=== PATIENT | female | born 1965 | race Caucasian/White ===

== ENCOUNTER → 2018-01-08 09:24 | Outpatient (CLI) | payer BC, SELFPAY ==
--- NOTE | 2018-01-08 | XR_ITS ---
XR hip LT 2-3V w/pelvis HISTORY: Left hip pain ORDERING PHYSICIAN: Lizzie Mo PATIENT AGE: 52 years COMPARISON: None FINDINGS: No fracture or dislocation is evident. No significant degenerative change. No lytic or blastic change. Unremarkable soft tissues IMPRESSION: Negative left hip
--- NOTE | 2018-01-08 | XR_ITS ---
XR hip RT 2-3V w/pelvis HISTORY: Right ITS.REASON: BILATERAL HIP PAIN ORDERING PHYSICIAN: Lizzie Mo PATIENT AGE: 52 years COMPARISON: None FINDINGS: No fracture or dislocation is evident. No significant degenerative change. No lytic or blastic change. Unremarkable soft tissues IMPRESSION: Negative right hip
== END ==
PROVIDERS: PCP Physician Assistant; Visit Provider Physician Assistant
DX: M25.552 Pain in left hip (principal)
CPT/HCPCS: 73502

== ENCOUNTER 2018-01-08 16:50 | Observation (INO) | payer BC, SELFPAY ==
[2018-01-08 16:52] VITALS: BP 131/88; PULSE 63; RESP 17; TEMP 36.7; O2SAT 97; BMI 44.2
[2018-01-08 17:17] LABS: Basophils # 0.1 K/mm3 (0-0.2); Basophils % 0.7 % (0.1-2.0); Eosinophils # 0.2 K/mm3 (0.0-0.4); Hematocrit 46.3 % (37.0-47.0); Hemoglobin 14.8 g/dL (12.2-16.2); Lymphocytes # 2.6 K/mm3 (0.7-4.5); Lymphocytes % 26.7 K/mm3 (10-50); Mean Corpuscular HGB Conc 31.9 g/dL (31.8-35.4); Mean Corpuscular Hemoglobin 28.1 pg (27.0-31.2); Mean Corpuscular Volume 88.1 fl (81-99); Mean Platelet Volume 9.3 fl (7.4-10.4); Monocytes # 0.6 K/mm3 (0.1-1.0); Monocytes % 6.5 % (1.7-9.3); Neutrophils # 6.2 K/mm3 (1.8-7.8); Neutrophils % 64.2 % (37.0-80.0); Platelet Count 182 K/mm3 (142-424); Red Blood Count 5.25 M/mm3 (4.20-5.40); Red Cell Distribution Width 12.5 % (11.5-17.5); White Blood Count 9.6 K/mm3 (4.8-10.8)
[2018-01-08 17:26] LABS: Alanine Aminotransferase 21 U/L (12-78); Albumin Level 3.6 gm/dL (3.4-5.0); Albumin/Globulin Ratio 0.9 (1.1-1.8); Alkaline Phosphatase 152 U/L (46-116); Anion Gap 12.6 mEq/L (5-15); Aspartate Amino Transferase 12 U/L (15-37); Bilirubin,Total 0.4 mg/dL (0.2-1.0); Blood Urea Nitrogen 10 mg/dL (7-18); Calcium 8.9 mg/dL (8.5-10.1); Carbon Dioxide 29 mmol/L (21.0-32.0); Chloride 106 mmol/L (98-107); Creatinine Clearance Estimated 68 mL/min (0-300); Creatinine,Serum 0.84 mg/dL (0.55-1.02); Estimated Glomerular Filt Rate 71 ml/min (>60); GFR (African American) 86 ML/MIN (>60); Glucose 132 mg/dL (74-106); Potassium 3.6 mmoL/L (3.5-5.1); Sodium 144 mmol/L (136-145); Total Protein,Serum 7.6 gm/dL (6.4-8.2)
[2018-01-08 17:31] LABS: Appearance,Urine CLEAR (Clear); Bilirubin,Urine Negative (Negative); Blood, Urine Negative (Negative); Color,Urine YELLOW (Yellow); Glucose,Urine (UA) Negative (Negative); Ketones,Urine Negative (Negative); Leukocyte Esterase,Urine Negative (Negative); Microscopic, Urine URINE MICROSCOPIC (MICROSCOPIC); Nitrate,Urine Negative (Negative); PH,Urine 6.5 (5.0-8.5); Protein,Urine Negative (Negative); Urobilinogen,Urine 0.2 EU/dl (0.2)
[2018-01-08 17:37] LABS: D-Dimer 593 (0-400)
[2018-01-08 18:03] LABS: Bacteria,Urine 1+ /lpf
[2018-01-08 18:29] VITALS: BP 168/78; PULSE 74; RESP 16; O2SAT 96
--- NOTE | 2018-01-08 20:43 | HMH.EDEXTP ---
ED Disposition Clinical Impression: Thromboembolism Superficial thrombophlebitis Qualifiers: Superficial thrombophlebitis-Involved body area: lower extremity Laterality: right Qualified Code(s): I80.01 - Phlebitis and thrombophlebitis of superficial vessels of right lower extremity Disposition: Admitted As Inpatient Condition on Discharge: Good Time of Disposition: 20:44 - Critical Care Critical Care Time: No Attestation: On 01/08/18, the high probability of a clinically significant, sudden or life threatening deterioration of the following system(s) required my full and direct attention, intervention and personal management. The time I documented below is in addition to time spent performing reported procedures but includes the following listed in this critical care notation. Medical Decision Making - Medical Records Medical records reviewed: Yes: I reviewed the patient's medical records. Vital Signs: 01/08/18 16:52 01/08/18 18:29 01/08/18 21:19 Temperature 98.0 F 98.0 F Temperature Source Oral Oral Pulse Rate 71 Pulse Rate [Right Radial] 63 74 Respiratory Rate 17 16 19 Blood Pressure 142/71 Blood Pressure [Right Arm] 131/88 168/78 Blood Pressure Mean [Right Arm] 102 108 Blood Pressure Source Automatic Cuff Blood Pressure Source [Right Arm] Automatic Cuff Blood Pressure Position Sitting Blood Pressure Position [Right Arm] Supine 02 Sat by Pulse Oximetry 97 96 Oxygen Delivery Method Room Air Room Air Room Air - Lab Data Lab results reviewed: Yes: I reviewed the patient's lab results. Lab Results 01/08/18 17:05: WBC 9.6, RBC 5.25, Hgb 14.8, Hct 46.3, MCV 88.1, MCH 28.1, MCHC 31.9, RDW 12.5, Plt Count 182, MPV 9.3, Neut % (Auto) 64.2, Lymph % (Auto) 26.7, Elk % (Auto) 6.5, Eos % (Auto) 2.0, Baso % (Auto) 0.7, Neut # (Auto) 6.2, Lymph # (Auto) 2.6, Elk # (Auto) 0.6, Eos # (Auto) 0.2, Baso # (Auto) 0.1 01/08/18 17:05: D-Dimer 593 H* 01/08/18 17:05: Sodium 144, Potassium 3.6, Chloride 106, Carbon Dioxide 29, Anion Gap 12.6, BUN 10, Creatinine 0.84, Estimated Creat Clear 68, Estimated GFR 71, Est GFR ( Amer) 86, Glucose 132 H, Calcium 8.9, Total Bilirubin 0.4, AST 12 L, ALT 21, Alkaline Phosphatase 152 H, Total Protein 7.6, Albumin 3.6, Globulin 4.0 H, Albumin/Globulin Ratio 0.9 L 01/08/18 17:20: Urine Color Yellow, Urine Appearance Clear, Urine pH 6.5, Ur Specific [place] 1.020, Urine Protein Negative, Urine Glucose (UA) Negative, Urine Ketones Negative, Urine Blood Negative, Urine Nitrate Negative, Urine Bilirubin Negative, Urine Urobilinogen 0.2, Ur Leukocyte Esterase Negative, Urine RBC None, Urine WBC 3-5, Ur Squamous Epith Cells 5-10, Urine Bacteria 1+ Result diagrams: 01/08/18 17:05 01/08/18 17:05 Orders (Tests/Meds): ED MEDICATIONS Discontinued Medications Generic Name Dose Route Start Last Admin Trade Name Freq PRN Reason Stop Dose Admin Hydrocodone Bitart/Acetaminophen 1 tab 01/09/18 03:02 01/09/18 17:34 [place] 5/325mg Tablet PO 02/08/18 03:01 1 tab Q6HP PRN Administration MODERATE PAIN Enoxaparin Sodium 120 mg 01/08/18 20:50 01/08/18 21:01 Lovenox 120mg/0.8ml Syringe SQ 01/08/18 20:51 120 mg ONCE ONE Administration Enoxaparin Sodium 120 mg 01/09/18 07:15 01/09/18 10:57 Lovenox 120mg/0.8ml Syringe SQ 02/08/18 07:14 Not Given Q12 ALICE Ceftriaxone Sodium 1 gm/ 50 mls @ 100 mls/hr 01/08/18 18:39 01/08/18 21:01 Sodium Chloride IV 01/08/18 19:08 100 mls/hr ONCE ONE Administration Sodium Chloride 1,000 mls @ 75 mls/hr 01/08/18 21:21 01/09/18 13:04 Sod Chlor 0.9% 1000ml Bag IV 02/07/18 21:20 75 mls/hr .[id number] ALICE Administration Ceftriaxone Sodium 1 gm/ 50 mls @ 100 mls/hr 01/08/18 21:21 01/08/18 23:37 Sodium Chloride IV 01/22/18 21:20 Not Given Q24H ALICE Ceftriaxone Sodium 1 gm/ 50 mls @ 100 mls/hr 01/09/18 13:00 01/09/18 13:04 Sodium Chloride IV 01/23/18 12:59 100 mls/hr Q24H ALICE
--- NOTE | 2018-01-08 20:50 | ED_ITS ---
ED Disposition Clinical Impression: Thromboembolism Superficial thrombophlebitis Qualifiers: Superficial thrombophlebitis-Involved body area: lower extremity Laterality: right Qualified Code(s): I80.01 - Phlebitis and thrombophlebitis of superficial vessels of right lower extremity Disposition: Admitted As Inpatient Condition on Discharge: Good Time of Disposition: 20:44 - Critical Care Critical Care Time: No Attestation: On 01/08/18, the high probability of a clinically significant, sudden or life threatening deterioration of the following system(s) required my full and direct attention, intervention and personal management. The time I documented below is in addition to time spent performing reported procedures but includes the following listed in this critical care notation. Medical Decision Making - Medical Records Medical records reviewed: Yes: I reviewed the patient's medical records. Vital Signs: 01/08/18 16:52 01/08/18 18:29 01/08/18 21:19 Temperature 98.0 F 98.0 F Temperature Source Oral Oral Pulse Rate 71 Pulse Rate [Right Radial] 63 74 Respiratory Rate 17 16 19 Blood Pressure 142/71 Blood Pressure [Right Arm] 131/88 168/78 Blood Pressure Mean [Right Arm] 102 108 Blood Pressure Source Automatic Cuff Blood Pressure Source [Right Arm] Automatic Cuff Blood Pressure Position Sitting Blood Pressure Position [Right Arm] Supine 02 Sat by Pulse Oximetry 97 96 Oxygen Delivery Method Room Air Room Air Room Air - Lab Data Lab results reviewed: Yes: I reviewed the patient's lab results. Lab Results 01/08/18 17:05: WBC 9.6, RBC 5.25, Hgb 14.8, Hct 46.3, MCV 88.1, MCH 28.1, MCHC 31.9, RDW 12.5, Plt Count 182, MPV 9.3, Neut % (Auto) 64.2, Lymph % (Auto) 26.7 , [place] % (Auto) 6.5, Eos % (Auto) 2.0, Baso % (Auto) 0.7, Neut # (Auto) 6.2, Lymph # (Auto) 2.6, [place] # (Auto) 0.6, Eos # (Auto) 0.2, Baso # (Auto) 0.1 01/08/18 17:05: D-Dimer 593 H* 01/08/18 17:05: Sodium 144, Potassium 3.6, Chloride 106, Carbon Dioxide 29, Anion Gap 12.6, BUN 10, Creatinine 0.84, Estimated Creat Clear 68, Estimated GFR 71, Est GFR ( Amer) 86, Glucose 132 H, Calcium 8.9, Total Bilirubin 0.4, AST 12 L, ALT 21, Alkaline Phosphatase 152 H, Total Protein 7.6, Albumin 3.6, Globulin 4.0 H, Albumin/Globulin Ratio 0.9 L 01/08/18 17:20: Urine Color Yellow, Urine Appearance Clear, Urine pH 6.5, Ur Specific [place] 1.020, Urine Protein Negative, Urine Glucose (UA) Negative, Urine Ketones Negative, Urine Blood Negative, Urine Nitrate Negative, Urine Bilirubin Negative, Urine Urobilinogen 0.2, Ur Leukocyte Esterase Negative, Urine RBC None, Urine WBC 3-5, Ur Squamous Epith Cells 5-10, Urine Bacteria 1+ Result diagrams: 01/08/18 17:05 01/08/18 17:05 Orders (Tests/Meds): ED MEDICATIONS Discontinued Medications Generic Name Dose Route Start Last Admin Trade Name Stevenq PRN Reason Stop Dose Admin Hydrocodone Bitart/Acetaminophen 1 tab 01/09/18 03:02 01/09/18 17:34 [place] 5/325mg Tablet PO 02/08/18 03:01 1 tab Q6HP PRN Administration MODERATE PAIN Enoxaparin Sodium 120 mg 01/08/18 20:50 01/08/18 21:01 Lovenox 120mg/0.8ml Syringe SQ 01/08/18 20:51 120 mg ONCE ONE Administration Enoxaparin Sodium 120 mg 01/09/18 07:15 01/09/18 10:57 Lovenox 120mg/0.8ml Syringe SQ 02/08/18 07:14 Not Given Q12 ALICE
--- NOTE | 2018-01-08 21:18 | PC.NURSE ---
report called to swathi barksdale rn
[2018-01-08 21:19] VITALS: BP 142/71; PULSE 71; RESP 19; TEMP 36.7; O2SAT 94
--- NOTE | 2018-01-08 21:28 | PC.NURSE ---
PT FULL CODE, REPORT FROM MARIE.MAURICIO
[2018-01-08 21:45] VITALS: BP 132/66; PULSE 58; RESP 20; TEMP 36.3; O2SAT 97
[2018-01-08 23:08] VITALS: O2SAT 97
[2018-01-09 00:19] VITALS: BMI 41.8
[2018-01-09 04:40] VITALS: BP 125/52; PULSE 61; RESP 18; TEMP 36.2; O2SAT 90
--- NOTE | 2018-01-09 07:01 | NVE_ITS ---
Venous Exam Indications: 729.5 Pain in limb. IMPRESSIONS 1. There is no evidence of significant Reflux. 2. No evidence of deep or superficial vein thrombosis involving the right lower extremity Incidental findings of several enlarged lymph nodes vspossible superficaial venous thrombosisin and around groin mid front of upper thigh which were tender and painful to patient as exam was performed.These findings did not involve GSV,SFV or CFV. Right lower extremity venous duplex evaluation. Doppler flow study including spectral analysis, color and longoria scale imaging. Location: Bedside. Patient status: Inpatient. CRITICAL FINDINGS - Reported to: Fransico FUENTES also discussed with Dr. Slaughter - Read back and verified. - 01/09/18 - 970 Tables: Venous flow and imaging: + +-------+ + Location Overall Flow properties + +-------+ + Right common femoral Patent Normal phasicity; spontaneous; normal augmentation; compressible + +-------+ + Right saphenofemoral junction Patent Compressible + +-------+ + Right profunda femoral Patent Compressible + +-------+ + Right femoral Patent Normal phasicity; spontaneous; normal augmentation; compressible + +-------+ + Right greater saphenous Patent Normal phasicity; spontaneous; normal augmentation; compressible + +-------+ + Right popliteal Patent Normal phasicity; spontaneous; normal augmentation; compressible + +-------+ + Right posterior tibial Patent Compressible + +-------+ + Right peroneal Patent Compressible + +-------+ + Right gastrocnemius Patent Compressible + +-------+ + Right soleal Patent Compressible + +-------+ + (Report amended ) Electronically signed by: [place] [id number]
--- NOTE | 2018-01-09 07:16 | HMH.HP ---
*Admission Date: 01/08/18 *Chief complaint: Right thigh pain *History of present illness: A 2-year-old female presented to the emergency department yesterday evening after a 24 hour history of proximal right thigh pain that was worsening in intensity and had developed an area of redness. In the emergency department patient was felt to have a definite superficial thrombophlebitis with concern over a deeper vein thrombosis. Decision was made to admit her for Lovenox, Doppler and decision-making. Patient is a half pack per day smoker for 35 years. There is no family history of blood clots. She denies any recent travel. She does not take any medications that are prescribed. [facility] History I have reviewed the patient's past medical history: Yes Medical History: Denies:: Cancer, Diabetes Mellitus Type 1, Diabetes Mellitus Type 2, MRSA Other Medical History: Reports: Arthritis, Liver Disease Other Surgeries: Yes: Hysterectomy-Total Amputation: No Fractures: Yes (hand) - *Social History Educational Level: Completed Grade School Smoking Status: Current every day smoker Tobacco Type: cigarettes # Packs/Day (cigarettes): 1 Alcohol Intake: never Occupational Status: unemployed Housing: house Household Members: spouse, children - Psychiatric History Expresses thoughts of harming self/others: None Suicide Plan Description: No Plan *Family Hx:: Diabetes, Heart Attack, Hyperlipidemia, Hypertension, Kidney Disease, Stroke, Thyroid Disorder Review of Systems - Review of Systems Review of systems:: unable to obtain - *Cardiovascular Denies chest pain - *Respiratory Denies shortness of breath Meds Allergies Allergy/AdvReac Type Severity Reaction Status Date / Time DAIRY PRODUCTS AdvReac Intermediate Gastrointestinal Uncoded 01/09/18 00:24 Upset Exam Vital signs and Labs for Last 24 Hours: Temp Pulse Resp BP Pulse Ox 97.2 F L 61 18 125/52 90 L 01/09/18 04:40 01/09/18 04:40 01/09/18 04:40 01/09/18 04:40 01/09/18 04:40 I & O for Last 24 hours: Intake & Output 01/06/18 01/07/18 01/08/18 01/09/18 11:59 11:59 11:59 11:59 Intake Total 462 / 462 Balance 462 / 462 Weight 251 lb 5 oz Narrative: Patient is in no distress. Lungs are clear to auscultation. Heart has a regular rate and rhythm. Abdomen is obese soft, nontender. Right anterior thigh has an L-shaped area of redness surrounding a superficial varicose vein that is tender to touch and consistent with a cord. There is minimal swelling. Assessment and Plan (1) Superficial thrombophlebitis Current visit: Yes Status: Acute Qualifiers: Superficial thrombophlebitis-Involved body area: lower extremity Laterality: right Qualified Code(s): I80.01 - Phlebitis and thrombophlebitis of superficial vessels of right lower extremity Category: Medical Code(s): I80.9 - Phlebitis and thrombophlebitis of unspecified site (2) Thromboembolism Current visit: Yes Status: Acute Category: Medical Code(s): I74.9 - Embolism and thrombosis of unspecified artery - Assessment and plan all Dx Assessment and Plan for all problems:: Lovenox dosing at 1 mg/kg subcu every 12. Venous Doppler of right lower extremity today. Start naproxen 500 mg twice daily. Use warm compresses to the thigh. Further decision making once venous Dopplers performed
--- NOTE | 2018-01-09 07:34 | P.CONPHA_ITS ---
[facility] Pharmacy VTE Monitoring - Patient Demographics Admission date: 01/08/18 Report Date: 01/09/18 Time: 07:33 Allergies/Adverse Reactions: Patient Allergies DAIRY PRODUCTS Adverse Reaction (Intermediate, Uncoded 01/09/18 00:24) Gastrointestinal Upset Height: 1.65 m Weight: 113.993 kg Patient Problems: Current Active Problems Superficial thrombophlebitis (Acute) Thromboembolism (Acute) - VTE Risk Labs: VTE Related Lab Results Hgb 14.8 g/dL (12.2-16.2) 01/08/18 17:05 Hct 46.3 % (37.0-47.0) 01/08/18 17:05 Plt Count 182 K/mm3 (142-424) 01/08/18 17:05 BUN 10 mg/dL (7-18) 01/08/18 17:05 Creatinine 0.84 mg/dL (0.55-1.02) 01/08/18 17:05 Estimated Creat Clear 68 mL/min (0-300) 01/08/18 17:05 Was VTE Risk Assessment Performed: Yes VTE Score: 5 VTE Risk Level: Moderate Risk - Prophylaxis VTE Prophylaxis Ordered?: Yes Types of VTE Prophylaxis: Pharmacological Pharmacologic Type: Enoxaparin - VTE Diagnosis Confirmed Treatment or plan recommended: Continue Current Treatment
[2018-01-09 08:00] VITALS: BP 133/73; PULSE 63; RESP 16; TEMP 36.8; O2SAT 93; O2SAT 98
--- NOTE | 2018-01-09 16:31 | P.DS_ITS ---
General - General Admission date: 01/08/18 Discharge date: 01/09/18 HPI HPI: A 2-year-old female presented to the emergency department yesterday evening after a 24 hour history of proximal right thigh pain that was worsening in intensity and had developed an area of redness. In the emergency department patient was felt to have a definite superficial thrombophlebitis with concern over a deeper vein thrombosis. Decision was made to admit her for Lovenox, Doppler and decision-making. Patient is a half pack per day smoker for 35 years. There is no family history of blood clots. She denies any recent travel. She does not take any medications that are prescribed. Objective Vital signs: Temp Pulse Resp BP Pulse Ox 98.3 F 63 16 133/73 98 01/09/18 08:00 01/09/18 08:00 01/09/18 08:00 01/09/18 08:00 01/09/18 08:00 Narrative: His physical exam was significant for an L shaped area of erythema with central induration consistent with a palpable cord that measured 15 cm in length. Hospital Course Hospital Course: Patient was admitted for venous Doppler to rule out DVT in addition to what was thought to be in SVT. Venous Doppler rule out DVT but the area of L-shaped erythema on the anterior thigh was felt to be consistent with inflamed lymph nodes as opposed to a superficial vein thrombosis. Patient was admitted and treated with Toradol and once the area of erythema and induration was identified as lymphadenopathy she was given a single dose of Rocephin. In less than 24 hours the patient's erythema improved, although it was still present at discharge. Tender lymphadenopathy was present. On exam patient did not have any tender inguinal lymphadenopathy on the right. Patient will be discharged home with narcotics for pain control, antibiotics, omeprazole due to a history of significant GI symptoms. DS: Diagnosis - Discharge Diagnosis (1) Lymphadenitis Status: Acute (2) Superficial thrombophlebitis Status: Suspected (3) Thromboembolism Status: Ruled-out Meds Allergies Allergy/AdvReac Type Severity Reaction Status Date / Time DAIRY PRODUCTS AdvReac Intermediate Gastrointestinal Uncoded 01/09/18 00:24 Upset Discharge Plan - Patient Discharge Instructions ACTIVITY: Continue current activity DIET: continue same diet Patient Instructions: DI for Superficial Thrombophlebitis - Follow up Plan Follow up with: Lizzie Mo [Primary Care Provider] - Disposition: Home, Self-Care Prescriptions/Medication Reconciliation: New cephALEXin [Cephalexin 500mg Tab] 500 mg PO QID #28 tab Omeprazole [Omeprazole 20mg Capsule] 20 mg PO DAILY #30 cap Hydrocod/Acet 5/325 mg [[place] 5/325mg tablet] 1 tab PO Q4HP PRN #30 tab PRN Reason: Moderate To Severe Pain
== END 2018-01-09 18:55 | disposition home or self-care (01) ==
LOC: ER 20:50 → 2ND 22:25
PROVIDERS: Admitting Provider Family Medicine; Emergency Provider Emergency Medicine; PCP Physician Assistant; Visit Provider Family Medicine
DX: L04.3 Acute lymphadenitis of lower limb (principal); I80.01 Phlebitis and thrombophlebitis of superficial vessels of right lower extremity; F17.210 Nicotine dependence, cigarettes, uncomplicated; Z91.011 Allergy to milk products
CPT/HCPCS: 80053; 81001; 85025; 85378; 93971; 96365; 96375; 99282; G0378; J2405

== ENCOUNTER → 2018-01-17 13:16 | Outpatient (CLI) | payer BC, SELFPAY ==
--- NOTE | 2018-01-17 13:26 | XR_ITS ---
XR lumbar spine min 4V Ordering Physician: Lizzie Mo Patient Age: 52 years: Female HISTORY: ITS.REASON: LOWER BACK PAIN AND LEFT HIP PAIN TECHNIQUE: Five-view lumbar spine series COMPARISON : FINDINGS The lumbar vertebral bodies are intact. Degenerative disc changes and spondylosis at multiple levels. L5/S1 mild disc space narrowing posteriorly. Perhaps minor partial sacralization of L5 to left as it transverse process is noted to articulate with the superior margin left sacrum. Bilateral Facet arthropathy L4/5: most notable disc space narrowing posteriorly into the left at L4/5 disc level. Note posterior ridging & spondylosis at this level most evident the left. Just over 1 mm retrolisthesis possibly present as well. These features along with moderate facet hypertrophy on likely due to yield some narrowing the spinal canal and suspect there may be some mild encroachment upon foramen. L3/4. With borderline disc space narrowing posteriorly at L3/4 with mild posterior hypertrophic ridging. L2/3 disc intact with only borderline narrowing posteriorly L1/2 borderline/scant disc space narrowing posteriorly with mild reactive sclerotic endplate changes Mild Anterior marginal osteophytes throughout the L-spine Mild diffuse demineralization. No compression fractures. Pedicles transverse processes SI joints unremarkable. Partially imaged Limited view of hip unremarkable bilateral IMPRESSION....... 1. No compression fracture or acute findings. 2. Spondylosis and Degenerative changes lumbar spine as described above. Multilevel degenerative discs : .L4/5. Disc space narrowing most pronounced at this level to the left, suggestion mild posterior hypertrophic ridging and spondylosis suggested along with facet arthropathy . L5/S1 with bilateral facet arthropathy and mild/moderate disc space narrowing. .L3/4 mild disc space narrowing posterior L5/S1
== END ==
PROVIDERS: PCP Physician Assistant; Visit Provider Physician Assistant
DX: M54.5 Low back pain (principal); M25.552 Pain in left hip
CPT/HCPCS: 72110

== ENCOUNTER → 2018-01-21 12:04 | Outpatient (CLI) | payer BC, SELFPAY ==
--- NOTE | 2018-01-21 12:20 | CT_ITS ---
CT head/brain wo con HISTORY: ITS.REASON: HEADACHES BILATERALLY, DIZZINESS ORDERING PHYSICIAN: Lizzie Mo PATIENT AGE: 52 years COMPARISON: None TECHNIQUE: Axial images obtained without contrast. Brain and bone windows reviewed. FINDINGS: No midline shift, mass effect, intracranial hemorrhage, hydrocephalus, or extra-axial fluid collection is evident. The calvarium has an unremarkable appearance. No mastoid effusion. No sinus air-fluid levels.. Minor mucosal thickening noted in the ethmoid and maxillary sinuses. IMPRESSION: No acute intracranial findings.
== END ==
PROVIDERS: PCP Physician Assistant; Visit Provider Physician Assistant
DX: R51 Headache (principal); R42 Dizziness and giddiness
CPT/HCPCS: 70450

== ENCOUNTER → 2018-01-27 08:04 | Outpatient (CLI) | payer BC, SELFPAY ==
[2018-01-27 14:21] LABS: Alanine Aminotransferase 20 U/L (12-78); Albumin Level 3.6 gm/dL (3.4-5.0); Alkaline Phosphatase 147 U/L (46-116); Anion Gap 9.9 mEq/L (5-15); Aspartate Amino Transferase 8 U/L (15-37); Bilirubin,Direct 0.1 mg/dL (0.0-0.2); Bilirubin,Total 0.3 mg/dL (0.2-1.0); Blood Urea Nitrogen 23 mg/dL (7-18); Carbon Dioxide 32 mmol/L (21.0-32.0); Chloride 104 mmol/L (98-107); Chol/HDL Ratio 4.7 (1-3.5); Cholesterol 206 mg/dL (140-200); Creatinine,Serum 0.92 mg/dL (0.55-1.02); Estimated Glomerular Filt Rate 64 ml/min (>60); GFR (African American) 78 ML/MIN (>60); Glucose 89 mg/dL (74-106); HDL Cholesterol 44 mg/dL (29-89); LDL Cholesterol 120 mg/dL (0-130); Magnesium 1.7 mg/dL (1.4-2.2); Potassium 3.9 mmoL/L (3.5-5.1); Sodium 142 mmol/L (136-145); Total Protein,Serum 6.9 gm/dL (6.4-8.2); Triglycerides 211 mg/dL (30-200); VLDL Cholesterol 42 mg/dL (0-40)
== END ==
PROVIDERS: PCP Physician Assistant; Visit Provider Internal Medicine
DX: R07.9 Chest pain, unspecified (principal); I10 Essential (primary) hypertension; Z72.0 Tobacco use; R01.1 Cardiac murmur, unspecified; I80.9 Phlebitis and thrombophlebitis of unspecified site
CPT/HCPCS: 36415; 80048; 80061; 80076; 83735

== ENCOUNTER → 2018-01-30 10:51 | Outpatient (CLI) | payer BC, SELFPAY ==
--- NOTE | 2018-01-30 11:12 | MM_ITS ---
MM Dig screening mamm BI w/CAD CAD Screening ORDERING PHYSICIAN : Lizzie Mo PATIENT AGE: 52 years GENDER: Female COMPARISON: Previous mammograms March:These are Outside studies now available from [facility] . INDICATION: Routine screening mammogram 52-year-old. No hormones no new complaints. Previous biopsy left breast in the past Noncontributory family history TECHNIQUE: Standard CC and MLO images were obtained. R2 CAD reviewed. 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 20 mm X 18 mm, with with the large dense coarse calcifications compatible with the abdomen has. The nodule has not enlarged since 2013. Stability reassuring. Annual follow-up adequate for this most likely benign feature. LEFT BREAST::. Unremarkable. No new findings. Follow-up in one year bilateral IMPRESSION: 1. No s ignificant interval change a since outside studies... No new areas of concern Follow-up in one year recommended 2. Right breast:. 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 Size unchanged. Slight progression of the dense benign calcifications here. 3. Left breast. Unremarkable stable BI-RADS Category: 2 Benign Finding(s) RECOMMENDED FOLLOW-UP: 1YR - 1 YEAR FOLLOW-UP (A letter has been sent to the patient regarding results of the study.)
== END ==
PROVIDERS: PCP Physician Assistant; Visit Provider Physician Assistant
DX: Z12.31 Encounter for screening mammogram for malignant neoplasm of breast (principal)
CPT/HCPCS: 77067

== ENCOUNTER → 2018-02-03 07:53 | Outpatient (CLI) | payer BC, SELFPAY ==
--- NOTE | 2018-02-03 08:30 | US_ITS ---
US abdomen limited: HISTORY: Left upper quadrant pain ITS.REASON: CP, HTN,TOB USE,THROMBOPHLIBITIS ORDERING PHYSICIAN: Eddie Tyler MD PATIENT AGE: 52 years COMPARISON: None FINDINGS: PANCREAS: Unremarkable. No obvious mass or abnormal fluid collection. No ductal dilatation LIVER: No focal liver lesions demonstrated. Homogeneous echogenicity. No intrahepatic biliary ductal dilatation evident RIGHT KIDNEY: Unremarkable. Normal size and echogenicity. No hydronephrosis GALLBLADDER: There are numerous gallstones. No gallbladder wall thickening or pericholecystic fluid or biliary dilatation is evident. IMPRESSION: Cholelithiasis
== END ==
PROVIDERS: PCP Physician Assistant; Visit Provider Internal Medicine
DX: R07.9 Chest pain, unspecified (principal); I10 Essential (primary) hypertension; R01.1 Cardiac murmur, unspecified; I80.9 Phlebitis and thrombophlebitis of unspecified site
CPT/HCPCS: 76705

== ENCOUNTER → 2018-02-04 05:58 | Outpatient (CLI) | payer BC, SELFPAY ==
--- NOTE | 2018-02-04 | CA_ITS ---
PROCEDURE: 2-D M-mode and color Doppler study INDICATIONS FOR THE TEST: Chest pain + COPD+ Heart Murmur Tobacco Smoking+ Palpitations Fatigue Syncope Edema+ Hypertension+Diabetes Mellitus Rheumatic Fever SOB VITAL Obesity Hyperlipidemia Family History HD Additional History ABN EKG PATIENT INFORMATION HEIGHT: 64 WEIGHT:258 GENDER: Female B/P:152/86 2-D/M-MODE INTERPRETATION: 2-D MEASUREMENTS OBSERVED VALUES IN CMS Right Ventricular Dimension (RVDd) 2.6 Interventricular Septum (Thickness)(IVsd) 1.4 Left Ventricular Internal Dimensions(LVIDd) 5.7 Left Ventricular Posterior Wall (Thickness)(LVPWd) 0.4 Aortic Root 3.5 Aortic Cusp Separation 2.3 Left Atrial Dimensions (LAD) 4.5 2D 1. Left atrium is mildly enlarged, left ventricle is normal size, there is mild concentric left ventricular hypertrophy seen, visually estimated ejection fraction of 55% with no obvious regional wall motion abnormality. 2. The right atrium and right ventricle are normal size and contractility. 3. The aortic valve is minimally thickened and fibrosed. 4. The mitral and tricuspid valve are structurally normal. 5. The pulmonic valve is poorly visualized. 6. No significant pericardial effusion noted. DOPPLER INTERROGATION: Doppler interrogation of the aortic, mitral and tricuspid valvular presence of mild mitral and tricuspid regurgitation, tricuspid and jet velocity is insufficient for calculation of the right ventricular systolic pressure, Doppler evidence of impaired LV relaxation seen. CONCLUSION: 1. Mildly enlarged left atrium, normal left ventricular size, mild concentric left ventricular hypertrophy, visually estimated ejection fraction 55% with no obvious regional wall motion abnormality. Doppler evidence of impaired LV relaxation seen. 2. Mild mitral and tricuspid regurgitation 3. No significant pericardial effusion noted.
--- NOTE | 2018-02-04 06:03 | NM_ITS ---
CARDIOLITE SPECT MYOCARDIAL PERFUSION SCAN, REST AND STRESS: EXERCISE STRESS [facility] REVIEW QGS EF AND WALL MOTION EVALUATION: QPS - PERFUSION EVALUATION HISTORY: C.P., HTN, TOB USE, CARDIAC M DOSE: 10.84 mCi technetium 99m mibi intravenously at rest followed by 32.3 mCi technetium 99m mibi following the intravenous ministration of 0.4 mg of Lexiscan. Resting blood pressure is 116/56. Stress blood pressure 119/46. FINDINGS: Ejection fraction is calculated to be 56. Stress images reveal severe left ventricular dilatation with reduced uptake in the anterior wall and lateral wall. Rest images reveal left ventricular dilatation which has improved with uniform myocardial activity. Gated images calculated ejection fraction of 56% with normal wall motion IMPRESSION: High risk abnormal stress test with severe left ventricular dilatation and anterior and lateral ischemia. Normal ejection fraction
--- NOTE | 2018-02-04 07:50 | HMH.ITSHM ---
AMLODIPINE HYDROCHLOROTHIAZIDE LISINOPRIL CALCIUM B12
== END ==
PROVIDERS: PCP Physician Assistant; Visit Provider Internal Medicine
DX: R07.9 Chest pain, unspecified (principal); I10 Essential (primary) hypertension; Z72.0 Tobacco use; R01.1 Cardiac murmur, unspecified; I80.9 Phlebitis and thrombophlebitis of unspecified site
CPT/HCPCS: 78452; 93017; 93306; A9502; J2785

== ENCOUNTER 2018-02-16 07:30 | Day surgery (SDC) | payer BC, SELFPAY ==
[2018-02-16] VITALS (14 sets, daily range): BP systolic 109–156; BP diastolic 46–72; PULSE 58–86; RESP 16–18; TEMP 36.6; O2SAT 95–97; BMI 43.7
--- NOTE | 2018-02-16 | IR_ITS ---
CARDIAC CATHETERIZATION DATE OF CATHETERIZATION:02/16/2018 9:06 AM PROCEDURES: 1. Left heart catheterization 2. Left ventriculogram 3. Selective coronary angiogram INDICATION FOR TEST: 1. High risk abnormal Myoview 2. Class IV congestive heart failure/angina pectoris Informed consent was obtained prior to the procedure. COMPLICATIONS: None ESTIMATED BLOOD LOSS: Less than 10 ml. TECHNIQUE: One percent lidocaine used to anesthetize the right anterior aspect of the wrist. The right radial artery was accessed via the Seldinger technique. A 6 [place] Islander sheath was placed in the right radial artery. 2.5 mg of verapamil, 800 mcg of nitroglycerin and 5000 U Heparin were given through the arterial sheath. The trap catheter was also used to perform left heart catheterization and left ventriculography. At the end of the procedure the patient was transferred to the post-op holding area in stable condition for arterial sheath removal. ANGIOGRAPHIC RESULTS: 1. The left main artery normal 2. The left anterior descending artery normal 3. The circumflex artery nondominant large and normal 4. The right coronary artery dominant normal 5. The SUNSHINE ventriculogram reveals normal 65% 6. The left ventricular end-diastolic pressure elevated at 25 mmHg IMPRESSION: 1. Normal coronary arteries 2. Normal ejection fraction 3. Moderately elevated LVEDP consistent with diastolic dysfunction PLAN: 1. Medical management 2. Patient's symptoms are stemming from her diastolic congestive heart failure. We will switch her hydrochlorothiazide to furosemide and spironolactone in efforts to decrease diastolic heart failure elevated LVEDP
[2018-02-16 08:00] LABS: Basophils # 0.1 K/mm3 (0-0.2); Basophils % 0.5 % (0.1-2.0); Eosinophils # 0.2 K/mm3 (0.0-0.4); Eosinophils % 2.3 % (0.1-12.0); Hematocrit 44.9 % (37.0-47.0); Hemoglobin 14.2 g/dL (12.2-16.2); Lymphocytes # 2.8 K/mm3 (0.7-4.5); Lymphocytes % 27.1 K/mm3 (10-50); Mean Corpuscular HGB Conc 31.7 g/dL (31.8-35.4); Mean Corpuscular Hemoglobin 28.2 pg (27.0-31.2); Mean Platelet Volume 9.2 fl (7.4-10.4); Monocytes # 0.6 K/mm3 (0.1-1.0); Neutrophils # 6.6 K/mm3 (1.8-7.8); Neutrophils % 64.2 % (37.0-80.0); Platelet Count 206 K/mm3 (142-424); Red Blood Count 5.04 M/mm3 (4.20-5.40); Red Cell Distribution Width 12.1 % (11.5-17.5); White Blood Count 10.3 K/mm3 (4.8-10.8)
[2018-02-16 08:04] LABS: Blood Urea Nitrogen 22 mg/dL (7-18); Carbon Dioxide 31 mmol/L (21.0-32.0); Chloride 107 mmol/L (98-107); Creatinine Clearance Estimated 59 mL/min (0-300); Creatinine,Serum 0.96 mg/dL (0.55-1.02); Estimated Glomerular Filt Rate 61 ml/min (>60); GFR (African American) 74 ML/MIN (>60); Glucose 89 mg/dL (74-106); Sodium 143 mmol/L (136-145)
== END 2018-02-16 12:53 | disposition home or self-care (01) ==
LOC: CATHLAB 07:31
PROVIDERS: PCP Physician Assistant; Visit Provider Internal Medicine
DX: R93.1 Abnormal findings on diagnostic imaging of heart and coronary circulation (principal); I50.32 Chronic diastolic (congestive) heart failure; I11.0 Hypertensive heart disease with heart failure; Z72.0 Tobacco use; G89.29 Other chronic pain; Z82.49 Family history of ischemic heart disease and other diseases of the circulatory system; I80.01 Phlebitis and thrombophlebitis of superficial vessels of right lower extremity; Z79.899 Other long term (current) drug therapy; I25.119 Atherosclerotic heart disease of native coronary artery with unspecified angina pectoris
CPT/HCPCS: 80048; 85025; 93458; 99152; C1725; C1769; J1644; Q9967

== ENCOUNTER → 2018-03-13 08:56 | Outpatient (CLI) | payer BC, SELFPAY ==
--- NOTE | 2018-03-13 08:58 | CT_ITS ---
CT abdomen pelvis w con COMPARISON: Ultrasound abdomen limited 02/03/2018 HISTORY: Nausea and vomiting, right upper quadrant pain TECHNIQUE: Multiaxial scans obtained from the hemidiaphragms to the pelvic floor and were performed with IV and oral contrast. Sagittal and coronal reformats were evaluated as well. FINDINGS: The lower lung troncoso are clear of active infiltrate, there is minimal post inflammatory scarring in the right lower lobe lateral basilar segment. There is a moderate-sized hiatal hernia. The liver spleen and stomach appear grossly normal. The pancreas is normal. There are multiple calcified gallstones within the gallbladder. There is no biliary ductal dilatation. The kidneys are normal size and show symmetrical function both appearing normal. The small bowel appears normal. I do not definitely identify the appendix but there are no pericecal inflammatory changes. The cecum is positioned low in the right side the pelvis a normal variation. There is moderate stool mixed with contrast in the cecum and ascending colon. There is mild diffuse diverticulosis of the lower descending and sigmoid colon with is no evidence of diverticulitis. There has been a previous hysterectomy. Urinary bladder is partially decompressed, there is no free fluid in the pelvis. IMPRESSION: 1. Obvious cholelithiasis 2. Mild diverticulosis lower descending and sigmoid colon without diverticulitis
== END ==
PROVIDERS: PCP Physician Assistant; Visit Provider Surgery
DX: K82.9 Disease of gallbladder, unspecified (principal)
CPT/HCPCS: 74177; Q9967

== ENCOUNTER → 2018-03-26 11:14 | Outpatient (CLI) | payer BC, SELFPAY ==
[2018-03-26 11:20] LABS: Adenovirus F 40/41, stool Not Detected (NotDetected); Astrovirus Not Detected (NotDetected); Campylobacter Not Detected (NotDetected); Clostridium Difficile A/B, PCR Not Detected (NotDetected); Cryptosporidium Not Detected (NotDetected); Cyclospora Cayetanesis Not Detected (NotDetected); Entamoeba histolytica Not Detected (NotDetected); Enteroaggregative E coli Not Detected (NotDetected); Enteropathogenic E coli Not Detected (NotDetected); Enterotoxigenic E coli Not Detected (NotDetected); Giardia lamblia Not Detected (NotDetected); Norovirus Not Detected (NotDetected); Plesimonas Shigalloides, PCR Not Detected (NotDetected); Rotavirus A Not Detected (NotDetected); Salmonella, PCR Not Detected (NotDetected); Sapovirus Not Detected (NotDetected); Shiga-like toxin E coli Not Detected (NotDetected); Shigella Enterovasive E coli Not Detected (NotDetected); Vibrio Cholerae Not Detected (NotDetected); Vibrio, PCR Not Detected (NotDetected); Yersinia Entercolitica, PCR Not Detected (NotDetected)
[2018-03-26 13:33] LABS: Alanine Aminotransferase 12 U/L (12-78); Albumin Level 3.5 gm/dL (3.4-5.0); Albumin/Globulin Ratio 1.1 (1.1-1.8); Alkaline Phosphatase 127 U/L (46-116); Anion Gap 14.4 mEq/L (5-15); Aspartate Amino Transferase 8 U/L (15-37); Bilirubin,Total 0.2 mg/dL (0.2-1.0); Blood Urea Nitrogen 37 mg/dL (7-18); Calcium 9.3 mg/dL (8.5-10.1); Carbon Dioxide 27 mmol/L (21.0-32.0); Chloride 107 mmol/L (98-107); Creatinine,Serum 2.01 mg/dL (0.55-1.02); Estimated Glomerular Filt Rate 26 ml/min (>60); GFR (African American) 31 ML/MIN (>60); Globulin 3.2 gm/dl (1.3-3.2); Glucose 116 mg/dL (74-106); Potassium 4.4 mmoL/L (3.5-5.1); Sodium 144 mmol/L (136-145); Total Protein,Serum 6.7 gm/dL (6.4-8.2)
[2018-03-26 13:41] LABS: Basophils # 0.1 K/mm3 (0-0.2); Basophils % 0.8 % (0.1-2.0); Eosinophils # 0.1 K/mm3 (0.0-0.4); Eosinophils % 1.2 % (0.1-12.0); Hematocrit 39.5 % (37.0-47.0); Hemoglobin 12.5 g/dL (12.2-16.2); Lymphocytes # 2.2 K/mm3 (0.7-4.5); Lymphocytes % 32.6 K/mm3 (10-50); Mean Corpuscular HGB Conc 31.7 g/dL (31.8-35.4); Mean Corpuscular Hemoglobin 28.4 pg (27.0-31.2); Mean Corpuscular Volume 89.4 fl (81-99); Mean Platelet Volume 9.7 fl (7.4-10.4); Monocytes # 0.6 K/mm3 (0.1-1.0); Monocytes % 9.2 % (1.7-9.3); Neutrophils # 3.7 K/mm3 (1.8-7.8); Neutrophils % 56.2 % (37.0-80.0); Platelet Count 211 K/mm3 (142-424); Red Blood Count 4.41 M/mm3 (4.20-5.40); Red Cell Distribution Width 12.5 % (11.5-17.5); White Blood Count 6.6 K/mm3 (4.8-10.8)
== END ==
PROVIDERS: PCP Physician Assistant; Visit Provider Physician Assistant
DX: R19.7 Diarrhea, unspecified (principal); R10.9 Unspecified abdominal pain
CPT/HCPCS: 36415; 80053; 85025; 87507

== ENCOUNTER → 2018-03-27 09:38 | Outpatient (CLI) | payer BC, SELFPAY ==
[2018-03-27 14:17] LABS: Anion Gap 13.6 mEq/L (5-15); Blood Urea Nitrogen 28 mg/dL (7-18); Carbon Dioxide 26 mmol/L (21.0-32.0); Chloride 107 mmol/L (98-107); Creatinine,Serum 1.55 mg/dL (0.55-1.02); Estimated Glomerular Filt Rate 35 ml/min (>60); GFR (African American) 42 ML/MIN (>60); Glucose 93 mg/dL (74-106); Potassium 4.6 mmoL/L (3.5-5.1); Sodium 142 mmol/L (136-145)
== END ==
PROVIDERS: Visit Provider Physician Assistant
DX: N17.9 Acute kidney failure, unspecified (principal)
CPT/HCPCS: 36415; 80048

== ENCOUNTER → 2018-03-30 08:34 | Outpatient (CLI) | payer BC, SELFPAY ==
[2018-03-30 16:12] LABS: Anion Gap 12.4 mEq/L (5-15); Carbon Dioxide 28 mmol/L (21.0-32.0); Chloride 107 mmol/L (98-107); Creatinine,Serum 1.66 mg/dL (0.55-1.02); Estimated Glomerular Filt Rate 32 ml/min (>60); GFR (African American) 39 ML/MIN (>60); Glucose 91 mg/dL (74-106); Potassium 4.4 mmoL/L (3.5-5.1); Sodium 143 mmol/L (136-145)
[2018-03-30 16:44] LABS: Blood Urea Nitrogen 22 mg/dL (7-18)
== END ==
PROVIDERS: Visit Provider Physician Assistant
DX: N17.9 Acute kidney failure, unspecified (principal)
CPT/HCPCS: 36415; 80048

== ENCOUNTER → 2018-04-07 13:17 | Outpatient (CLI) | payer BC, SELFPAY ==
[2018-04-07 14:23] LABS: Anion Gap 15.4 mEq/L (5-15); Blood Urea Nitrogen 35 mg/dL (7-18); Carbon Dioxide 25 mmol/L (21.0-32.0); Chloride 107 mmol/L (98-107); Creatinine,Serum 3.12 mg/dL (0.55-1.02); Estimated Glomerular Filt Rate 16 ml/min (>60); GFR (African American) 19 ML/MIN (>60); Glucose 101 mg/dL (74-106); Potassium 4.4 mmoL/L (3.5-5.1); Sodium 143 mmol/L (136-145)
== END ==
PROVIDERS: Visit Provider Internal Medicine
DX: I10 Essential (primary) hypertension (principal)
CPT/HCPCS: 36415; 80048

== ENCOUNTER → 2018-04-08 12:39 | Outpatient (CLI) | payer BC, SELFPAY ==
[2018-04-08 12:58] LABS: Anion Gap 17.7 mEq/L (5-15); Blood Urea Nitrogen 38 mg/dL (7-18); Carbon Dioxide 23 mmol/L (21.0-32.0); Chloride 107 mmol/L (98-107); Estimated Glomerular Filt Rate 12 ml/min (>60); GFR (African American) 14 ML/MIN (>60); Glucose 110 mg/dL (74-106); Potassium 3.7 mmoL/L (3.5-5.1); Sodium 144 mmol/L (136-145)
[2018-04-08 13:00] LABS: Creatinine,Serum 4.04 mg/dL (0.55-1.02)
== END ==
PROVIDERS: Internal Medicine; Visit Provider Physician Assistant
DX: R94.39 Abnormal result of other cardiovascular function study (principal); I10 Essential (primary) hypertension; Z82.49 Family history of ischemic heart disease and other diseases of the circulatory system; G89.29 Other chronic pain; I51.9 Heart disease, unspecified; R53.83 Other fatigue; J30.2 Other seasonal allergic rhinitis; R06.02 Shortness of breath
CPT/HCPCS: 36415; 80048

== ENCOUNTER 2018-04-08 13:04 | Observation (INO) ==
--- NOTE | 2018-04-08 16:55 | History & Physical Report ---
*Admission Date: 04/08/18 *Chief complaint: weakness, diarrhea *History of present illness: 52-year-old white female with history of diastolic dysfunction presented to the office today for complaint of weakness and fatigue. Patient was sent for lab work (BMP) due to recent diuretic therapy institution. Lab work returned with a creatinine of 4 and a BUN of 40. Patient was then sent to the emergency department for IV fluids. After 1 bag of IV fluids a repeat BMP was obtained with creatinine improved to 3.7 and BUN 35. It was recommended that the patient be admitted for further evaluation and for further IVF. She relates a several day history of loose stools up to 10 per day without nausea or vomiting. No recent fever or chills. Denies any chest pain. Recent echocardiogram on 02/04/18 showed mild left atrial enlargement, normal LV size with EF of 55% and mild concentric LVH. She did have evidence of diastolic dysfunction. There is only mild MR and TR. Recent cardiac catheterization 02/16/18 showed normal coronary arteries but with evidence of moderately elevated left ventricular end-diastolic pressure of 25 mmHg. Diuretics including hydrochlorothiazide furosemide and spironolactone were started at that time. Patient was recently seen in the office on 04/07/2018 with complaint of dizziness and low blood pressure at which time her Aldactone was reduced to 25 mg daily and lisinopril to 10 mg daily. She did relate the need for gallbladder surgery with Dr. Mccarthy in the near future but was awaiting clearance of a colon infection for which she had been treated with Flagyl. [facility] History Medical History: Reports:: Congestive Heart Failure Denies:: Cancer, Diabetes Mellitus Type 1, Diabetes Mellitus Type 2, Internal Pacemaker, MRSA, Seizures Other Medical History: Reports: Arthritis, Liver Disease Other Surgeries: Yes: Hysterectomy-Total. No: Pacemaker Amputation: No Fractures: Yes (hand) - *Social History Smoking Status: Former smoker Tobacco Type: cigarettes # Packs/Day (cigarettes): 1 Alcohol Intake: never Alcohol Intake Frequency:: other Occupational Status: unemployed Housing: house Household Members: spouse, children *Family Hx:: Diabetes, Heart Attack, Hyperlipidemia, Hypertension, Kidney Disease, Stroke, Thyroid Disorder Review of Systems - *Cardiovascular Reports shortness of breath with activity, Denies chest pain - *Respiratory Reports shortness of breath with activity - *Gastrointestinal Reports abdominal pain, Reports loose stools - *Musculoskeletal Reports back pain Meds Home Medications Medication Instructions Recorded Confirmed Type Ca 600 mg-D3 800 unit-mag oxide 50 tab PO DAILY each 01/20/18 History nk-Px-sihwyl-manganese-boron tablet amlodipine 5 mg tablet 5 mg PO DAILY tab 02/24/18 03/31/18 History lisinopril 20 mg tablet 10 mg PO DAILY tab 04/08/18 History spironolactone 25 mg tablet 25 mg PO BID 04/08/18 History Allergies Allergy/AdvReac Type Severity Reaction Status Date / Time DAIRY PRODUCTS AdvReac Intermediate Gastrointestinal Uncoded 03/17/18 09:44 Upset Exam Vital signs and Labs for Last 24 Hours: Laboratory Results - last 24 hr 04/08/18 15:15: Sodium 144, Potassium 4.0, Chloride 108 H, Carbon Dioxide 24, Anion Gap 16.0 H, BUN 35 H, Creatinine 3.74 H, Estimated Creat Clear 15, Estimated GFR 13 L*, Est GFR ( Amer) 15 L*, Glucose 87 D I & O for Last 24 hours: Intake & Output 04/06/18 04/07/18 04/08/18 04/09/18 11:59 11:59 11:59 11:59 Weight 243 lb - *Routine Neck Exam Absent: JVD, carotid bruit - *Routine Respiratory Exam Present: CTA bilaterally - *Routine Cardiovascular Exam Present: RRR. Absent: murmur - *Routine Abdominal Exam Present: soft. Absent: guarding - *Routine Extremities Exam Present: edema. Absent: calf tenderness - *Routine Neurological Exam Present: alert, oriented X3, moving all extremities H&P: Result - Labs Labs: [facility] 04/08/18 15:15 Sodium 144 Potassium 4.0 Chloride 108 H Carbon Dioxide 24 BUN 35 H Creatinine 3.74 H Glucose 87 D Assessment and Plan (1) Acute renal insufficiency Current visit: Yes Status: Acute Category: Medical Code(s): N28.9 - Disorder of kidney and ureter, unspecified (2) Diarrhea Current visit: Yes Status: Acute Category: Medical Code(s): R19.7 - Diarrhea, unspecified (3) Diastolic dysfunction Current visit: Yes Status: Acute Category: Medical Code(s): I51.9 - Heart disease, unspecified (4) Dehydration Current visit: No Status: Acute Category: Medical Code(s): E86.0 - Dehydration (5) Fatigue Current visit: No Status: Chronic Qualifiers: Fatigue type: unspecified Qualified Code(s): R53.83 - Other fatigue Category: Medical Code(s): R53.83 - Other fatigue (6) HTN (hypertension) Current visit: No Status: Chronic Qualifiers: Hypertension type: essential hypertension Qualified Code(s): I10 - Essential (primary) hypertension Category: Medical Code(s): I10 - Essential (primary) hypertension - Assessment and plan all Dx Assessment and Plan for all problems:: 1. Patient will be admitted for IV fluids. Will start D5 LR at 150 mL/h. After discussion with Dr. Wise, who is consulted on the case, will obtain a urine sodium and creatinine, diarrhea panel, CBC, LFTs and TSH. 2. We will discontinue lisinopril, hydrochlorothiazide and Spironolactone. Will use Norvasc for blood pressure for now.
[2018-04-08 17:35] LABS: Basophils % 0.4 % (0.1-2.0); Eosinophils # 0.1 K/mm3 (0.0-0.4); Eosinophils % 1.6 % (0.1-12.0); Hematocrit 35.5 % (37.0-47.0); Hemoglobin 11.3 g/dL (12.2-16.2); Lymphocytes # 2.5 K/mm3 (0.7-4.5); Lymphocytes % 26.9 K/mm3 (10-50); Mean Corpuscular HGB Conc 31.7 g/dL (31.8-35.4); Mean Corpuscular Hemoglobin 27.8 pg (27.0-31.2); Mean Corpuscular Volume 87.8 fl (81-99); Mean Platelet Volume 8.7 fl (7.4-10.4); Monocytes # 0.5 K/mm3 (0.1-1.0); Monocytes % 5.9 % (1.7-9.3); Neutrophils # 5.9 K/mm3 (1.8-7.8); Neutrophils % 65.2 % (37.0-80.0); Platelet Count 251 K/mm3 (142-424); Red Blood Count 4.04 M/mm3 (4.20-5.40); Red Cell Distribution Width 12.8 % (11.5-17.5); White Blood Count 9.1 K/mm3 (4.8-10.8)
[2018-04-08 17:55] LABS: Albumin Level 3.2 gm/dL (3.4-5.0); Bilirubin,Direct 0.1 mg/dL (0.0-0.2); Bilirubin,Indirect 0.2 mg/dL (0.0-0.9); Bilirubin,Total 0.3 mg/dL (0.2-1.0); Thyroid Stimulating Hormone 3.61 uIU/ml (0.358-3.740); Total Protein,Serum 7.4 gm/dL (6.4-8.2)
--- NOTE | 2018-04-08 18:50 | Progress Note ---
Internal Medicine - PN: Subj *Date: 04/08/18 *Time: 18:51 Interval history: Called by Cardiology to see patient with new onset renal failure. Patient sitting in room eating supper currently. She has recently had problems with her gallbladder and is scheduled for an elective cholecystectomy in 2 days. She was recent found to have CHF/diastolic dysfunction and has been treated with diuretics. She also recently developed diarrhea and was seen by a nurse practitioner in [place], [place] and was treated with Cipro. Patient had routine labs drawn today and her Bun/Cr were 40/4. She was given some IVF and had minimal improvement in her labs so she was admitted for further evaluation and management. Exam Vital signs and Labs for Last 24 Hours: Temp Pulse Resp BP Pulse Ox 97.6 F 62 18 99/40 100 04/08/18 17:26 04/08/18 17:26 04/08/18 17:26 04/08/18 17:26 04/08/18 17:26 Laboratory Results - last 24 hr 04/08/18 15:15: Sodium 144, Potassium 4.0, Chloride 108 H, Carbon Dioxide 24, Anion Gap 16.0 H, BUN 35 H, Creatinine 3.74 H, Estimated Creat Clear 15, Estimated GFR 13 L*, Est GFR ( Amer) 15 L*, Glucose 87 D 04/08/18 17:23: WBC 9.1, RBC 4.04 L, Hgb 11.3 L, Hct 35.5 L, MCV 87.8, MCH 27.8 , MCHC 31.7 L, RDW 12.8, Plt Count 251, MPV 8.7, Neut % (Auto) 65.2, Lymph % ( Auto) 26.9, Yates % (Auto) 5.9, Eos % (Auto) 1.6, Baso % (Auto) 0.4, Neut # (Auto ) 5.9, Lymph # (Auto) 2.5, Yates # (Auto) 0.5, Eos # (Auto) 0.1, Baso # (Auto) 0.0 04/08/18 17:23: Total Bilirubin 0.3, Direct Bilirubin 0.1, Indirect Bilirubin 0.2, AST 9 L, ALT 13, Alkaline Phosphatase 111, Total Protein 7.4, Albumin 3.2 L , TSH 3.61 I & O for Last 24 hours: Intake & Output 04/06/18 04/07/18 04/08/18 04/09/18 11:59 11:59 11:59 11:59 Intake Total 240 / 240 Balance 240 / 240 Weight 247 lb 7 oz - Constitutional no acute distress - *Routine HEENT Exam ENT: Present: mucous membranes moist - *Routine Respiratory Exam Present: CTA bilaterally - *Routine Cardiovascular Exam Present: RRR - *Routine Neurological Exam Present: alert, oriented X3 (conversant) Assessment and Plan (1) Acute renal insufficiency Current visit: Yes Status: Acute Category: Medical Code(s): N28.9 - Disorder of kidney and ureter, unspecified (2) Diarrhea Current visit: Yes Status: Acute Category: Medical Code(s): R19.7 - Diarrhea, unspecified (3) Diastolic dysfunction Current visit: Yes Status: Acute Category: Medical Code(s): I51.9 - Heart disease, unspecified (4) Dehydration Current visit: No Status: Acute Category: Medical Code(s): E86.0 - Dehydration (5) Fatigue Current visit: No Status: Chronic Qualifiers: Fatigue type: unspecified Qualified Code(s): R53.83 - Other fatigue Category: Medical Code(s): R53.83 - Other fatigue (6) HTN (hypertension) Current visit: No Status: Chronic Qualifiers: Hypertension type: essential hypertension Qualified Code(s): I10 - Essential (primary) hypertension Category: Medical Code(s): I10 - Essential (primary) hypertension (7) Cholelithiasis Current visit: No Status: Chronic Qualifiers: Cholelithiasis location: gallbladder Cholecystitis presence: with cholecystitis Cholecystitis acuity: acute and chronic Biliary obstruction: without biliary obstruction Qualified Code(s): K80.12 - Calculus of gallbladder with acute and chronic cholecystitis without obstruction Category: Medical Code(s): K80.20 - Calculus of gallbladder without cholecystitis without obstruction (8) Diabetes Current visit: No Status: Chronic Qualifiers: Diabetes mellitus type: type 2 Diabetes mellitus penitentiary insulin use: without penitentiary use Diabetes mellitus complication status: without complication Qualified Code(s): E11.9 - Type 2 diabetes mellitus without complications Category: Medical Code(s): E11.9 - Type 2 diabetes mellitus without complications - Assessment and plan all Dx Assessment and Plan for all problems:: Patient admitted for further evaluation and management. Plan to cont. IVF, check diarrhea PCR panel and monitor labs.
--- NOTE | 2018-04-09 07:14 | Pharmacy Consult Notes ---
[facility] Pharmacy VTE Monitoring - Patient Demographics Admission date: 04/08/18 Report Date: 04/09/18 Time: 07:14 Allergies/Adverse Reactions: Patient Allergies DAIRY PRODUCTS Adverse Reaction (Intermediate, Uncoded 03/17/18 09:44) Gastrointestinal Upset Height: 1.63 m Weight: 112.236 kg Patient Problems: Current Active Problems Acute renal insufficiency (Acute) Diarrhea (Acute) Diastolic dysfunction (Acute) - VTE Risk Labs: VTE Related Lab Results Hgb 11.3 g/dL (12.2-16.2) L 04/08/18 17:23 Hct 35.5 % (37.0-47.0) L 04/08/18 17:23 Plt Count 251 K/mm3 (142-424) 04/08/18 17:23 BUN 35 mg/dL (7-18) H 04/08/18 15:15 Creatinine 3.74 mg/dL (0.55-1.02) H 04/08/18 15:15 Estimated Creat Clear 15 mL/min (0-300) 04/08/18 15:15 Was VTE Risk Assessment Performed: Yes VTE Score: 5 VTE Risk Level: Low Risk Clinical Trial Participant: No - Prophylaxis VTE Prophylaxis Ordered?: Yes Types of VTE Prophylaxis: TEDS Knee High
[2018-04-09 07:18] LABS: Anion Gap 13.3 mEq/L (5-15); Potassium 4.3 mmoL/L (3.5-5.1)
--- NOTE | 2018-04-09 08:14 | Progress Note ---
Subjective Date: 04/09/18 Time: 08:11 Principal diagnosis: Renal insufficiency, diarrhea Interval history: Still with diarrhea but improving overall. No chest pains. Stool (+) for EPEC. Renal functions improving. Exam Vital signs and Labs for Last 24 Hours: Temp Pulse Resp BP Pulse Ox 98.2 F 68 18 103/39 97 04/09/18 07:38 04/09/18 07:38 04/09/18 07:38 04/09/18 07:38 04/09/18 07:38 Laboratory Results - last 24 hr 04/08/18 15:15: Sodium 144, Potassium 4.0, Chloride 108 H, Carbon Dioxide 24, Anion Gap 16.0 H, BUN 35 H, Creatinine 3.74 H, Estimated Creat Clear 15, Estimated GFR 13 L*, Est GFR ( Amer) 15 L*, Glucose 87 D 04/08/18 17:23: WBC 9.1, RBC 4.04 L, Hgb 11.3 L, Hct 35.5 L, MCV 87.8, MCH 27.8 , MCHC 31.7 L, RDW 12.8, Plt Count 251, MPV 8.7, Neut % (Auto) 65.2, Lymph % ( Auto) 26.9, Floyd % (Auto) 5.9, Eos % (Auto) 1.6, Baso % (Auto) 0.4, Neut # (Auto ) 5.9, Lymph # (Auto) 2.5, Floyd # (Auto) 0.5, Eos # (Auto) 0.1, Baso # (Auto) 0.0 04/08/18 17:23: Total Bilirubin 0.3, Direct Bilirubin 0.1, Indirect Bilirubin 0.2, AST 9 L, ALT 13, Alkaline Phosphatase 111, Total Protein 7.4, Albumin 3.2 L , TSH 3.61 04/08/18 19:54: Stl Aeromonas (PCR) Not detected, Stl C. cayetanensis PCR Not detected, Stool Rotavirus (PCR) Not detected, Stl Adenov F 40/41 PCR Not detected, Stool Astrovirus (PCR) Not detected, Stool Campylobacter PCR Not detected, Stl C.difficile Tox PCR Not detected, Stool Cryptosporidium PCR Not detected, Stl E.coli Shiga Tox PCR Not detected, Stool E coli O157 PCR Not detected, Stl Enterotoxigenic E PCR Not detected, Stool EPEC (PCR) Detected A, Stool EAEC (PCR) Not detected, Stl E. histolytica PCR Not detected, Stool Giardia Lamblia PCR Not detected, Stool Salmonella PCR Not detected, Stool Sapovirus (PCR) Not detected, Stl P. shigelloides PCR Not detected, Stl Shigella /EIEC PCR Not detected, St Y.enterocolitica PCR Not detected, Stool Vibrio (PCR ) Not detected, Stl Vibrio cholerae PCR Not detected, Stl Norovirus GI/GII PCR Not detected 04/08/18 22:37: Urine Creatinine 196 04/09/18 06:32: Sodium 146 H, Potassium 4.3, Chloride 112 H, Carbon Dioxide 25, Anion Gap 13.3, BUN 33 H, Creatinine 2.77 H D, Estimated Creat Clear 21, Estimated GFR 18 L*, Est GFR ( Amer) 22 L D, Glucose 98 I & O for Last 24 hours: Intake & Output 04/06/18 04/07/18 04/08/18 04/09/18 11:59 11:59 11:59 11:59 Intake Total 1848 Balance 1848 Weight 247 lb 7 oz - *Routine Respiratory Exam Present: CTA bilaterally, diminished air movement - *Routine Cardiovascular Exam Present: RRR Progress Note: A&P (1) Acute renal insufficiency Status: Acute Current Visit: Yes (2) Diarrhea Status: Acute Current Visit: Yes (3) Diastolic dysfunction Status: Acute Current Visit: Yes (4) Dehydration Status: Acute Current Visit: No (5) Fatigue Status: Chronic Current Visit: No (6) HTN (hypertension) Status: Chronic Current Visit: No (7) Cholelithiasis Status: Chronic Current Visit: No (8) Diabetes Status: Chronic Current Visit: No Assessment and Plan for All Diagnoses:: Appreciate Dr. Wise seeing the patient and all recommendations for treatment. Cardiac status is stable. Continue IVF. Will notify Dr. Mccarthy of patient's hospitalization and recommendation to postpone cholecystectomy. Possibly home tomorrow if continues to improve.
--- NOTE | 2018-04-09 08:18 | Progress Note ---
<Ifeoma Leal - Last Filed: 04/09/18 08:15> Internal Medicine - PN: Subj *Date: 04/09/18 *Time: 08:15 Interval history: Patient states she had 2 episodes of diarrhea during the night. She is still having some abdominal pain. She was able to rest throughout the night. Exam Vital signs and Labs for Last 24 Hours: Temp Pulse Resp BP Pulse Ox 98.2 F 68 18 103/39 97 04/09/18 07:38 04/09/18 07:38 04/09/18 07:38 04/09/18 07:38 04/09/18 07:38 Laboratory Results - last 24 hr 04/08/18 15:15: Sodium 144, Potassium 4.0, Chloride 108 H, Carbon Dioxide 24, Anion Gap 16.0 H, BUN 35 H, Creatinine 3.74 H, Estimated Creat Clear 15, Estimated GFR 13 L*, Est GFR ( Amer) 15 L*, Glucose 87 D 04/08/18 17:23: WBC 9.1, RBC 4.04 L, Hgb 11.3 L, Hct 35.5 L, MCV 87.8, MCH 27.8 , MCHC 31.7 L, RDW 12.8, Plt Count 251, MPV 8.7, Neut % (Auto) 65.2, Lymph % ( Auto) 26.9, [place] % (Auto) 5.9, Eos % (Auto) 1.6, Baso % (Auto) 0.4, Neut # (Auto ) 5.9, Lymph # (Auto) 2.5, [place] # (Auto) 0.5, Eos # (Auto) 0.1, Baso # (Auto) 0.0 04/08/18 17:23: Total Bilirubin 0.3, Direct Bilirubin 0.1, Indirect Bilirubin 0.2, AST 9 L, ALT 13, Alkaline Phosphatase 111, Total Protein 7.4, Albumin 3.2 L , TSH 3.61 04/08/18 19:54: Stl Aeromonas (PCR) Not detected, Stl C. cayetanensis PCR Not detected, Stool Rotavirus (PCR) Not detected, Stl Adenov F 40/41 PCR Not detected, Stool Astrovirus (PCR) Not detected, Stool Campylobacter PCR Not detected, Stl C.difficile Tox PCR Not detected, Stool Cryptosporidium PCR Not detected, Stl E.coli Shiga Tox PCR Not detected, Stool E coli O157 PCR Not detected, Stl Enterotoxigenic E PCR Not detected, Stool EPEC (PCR) Detected A, Stool EAEC (PCR) Not detected, Stl E. histolytica PCR Not detected, Stool Giardia Lamblia PCR Not detected, Stool Salmonella PCR Not detected, Stool Sapovirus (PCR) Not detected, Stl P. shigelloides PCR Not detected, Stl Shigella /EIEC PCR Not detected, St Y.enterocolitica PCR Not detected, Stool Vibrio (PCR ) Not detected, Stl Vibrio cholerae PCR Not detected, Stl Norovirus GI/GII PCR Not detected 04/08/18 22:37: Urine Creatinine 196 04/09/18 06:32: Sodium 146 H, Potassium 4.3, Chloride 112 H, Carbon Dioxide 25, Anion Gap 13.3, BUN 33 H, Creatinine 2.77 H D, Estimated Creat Clear 21, Estimated GFR 18 L*, Est GFR ( Amer) 22 L D, Glucose 98 I & O for Last 24 hours: Intake & Output 04/06/18 04/07/18 04/08/18 04/09/18 11:59 11:59 11:59 11:59 Intake Total 1849 / 1849 Balance 1849 / 184 Weight 247 lb 7 oz - Constitutional no acute distress - *Routine Respiratory Exam Present: CTA bilaterally - *Routine Cardiovascular Exam Present: RRR - *Routine Abdominal Exam Present: soft, normoactive bowel sounds, tenderness (RUQ) - *Routine Extremities Exam Present: edema Assessment and Plan (1) Acute renal insufficiency Current visit: Yes Status: Acute Category: Medical Code(s): N28.9 - Disorder of kidney and ureter, unspecified (2) Diarrhea Current visit: Yes Status: Acute Category: Medical Code(s): R19.7 - Diarrhea, unspecified EPEC positive on stool sample (3) Diastolic dysfunction Current visit: Yes Status: Acute Category: Medical Code(s): I51.9 - Heart disease, unspecified (4) Dehydration Current visit: No Status: Acute Category: Medical Code(s): E86.0 - Dehydration (5) Fatigue Current visit: No Status: Chronic Category: Medical Code(s): R53.83 - Other fatigue (6) HTN (hypertension) Current visit: No Status: Chronic Category: Medical Code(s): I10 - Essential (primary) hypertension (7) Cholelithiasis Current visit: No Status: Chronic Category: Medical Code(s): K80.20 - Calculus of gallbladder without cholecystitis without obstruction (8) Diabetes Current visit: No Status: Chronic Category: Medical Code(s): E11.9 - Type 2 diabetes mellitus without complications - Assessment and plan all Dx Assessment and Plan for all problems:: Renal function has improved. Will continue IVF's and will discuss starting on abx for diarrhea with Dr. Wise. <Ishaan Wise - Last Filed: 04/09/18 08:50> Internal Medicine - PN: Subj *Date: 04/09/18 *Time: 08:49 Exam Vital signs and Labs for Last 24 Hours: Temp Pulse Resp BP Pulse Ox 98.2 F 68 18 103/39 97 04/09/18 07:38 04/09/18 07:38 04/09/18 07:38 04/09/18 07:38 04/09/18 07:38 Laboratory Results - last 24 hr 04/08/18 15:15: Sodium 144, Potassium 4.0, Chloride 108 H, Carbon Dioxide 24, Anion Gap 16.0 H, BUN 35 H, Creatinine 3.74 H, Estimated Creat Clear 15, Estimated GFR 13 L*, Est GFR ( Amer) 15 L*, Glucose 87 D 04/08/18 17:23: WBC 9.1, RBC 4.04 L, Hgb 11.3 L, Hct 35.5 L, MCV 87.8, MCH 27.8 , MCHC 31.7 L, RDW 12.8, Plt Count 251, MPV 8.7, Neut % (Auto) 65.2, Lymph % ( Auto) 26.9, [place] % (Auto) 5.9, Eos % (Auto) 1.6, Baso % (Auto) 0.4, Neut # (Auto ) 5.9, Lymph # (Auto) 2.5, [place] # (Auto) 0.5, Eos # (Auto) 0.1, Baso # (Auto) 0.0 04/08/18 17:23: Total Bilirubin 0.3, Direct Bilirubin 0.1, Indirect Bilirubin 0.2, AST 9 L, ALT 13, Alkaline Phosphatase 111, Total Protein 7.4, Albumin 3.2 L , TSH 3.61 04/08/18 19:54: Stl Aeromonas (PCR) Not detected, Stl C. cayetanensis PCR Not detected, Stool Rotavirus (PCR) Not detected, Stl Adenov F 40/41 PCR Not detected, Stool Astrovirus (PCR) Not detected, Stool Campylobacter PCR Not detected, Stl C.difficile Tox PCR Not detected, Stool Cryptosporidium PCR Not detected, Stl E.coli Shiga Tox PCR Not detected, Stool E coli O157 PCR Not detected, Stl Enterotoxigenic E PCR Not detected, Stool EPEC (PCR) Detected A, Stool EAEC (PCR) Not detected, Stl E. histolytica PCR Not detected, Stool Giardia Lamblia PCR Not detected, Stool Salmonella PCR Not detected, Stool Sapovirus (PCR) Not detected, Stl P. shigelloides PCR Not detected, Stl Shigella /EIEC PCR Not detected, St Y.enterocolitica PCR Not detected, Stool Vibrio (PCR ) Not detected, Stl Vibrio cholerae PCR Not detected, Stl Norovirus GI/GII PCR Not detected 04/08/18 22:37: Urine Creatinine 196 04/09/18 06:32: Sodium 146 H, Potassium 4.3, Chloride 112 H, Carbon Dioxide 25, Anion Gap 13.3, BUN 33 H, Creatinine 2.77 H D, Estimated Creat Clear 21, Estimated GFR 18 L*, Est GFR ( Amer) 22 L D, Glucose 98 I & O for Last 24 hours: Intake & Output 04/06/18 04/07/18 04/08/18 04/09/18 11:59 11:59 11:59 11:59 Intake Total 1848 Balance 1848 Weight 247 lb 7 oz Assessment and Plan (1) Acute renal insufficiency Current visit: Yes Status: Acute Category: Medical Code(s): N28.9 - Disorder of kidney and ureter, unspecified (2) Enteropathogenic Escherichia coli infection Current visit: Yes Status: Acute Category: Medical Code(s): A04.0 - Enteropathogenic Escherichia coli infection (3) Diarrhea Current visit: Yes Status: Acute Category: Medical Code(s): R19.7 - Diarrhea, unspecified (4) Diastolic dysfunction Current visit: Yes Status: Acute Category: Medical Code(s): I51.9 - Heart disease, unspecified (5) Dehydration Current visit: No Status: Acute Category: Medical Code(s): E86.0 - Dehydration (6) Fatigue Current visit: No Status: Chronic Qualifiers: Fatigue type: unspecified Qualified Code(s): R53.83 - Other fatigue Category: Medical Code(s): R53.83 - Other fatigue (7) HTN (hypertension) Current visit: No Status: Chronic Qualifiers: Hypertension type: essential hypertension Qualified Code(s): I10 - Essential (primary) hypertension Category: Medical Code(s): I10 - Essential (primary) hypertension (8) Cholelithiasis Current visit: No Status: Chronic Qualifiers: Cholelithiasis location: gallbladder Cholecystitis presence: with cholecystitis Cholecystitis acuity: acute and chronic Biliary obstruction: without biliary obstruction Qualified Code(s): K80.12 - Calculus of gallbladder with acute and chronic cholecystitis without obstruction Category: Medical Code(s): K80.20 - Calculus of gallbladder without cholecystitis without obstruction (9) Diabetes Current visit: No Status: Chronic Qualifiers: Diabetes mellitus type: type 2 Diabetes mellitus fdc insulin use: without medical terminologist use Diabetes mellitus complication status: without complication Qualified Code(s): E11.9 - Type 2 diabetes mellitus without complications Category: Medical Code(s): E11.9 - Type 2 diabetes mellitus without complications - Assessment and plan all Dx Assessment and Plan for all problems:: Saw patient, agree with above note, will add Zithromax for EPEC treatment. Continue IVF.
[2018-04-10 07:01] LABS: Basophils % 0.5 % (0.1-2.0); Eosinophils # 0.1 K/mm3 (0.0-0.4); Eosinophils % 1.5 % (0.1-12.0); Hematocrit 32.3 % (37.0-47.0); Hemoglobin 10.5 g/dL (12.2-16.2); Lymphocytes # 1.8 K/mm3 (0.7-4.5); Lymphocytes % 23.3 K/mm3 (10-50); Mean Corpuscular HGB Conc 32.3 g/dL (31.8-35.4); Mean Corpuscular Hemoglobin 28.4 pg (27.0-31.2); Mean Platelet Volume 8.4 fl (7.4-10.4); Monocytes # 0.5 K/mm3 (0.1-1.0); Monocytes % 6.5 % (1.7-9.3); Neutrophils # 5.3 K/mm3 (1.8-7.8); Neutrophils % 68.2 % (37.0-80.0); Platelet Count 229 K/mm3 (142-424); Red Blood Count 3.68 M/mm3 (4.20-5.40); Red Cell Distribution Width 12.8 % (11.5-17.5); White Blood Count 7.8 K/mm3 (4.8-10.8)
[2018-04-10 07:12] LABS: Anion Gap 11.3 mEq/L (5-15); Potassium 4.3 mmoL/L (3.5-5.1)
--- NOTE | 2018-04-10 08:18 | Progress Note ---
<Ifeoma Leal - Last Filed: 04/10/18 08:16> Internal Medicine - PN: Subj *Date: 04/10/18 *Time: 08:16 Interval history: Patient feels slightly better this morning. She is still having diffuse abdominal pain and diarrhea. She slept a little better last night. Exam Vital signs and Labs for Last 24 Hours: Temp Pulse Resp BP Pulse Ox 98.4 F 64 20 106/53 96 04/10/18 04:00 04/10/18 04:00 04/10/18 04:00 04/10/18 04:00 04/10/18 04:00 Laboratory Results - last 24 hr 04/10/18 06:39: WBC 7.8, RBC 3.68 L, Hgb 10.5 L, Hct 32.3 L, MCV 88.0, MCH 28.4 , MCHC 32.3, RDW 12.8, Plt Count 229, MPV 8.4, Neut % (Auto) 68.2, Lymph % (Auto ) 23.3, [place] % (Auto) 6.5, Eos % (Auto) 1.5, Baso % (Auto) 0.5, Neut # (Auto) 5.3, Lymph # (Auto) 1.8, [place] # (Auto) 0.5, Eos # (Auto) 0.1, Baso # (Auto) 0.0 04/10/18 06:39: Sodium 147 H, Potassium 4.3, Chloride 113 H, Carbon Dioxide 27, Anion Gap 11.3, BUN 19 H D, Creatinine 1.61 H D, Estimated Creat Clear 35, Estimated GFR 34 L, Est GFR ( Amer) 41 L D, Glucose 101 I & O for Last 24 hours: Intake & Output 04/07/18 04/08/18 04/09/18 04/10/18 11:59 11:59 11:59 11:59 Intake Total 1848 Balance 1848 Weight 247 lb 7 oz - Constitutional no acute distress - *Routine Respiratory Exam Present: CTA bilaterally - *Routine Cardiovascular Exam Present: RRR - *Routine Abdominal Exam Present: soft, normoactive bowel sounds, tenderness (diffuse) - *Routine Extremities Exam Present: edema Assessment and Plan (1) Acute renal insufficiency Current visit: Yes Status: Acute Category: Medical Code(s): N28.9 - Disorder of kidney and ureter, unspecified (2) Enteropathogenic Escherichia coli infection Current visit: Yes Status: Acute Category: Medical Code(s): A04.0 - Enteropathogenic Escherichia coli infection (3) Diarrhea Current visit: Yes Status: Acute Category: Medical Code(s): R19.7 - Diarrhea, unspecified (4) Diastolic dysfunction Current visit: Yes Status: Acute Category: Medical Code(s): I51.9 - Heart disease, unspecified (5) Dehydration Current visit: No Status: Acute Category: Medical Code(s): E86.0 - Dehydration (6) Fatigue Current visit: No Status: Chronic Qualifiers: Fatigue type: unspecified Qualified Code(s): R53.83 - Other fatigue Category: Medical Code(s): R53.83 - Other fatigue (7) HTN (hypertension) Current visit: No Status: Chronic Qualifiers: Hypertension type: essential hypertension Qualified Code(s): I10 - Essential (primary) hypertension Category: Medical Code(s): I10 - Essential (primary) hypertension (8) Cholelithiasis Current visit: No Status: Chronic Qualifiers: Cholelithiasis location: gallbladder Cholecystitis presence: with cholecystitis Cholecystitis acuity: acute and chronic Biliary obstruction: without biliary obstruction Qualified Code(s): K80.12 - Calculus of gallbladder with acute and chronic cholecystitis without obstruction Category: Medical Code(s): K80.20 - Calculus of gallbladder without cholecystitis without obstruction (9) Diabetes Current visit: No Status: Chronic Qualifiers: Diabetes mellitus type: type 2 Diabetes mellitus alf insulin use: without alf use Diabetes mellitus complication status: without complication Qualified Code(s): E11.9 - Type 2 diabetes mellitus without complications Category: Medical Code(s): E11.9 - Type 2 diabetes mellitus without complications - Assessment and plan all Dx Assessment and Plan for all problems:: Renal function is much better. Patient has been started on antibiotics for her diarrhea. Will discuss further care with Dr. Wise. <Ishaan Wise - Last Filed: 04/10/18 09:01> Internal Medicine - PN: Subj *Date: 04/10/18 *Time: 08:59 Exam Vital signs and Labs for Last 24 Hours: Temp Pulse Resp BP Pulse Ox 98.4 F 64 20 106/53 96 04/10/18 04:00 04/10/18 04:00 04/10/18 04:00 04/10/18 04:00 04/10/18 04:00 Laboratory Results - last 24 hr 04/10/18 06:39: WBC 7.8, RBC 3.68 L, Hgb 10.5 L, Hct 32.3 L, MCV 88.0, MCH 28.4 , MCHC 32.3, RDW 12.8, Plt Count 229, MPV 8.4, Neut % (Auto) 68.2, Lymph % (Auto ) 23.3, [place] % (Auto) 6.5, Eos % (Auto) 1.5, Baso % (Auto) 0.5, Neut # (Auto) 5.3, Lymph # (Auto) 1.8, [place] # (Auto) 0.5, Eos # (Auto) 0.1, Baso # (Auto) 0.0 04/10/18 06:39: Sodium 147 H, Potassium 4.3, Chloride 113 H, Carbon Dioxide 27, Anion Gap 11.3, BUN 19 H D, Creatinine 1.61 H D, Estimated Creat Clear 35, Estimated GFR 34 L, Est GFR ( Amer) 41 L D, Glucose 101 I & O for Last 24 hours: Intake & Output 04/07/18 04/08/18 04/09/18 04/10/18 11:59 11:59 11:59 11:59 Intake Total 1848 Balance 1848 Weight 247 lb 7 oz Assessment and Plan (1) Acute renal insufficiency Current visit: Yes Status: Acute Category: Medical Code(s): N28.9 - Disorder of kidney and ureter, unspecified (2) Enteropathogenic Escherichia coli infection Current visit: Yes Status: Acute Category: Medical Code(s): A04.0 - Enteropathogenic Escherichia coli infection (3) Diarrhea Current visit: Yes Status: Acute Category: Medical Code(s): R19.7 - Diarrhea, unspecified (4) Diastolic dysfunction Current visit: Yes Status: Acute Category: Medical Code(s): I51.9 - Heart disease, unspecified (5) Dehydration Current visit: No Status: Acute Category: Medical Code(s): E86.0 - Dehydration (6) Fatigue Current visit: No Status: Chronic Qualifiers: Qualified Code(s): R53.83 - Other fatigue Category: Medical Code(s): R53.83 - Other fatigue (7) HTN (hypertension) Current visit: No Status: Chronic Qualifiers: Qualified Code(s): I10 - Essential (primary) hypertension Category: Medical Code(s): I10 - Essential (primary) hypertension (8) Cholelithiasis Current visit: No Status: Chronic Qualifiers: Qualified Code(s): K80.12 - Calculus of gallbladder with acute and chronic cholecystitis without obstruction Category: Medical Code(s): K80.20 - Calculus of gallbladder without cholecystitis without obstruction (9) Diabetes Current visit: No Status: Chronic Qualifiers: Qualified Code(s): E11.9 - Type 2 diabetes mellitus without complications Category: Medical Code(s): E11.9 - Type 2 diabetes mellitus without complications - Assessment and plan all Dx Assessment and Plan for all problems:: Patient has improved since admission, plan discharge today with oral Zithromax, needs to f/u PCP next week for repeat labs.
--- NOTE | 2018-04-10 08:58 | Progress Note ---
Subjective Date: 04/10/18 Time: 08:54 Principal diagnosis: Renal insufficiency, diarrhea Interval history: Interval improvement in Cr down to 1.6 with less BM's. Still with some abdominal discomfort but improved. Diet is advancing without problems. Will plan to discharge home today. Exam Vital signs and Labs for Last 24 Hours: Temp Pulse Resp BP Pulse Ox 98.4 F 64 20 106/53 96 04/10/18 04:00 04/10/18 04:00 04/10/18 04:00 04/10/18 04:00 04/10/18 04:00 Laboratory Results - last 24 hr 04/10/18 06:39: WBC 7.8, RBC 3.68 L, Hgb 10.5 L, Hct 32.3 L, MCV 88.0, MCH 28.4 , MCHC 32.3, RDW 12.8, Plt Count 229, MPV 8.4, Neut % (Auto) 68.2, Lymph % (Auto ) 23.3, [place] % (Auto) 6.5, Eos % (Auto) 1.5, Baso % (Auto) 0.5, Neut # (Auto) 5.3, Lymph # (Auto) 1.8, [place] # (Auto) 0.5, Eos # (Auto) 0.1, Baso # (Auto) 0.0 04/10/18 06:39: Sodium 147 H, Potassium 4.3, Chloride 113 H, Carbon Dioxide 27, Anion Gap 11.3, BUN 19 H D, Creatinine 1.61 H D, Estimated Creat Clear 35, Estimated GFR 34 L, Est GFR ( Amer) 41 L D, Glucose 101 I & O for Last 24 hours: Intake & Output 04/07/18 04/08/18 04/09/18 04/10/18 11:59 11:59 11:59 11:59 Intake Total 1848 Balance 1848 Weight 247 lb 7 oz - *Routine Respiratory Exam Present: CTA bilaterally - *Routine Cardiovascular Exam Present: RRR Progress Note: A&P (1) Acute renal insufficiency Status: Acute Current Visit: Yes (2) Enteropathogenic Escherichia coli infection Status: Acute Current Visit: Yes (3) Diarrhea Status: Acute Current Visit: Yes (4) Diastolic dysfunction Status: Acute Current Visit: Yes (5) Dehydration Status: Acute Current Visit: No (6) Fatigue Status: Chronic Current Visit: No (7) HTN (hypertension) Status: Chronic Current Visit: No (8) Cholelithiasis Status: Chronic Current Visit: No (9) Diabetes Status: Chronic Current Visit: No Assessment and Plan for All Diagnoses:: Home today. She will finish zithromycin 500 mg daily for 7 days. Will hold all BP meds and diuretics until GI illness has resolved. She will follow up with PCP next week. Recommend BMP next week. She will follow up with us in 2 wks.
--- NOTE | 2018-04-10 09:01 | Discharge Summary ---
General - General Admission date:: 04/08/18 Discharge date: 04/10/18 HPI HPI: 52-year-old white female with history of diastolic dysfunction presented to the office today for complaint of weakness and fatigue. Patient was sent for lab work (BMP) due to recent diuretic therapy institution. Lab work returned with a creatinine of 4 and a BUN of 40. Patient was then sent to the emergency department for IV fluids. After 1 bag of IV fluids a repeat BMP was obtained with creatinine improved to 3.7 and BUN 35. It was recommended that the patient be admitted for further evaluation and for further IVF. She relates a several day history of loose stools up to 10 per day without nausea or vomiting. No recent fever or chills. Denies any chest pain. Recent echocardiogram on 02/04/18 showed mild left atrial enlargement, normal LV size with EF of 55% and mild concentric LVH. She did have evidence of diastolic dysfunction. There is only mild MR and TR. Recent cardiac catheterization 02/16/18 showed normal coronary arteries but with evidence of moderately elevated left ventricular end-diastolic pressure of 25 mmHg. Diuretics including hydrochlorothiazide furosemide and spironolactone were started at that time. Patient was recently seen in the office on 04/07/2018 with complaint of dizziness and low blood pressure at which time her Aldactone was reduced to 25 mg daily and lisinopril to 10 mg daily. She did relate the need for gallbladder surgery with Dr. Mccarthy in the near future but was awaiting clearance of a colon infection for which she had been treated with Flagyl. Hospital Course Hospital Course: 52-year-old white female admitted for acute renal insufficiency with creatinine of 4 due to diarrhea on top of diuretic therapy for diastolic dysfunction. Patient did receive D5 LR fluids during her stay with improvement in her creatinine down to 1.6 at time of discharge. Dr. Wise was consulted for assistance in evaluating and treating her acute renal insufficiency and diarrhea. Lab studies did reveal evidence of E. coli infection (EPEC) for which azithromycin was ordered. On the day of discharge patient was feeling better with only 1 bowel movement on the morning of discharge. Diet was advancing slowly but tolerated. She will follow-up with her primary care provider next week with a BMP to follow-up on the renal insufficiency. We would like to see her back in the office in 2 weeks to consider re-starting some of her medications for her diastolic dysfunction. Objective Vital signs: Temp Pulse Resp BP Pulse Ox 98.4 F 64 20 106/53 96 04/10/18 04:00 04/10/18 04:00 04/10/18 04:00 04/10/18 04:00 04/10/18 04:00 - *Routine Respiratory Exam Present: CTA bilaterally - *Routine Cardiovascular Exam Present: RRR - *Routine Abdominal Exam Present: tenderness - *Routine Extremities Exam Absent: edema - *Routine Neurological Exam Present: alert, oriented X3 Results Labs on day of discharge: Labs from last 24 hours 04/10/18 04/10/18 06:39 06:39 WBC 7.8 RBC 3.68 L Hgb 10.5 L Hct 32.3 L MCV 88.0 MCH 28.4 MCHC 32.3 RDW 12.8 Plt Count 229 MPV 8.4 Neut % (Auto) 68.2 Lymph % (Auto) 23.3 [place] % (Auto) 6.5 Eos % (Auto) 1.5 Baso % (Auto) 0.5 Neut # (Auto) 5.3 Lymph # (Auto) 1.8 [place] # (Auto) 0.5 Eos # (Auto) 0.1 Baso # (Auto) 0.0 Sodium 147 H Potassium 4.3 Chloride 113 H Carbon Dioxide 27 Anion Gap 11.3 BUN 19 H D Creatinine 1.61 H D Estimated Creat Clear 35 Estimated GFR 34 L Est GFR ( Amer) 41 L D Glucose 101 - Impressions Acute renal insufficiency Diarrhea with E. coli infection Diastolic dysfunction DS: Diagnosis - Discharge Diagnosis (1) Acute renal insufficiency Status: Acute (2) Enteropathogenic Escherichia coli infection Status: Acute (3) Diarrhea Status: Acute (4) Diastolic dysfunction Status: Acute (5) Dehydration Status: Acute (6) Fatigue Status: Chronic (7) HTN (hypertension) Status: Chronic (8) Cholelithiasis Status: Chronic (9) Diabetes Status: Chronic Discharge Plan - Patient Discharge Instructions ACTIVITY: Continue current activity DIET: advance to your usual diet - Follow up Plan Unknown provider or service follow up:: Follow up with PCP in one week with BMP. Follow up with Dr. Tyler or Dr. LUCAS as scheduled. Disposition: Home, Self-Intermediate Medications: Home Medications Medication Instructions Recorded Confirmed Type amlodipine 5 mg tablet 5 mg PO DAILY tab 02/24/18 04/08/18 History Furosemide [Furosemide 40MG tAB] 40 mg PO DAILY 04/08/18 04/08/18 History Loratadine [Allergy Relief] 10 mg PO DAILY 04/08/18 04/08/18 History lisinopril 20 mg tablet 20 mg PO DAILY tab 04/08/18 04/09/18 History spironolactone 25 mg tablet 25 mg PO DAILY 04/08/18 04/08/18 History Calcium Carbonate/Vitamin D3 1 each PO DAILY 04/09/18 04/09/18 History [Calcium 600+D Softgel] hydroCHLOROthiazide [HCTZ 12.5mg 12.5 mg PO DAILY 04/09/18 04/09/18 History capsule] Prescriptions/Medication Reconciliation: New Azithromycin [Zithromax 500mg Tab] 500 mg PO DAILY #7 tab Continue Loratadine [Allergy Relief] 10 mg PO DAILY Pantoprazole Sodium [Protonix 40mg tablet] 40 mg PO DAILY #30 tablet.dr Discontinued lisinopril 20 mg tablet 20 mg PO DAILY tab spironolactone 25 mg tablet 25 mg PO DAILY amlodipine 5 mg tablet 5 mg PO DAILY tab Furosemide [Furosemide 40MG tAB] 40 mg PO DAILY Calcium Carbonate/Vitamin D3 [Calcium 600+D Softgel] 1 each PO DAILY hydroCHLOROthiazide [HCTZ 12.5mg capsule] 12.5 mg PO DAILY
== END 2018-04-10 10:50 | disposition home or self-care (01) ==
LOC: UTC.OUT 14:27 → 2ND 14:27
PROVIDERS: ADMIT Internal Medicine; ATTEND Internal Medicine
CPT/HCPCS: 36415; 80048; 80076; 82570; 84300; 84443; 85025; 87507; G0378; J0456

== ENCOUNTER → 2018-04-22 08:08 | Outpatient (CLI) | payer BC, SELFPAY ==
[2018-04-22 14:29] LABS: Anion Gap 12.7 mEq/L (5-15); Blood Urea Nitrogen 10 mg/dL (7-18); Carbon Dioxide 27 mmol/L (21.0-32.0); Chloride 107 mmol/L (98-107); Creatinine,Serum 1.09 mg/dL (0.55-1.02); Estimated Glomerular Filt Rate 53 ml/min (>60); GFR (African American) 64 ML/MIN (>60); Glucose 91 mg/dL (74-106); Potassium 3.7 mmoL/L (3.5-5.1); Sodium 143 mmol/L (136-145)
== END ==
PROVIDERS: Visit Provider Physician Assistant
DX: R94.4 Abnormal results of kidney function studies (principal); E16.2 Hypoglycemia, unspecified; E87.0 Hyperosmolality and hypernatremia
CPT/HCPCS: 36415; 80048

== ENCOUNTER → 2018-05-06 11:03 | Outpatient (CLI) | payer BC, SELFPAY ==
[2018-05-06 12:07] LABS: Basophils # 0.1 K/mm3 (0-0.2); Basophils % 1.2 % (0.1-2.0); Eosinophils # 0.3 K/mm3 (0.0-0.4); Eosinophils % 3.6 % (0.1-12.0); Hematocrit 37.5 % (37.0-47.0); Hemoglobin 11.5 g/dL (12.2-16.2); Lymphocytes # 2.4 K/mm3 (0.7-4.5); Lymphocytes % 32.6 K/mm3 (10-50); Mean Corpuscular HGB Conc 30.6 g/dL (31.8-35.4); Mean Corpuscular Hemoglobin 27.9 pg (27.0-31.2); Mean Corpuscular Volume 91.1 fl (81-99); Mean Platelet Volume 9.1 fl (7.4-10.4); Monocytes # 0.5 K/mm3 (0.1-1.0); Monocytes % 6.2 % (1.7-9.3); Neutrophils # 4.1 K/mm3 (1.8-7.8); Neutrophils % 56.3 % (37.0-80.0); Platelet Count 176 K/mm3 (142-424); Red Blood Count 4.12 M/mm3 (4.20-5.40); Red Cell Distribution Width 14.2 % (11.5-17.5); White Blood Count 7.3 K/mm3 (4.8-10.8)
[2018-05-06 12:47] LABS: Alanine Aminotransferase 17 U/L (12-78); Albumin Level 3.4 gm/dL (3.4-5.0); Albumin/Globulin Ratio 1.2 (1.1-1.8); Alkaline Phosphatase 111 U/L (46-116); Anion Gap 11.1 mEq/L (5-15); Aspartate Amino Transferase 12 U/L (15-37); Bilirubin,Total 0.4 mg/dL (0.2-1.0); Blood Urea Nitrogen 8 mg/dL (7-18); Calcium 9.1 mg/dL (8.5-10.1); Carbon Dioxide 30 mmol/L (21.0-32.0); Chloride 109 mmol/L (98-107); Creatinine,Serum 0.91 mg/dL (0.55-1.02); Estimated Glomerular Filt Rate 65 ml/min (>60); GFR (African American) 79 ML/MIN (>60); Globulin 2.9 gm/dl (1.3-3.2); Glucose 103 mg/dL (74-106); Potassium 4.1 mmoL/L (3.5-5.1); Sodium 146 mmol/L (136-145); Total Protein,Serum 6.3 gm/dL (6.4-8.2)
== END ==
PROVIDERS: Visit Provider Surgery
DX: Z01.818 Encounter for other preprocedural examination (principal); K80.20 Calculus of gallbladder without cholecystitis without obstruction
CPT/HCPCS: 36415; 80053; 85025

== ENCOUNTER → 2018-05-19 10:48 | Outpatient (CLI) | payer BC, SELFPAY ==
[2018-05-19 11:07] LABS: Basophils # 0.1 K/mm3 (0-0.2); Basophils % 0.6 % (0.1-2.0); Eosinophils # 0.2 K/mm3 (0.0-0.4); Eosinophils % 2.4 % (0.1-12.0); Hemoglobin 12.3 g/dL (12.2-16.2); Lymphocytes # 2.1 K/mm3 (0.7-4.5); Lymphocytes % 27.8 K/mm3 (10-50); Mean Corpuscular HGB Conc 31.4 g/dL (31.8-35.4); Mean Corpuscular Hemoglobin 27.9 pg (27.0-31.2); Mean Corpuscular Volume 88.9 fl (81-99); Mean Platelet Volume 8.2 fl (7.4-10.4); Monocytes # 0.4 K/mm3 (0.1-1.0); Monocytes % 5.5 % (1.7-9.3); Neutrophils # 4.7 K/mm3 (1.8-7.8); Neutrophils % 63.6 % (37.0-80.0); Platelet Count 259 K/mm3 (142-424); Red Blood Count 4.39 M/mm3 (4.20-5.40); Red Cell Distribution Width 13.6 % (11.5-17.5); White Blood Count 7.5 K/mm3 (4.8-10.8)
[2018-05-19 11:51] LABS: Alanine Aminotransferase 17 U/L (12-78); Albumin Level 3.4 gm/dL (3.4-5.0); Albumin/Globulin Ratio 1.1 (1.1-1.8); Alkaline Phosphatase 109 U/L (46-116); Anion Gap 12.1 mEq/L (5-15); Aspartate Amino Transferase 13 U/L (15-37); Bilirubin,Total 0.4 mg/dL (0.2-1.0); Blood Urea Nitrogen 10 mg/dL (7-18); Carbon Dioxide 28 mmol/L (21.0-32.0); Chloride 108 mmol/L (98-107); Chol/HDL Ratio 4.4 (1-3.5); Cholesterol 189 mg/dL (140-200); Creatinine,Serum 0.85 mg/dL (0.55-1.02); Estimated Glomerular Filt Rate 70 ml/min (>60); GFR (African American) 85 ML/MIN (>60); Glucose 93 mg/dL (74-106); HDL Cholesterol 43 mg/dL (29-89); LDL Cholesterol 111 mg/dL (0-130); Magnesium 1.8 mg/dL (1.4-2.2); Phosphorous 3.5 mg/dL (2.4-4.9); Potassium 4.1 mmoL/L (3.5-5.1); Sodium 144 mmol/L (136-145); Thyroid Stimulating Hormone 2.15 uIU/ml (0.358-3.740); Total Protein,Serum 6.4 gm/dL (6.4-8.2); Triglycerides 175 mg/dL (30-200); VLDL Cholesterol 35 mg/dL (0-40)
[2018-05-19 12:01] LABS: Hemoglobin A1C 5.2 % (0.0-7.0)
[2018-05-21 06:21] LABS: Folate 10.4 ng/mL (>3.0); Vitamin B12 245 pg/mL (232-1245); Vitamin D 25 Hydroxy 31.5 ng/mL (30.0-100.0)
== END ==
PROVIDERS: Visit Provider Physician Assistant
DX: I10 Essential (primary) hypertension (principal); E78.5 Hyperlipidemia, unspecified; R60.9 Edema, unspecified; R25.2 Cramp and spasm
CPT/HCPCS: 36415; 80053; 80061; 82607; 82652; 82746; 83036; 83735; 84100; 84443; 85025

== ENCOUNTER → 2018-06-12 11:38 | Outpatient (CLI) | payer BC, SELFPAY ==
--- NOTE | 2018-06-12 11:43 | XR_ITS ---
XR chest 2V HISTORY: ITS.REASON: WHEEZING ORDERING PHYSICIAN: Asuncion Mckeon PATIENT AGE: 52 years COMPARISON: 04/21/2017 FINDINGS: There is cardiomegaly without failure. No lobar consolidation. There is some increased density in the right lung base laterally which may be due to an area of infiltrate or atelectasis. The remaining lungs are clear. No acute bony anomalies. IMPRESSION: Cardiomegaly with atelectasis or infiltrate in the right lung base laterally
== END ==
PROVIDERS: PCP Nurse Practitioner Family; Visit Provider Nurse Practitioner Family
DX: R06.2 Wheezing (principal)
CPT/HCPCS: 71046

== ENCOUNTER → 2018-07-08 13:39 | Outpatient (CLI) | payer BC, SELFPAY ==
[2018-07-08 14:09] LABS: Basophils # 0.1 K/mm3 (0-0.2); Basophils % 0.6 % (0.1-2.0); Eosinophils # 0.5 K/mm3 (0.0-0.4); Eosinophils % 6.2 % (0.1-12.0); Hematocrit 42.1 % (37.0-47.0); Hemoglobin 13.3 g/dL (12.2-16.2); Lymphocytes # 2.8 K/mm3 (0.7-4.5); Lymphocytes % 34.1 K/mm3 (10-50); Mean Corpuscular HGB Conc 31.5 g/dL (31.8-35.4); Mean Corpuscular Hemoglobin 28.2 pg (27.0-31.2); Mean Corpuscular Volume 89.5 fl (81-99); Mean Platelet Volume 8.3 fl (7.4-10.4); Monocytes # 0.4 K/mm3 (0.1-1.0); Monocytes % 4.9 % (1.7-9.3); Neutrophils # 4.5 K/mm3 (1.8-7.8); Neutrophils % 54.3 % (37.0-80.0); Platelet Count 272 K/mm3 (142-424); Red Cell Distribution Width 12.7 % (11.5-17.5); White Blood Count 8.3 K/mm3 (4.8-10.8)
[2018-07-08 15:41] LABS: Anion Gap 10.2 mEq/L (5-15); Blood Urea Nitrogen 12 mg/dL (7-18); Calcium 8.8 mg/dL (8.5-10.1); Carbon Dioxide 29 mmol/L (21.0-32.0); Chloride 109 mmol/L (98-107); Creatinine,Serum 1.03 mg/dL (0.55-1.02); Estimated Glomerular Filt Rate 56 ml/min (>60); GFR (African American) 68 ML/MIN (>60); Glucose 90 mg/dL (74-106); Potassium 5.2 mmoL/L (3.5-5.1); Sodium 143 mmol/L (136-145)
== END ==
PROVIDERS: Visit Provider Surgery
DX: K52.9 Noninfective gastroenteritis and colitis, unspecified (principal)
CPT/HCPCS: 36415; 80048; 85025

== ENCOUNTER → 2018-07-17 09:39 | Outpatient (CLI) | payer BC, SELFPAY ==
--- NOTE | 2018-07-17 09:43 | XR_ITS ---
XR chest 2V HISTORY: ITS.REASON: HTN, ABNORMAL CXR ORDERING PHYSICIAN: Lizzie Mo PATIENT AGE: 52 years COMPARISON: 06/12/2018 FINDINGS: There is mild cardiomegaly without failure. Previously noted opacity in the right lung base laterally has improved. The lungs are now clear. No acute bony anomalies. IMPRESSION: Cardiomegaly with Improved infiltrate or atelectasis in the right lung base laterally
== END ==
PROVIDERS: PCP Physician Assistant; Visit Provider Physician Assistant
DX: R93.8 Abnormal findings on diagnostic imaging of other specified body structures (principal); I10 Essential (primary) hypertension
CPT/HCPCS: 71046

== ENCOUNTER → 2019-03-19 09:10 | Outpatient (CLI) | payer BC, SELFPAY ==
--- NOTE | 2019-03-19 09:12 | MM_ITS ---
MM Dig screening mamm BI w/CAD CAD Screening COMPARISON: Digital mammograms with CAD 01/30/2018 INDICATION: There is no personal or family history of breast cancer. There is been previous biopsy left breast TECHNIQUE: Standard CC and MLO images were obtained. R2 CAD reviewed. FINDINGS: The breasts are composed primarily of fat with minimal scattered fibroglandular densities in each breast. 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 There are 2 tiny benign-appearing nodular densities superior and lateral to the fibroadenoma in each are stable. There is no suspicious lesion and there are no suspicious microcalcifications. IMPRESSION: Stable exam no suspicious lesion seen BI-RADS Category: 2 Benign Finding(s) RECOMMENDED FOLLOW-UP: 1YR - 1 YEAR FOLLOW-UP (A letter has been sent to the patient regarding results of the study.)
== END ==
PROVIDERS: PCP Physician Assistant; Visit Provider Physician Assistant
DX: Z12.31 Encounter for screening mammogram for malignant neoplasm of breast (principal)
CPT/HCPCS: 77067

== ENCOUNTER → 2019-04-20 14:52 | Outpatient (CLI) | payer BC, SELFPAY ==
[2019-04-20 15:14] LABS: Anion Gap 11.1 mEq/L (5-15); Blood Urea Nitrogen 17 mg/dL (7-18); Calcium 8.2 mg/dL (8.5-10.1); Carbon Dioxide 29 mmol/L (21.0-32.0); Chloride 107 mmol/L (98-107); Creatinine,Serum 1.08 mg/dL (0.55-1.02); Estimated Glomerular Filt Rate 53 ml/min (>60); GFR (African American) 64 ML/MIN (>60); Glucose 100 mg/dL (74-106); Potassium 4.1 mmoL/L (3.5-5.1); Sodium 143 mmol/L (136-145)
[2019-04-20 15:21] LABS: Troponin I < 0.02 ng/ml (0.00-0.06)
== END ==
PROVIDERS: Visit Provider Urology
DX: R07.9 Chest pain, unspecified (principal); R06.09 Other forms of dyspnea; E66.01 Morbid (severe) obesity due to excess calories; G89.29 Other chronic pain; I10 Essential (primary) hypertension; Z72.0 Tobacco use; Z82.49 Family history of ischemic heart disease and other diseases of the circulatory system
CPT/HCPCS: 36415; 80048; 83880; 84484

== ENCOUNTER → 2019-05-05 11:29 | Outpatient (CLI) | payer BC, SELFPAY ==
--- NOTE | 2019-05-05 11:31 | NM_ITS ---
CARDIOLITE SPECT MYOCARDIAL PERFUSION LEXISCAN, REST AND STRESS: History: Obesity hypertension, tobacco use, family history, chest pain, shortness of breath and fatigue Procedure: Patient received a 0.4 mg of intravenous Lexiscan, resting heart rate was 55 bpm resting blood pressure 163/66, with Lexiscan maximum heart rate achieved was 96 bpm which is less than 85% of the maximum predicted heart rate and a blood pressure was 139/42. With Lexiscan patient complained of shortness of breath and nausea. Electrocardiogram: Resting echocardiogram showed sinus bradycardia nonspecific ST-T changes, with Lexiscan there is less than 1.5 ST segment depression noted from the baseline EKG. The EKG portion of the Lexiscan Myoview is nondiagnostic. Cardiac stress and resting SPECT images: Cardiac stress and resting SPECT images were obtained using technetium 99 Myoview 31.4 mCi stress and 10.2 mCi at rest. Gated SPECT further analysis of segmental wall motion and calculation of the ejection fraction also done. Cardiac stress and resting SPECT images show uniform myocardial activity without segmental perfusion abnormality, computer derived ejection fraction is 63% with no regional wall motion abnormality. Right ventricle is normal size and contractility. Conclusion: 1. The EKG portion of the Lexiscan Myoview is nondiagnostic. 2. No scintigraphic evidence of reversible ischemia seen, computer derived ejection fraction is 63% with no regional wall motion abnormality, right ventricle is normal size and contractility. 3. Normal Lexiscan Myoview study.
--- NOTE | 2019-05-05 11:59 | CA_ITS ---
PROCEDURE: 2-D M-mode and color Doppler study INDICATIONS FOR THE TEST: Chest pain X COPD Heart Murmur Tobacco SmokingX Palpitations Fatigue Syncope Edema HypertensionXDiabetes Mellitus Rheumatic Fever SOBXDOEXObesityXHyperlipidemiaX Family History HD Additional History PATIENT INFORMATION HEIGHT: 64 WEIGHT:255 GENDER: Female B/P:121/63 2-D/M-MODE INTERPRETATION: 2-D MEASUREMENTS OBSERVED VALUES IN CMS Right Ventricular Dimension (RVDd) 2.6 Interventricular Septum (Thickness)(IVsd) 1.0 Left Ventricular Internal Dimensions(LVIDd) 5.6 Left Ventricular Posterior Wall (Thickness)(LVPWd) 1.2 Aortic Root 3.6 Aortic Cusp Separation 2.0 Left Atrial Dimensions (LAD) 3.8 2D 1. Left Atrium is mildly enlarged, left ventricle is normal size, mild concentric left ventricular hypertrophy, visually estimated ejection fraction 55% with no regional wall motion abnormality. 2. The right atrium and right ventricle are normal size and contractility. 3. The aortic valve is minimally thickened and fibrosed. 4. The mitral and tricuspid valvular grossly normal. 5. The pulmonic valve is poorly visualized. 6. No significant pericardial effusion noted. DOPPLER INTERROGATION: Doppler interrogation of the aortic, mitral and tricuspid valve reveals presence of mild mitral and tricuspid regurgitation, tricuspid regurgitation jet velocity is inadequate for calculation of the right ventricular systolic pressure, grade 1 diastolic dysfunction seen without tissue Doppler evidence of raised left atrial pressure. CONCLUSION: 1. Mildly enlarged left atrium, normal left ventricular size, mild concentric left ventricular hypertrophy, visually estimated ejection fraction 55% with no wall motion abnormality, grade 1 diastolic dysfunction seen without tissue Doppler evidence of raised left atrial pressure. 2. Mild mitral and tricuspid regurgitation 3. No significant pericardial effusion noted.
== END ==
PROVIDERS: PCP Family Medicine; Visit Provider Internal Medicine
DX: R07.9 Chest pain, unspecified (principal); R06.09 Other forms of dyspnea; E66.01 Morbid (severe) obesity due to excess calories; G89.29 Other chronic pain; I10 Essential (primary) hypertension; Z72.0 Tobacco use; Z82.49 Family history of ischemic heart disease and other diseases of the circulatory system
CPT/HCPCS: 78452; 93017; 93306; A9502; J2785

== ENCOUNTER → 2020-02-09 13:35 | Outpatient (CLI) | payer BC, SELFPAY ==
[2020-02-09 14:34] LABS: Basophils # 0.1 K/mm3 (0-0.2); Basophils % 0.8 % (0.1-2.0); Eosinophils # 0.2 K/mm3 (0.0-0.4); Eosinophils % 2.4 % (0.1-12.0); Hemoglobin 14.2 g/dL (12.2-16.2); Lymphocytes % 25.8 % (10-50); Mean Corpuscular HGB Conc 32.2 g/dL (31.8-35.4); Mean Corpuscular Hemoglobin 28.7 pg (27.0-31.2); Mean Corpuscular Volume 89.2 fl (81-99); Mean Platelet Volume 9.9 fl (7.4-10.4); Monocytes # 0.5 K/mm3 (0.1-1.0); Monocytes % 6.2 % (1.7-9.3); Neutrophils % 64.7 % (37.0-80.0); Platelet Count 229 K/mm3 (142-424); Red Blood Count 4.93 M/mm3 (4.20-5.40); Red Cell Distribution Width 12.5 % (11.5-17.5); White Blood Count 7.7 K/mm3 (4.8-10.8)
[2020-02-09 16:10] LABS: Chloride 103 mmol/L (98-107); Potassium 4.4 mmoL/L (3.5-5.1); Sodium 140 mmol/L (136-145)
[2020-02-09 16:12] LABS: Bilirubin,Unconjugated 0.5 mg/dL (0.0-1.1); Blood Urea Nitrogen 12 mg/dl (7-17); Estimated Glomerular Filt Rate 75 ml/min (>60); GFR (African American) 90 ML/MIN (>60)
[2020-02-09 16:13] LABS: Alanine Aminotransferase 15 U/L (12-78); Albumin Level 4.1 g/dl (3.5-5.0); Alkaline Phosphatase 138 U/L (38-126); Anion Gap 10.4 mEq/L (5-15); Aspartate Amino Transferase 21 U/L (14-36); Bilirubin,Indirect 0.4 mg/dL (0.0-0.9); Bilirubin,Total 0.4 mg/dl (0.2-1.3); Carbon Dioxide 31 mmol/L (22.0-30.0); Chol/HDL Ratio 5.1 (1-3.5); Cholesterol 218 mg/dl (140-200); Glucose 83 mg/dl (74-100); HDL Cholesterol 43 mg/dl (40-60); Total Protein,Serum 6.8 g/dl (6.3-8.2); Triglycerides 218 mg/dl (30-150); VLDL Cholesterol 44 mg/dL (0-40)
[2020-02-09 16:24] LABS: Direct LDL Cholesterol 138.72 mg/dL (100-129)
[2020-02-09 16:30] LABS: Free T4 (Free Thyroxine) 0.73 ng/dl (0.78-2.19)
[2020-02-09 16:45] LABS: Thyroid Stimulating Hormone 3.82 uIU/mL (0.465-4.68)
== END ==
PROVIDERS: Visit Provider Urology
DX: R06.02 Shortness of breath (principal); I10 Essential (primary) hypertension; I51.89 Other ill-defined heart diseases; Z72.0 Tobacco use
CPT/HCPCS: 36415; 80048; 80061; 80076; 84439; 84443; 85025

== ENCOUNTER 2020-09-12 15:56 | Observation (INO) | payer BC, SELFPAY ==
[2020-09-12] VITALS (12 sets, daily range): BP systolic 100–133; BP diastolic 13–89; PULSE 58–178; RESP 14–17; TEMP 36.7; O2SAT 92–100; BMI 48.0; BMI 45.3
--- NOTE | 2020-09-12 15:53 | ECG_ITS ---
APPROVED REPORT Exam: Resting ECG HR:169 bpm ECG Measurements Heart Rate 169 AXES QRSd 104 QRS -40 QT 322 T 110 QTc 539 Conclusion Atrial fibrillation with rapid ventricular response Left axis deviation Marked ST abnormality, possible inferior subendocardial injury Abnormal ECG Electronically signed by : Demarco Richard, 09/17/2020 09:51:37
--- NOTE | 2020-09-12 16:02 | XR_ITS ---
PROCEDURE: XR CHEST PORTABLE CLINICAL HISTORY: chest pain COMPARISON: CR CXR2V XR chest 2V from 07/17/2018 CR XR RIBS RT MIN 3V W CXR1V from 10/06/[address] CHEST W CON from 10/06/2019 CR XR CHEST 2V from 10/06/2019 FINDINGS: Borderline cardiomegaly without failure. Defibrillator device noted over the lower chest centrally. Lungs are clear bilaterally. No acute bony finding IMPRESSION: Mild cardiomegaly otherwise negative Dictated by: Brant Land MD 09/12/2020 17:02 Brant Land MD in OV 09/12/2020 17:02
--- NOTE | 2020-09-12 16:34 | HMH.EDGENADL ---
ED Disposition Clinical Impression: Rapid atrial fibrillation, New onset atrial fibrillation Disposition: Admitted as Observation Condition on Discharge: Good - Critical Care Critical Care Time: Yes Attestation: On 09/12/20, the high probability of a clinically significant, sudden or life threatening deterioration of the following system(s) required my full and direct attention, intervention and personal management. The time I documented below is in addition to time spent performing reported procedures but includes the following listed in this critical care notation. Total Critical Care Time: 40 Vital system(s) involved:: Circulatory Failure My critical care processes included: Assessment & monitoring of V/S, Initial and Re-exams, Data Review/Interpretation, Coordinating Care, Medication Orders and management, Documentation Medical Decision Making - Rashard Inquiry Pt receiving controlled substance: No Vital Signs: 09/12/20 15:57 09/12/20 16:27 09/12/20 17:30 Temperature Temperature Source Pulse Rate Pulse Rate [Left Radial] 178 H Respiratory Rate 17 Blood Pressure Blood Pressure [Right Arm] 100/58 L 105/72 L 113/74 Blood Pressure Mean [Right Arm] 72 83 87 Blood Pressure Source Blood Pressure Source [Right Arm] Automatic Cuff Automatic Cuff Blood Pressure Position Blood Pressure Position [Right Arm] Sitting 02 Sat by Pulse Oximetry 97 Oxygen Delivery Method Room Air 09/12/20 19:00 09/12/20 19:30 09/12/20 20:00 Temperature Temperature Source Pulse Rate Pulse Rate [Left Radial] 66 69 67 Respiratory Rate 17 17 17 Blood Pressure Blood Pressure [Right Arm] 119/75 121/75 101/71 L Blood Pressure Mean [Right Arm] 89 90 81 Blood Pressure Source Blood Pressure Source [Right Arm] Automatic Cuff Automatic Cuff Automatic Cuff Blood Pressure Position Blood Pressure Position [Right Arm] Supine Supine Supine 02 Sat by Pulse Oximetry 99 97 99 Oxygen Delivery Method Room Air Room Air Room Air 09/12/20 20:30 09/12/20 21:00 09/12/20 21:14 Temperature Temperature Source Pulse Rate Pulse Rate [Left Radial] 67 74 Respiratory Rate 17 17 Blood Pressure Blood Pressure [Right Arm] 100/67 L 115/71 Blood Pressure Mean [Right Arm] 78 85 Blood Pressure Source Blood Pressure Source [Right Arm] Automatic Cuff Automatic Cuff Blood Pressure Position Blood Pressure Position [Right Arm] Supine Supine 02 Sat by Pulse Oximetry 97 99 Oxygen Delivery Method Room Air Room Air Nasal Cannula 09/12/20 21:16 Temperature 98.1 F Temperature Source Oral Pulse Rate 70 Pulse Rate [Left Radial] Respiratory Rate 14 Blood Pressure 130/13 L Blood Pressure [Right Arm] Blood Pressure Mean [Right Arm] Blood Pressure Source Automatic Cuff Blood Pressure Source [Right Arm] Blood Pressure Position Supine Blood Pressure Position [Right Arm] 02 Sat by Pulse Oximetry Oxygen Delivery Method Room Air - Lab Data Lab Results 09/12/20 18:10: WBC 14.0 H, RBC 4.40, Hgb 12.9, Hct 40.8, MCV 92.9, MCH 29.4, MCHC 31.7 L, RDW 12.8, Plt Count 220, MPV 9.1, Neut % (Auto) 70.5, Lymph % (Auto) 21.3, [place] % (Auto) 6.1, Eos % (Auto) 1.6, Baso % (Auto) 0.6, Neut # (Auto) 9.8 H, Lymph # (Auto) 3.0, [place] # (Auto) 0.9, Eos # (Auto) 0.2, Baso # (Auto) 0.1 09/12/20 18:10: Sodium 140, Potassium 4.1, Chloride 107, Carbon Dioxide 30, Anion Gap 7.1, BUN 15, Creatinine 1.30 H, Estimated Creat Clear 43, Estimated GFR 43 L, Est GFR ( Amer) 52 L, Glucose 92, Calcium 8.8, Troponin I 0.03 09/12/20 18:10: TSH 3.94, Free T4 Index 2.4 L, Thyroxine (T4) 7.6, T3 Uptake 31 09/12/20 19:13: D-Dimer 0.57 09/12/20 19:25: Troponin I 0.05 H Result diagrams: 09/12/20 18:10 09/12/20 18:10 Orders (Tests/Meds): ED MEDICATIONS Generic Name Dose Route Start Last Admin Trade Name Freq PRN Reason Stop Dose Admin Acetaminophen 650 mg 09/12/20 21:06 Acetaminophen 325mg Tab PO 10/12/20 21:05
--- NOTE | 2020-09-12 17:21 | PC.NURSE ---
states to start drip phenylephrine at 40 mcq. States to titrate to keep SBP above 90
--- NOTE | 2020-09-12 17:33 | PC.NURSE ---
MD aware of bp 105/72. Hold drip at this time until bp drops below SBP of 90
--- NOTE | 2020-09-12 18:01 | PC.NURSE ---
contacted lab to check on status of lab results
[2020-09-12 18:17] LABS: Basophils # 0.1 K/mm3 (0-0.2); Basophils % 0.6 % (0.1-2.0); Eosinophils # 0.2 K/mm3 (0.0-0.4); Eosinophils % 1.6 % (0.1-12.0); Hematocrit 40.8 % (37.0-47.0); Hemoglobin 12.9 g/dL (12.2-16.2); Lymphocytes % 21.3 % (10-50); Mean Corpuscular HGB Conc 31.7 g/dL (31.8-35.4); Mean Corpuscular Hemoglobin 29.4 pg (27.0-31.2); Mean Corpuscular Volume 92.9 fl (81-99); Mean Platelet Volume 9.1 fl (7.4-10.4); Monocytes # 0.9 K/mm3 (0.1-1.0); Monocytes % 6.1 % (1.7-9.3); Neutrophils # 9.8 K/mm3 (1.8-7.8); Neutrophils % 70.5 % (37.0-80.0); Platelet Count 220 K/mm3 (142-424); Red Cell Distribution Width 12.8 % (11.5-17.5)
[2020-09-12 18:24] LABS: Chloride 107 mmol/L (98-107); Potassium 4.1 mmoL/L (3.5-5.1); Sodium 140 mmol/L (136-145)
[2020-09-12 18:27] LABS: Anion Gap 7.1 mEq/L (5-15); Blood Urea Nitrogen 15 mg/dl (7-17); Carbon Dioxide 30 mmol/L (22.0-30.0); Creatinine Clearance Estimated 43 mL/min (50-200); Estimated Glomerular Filt Rate 43 ml/min (>60); GFR (African American) 52 ML/MIN (>60)
[2020-09-12 18:28] LABS: Calcium 8.8 mg/dl (8.4-10.2); Glucose 92 mg/dl (74-100)
[2020-09-12 18:40] LABS: Troponin I 0.03 ng/ml (0.00-0.034)
--- NOTE | 2020-09-12 18:50 | ECG_ITS ---
APPROVED REPORT Exam: Resting ECG HR:70 bpm ECG Measurements Heart Rate 70 AXES NH 154 P 57 QRSd 106 QRS -19 QT 432 T 34 QTc 466 Conclusion Normal sinus rhythm Normal ECG Electronically signed by : Demarco Richard, 09/17/2020 09:50:30
[2020-09-12 19:01] LABS: Free Thyroxine Index 2.4 ug/dL (5.93-13.13); T4 (Thyroxine) 7.6 ug/dl (5.53-11.0); Triiodothryronine (T3) Uptake 31 % (23.5-40.5)
[2020-09-12 19:14] LABS: Thyroid Stimulating Hormone 3.94 uIU/mL (0.465-4.68)
[2020-09-12 19:45] LABS: D-Dimer 0.57 ug/mL (0.15-8.0)
[2020-09-12 19:57] LABS: Troponin I 0.05 ng/ml (0.00-0.034)
--- NOTE | 2020-09-12 21:22 | PC.NURSE ---
Report called to GINA Craven at 1451
--- NOTE | 2020-09-12 21:38 | PC.NURSE ---
patient up to floor via wheelchair
[2020-09-13] VITALS: BP 106/55; PULSE 60; PULSE 61; RESP 20; TEMP 36.8; O2SAT 93
--- NOTE | 2020-09-13 00:33 | PC.NURSE ---
She is A&Ox4. She denies pain. Has been either NSR or sinus bossman on telemetry. Denies SOA at rest. Reports SOA with exertion. Continues on RA. Ambulates independently.
--- NOTE | 2020-09-13 02:15 | PC.NURSE ---
She has been resting in bed. Sinus bossman on telemetry. No acute changes.
[2020-09-13 04:00] VITALS: BP 111/50; PULSE 59; PULSE 6; RESP 22; TEMP 36.4; O2SAT 93
[2020-09-13 06:42] VITALS: BMI 45.7
--- NOTE | 2020-09-13 07:00 | CA_ITS ---
APPROVED REPORT EXAM: Comprehensive 2D, Doppler, and color-flow Echocardiogram Machine Precision Engraver: Idania Zamora CRT Ht: 5 ft 4 in Wt: 280lbs BSA: 2.26 BP: 115/71 mmHg Indications: new a fib, Chest Pain, Shortness of Breath, Obesity, Hyperlipidemia, Hypertension/HDD, smoker, GERD, asthma, 2D Dimensions LVOT 2.67 cm (M/F) 1.5-2.5 M-Mode Dimensions RVDd 2.48 cm (0.9-2.6) LVDd 5.12 cm (3.5-5.7) LVDs 3.31 cm (3.5-5.7) IVSd 1.33 cm (0.6-1.1) PWd 1.22 cm (0.6-1.1) EF (Teich) 64.40% FS 35.40% EDV (Teich) 124.90 mL ESV (Teich) 44.50 mL LV Diastology E/A Ratio 0.80 Mitral Valve MV A Velocity 80.00 (40-130 cm/s) Left Ventricle Left atrium is mildly enlarged, left ventricular is normal in size, mild concentric left ventricular hypertrophy, visually estimated ejection fraction 55% with no regional wall motion abnormality. Grade 1 diastolic dysfunction seen without tissue Doppler evidence of raise left atrial pressure. Right Ventricle Right atrium and right ventricle are normal size and contractility. Aortic Valve Aortic valve is minimally thickened and fibrosed, there is no aortic stenosis or aortic insufficiency. Mitral Valve Mitral valve grossly normal, there is mild mitral regurgitation. Tricuspid Valve Tricuspid valve is grossly normal, there is mild tricuspid regurgitation, tricuspid regurgitation jet proceeds inadequate for calculation of the right ventricular systolic pressure. Pulmonic Valve Pulmonic valve is poorly visualized. Great Vessels Aortic root is normal size. Pericardium No significant pericardial effusion noted. Conclusion 1. Mildly in the left atrium, normal left ventricular size, mild concentric left ventricular hypertrophy, visually estimated ejection fraction 55% with no regional wall motion abnormality, grade 1 diastolic dysfunction seen without tissue Doppler evidence of raise left atrial pressure. 2. Mild mitral and tricuspid regurgitation. 3. No significant pericardial effusion noted. Electronically signed by : Zac Cheema, 09/14/2020 10:57:20
--- NOTE | 2020-09-13 07:46 | HMH.PHAVTE ---
[facility] Pharmacy VTE Monitoring - Patient Demographics Admission date: 09/13/20 Report Date: 09/13/20 Time: 07:47 Allergies/Adverse Reactions: Patient Allergies lactase [From Dairy Aid] Allergy (Mild, Verified 08/09/20 13:51) Diarrhea atorvastatin Adverse Reaction (Severe, Verified 08/10/20 10:23) myalgias Height: 1.63 m Weight: 121.517 kg Patient Problems: Current Active Problems (Last Reviewed 07/30/18 @ 06:26 by Tiffany Looney) Rapid atrial fibrillation (Acute) New onset atrial fibrillation (Acute) - VTE Risk Labs: VTE Related Lab Results Hgb 12.9 g/dL (12.2-16.2) 09/12/20 18:10 Hct 40.8 % (37.0-47.0) 09/12/20 18:10 Plt Count 220 K/mm3 (142-424) 09/12/20 18:10 BUN 15 mg/dl (7-17) 09/12/20 18:10 Creatinine 1.30 mg/dl (0.52-1.04) H 09/12/20 18:10 Estimated Creat Clear 43 mL/min (50-200) 09/12/20 18:10 Was VTE Risk Assessment Performed: Yes VTE Score: 8 VTE Risk Level: Moderate Risk Clinical Trial Participant: No - Prophylaxis VTE Prophylaxis Ordered?: Yes Types of VTE Prophylaxis: TEDS Knee High
--- NOTE | 2020-09-13 07:57 | HMH.PHAINT ---
COMPLETED HOME MED RECONCILIATION USING LIST FROM FRANCESCO GIL
[2020-09-13 08:00] VITALS: BP 111/58; PULSE 60; PULSE 61; RESP 18; TEMP 36.9; O2SAT 95
--- NOTE | 2020-09-13 09:27 | HMH.HP ---
*Admission Date: 09/13/20 <Chaparrita Hernandez 09/13/20 09:28> *Chief complaint: Chest pain <Chaparrita Hernandez 09/13/20 09:28> *History of present illness: Ms. Moe is a 54-year-old female with a history of congestive heart failure who around 3 PM yesterday developed midsternal severe chest pain. She felt like her heart was beating out of her chest. She denied having shortness of breath, Radiation, syncope, nausea or vomiting. She thus presented to [facility] for further evaluation and treatment. In the emergency room she was found to be in atrial fibrillation with a rapid ventricular response. Initially her blood pressure was 170/114. She was started on sotalol after being on a cardizem gtt briefly. She was also given an aspirin. This a.m. patient states she is having no chest pain. The chest pain subsided when she converted to sinus rhythm. She has remained in SR throughout the night. She is followed by Dr. Tyler for diastolic HF and they have been consulted to see her today. <Chaparrita Hernandez 09/13/20 12:51> [facility] History Medical History: Reports:: Asthma, Congestive Heart Failure, Gastroesophageal Reflux Disease(GERD), Hyperlipidemia, Hypertension, Lung Disease, Renal Insufficiency Denies:: Cancer, Diabetes Mellitus Type 1, Diabetes Mellitus Type 2, Internal Pacemaker, MRSA, Seizures <Chaparrita Hernandez 09/13/20 09:28> *Have you ever received a pneumonia vaccine?: No (needs and wants but states she has to wait 2 weeks per PCP) <Chaparrita Hernandez 09/13/20 09:28> *Have you received a flu vaccine this season?: Yes (2019) <Chaparrita Hernandez 09/13/20 09:28> Other Medical History: Reports: Arthritis, Liver Disease (Hep A hx as child), Other. Denies: Blood Transfusion Reaction <Chaparrita Hernandez 09/13/20 09:28> Laterality Cases: Left: Breast Biopsy <Chaparrita Hernandez 09/13/20 09:28> Other Surgeries: Yes: Cardiac Catheterization (x2 no stents), Cholecystectomy, Colonoscopy, EGD, Hysterectomy-Total, Hysterectomy-Partial, Tubal Ligation, Other. No: Pacemaker <Chaparrita Hernandez 09/13/20 09:28> Amputation: No <DavidChaparrita Antonio 09/13/20 09:28> Fractures: Yes (hand) <DavidChaparrita 09/13/20 09:28> - *Social History Last grade of school completed: 7th or 8th <DavidChaparrita 09/13/20 09:28> Smoking Status: Current every day smoker <HernandezChaparrita 09/13/20 09:28> Tobacco Type: cigarettes <HernandezChaparrita 09/13/20 09:28> # Packs/Day (cigarettes): 1 <DavidChaparrita Antonio 09/13/20 09:28> #Yrs smoked (if former smoker): 25 <Hernandez,Chaparrita 09/13/20 09:28> Alcohol Intake: never <HernandezChaparrita 09/13/20 09:28> Alcohol Intake Frequency:: other <DavidChaparrita 09/13/20 09:28> Substance Use Type: denies use <Hernandez,Chaparrita 09/13/20 09:28> *Occupational Status:: other <HernandezChaparrita - 09/13/20 09:28> Housing: house <HernandezChaparrita 09/13/20 09:28> Household Members: spouse <HernandezChaparrita 09/13/20 09:28> *Travel in the last 8 weeks: None <Hernandez,Chaparrita 09/13/20 09:28> Family Hx:: Coronary Artery Disease, Heart Attack, Stroke <Chaparrita Hernandez 09/13/20 09:28> Review of Systems - Constitutional Denies fever(s) <Chaparrita Hernandez 09/13/20 12:51> - Eyes Denies change in vision <Chaparrita Hernandez 09/13/20 12:51> - ENT Denies ear pain, Denies nasal congestion, Denies sore throat <Chaparrita Hernandez 09/13/20 12:51> - *Cardiovascular Reports chest pain, Reports shortness of breath, Reports rapid, pounding, or irregular heartbeat <Chaparrita Hernandez 09/13/20 12:51> - *Respiratory Reports cough, Denies chest congestion <Chaparrita Hernandez 09/13/20 12:51> - *Gastrointestinal Denies abdominal pain, Denies constipation, Denies nausea, Denies vomiting <Chaparrita Hernandez 09/13/20 12:51> - *Genitourinary Denies difficulty urinating <Chaparrita Hernandez 09/13/20 12:51> - *Musculoskeletal Denies joint pain <Chaparrita Hernandez 09/13/20 12:51> - *Neurologic Denies abnormal speech, Denies dizziness, Denies headache(s) <Chaparrita Hernandez -
[2020-09-13 09:58] LABS: Coronavirus 19 IgG Antibody Negative (Negative); Coronavirus 19 IgM Antibody Negative (Negative)
--- NOTE | 2020-09-13 10:19 | HMH.CNCARD ---
History of Present Illness Consult date: 09/13/20 Requesting physician: Braden Kulkarni Consult reason: atrial fibrillation Chief complaint: palps and chest pain Additional Medical History:: 1. normal cors [facility] 01/2018 shows: 1. The left main artery normal 2. The left anterior descending artery normal 3. The circumflex artery nondominant large and normal 4. The right coronary artery dominant normal 5. The SUNSHINE ventriculogram reveals normal 65% 6. The left ventricular end-diastolic pressure elevated at 25 mmHg IMPRESSION: 1. Normal coronary arteries 2. Normal ejection fraction 3. Moderately elevated LVEDP consistent with diastolic dysfunction Stress test 05/2019 shows: 1. The EKG portion of the Lexiscan Myoview is nondiagnostic. 2. No scintigraphic evidence of reversible ischemia seen, computer derived ejection fraction is 63% with no regional wall motion abnormality, right ventricle is normal size and contractility. 3. Normal Lexiscan Myoview study. 2. HTN 3. HLD 4. Diastolic dysfunction Echo 05/2019 shows: 1. Mildly enlarged left atrium, normal left ventricular size, mild concentric left ventricular hypertrophy, visually estimated ejection fraction 55% with no wall motion abnormality, grade 1 diastolic dysfunction seen without tissue Doppler evidence of raised left atrial pressure. 2. Mild mitral and tricuspid regurgitation 3. No significant pericardial effusion noted. History of present illness: This is a 54-year-old white female who presented to the emergency department with complaints of chest pain. She states that this started around 3 PM yesterday. She states that it felt like her heart was beating out of her chest. She denied having any shortness of breath or radiation of the pain. She denied any nausea or vomiting or diaphoresis. The patient states that this was severe and she decided to come into the emergency department. Nothing was worsening or improving her pain. The patient was found to be in atrial fibrillation with RVR when she got to the emergency department. She was hypertensive with a blood pressure of 170/114. The patient was started on a diltiazem drip and was having intermittent conversions back into sinus rhythm but then she would go back into atrial fibrillation. The diltiazem was stopped and she was started on sotalol. The patient has converted to sinus rhythm. This morning she denies any chest pain or pressure. She states that she does have some shortness of breath at times and edema as well. She denies any fever, chills, nausea, vomiting, diarrhea, PND or orthopnea. [facility] History I have reviewed the patient's past medical history: Yes Medical History: Reports:: Asthma, Congestive Heart Failure, Gastroesophageal Reflux Disease(GERD), Hyperlipidemia, Hypertension, Lung Disease, Renal Insufficiency Denies:: Cancer, Diabetes Mellitus Type 1, Diabetes Mellitus Type 2, Internal Pacemaker, MRSA, Seizures *Have you ever received a pneumonia vaccine?: No (needs and wants but states she has to wait 2 weeks per PCP) *Have you received a flu vaccine this season?: Yes (2019) Other Medical History: Reports: Arthritis, Liver Disease (Hep A hx as child), Other. Denies: Blood Transfusion Reaction Laterality Cases: Left: Breast Biopsy Other Surgeries: Yes: Cardiac Catheterization (x2 no stents), Cholecystectomy, Colonoscopy, EGD, Hysterectomy-Total, Hysterectomy-Partial, Tubal Ligation, Other. No: Pacemaker Amputation: No Fractures: Yes (hand) - *Social History Last grade of school completed: 7th or 8th Smoking Status: Current every day smoker Tobacco Type: cigarettes # Packs/Day (cigarettes): 1 #Yrs smoked (if former smoker): 25 Alcohol Intake: never Alcohol Intake Frequency:: other Substance Use Type: denies use *Occupational Status:: other Housing: house Household Members: spouse *Travel in the last 8 weeks: None Family Hx:: Coronary Artery Disease, Heart Attack, Stroke Med
[2020-09-13 10:40] LABS: NT Pro Brain Natriuretic Pep. 290 pg/mL (0-125); Troponin I 0.05 ng/ml (0.00-0.034)
--- NOTE | 2020-09-13 10:47 | ECG_ITS ---
APPROVED REPORT Exam: Resting ECG HR:57 bpm ECG Measurements Heart Rate 57 AXES GA 180 P 48 QRSd 106 QRS -6 QT 498 T 14 QTc 484 Conclusion Sinus bradycardia Prolonged QT Abnormal ECG Electronically signed by : Demarco Richard, 09/17/2020 09:48:15
[2020-09-13 12:00] VITALS: BP 136/75; PULSE 60; RESP 22; TEMP 36.6; O2SAT 93
--- NOTE | 2020-09-13 12:00 | PC.NURSE ---
Pt is alert and oriented and able to make needs known. Meds given per jan. EKG done and sinus bossman at this time. Remains safe. VSS. Made Maureen Sprague APRN, aware that I held 80 mg sotalol and she stated she was going to decrease dose. Wheezes scattered throughout this am. S1 S2 heart sounds. Mx continues.
[2020-09-13 16:00] VITALS: BP 135/77; PULSE 60; PULSE 63; RESP 23; TEMP 36.7; O2SAT 95
[2020-09-13 17:50] VITALS: BMI 45.9
--- NOTE | 2020-09-13 17:50 | PC.NURSE ---
Pt has been NSR and Sinus Alan on tele this shift. No complaints this shift. CB in reach. Pt has voided per bathroom and done well ambulating with sba to bathroom. VSS. Will cont to mx this shift.
--- NOTE | 2020-09-13 17:53 | PC.NURSE ---
Did also make Maureen Sprague aprn aware that i did hold am sotaolol and she clarified that Dr. Tyler didnt want to make changes to the 80 mg dose. Noted.
--- NOTE | 2020-09-13 19:20 | PC.NURSE ---
report given to abbie
[2020-09-13 20:00] VITALS: BP 128/73; PULSE 58; PULSE 60; RESP 24; TEMP 36.5; O2SAT 95
--- NOTE | 2020-09-13 23:14 | ECG_ITS ---
APPROVED REPORT Exam: Resting ECG HR:49 bpm ECG Measurements Heart Rate 49 AXES NM 188 P 77 QRSd 110 QRS -9 QT 550 T 16 QTc 496 Conclusion Marked sinus bradycardia Left atrial abnormality Poor r wave progression Abnormal ECG Electronically signed by : Demarco Richard, 09/17/2020 09:45:50
[2020-09-14] VITALS (8 sets, daily range): BP systolic 109–164; BP diastolic 55–92; PULSE 50–62; RESP 16–20; TEMP 36.5–36.8; O2SAT 94–98; BMI 45.1
--- NOTE | 2020-09-14 06:00 | ECG_ITS ---
APPROVED REPORT Exam: Resting ECG HR:52 bpm ECG Measurements Heart Rate 52 AXES AZ 172 P 53 QRSd 106 QRS -25 QT 488 T 14 QTc 453 Conclusion Sinus bradycardia Otherwise normal ECG Electronically signed by : Demarco Richard, 09/17/2020 09:44:05
[2020-09-14 06:31] LABS: Basophils # 0.1 K/mm3 (0-0.2); Basophils % 0.9 % (0.1-2.0); Eosinophils # 0.4 K/mm3 (0.0-0.4); Eosinophils % 3.6 % (0.1-12.0); Hematocrit 40.7 % (37.0-47.0); Hemoglobin 12.4 g/dL (12.2-16.2); Lymphocytes # 3.3 K/mm3 (0.7-4.5); Lymphocytes % 33.7 % (10-50); Mean Corpuscular HGB Conc 30.5 g/dL (31.8-35.4); Mean Corpuscular Hemoglobin 28.4 pg (27.0-31.2); Mean Platelet Volume 8.7 fl (7.4-10.4); Monocytes # 0.8 K/mm3 (0.1-1.0); Monocytes % 8.4 % (1.7-9.3); Neutrophils # 5.2 K/mm3 (1.8-7.8); Neutrophils % 53.4 % (37.0-80.0); Platelet Count 211 K/mm3 (142-424); Red Blood Count 4.38 M/mm3 (4.20-5.40); Red Cell Distribution Width 12.9 % (11.5-17.5); White Blood Count 9.8 K/mm3 (4.8-10.8)
--- NOTE | 2020-09-14 06:38 | PC.NURSE ---
Pt is A&Ox4 and has ambulated to the BR several times this shift independently and tolerated well. Pt has denied any pain, SOB, dyspnea, or N/V/D. Pt did report to feeling gassy and states she had butter with her dinner and dairy products do this to her. NSR, Sinus Alan with prolonged QT noted on tele, with QT interval 0.48-0.5 this shift. HR for very brief moments has dipped as low as 46, however has mostly stayed 50s-60s and 70s while awake and ambulating. Lungs CTA with SaO2 >94% t/o shift on room air. Trace, non-pitting edema to BLE. Pt reports shakiness of right hand when turning/lifting, pt reports this has been going on for years. Why would it do that? Pt reports she fractured this wrist and had surgery to shave the bone from it to help the nerves many years ago. Harness Rigger equal and strong. Pt encouraged to discuss this with her doctor. Pt slept well t/o night. Call light within reach and will continue to monitor.
[2020-09-14 06:41] LABS: Chloride 105 mmol/L (98-107); Sodium 140 mmol/L (136-145)
[2020-09-14 06:44] LABS: Blood Urea Nitrogen 21 mg/dl (7-17); Creatinine Clearance Estimated 50 mL/min (50-200); Estimated Glomerular Filt Rate 52 ml/min (>60); GFR (African American) 63 ML/MIN (>60)
[2020-09-14 06:45] LABS: Calcium 8.7 mg/dl (8.4-10.2); Carbon Dioxide 32 mmol/L (22.0-30.0); Glucose 90 mg/dl (74-100)
--- NOTE | 2020-09-14 09:00 | HMH.ACPN2 ---
<Nicole Brito - Last Filed: 09/14/20 09:00> Internal Medicine - PN: Subj *Date: 09/14/20 *Time: 07:55 Interval history: She is resting quietly in bed. She has no complaints and is feeling well this morning. Exam Vital signs and Labs for Last 24 Hours: Temp Pulse Resp BP Pulse Ox 98.1 F 60 18 130/70 98 09/14/20 04:00 09/14/20 04:00 09/14/20 04:00 09/14/20 04:00 09/14/20 04:00 Laboratory Results - last 24 hr 09/13/20 09:09: SARS-CoV-2 IgG Ab (Rapid) Negative, SARS-CoV-2 IgM Ab (Rapid) Negative 09/13/20 09:09: Troponin I 0.05 H, NT-Pro-B Natriuret Pep 290 H 09/14/20 06:05: WBC 9.8 D, RBC 4.38, Hgb 12.4, Hct 40.7, MCV 93.0, MCH 28.4, MCHC 30.5 L, RDW 12.9, Plt Count 211, MPV 8.7, Neut % (Auto) 53.4, Lymph % (Auto) 33.7, [place] % (Auto) 8.4, Eos % (Auto) 3.6, Baso % (Auto) 0.9, Neut # (Auto) 5.2, Lymph # (Auto) 3.3, [place] # (Auto) 0.8, Eos # (Auto) 0.4, Baso # (Auto) 0.1 09/14/20 06:05: Sodium 140, Potassium 4.0, Chloride 105, Carbon Dioxide 32 H, Anion Gap 7.0, BUN 21 H D, Creatinine 1.10 H, Estimated Creat Clear 50, Estimated GFR 52 L, Est GFR ( Amer) 63 D, Glucose 90, Calcium 8.7 I & O for Last 24 hours: Intake & Output 09/11/20 09/12/20 09/13/20 09/14/20 11:59 11:59 11:59 11:59 Intake Total 296 / 296 150 / 150 Output Total 1800 / 1800 Balance 296 / -104 -1650 / -1650 Weight 267 lb 14.4 oz 264 lb 11.2 oz - Constitutional no acute distress - *Routine HEENT Exam Head: Present: normocephalic ENT: Present: mucous membranes moist - *Routine Respiratory Exam Present: CTA bilaterally Comments: few scattered wheezes - *Routine Cardiovascular Exam Present: RRR - *Routine Abdominal Exam Present: soft, normoactive bowel sounds. Absent: tenderness, distended, guarding, firm, rigid - *Routine Extremities Exam Present: full ROM, pulses intact. Absent: edema, calf tenderness - *Routine Neurological Exam Present: alert, oriented X3 Assessment and Plan (1) Atrial fibrillation with RVR Status: Acute Category: Medical Code(s): I48.91 - Unspecified atrial fibrillation (2) Elevated left ventricular end-diastolic pressure (LVEDP) Status: Acute Category: Medical Code(s): R94.30 - Abnormal result of cardiovascular function study, unspecified (3) Gastroesophageal reflux disease Status: Chronic Qualifiers: Esophagitis presence: esophagitis presence not specified Qualified Code(s): K21.9 - Gastro-esophageal reflux disease without esophagitis Category: Medical Code(s): K21.9 - Gastro-esophageal reflux disease without esophagitis (4) New onset atrial fibrillation Status: Acute Category: Medical Code(s): I48.91 - Unspecified atrial fibrillation (5) Diastolic dysfunction Status: Chronic Category: Medical Code(s): I51.9 - Heart disease, unspecified (6) HTN (hypertension) Status: Chronic Qualifiers: Hypertension type: essential hypertension Qualified Code(s): I10 - Essential (primary) hypertension Category: Medical Code(s): I10 - Essential (primary) hypertension (7) Morbid obesity Status: Chronic Category: Medical Code(s): E66.01 - Morbid (severe) obesity due to excess calories (8) Tobacco use Status: Chronic Category: Social Hx Code(s): Z72.0 - Tobacco use - Assessment and plan all Dx Assessment and Plan for all problems:: Likely home today. <Braden Kulkarni - Last Filed: 09/14/20 13:54> Internal Medicine - PN: Subj *Date: 09/14/20 *Time: 13:54 Exam Vital signs and Labs for Last 24 Hours: Temp Pulse Resp BP Pulse Ox 98.2 F 58 L 20 117/61 95 09/14/20 12:00 09/14/20 12:00 09/14/20 12:00 09/14/20 12:00 09/14/20 12:00 Laboratory Results - last 24 hr 09/14/20 06:05: WBC 9.8 D, RBC 4.38, Hgb 12.4, Hct 40.7, MCV 93.0, MCH 28.4, MCHC 30.5 L, RDW 12.9, Plt Count 211, MPV 8.7, Neut % (Auto) 53.4, Lymph % (Auto) 33.7, [place] % (Auto) 8.4, Eos % (Auto) 3.6, Baso % (Auto) 0.9,
--- NOTE | 2020-09-14 10:25 | HMH.PNCARD ---
Subjective Date: 09/14/20 Time: 10:00 Principal diagnosis: afib with RVR Interval history: This is a 54-year-old white female who presented to the emergency department with complaints of chest pain. She was found to be in atrial fibrillation with RVR. She has converted to sinus rhythm and has been on sotalol. The patient's QTc interval this morning has elongated at 496 ms. She states that her chest pain and shortness of breath have significantly improved after having IV Lasix yesterday. She states that she is feeling much better. She states that she is still a little short of breath when she is walking but this is much better now. She denies any chest pain or pressure today. She denies any fever, chills, nausea, vomiting, diarrhea, PND or orthopnea. Exam Vital signs and Labs for Last 24 Hours: Temp Pulse Resp BP Pulse Ox 97.7 F 57 L 18 109/55 L 95 09/14/20 08:00 09/14/20 08:00 09/14/20 08:00 09/14/20 08:00 09/14/20 08:00 Laboratory Results - last 24 hr 09/13/20 09:09: Troponin I 0.05 H, NT-Pro-B Natriuret Pep 290 H 09/14/20 06:05: WBC 9.8 D, RBC 4.38, Hgb 12.4, Hct 40.7, MCV 93.0, MCH 28.4, MCHC 30.5 L, RDW 12.9, Plt Count 211, MPV 8.7, Neut % (Auto) 53.4, Lymph % (Auto) 33.7, [place] % (Auto) 8.4, Eos % (Auto) 3.6, Baso % (Auto) 0.9, Neut # (Auto) 5.2, Lymph # (Auto) 3.3, [place] # (Auto) 0.8, Eos # (Auto) 0.4, Baso # (Auto) 0.1 09/14/20 06:05: Sodium 140, Potassium 4.0, Chloride 105, Carbon Dioxide 32 H, Anion Gap 7.0, BUN 21 H D, Creatinine 1.10 H, Estimated Creat Clear 50, Estimated GFR 52 L, Est GFR ( Amer) 63 D, Glucose 90, Calcium 8.7 I & O for Last 24 hours: Intake & Output 09/11/20 09/12/20 09/13/20 09/14/20 23:59 23:59 23:59 23:59 Intake Total 426 / 426 480 / 480 Output Total 1300 / 1300 500 / 500 Balance -874 / -874 - Weight 264 lb 1.6 oz 268 lb 15.423 oz 264 lb 11.2 oz Narrative: Strip shows sinus bradycardia with a rate of 50 - Constitutional no acute distress, morbidly obese - *Routine HEENT Exam Head: Present: normocephalic, atraumatic Eye: Present: EOMI, PERRL ENT: Present: mucous membranes moist - *Routine Neck Exam Present: supple, full ROM, normal carotid upstroke. Absent: JVD, carotid bruit, lymphadenopathy - *Routine Respiratory Exam Present: CTA bilaterally - *Routine Cardiovascular Exam Present: Normal S1, Normal S2, bradycardia. Absent: murmur - *Routine Abdominal Exam Present: soft, normoactive bowel sounds. Absent: tenderness, distended - *Routine Extremities Exam Present: full ROM, pulses intact, normal capillary refill. Absent: cyanosis, clubbing, edema - *Routine Skin Exam Present: intact, warm. Absent: erythema, rash - *Routine Neurological Exam Present: alert, oriented X3, CN II-XII intact. Absent: sensory deficit, motor deficit Progress Note: A&P (1) Atrial fibrillation with RVR Status: Resolved (2) Elevated left ventricular end-diastolic pressure (LVEDP) Status: Acute (3) Gastroesophageal reflux disease Status: Chronic (4) New onset atrial fibrillation Status: Acute (5) Diastolic dysfunction Status: Chronic (6) HTN (hypertension) Status: Chronic (7) Morbid obesity Status: Chronic (8) Tobacco use Status: Chronic Assessment and Plan for All Diagnoses:: Plan: 1. Patient was admitted to the hospital with atrial fibrillation with RVR. She has now converted to sinus rhythm and has been on sotalol. Her QTc interval has elongated to 496 ms this morning. So we will stop sotalol. 2. Repeat EKG in the morning to reevaluate her QTc interval after stopping sotalol. 3. The plan for tomorrow will be to start Rythmol 150 mg p.o. every 8 hours for suppression of the atrial fibrillation as long as her QTc interval has come down. 4. The patient is on long-term anticoagulation with Eliquis secondary to her elevated [id number] score and atrial fibrillation. 5. The patient states that
--- NOTE | 2020-09-14 18:51 | PC.NURSE ---
Pt has done well this shift. Gets OOB on her own and ambulates in room. Will start new cardiac medication in the morning for prolonged QT interval. No other issues noted this shift.
[2020-09-15] VITALS (9 sets, daily range): BP systolic 111–131; BP diastolic 62–76; PULSE 46–70; RESP 18–22; TEMP 36.5–36.8; O2SAT 92–96; BMI 45.0
--- NOTE | 2020-09-15 04:58 | PC.NURSE ---
Pt is A&Ox4 and has ambulated to the BR several times this shift independently and tolerated well. Pt has denied any pain, SOB, dyspnea, or N/V/D. NSR, Sinus Alan with prolonged QT noted on tele, with QT interval 0.44-0.48 this shift. HR has been upper 40s-60s. Lungs CTA with SaO2 >94% t/o shift on room air. +2, non-pitting edema to BLE. ABD soft, non-tender with active BS. Call light within reach and will continue to monitor.
--- NOTE | 2020-09-15 06:00 | ECG_ITS ---
APPROVED REPORT Exam: Resting ECG HR:50 bpm ECG Measurements Heart Rate 50 AXES IN 178 P 61 QRSd 108 QRS -14 QT 496 T 31 QTc 452 Conclusion Sinus bradycardia Late r wave progression Abnormal ECG Electronically signed by : Demarco Richard, 09/17/2020 09:43:25
[2020-09-15 06:28] LABS: Basophils # 0.1 K/mm3 (0-0.2); Basophils % 1.1 % (0.1-2.0); Eosinophils # 0.4 K/mm3 (0.0-0.4); Eosinophils % 3.7 % (0.1-12.0); Hematocrit 43.5 % (37.0-47.0); Hemoglobin 13.4 g/dL (12.2-16.2); Lymphocytes # 3.3 K/mm3 (0.7-4.5); Lymphocytes % 32.3 % (10-50); Mean Corpuscular HGB Conc 30.7 g/dL (31.8-35.4); Mean Corpuscular Volume 91.4 fl (81-99); Mean Platelet Volume 8.8 fl (7.4-10.4); Monocytes # 0.7 K/mm3 (0.1-1.0); Monocytes % 6.6 % (1.7-9.3); Neutrophils # 5.8 K/mm3 (1.8-7.8); Neutrophils % 56.4 % (37.0-80.0); Platelet Count 245 K/mm3 (142-424); Red Blood Count 4.76 M/mm3 (4.20-5.40); Red Cell Distribution Width 13.3 % (11.5-17.5); White Blood Count 10.4 K/mm3 (4.8-10.8)
[2020-09-15 06:43] LABS: Chloride 102 mmol/L (98-107); Potassium 4.4 mmoL/L (3.5-5.1); Sodium 140 mmol/L (136-145)
[2020-09-15 06:46] LABS: Anion Gap 8.4 mEq/L (5-15); Blood Urea Nitrogen 22 mg/dl (7-17); Carbon Dioxide 34 mmol/L (22.0-30.0); Creatinine Clearance Estimated 56 mL/min (50-200); Estimated Glomerular Filt Rate 58 ml/min (>60); GFR (African American) 70 ML/MIN (>60); Glucose 105 mg/dl (74-100)
--- NOTE | 2020-09-15 09:07 | HMH.ACPN2 ---
<Nicole Brito - Last Filed: 09/15/20 09:07> Internal Medicine - PN: Subj *Date: 09/15/20 *Time: 07:50 Interval history: Pt is resting quietly in bed. She has no complaint other than she was not able to rest well overnight which she was unable to attribute to anything in particular. She denies any chest pain or SOB. She denies any palpitations. She is eating well and up to void qshift. Exam Vital signs and Labs for Last 24 Hours: Temp Pulse Resp BP Pulse Ox 97.9 F 57 L 19 120/76 95 09/15/20 04:00 09/15/20 04:00 09/15/20 04:00 09/15/20 04:00 09/15/20 04:00 Laboratory Results - last 24 hr 09/15/20 05:35: WBC 10.4, RBC 4.76, Hgb 13.4, Hct 43.5, MCV 91.4, MCH 28.0, MCHC 30.7 L, RDW 13.3, Plt Count 245, MPV 8.8, Neut % (Auto) 56.4, Lymph % (Auto) 32.3, [place] % (Auto) 6.6, Eos % (Auto) 3.7, Baso % (Auto) 1.1, Neut # (Auto) 5.8, Lymph # (Auto) 3.3, [place] # (Auto) 0.7, Eos # (Auto) 0.4, Baso # (Auto) 0.1 09/15/20 05:35: Sodium 140, Potassium 4.4, Chloride 102, Carbon Dioxide 34 H, Anion Gap 8.4, BUN 22 H, Creatinine 1.00, Estimated Creat Clear 56, Estimated GFR 58 L, Est GFR ( Amer) 70, Glucose 105 H, Calcium 9.0 I & O for Last 24 hours: Intake & Output 09/12/20 09/13/20 09/14/20 09/15/20 11:59 11:59 11:59 11:59 Intake Total 296 / 296 630 / 630 240 / 240 Output Total 2700 / 2700 2300 / 2300 Balance 296 / -104 -2069 / -2069 -2059 / Weight 267 lb 14.4 oz 264 lb 11.2 oz 263 lb 14.293 oz - Constitutional no acute distress - *Routine HEENT Exam Head: Present: normocephalic ENT: Present: mucous membranes moist - *Routine Respiratory Exam Absent: rales, respiratory distress Comments: good air movement with scattered wheezes throughout - *Routine Cardiovascular Exam Present: RRR Comments: HR 60's - *Routine Abdominal Exam Present: soft, normoactive bowel sounds, obese. Absent: tenderness, distended, guarding, firm, rigid - *Routine Extremities Exam Present: full ROM, pulses intact. Absent: edema, calf tenderness - *Routine Neurological Exam Present: alert, oriented X3, normal speech Assessment and Plan (1) Atrial fibrillation with RVR Status: Resolved Category: Medical Code(s): I48.91 - Unspecified atrial fibrillation (2) Elevated left ventricular end-diastolic pressure (LVEDP) Status: Acute Category: Medical Code(s): R94.30 - Abnormal result of cardiovascular function study, unspecified (3) Gastroesophageal reflux disease Status: Chronic Qualifiers: Esophagitis presence: esophagitis presence not specified Qualified Code(s): K21.9 - Gastro-esophageal reflux disease without esophagitis Category: Medical Code(s): K21.9 - Gastro-esophageal reflux disease without esophagitis (4) New onset atrial fibrillation Status: Acute Category: Medical Code(s): I48.91 - Unspecified atrial fibrillation (5) Diastolic dysfunction Status: Chronic Category: Medical Code(s): I51.9 - Heart disease, unspecified (6) HTN (hypertension) Status: Chronic Qualifiers: Hypertension type: essential hypertension Qualified Code(s): I10 - Essential (primary) hypertension Category: Medical Code(s): I10 - Essential (primary) hypertension (7) Morbid obesity Status: Chronic Category: Medical Code(s): E66.01 - Morbid (severe) obesity due to excess calories (8) Tobacco use Status: Chronic Category: Social Hx Code(s): Z72.0 - Tobacco use - Assessment and plan all Dx Assessment and Plan for all problems:: Further per cardiology and Dr. Kulkarni. <Braden Kulkarni - Last Filed: 09/15/20 13:26> Internal Medicine - PN: Subj *Date: 09/15/20 *Time: 13:26 Exam Vital signs and Labs for Last 24 Hours: Temp Pulse Resp BP Pulse Ox 98.0 F 56 L 18 111/62 95 09/15/20 08:00 09/15/20 08:00 09/15/20 08:00 09/15/20 08:00 09/15/20 08:00 Laboratory Results - last 24 hr 09/15/20 05:35: WBC 10.4, RBC 4.76, Hgb
--- NOTE | 2020-09-15 09:19 | HMH.PNCARD ---
Subjective Date: 09/15/20 Time: 08:30 Principal diagnosis: afib with RVR Interval history: 54 year old female admitted to [facility] on 09/13/2020 with Atrial fibrillation with RVR. Pt did convert to Sinus rhythm with Sotatol but due to QTC interval of 496ms, Sotalol was discontinued on 09/14/2020. ECG today reveals Sinus Bradycardia with heart rate of 57bpm. QTc interval at 452ms. Pt was started on Rythmol 150mg every 8 hours today to suppress Atrial fibrillation. Pt is on Eliquis 5mg BID for Atrial fibrillation. CHA2DS 2- VASc score. Pt denies any bleeding concerns or issues. Normal Coronaries noted from last cathetherization. Echo (09/15/2020) revealed: 1. Mildly in the left atrium, normal left ventricular size, mild concentric left ventricular hypertrophy, visually estimated ejection fraction 55% with no regional wall motion abnormality, grade 1 diastolic dysfunction seen without tissue Doppler evidence of raise left atrial pressure. 2. Mild mitral and tricuspid regurgitation. 3. No significant pericardial effusion noted. VS stable. Pt denies chest pain, tightness or pressure. Pt does complain of mild shortness of breath with exertion. Pt stated that she has been walking around the unit for exercise. Pedal edema 1+ noted of the lower extremities. Pt stated this is no worse than usual for her. Denies N/V/D. Denies fever or chills. Lungs sounds clear. Pt is a known tobacco smoker of 20+ years. Hx of Hypertension which is controlled. Will continue to monitor pt for side effects of the Rythmol. Pt may possibly be discharged tomorrow if hemodynamically stable. ECG ordered in the morning. Thank you for the opportunity to participate in the care of this pt. Exam Vital signs and Labs for Last 24 Hours: Temp Pulse Resp BP Pulse Ox 98.0 F 56 L 18 111/62 95 09/15/20 08:00 09/15/20 08:00 09/15/20 08:00 09/15/20 08:00 09/15/20 08:00 Laboratory Results - last 24 hr 09/15/20 05:35: WBC 10.4, RBC 4.76, Hgb 13.4, Hct 43.5, MCV 91.4, MCH 28.0, MCHC 30.7 L, RDW 13.3, Plt Count 245, MPV 8.8, Neut % (Auto) 56.4, Lymph % (Auto) 32.3, [place] % (Auto) 6.6, Eos % (Auto) 3.7, Baso % (Auto) 1.1, Neut # (Auto) 5.8, Lymph # (Auto) 3.3, [place] # (Auto) 0.7, Eos # (Auto) 0.4, Baso # (Auto) 0.1 09/15/20 05:35: Sodium 140, Potassium 4.4, Chloride 102, Carbon Dioxide 34 H, Anion Gap 8.4, BUN 22 H, Creatinine 1.00, Estimated Creat Clear 56, Estimated GFR 58 L, Est GFR ( Amer) 70, Glucose 105 H, Calcium 9.0 I & O for Last 24 hours: Intake & Output 09/12/20 09/13/20 09/14/20 09/15/20 23:59 23:59 23:59 23:59 Intake Total 426 / 426 720 / 720 Output Total 1300 / 1300 3550 / 3700 150 / 150 Balance -874 / -874 -2830 / -2980 -150 / -150 Weight 264 lb 1.6 oz 268 lb 15.423 oz 264 lb 11.2 oz 263 lb 14.293 oz - Constitutional mild distress, morbidly obese, cooperative - *Routine HEENT Exam Head: Present: normocephalic ENT: Present: mucous membranes moist - *Routine Neck Exam Present: supple, full ROM, normal carotid upstroke. Absent: JVD, carotid bruit, lymphadenopathy - Routine Chest/Breast/Axilla Exam Chest wall: Present: tenderness. Absent: mass, pacemaker - *Routine Respiratory Exam Present: accessory muscle use, CTA bilaterally. Absent: wheezes, crackles - *Routine Cardiovascular Exam Present: RRR, Normal S1, Normal S2, bradycardia. Absent: murmur, gallop, rubs - *Routine Abdominal Exam Present: soft, normoactive bowel sounds. Absent: distended, guarding, firm - *Routine Extremities Exam Present: edema, full ROM, pulses intact, normal capillary refill. Absent: cyanosis, clubbing - Routine Back/Spine/Pelvis Exam Back/Spine: Present: full ROM. Absent: CVA tenderness - *Routine Skin Exam Present: intact, dry, warm. Absent: cyanosis, erythema, lesions - *Routine Neurological Exam Present: alert, oriented X3, CN II-XII intact, moving all extremities, normal speech - Routine Psychiatric Exa
--- NOTE | 2020-09-15 17:13 | PC.NURSE ---
Pt has been pleasant and cooperative this shift. A&O X4. No complaints of pain or SOA. Lungs CTA. 2 + pitting edema noted to BLE. Skin is C/D/I. Telemetry reveals NSR. Pt ambulates independently to/from the bathroom and throughout the room. Pt voids clear, yellow urine without issue. Pt reports 2 large, brown, soft BM's this shift. Pt is currently sitting up in the recliner. VSS. Call light within reach. Will continue to monitor.
--- NOTE | 2020-09-15 19:23 | PC.NURSE ---
report given to jovita
[2020-09-16] VITALS: PULSE 70
[2020-09-16 00:19] VITALS: BP 102/51; PULSE 62; RESP 18; TEMP 36.6; O2SAT 92
[2020-09-16 04:00] VITALS: PULSE 70
--- NOTE | 2020-09-16 04:19 | PC.NURSE ---
Pt has ambulated in hallway multiple times this shift. Has denied any discomfort. Requested to her IV's taken out. Pt was educated on need for IV. Pt then asked if one could be removed. #20 in (R) hand DC. #20 in LAC remains. Pt also asked if she was going to be DC in AM. She states that she has an appointment in [place] at 12 pm. During assessment, it was noted that pt had Wheezing t/o lung troncoso. Pt remains on RA. Pt states she's a smoker. She is NSR with periods of sinus bossman with HR dropping as low as 30s briefly. HR recovers quickly. Pt remains asymptomatic. It ws noted that pt HR dropped an hour to 1.5 hours after Rythmol was administered. Call light within reach. No other concerns at tis time. Will continue to monitor.
[2020-09-16 04:54] VITALS: BP 127/63; PULSE 56; RESP 19; TEMP 36.6; O2SAT 95
[2020-09-16 05:22] VITALS: BMI 44.4
--- NOTE | 2020-09-16 06:58 | ECG_ITS ---
APPROVED REPORT Exam: Resting ECG HR:58 bpm ECG Measurements Heart Rate 58 AXES IN 184 P 68 QRSd 116 QRS -9 QT 486 T 29 QTc 477 Conclusion Sinus bradycardia Left atrial abnormality Poor r wave progression Abnormal ECG Electronically signed by : Demarco Richard, 09/17/2020 09:42:55
[2020-09-16 07:48] VITALS: BP 121/70; PULSE 63; RESP 18; TEMP 36.9; O2SAT 98
[2020-09-16 08:00] VITALS: O2SAT 95
--- NOTE | 2020-09-16 08:41 | HMH.ACPN2 ---
Internal Medicine - PN: Subj *Date: 09/16/20 *Time: 10:15 Interval history: Slept well last night. Noted with brief episodes of bradycardia while sleeping. She has been tolerating activity in the room. No complaints of chest pain or palpitations. Exam Vital signs and Labs for Last 24 Hours: Temp Pulse Resp BP Pulse Ox 98.5 F 63 18 121/70 98 09/16/20 07:48 09/16/20 07:48 09/16/20 07:48 09/16/20 07:48 09/16/20 07:48 I & O for Last 24 hours: Intake & Output 09/13/20 09/14/20 09/15/20 09/16/20 11:59 11:59 11:59 11:59 Intake Total 296 / 296 630 / 630 660 / 660 480 / 480 Output Total 2700 / 2700 2650 / 2650 300 / 300 Balance 296 / -104 -2069 / -2069 -1989 / 180 / 180 Weight 267 lb 14.4 oz 264 lb 11.2 oz 263 lb 14.293 oz 260 lb 8 oz Narrative: Alert and oriented. Lungs are clear to auscultation. Heart is regular with no ectopy. Extremities no edema. Assessment and Plan (1) New onset atrial fibrillation Status: Acute Category: Medical Code(s): I48.91 - Unspecified atrial fibrillation (2) Atrial fibrillation with RVR Status: Resolved Category: Medical Code(s): I48.91 - Unspecified atrial fibrillation (3) Diastolic dysfunction Status: Chronic Category: Medical Code(s): I51.9 - Heart disease, unspecified (4) Elevated left ventricular end-diastolic pressure (LVEDP) Status: Acute Category: Medical Code(s): R94.30 - Abnormal result of cardiovascular function study, unspecified (5) Gastroesophageal reflux disease Status: Chronic Qualifiers: Esophagitis presence: esophagitis presence not specified Qualified Code(s): K21.9 - Gastro-esophageal reflux disease without esophagitis Category: Medical Code(s): K21.9 - Gastro-esophageal reflux disease without esophagitis (6) HTN (hypertension) Status: Chronic Qualifiers: Hypertension type: essential hypertension Qualified Code(s): I10 - Essential (primary) hypertension Category: Medical Code(s): I10 - Essential (primary) hypertension (7) Morbid obesity Status: Chronic Category: Medical Code(s): E66.01 - Morbid (severe) obesity due to excess calories (8) Tobacco use Status: Chronic Category: Social Hx Code(s): Z72.0 - Tobacco use - Assessment and plan all Dx Assessment and Plan for all problems:: EKG from this morning was faxed to Dr. Tyler who advises that she is stable for discharge on current medical regimen. She will follow-up with cardiology later this week.
--- NOTE | 2020-09-16 11:36 | HMH.PHAINT ---
[facility] FILLING ENOUGH RYTHMOL TO LAST UNTIL FRIDAY FOR PATIENT. [facility] WILL HAVE SCRIPT AVAILABLE ON FRIDAY.
--- NOTE | 2020-09-21 08:26 | HMH.DCSUM ---
General - General Admission date:: 09/12/20 <Braden Kulkarni - 09/23/20 08:56> 09/12/20 <DavidChaparrita - 09/21/20 08:54> Discharge date: 09/16/20 <DavidClaudiaChaparrita - 09/21/20 08:54> HPI HPI: Ms. Moe is a 54-year-old female with a history of congestive heart failure who around 3 PM yesterday developed midsternal severe chest pain. She felt like her heart was beating out of her chest. She denied having shortness of breath, Radiation, syncope, nausea or vomiting. She thus presented to [facility] for further evaluation and treatment. In the emergency room she was found to be in atrial fibrillation with a rapid ventricular response. Initially her blood pressure was 170/114. She was started on sotalol after being on a cardizem gtt briefly. She was also given an aspirin. The following a.m. patient stated she was having no chest pain. The chest pain subsided when she converted to sinus rhythm. She remained in SR throughout the night. She was followed by Dr. Tyler for diastolic HF and they were consulted. <DavidChaparrita - 09/21/20 08:54> Hospital Course Hospital Course: Pt was seen by cardiology with the following: Assessment and Plan as per cardiology:: 1. The patient was admitted to the hospital with atrial fibrillation with RVR. She has converted to sinus rhythm on sotalol. We will continue sotalol 80 mg p.o. twice daily at this time for the atrial fibrillation. 2. We will need to get an EKG today to evaluate her QTC interval while on sotalol. We will also repeat an EKG in the morning to evaluate her QTc interval. 3. The patient will need long-term anticoagulation as she does have an elevated [id number] score. We will start her on Eliquis 5 mg p.o. twice daily for anticoagulation. 4. The patient does have a history of a moderately elevated LVEDP with diastolic dysfunction. We will stop IV fluids at this time as we do not want the patient to become fluid overloaded. We will also give her a one-time dose of Lasix 40 mg IV for diuresis. Her chest pressure was most likely from her diastolic dysfunction and being in atrial fibrillation. She does complain of some shortness of breath intermittently as well as lower extremity edema. 5. She did have a slightly elevated troponin. This is most likely from demand ischemia from the atrial fibrillation with RVR. We will repeat her troponin at this time to make sure this is not elevated. She does have a history of normal coronary arteries so no plans for invasive cardiac testing at this time. 6. We will also obtain a BNP given her history of a moderate elevated LVEDP with diastolic dysfunction and shortness of breath and lower extremity edema. 7. Her blood pressure is stable at this time. 8. Her LDL goal is less than 100 she is currently on lovastatin. 9. Weight loss is highly encouraged. 10. Tobacco cessation is highly encouraged. 11. Echocardiogram is currently pending. Prelim echo shows EF 55% with no wall motion abnormalities as well as mild MR and TR. 12. As mentioned above we will continue her sotalol with an EKG today and an EKG tomorrow morning to evaluate her QTc interval. As long as her QTc interval remains stable she will most likely be stable for discharge home tomorrow. Patient did convert to sinus rhythm and developed bradycardia. Her QTC intervals were elongated to 496 MS. Sotalol was discontinued. The following day, 09/15/2020 she was started on Rythmol 150 mg every 8 hours. for ongoing suppression of the atrial fibrillation. Patient did remain stable and had no chest pain or shortness of breath. Repeat EKG revealed a sinus bradycardia with a heart rate of 57 bpm. QTc interval was 452ms. She was discharged to home in stable and satisfactory condition. She was to continue with Rythmol and remain on Eliquis twice daily. Follow-up with Dr. Tyler on 09/22/2020. <Chaparrita Hernandez - 09/21/20 08:54> Objective Vital signs: Te
== END 2020-09-16 11:48 | disposition home or self-care (01) ==
LOC: ER 20:15 → 2ND 22:32
PROVIDERS: Nurse Practitioner Family; Admitting Provider Family Medicine; Emergency Provider Emergency Medicine; PCP Nurse Practitioner Family; Visit Provider Family Medicine
DX: I48.91 Unspecified atrial fibrillation (principal); I11.0 Hypertensive heart disease with heart failure; I50.30 Unspecified diastolic (congestive) heart failure; J44.9 Chronic obstructive pulmonary disease, unspecified; E66.01 Morbid (severe) obesity due to excess calories; Z68.41 Body mass index [BMI] 40.0-44.9, adult; I25.10 Atherosclerotic heart disease of native coronary artery without angina pectoris; Z95.5 Presence of coronary angioplasty implant and graft; Z72.0 Tobacco use; E03.9 Hypothyroidism, unspecified
CPT/HCPCS: 36415; 71045; 80048; 83880; 84436; 84443; 84479; 84484; 85025; 85378; 86328; 93005; 93306; 99284; G0378

== ENCOUNTER → 2020-09-28 08:37 | Outpatient (CLI) | payer BC, SELFPAY ==
[2020-09-28 10:11] LABS: Chloride 105 mmol/L (98-107); Potassium 4.9 mmoL/L (3.5-5.1); Sodium 142 mmol/L (136-145)
[2020-09-28 10:12] LABS: Alanine Aminotransferase 13 U/L (12-78); Aspartate Amino Transferase 21 U/L (14-36); Bilirubin,Unconjugated 0.4 mg/dL (0.0-1.1)
[2020-09-28 10:13] LABS: Alkaline Phosphatase 122 U/L (38-126); Bilirubin,Indirect 0.5 mg/dL (0.0-0.9); Bilirubin,Total 0.5 mg/dl (0.2-1.3); Chol/HDL Ratio 4.5 (1-3.5); Cholesterol 185 mg/dl (140-200); HDL Cholesterol 41 mg/dl (40-60); Total Protein,Serum 6.7 g/dl (6.3-8.2); Triglycerides 243 mg/dl (30-150); VLDL Cholesterol 49 mg/dL (0-40)
[2020-09-28 10:14] LABS: Anion Gap 10.9 mEq/L (5-15); Blood Urea Nitrogen 23 mg/dl (7-17); Calcium 9.1 mg/dl (8.4-10.2); Carbon Dioxide 31 mmol/L (22.0-30.0); Estimated Glomerular Filt Rate 52 ml/min (>60); GFR (African American) 63 ML/MIN (>60); Glucose 100 mg/dl (74-100)
[2020-09-28 10:22] LABS: NT Pro Brain Natriuretic Pep. 70.4 pg/mL (0-125)
[2020-09-28 10:24] LABS: Direct LDL Cholesterol 105.77 mg/dL (100-129)
== END ==
PROVIDERS: Nurse Practitioner Family; Visit Provider Internal Medicine Cardiovascular Disease
DX: R07.9 Chest pain, unspecified (principal); R06.00 Dyspnea, unspecified; I48.0 Paroxysmal atrial fibrillation; E78.5 Hyperlipidemia, unspecified; E66.01 Morbid (severe) obesity due to excess calories; I10 Essential (primary) hypertension; K21.9 Gastro-esophageal reflux disease without esophagitis; G89.29 Other chronic pain; G47.9 Sleep disorder, unspecified; R06.83 Snoring; R40.0 Somnolence; Z72.0 Tobacco use; Z82.49 Family history of ischemic heart disease and other diseases of the circulatory system
CPT/HCPCS: 36415; 80048; 80061; 80076; 83880

== ENCOUNTER → 2020-10-04 13:53 | Outpatient (CLI) | payer BC, SELFPAY | PROVIDERS: PCP Family Medicine; Visit Provider Internal Medicine Cardiovascular Disease | DX: G47.33 Obstructive sleep apnea (adult) (pediatric) (principal); E66.01 Morbid (severe) obesity due to excess calories; G47.9 Sleep disorder, unspecified; I48.0 Paroxysmal atrial fibrillation; R06.00 Dyspnea, unspecified; R06.83 Snoring; R40.0 Somnolence; Z72.0 Tobacco use; Z82.49 Family history of ischemic heart disease and other diseases of the circulatory system | CPT/HCPCS: G0399 ==

== ENCOUNTER 2020-10-18 16:07 | Inpatient (IN) | payer BC, SELFPAY ==
[2020-10-18] VITALS (11 sets, daily range): BP systolic 91–186; BP diastolic 50–160; PULSE 60–199; RESP 14–20; TEMP 36.5–36.8; O2SAT 92–100; BMI 44.6; BMI 42.8
--- NOTE | 2020-10-18 15:59 | ECG_ITS ---
APPROVED REPORT Exam: Resting ECG HR:204 bpm ECG Measurements Heart Rate 204 AXES QRSd 166 QRS 111 QT 278 T 253 QTc 512 Conclusion Wide QRS tachycardia Right axis deviation Left bundle branch block Abnormal ECG Electronically signed by : Demarco Richard, 10/20/2020 19:22:43
--- NOTE | 2020-10-18 16:17 | XR_ITS ---
PROCEDURE: XR CHEST PORTABLE CLINICAL HISTORY: Vtach Chest pain and shortness of air, smoker COMPARISON: CR XR RIBS RT MIN 3V W CXR1V from 10/06/[address] CHEST W CON from 10/06/2019 CR XR CHEST 2V from 10/06/2019 CR XR CHEST PORTABLE from 09/12/2020 FINDINGS: Mild cardiomegaly without failure. Overlying monitor devices and right-sided defibrillator pad No lobar consolidation or collapse. There is an opacity overlying the superior and posterior aspect of the right 8th rib just medial to the diff it related pad of unknown etiology. Upright PA and lateral chest may further evaluate. No acute bony abnormalities. IMPRESSION: Cardiomegaly. No acute finding. Right midlung opacity etiology indeterminate Dictated by: Brant Land MD 10/18/2020 18:49 Brant Land MD in OV 10/18/2020 18:49
--- NOTE | 2020-10-18 16:18 | ECG_ITS ---
APPROVED REPORT Exam: Resting ECG HR:71 bpm ECG Measurements Heart Rate 71 AXES WV 184 P 56 QRSd 120 QRS -15 QT 426 T 58 QTc 462 Conclusion Normal sinus rhythm Nonspecific intraventricular conduction delay Borderline ECG Electronically signed by : Demarco Richard, 10/20/2020 19:22:32
--- NOTE | 2020-10-18 16:19 | HMH.EDCP ---
ED Disposition Clinical Impression: SVT (supraventricular tachycardia), KEVIN (acute kidney injury) Chest pain Qualifiers: Chest pain type: precordial pain Qualified Code(s): R07.2 - Precordial pain Disposition: Admitted as Observation Condition on Discharge: Fair - Critical Care Critical Care Time: Yes Attestation: On , the high probability of a clinically significant, sudden or life threatening deterioration of the following system(s) required my full and direct attention, intervention and personal management. The time I documented below is in addition to time spent performing reported procedures but includes the following listed in this critical care notation. 35 Total Critical Care Time: 35 Vital system(s) involved:: Circulatory Failure My critical care processes included: Assessment & monitoring of V/S, Initial and Re-exams, Data Review/Interpretation, Coordinating Care, Medication Orders and management, Documentation Comment: d/w specialist Medical Decision Making - Rashard Inquiry Pt receiving controlled substance: No Rashard was queried for this patient: No Vital Signs: 10/18/20 16:08 10/18/20 16:12 10/18/20 16:20 Pulse Rate [Right Brachial] 199 H 109 H 68 Respiratory Rate 20 16 18 Blood Pressure [Right Arm] 186/160 H 125/79 104/73 L Blood Pressure Mean [Right Arm] 168 94 83 Blood Pressure Source [Right Arm] Automatic Cuff Automatic Cuff Automatic Cuff Blood Pressure Position [Right Arm] Sitting Sitting Sitting 02 Sat by Pulse Oximetry 98 100 98 Oxygen Delivery Method Room Air Room Air Room Air 10/18/20 16:26 10/18/20 17:00 10/18/20 17:02 Pulse Rate [Right Brachial] 78 66 65 Respiratory Rate 17 14 16 Blood Pressure [Right Arm] 112/77 96/64 L 91/64 L Blood Pressure Mean [Right Arm] 88 74 73 Blood Pressure Source [Right Arm] Automatic Cuff Automatic Cuff Automatic Cuff Blood Pressure Position [Right Arm] Sitting Sitting Sitting 02 Sat by Pulse Oximetry 92 L 97 99 Oxygen Delivery Method Room Air Room Air Room Air 10/18/20 17:30 Pulse Rate [Right Brachial] 60 Respiratory Rate 20 Blood Pressure [Right Arm] 91/50 L Blood Pressure Mean [Right Arm] 63 Blood Pressure Source [Right Arm] Automatic Cuff Blood Pressure Position [Right Arm] Sitting 02 Sat by Pulse Oximetry 93 L Oxygen Delivery Method Room Air - Lab Data Lab Results 10/18/20 16:08: WBC 12.9 H, RBC 4.92, Hgb 14.3, Hct 44.8, MCV 91.1, MCH 29.0, MCHC 31.9, RDW 12.9, Plt Count 273, MPV 9.4, Neut % (Auto) 61.1, Lymph % (Auto) 29.9, [place] % (Auto) 6.1, Eos % (Auto) 2.1, Baso % (Auto) 0.7, Neut # (Auto) 7.9 H, Lymph # (Auto) 3.9, [place] # (Auto) 0.8, Eos # (Auto) 0.3, Baso # (Auto) 0.1 10/18/20 16:08: Magnesium 1.9, Total Creatine Kinase 48, CK-MB (CK-2) 0.3, CK-MB (CK-2) Rel Index 0.6, Troponin I < 0.01 10/18/20 16:08: SARS-CoV-2 IgG Ab (Rapid) Negative, SARS-CoV-2 IgM Ab (Rapid) Negative 10/18/20 16:08: Sodium 139, Potassium 4.1, Chloride 102, Carbon Dioxide 29, Anion Gap 12.1, BUN 36 H, Creatinine 1.70 H, Estimated Creat Clear 33, Estimated GFR 31 L, Est GFR ( Amer) 38 L, Glucose 114 H, Calcium 9.5, Total Bilirubin 0.3, AST 27, ALT 20, Alkaline Phosphatase 143 H, Total Protein 7.6, Albumin 4.5, Globulin 3.1, Albumin/Globulin Ratio 1.5 Result diagrams: 10/18/20 16:08 10/18/20 16:08 Orders (Tests/Meds): ED MEDICATIONS Generic Name Dose Route Start Last Admin Trade Name Freq PRN Reason Stop Dose Admin Sodium Chloride 1,000 mls @ 999 mls/hr 10/18/20 17:45 10/18/20 17:38 Sod Chlor 0.9% 1000ml Bag IV 10/18/20 18:45 999 mls/hr .Q1H1M ALICE Administration Discontinued Medications Generic Name Dose Route Start Last Admin Trade Name Freq PRN Reason Stop Dose Admin Aspirin 325 mg 10/18/20 16:19 10/18/20 16:24 Aspirin 325mg Tablet PO 10/18/20 16:20 Not Given ONCE ONE Aspirin 324 mg 10/18/20 16:24 10/18/20 16:26 Aspirin 81mg Chewable Tablet PO 10/18/20 16:25 324 mg ONCE ONE Administration Sodium Chlorid
--- NOTE | 2020-10-18 16:29 | PC.NURSE ---
Radiology at bedside
[2020-10-18 16:32] LABS: Basophils # 0.1 K/mm3 (0-0.2); Basophils % 0.7 % (0.1-2.0); Eosinophils # 0.3 K/mm3 (0.0-0.4); Eosinophils % 2.1 % (0.1-12.0); Hematocrit 44.8 % (37.0-47.0); Hemoglobin 14.3 g/dL (12.2-16.2); Lymphocytes # 3.9 K/mm3 (0.7-4.5); Lymphocytes % 29.9 % (10-50); Mean Corpuscular HGB Conc 31.9 g/dL (31.8-35.4); Mean Corpuscular Volume 91.1 fl (81-99); Mean Platelet Volume 9.4 fl (7.4-10.4); Monocytes # 0.8 K/mm3 (0.1-1.0); Monocytes % 6.1 % (1.7-9.3); Neutrophils # 7.9 K/mm3 (1.8-7.8); Neutrophils % 61.1 % (37.0-80.0); Platelet Count 273 K/mm3 (142-424); Red Blood Count 4.92 M/mm3 (4.20-5.40); Red Cell Distribution Width 12.9 % (11.5-17.5); White Blood Count 12.9 K/mm3 (4.8-10.8)
--- NOTE | 2020-10-18 16:33 | PC.NURSE ---
radiology at bedside.
[2020-10-18 16:35] LABS: Creatine Kinase 48 U/L (30-135); Magnesium 1.9 mg/dl (1.6-2.3)
[2020-10-18 16:45] LABS: CKMB Relative Index 0.6 U/L (0-4.0); Creatine Kinase MB 0.3 ng/ml (0.0-2.03)
[2020-10-18 16:48] LABS: Troponin I < 0.01 ng/ml (0.00-0.034)
--- NOTE | 2020-10-18 17:08 | PC.NURSE ---
Sapna from lab called and asked if patient had been tested for covid 19 previously & if she was having any COVID symptoms currently. Patient states she had blood work last time she was here about 1 month ago, but never had a swab. Patient states she has shortness of breath but denies any other symptoms. Lab updated.
[2020-10-18 17:31] LABS: Coronavirus 19 IgG Antibody Negative (Negative); Coronavirus 19 IgM Antibody Negative (Negative)
[2020-10-18 17:34] LABS: Chloride 102 mmol/L (98-107)
[2020-10-18 17:35] LABS: Potassium 4.1 mmoL/L (3.5-5.1); Sodium 139 mmol/L (136-145)
[2020-10-18 17:37] LABS: Alanine Aminotransferase 20 U/L (12-78); Alkaline Phosphatase 143 U/L (38-126); Aspartate Amino Transferase 27 U/L (14-36); Bilirubin,Total 0.3 mg/dl (0.2-1.3); Blood Urea Nitrogen 36 mg/dl (7-17); Creatinine Clearance Estimated 33 mL/min (50-200); Estimated Glomerular Filt Rate 31 ml/min (>60); GFR (African American) 38 ML/MIN (>60)
[2020-10-18 17:38] LABS: Albumin Level 4.5 g/dl (3.5-5.0); Albumin/Globulin Ratio 1.5 (1.1-1.8); Anion Gap 12.1 mEq/L (5-15); Calcium 9.5 mg/dl (8.4-10.2); Carbon Dioxide 29 mmol/L (22.0-30.0); Globulin 3.1 g/dL (1.3-3.2); Glucose 114 mg/dl (74-100); Total Protein,Serum 7.6 g/dl (6.3-8.2)
--- NOTE | 2020-10-18 17:59 | PC.NURSE ---
house called for bed
[2020-10-19] VITALS (9 sets, daily range): BP systolic 99–127; BP diastolic 48–76; PULSE 50–70; RESP 16–20; TEMP 36.4–36.8; O2SAT 94–99; BMI 42.9
[2020-10-19 00:09] LABS: Troponin I < 0.01 ng/ml (0.00-0.034)
--- NOTE | 2020-10-19 02:24 | PC.NURSE ---
A&OX4. PT HAS TOLERATED ROOM AIR WELL THROUGHOUT SHIFT. RESPIRATIONS REGULAR AND UNLABORED. LUNG SOUNDS BILATERALLY CLEAR. NO COUGH NOTED. PT HAS REMAINED ON TELE WITH NSR AND SINUS BRADYCARDIA NOTED. ACTIVE BOWEL SOUNDS HEARD IN ALL 4 QUADRANTS. SOFT AND NONTENDER ABDOMEN. NO BM THUS FAR. PT VOIDS PER TOILET WITH CLEAR YELLOW URINE NOTED. PT RECEIVED SHOWER AND WAS CLIPPED IN PREPARATION FOR CARDIOLOGY CONSULT. NO EDEMA NOTED. +2 PULSES NOTED THROUGHOUT. 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 NO REPORTS OF CHEST PAIN OR SOB THUS FAR. PT MOVES INDEPENDENTLY IN BED. PT IS CURRENTLY SLEEPING IN BED WITH CALL LIGHT WITHIN REACH. VSS. WILL CONTINUE TO MONITOR.
[2020-10-19 06:15] LABS: Basophils % 0.5 % (0.1-2.0); Eosinophils # 0.2 K/mm3 (0.0-0.4); Eosinophils % 2.1 % (0.1-12.0); Hematocrit 36.2 % (37.0-47.0); Lymphocytes # 2.6 K/mm3 (0.7-4.5); Lymphocytes % 28.5 % (10-50); Mean Corpuscular HGB Conc 32.1 g/dL (31.8-35.4); Mean Corpuscular Hemoglobin 29.7 pg (27.0-31.2); Mean Corpuscular Volume 92.3 fl (81-99); Mean Platelet Volume 9.1 fl (7.4-10.4); Monocytes # 0.5 K/mm3 (0.1-1.0); Monocytes % 5.9 % (1.7-9.3); Neutrophils # 5.8 K/mm3 (1.8-7.8); Neutrophils % 63.1 % (37.0-80.0); Platelet Count 213 K/mm3 (142-424); Red Blood Count 3.92 M/mm3 (4.20-5.40); Red Cell Distribution Width 12.9 % (11.5-17.5); White Blood Count 9.1 K/mm3 (4.8-10.8)
[2020-10-19 06:17] LABS: INR 0.98 (0.9-1.1); Prothrombin Time 10.9 seconds (9.4-11.8)
[2020-10-19 06:25] LABS: Chloride 111 mmol/L (98-107); Potassium 4.4 mmoL/L (3.5-5.1); Sodium 141 mmol/L (136-145)
[2020-10-19 06:27] LABS: Blood Urea Nitrogen 30 mg/dl (7-17); Creatinine Clearance Estimated 46 mL/min (50-200); Estimated Glomerular Filt Rate 43 ml/min (>60); GFR (African American) 52 ML/MIN (>60)
[2020-10-19 06:28] LABS: Anion Gap 7.4 mEq/L (5-15); Carbon Dioxide 27 mmol/L (22.0-30.0); Cholesterol 142 mg/dl (140-200); Glucose 99 mg/dl (74-100); Magnesium 1.9 mg/dl (1.6-2.3); Phosphorous 4.6 mg/dl (2.5-4.5); Triglycerides 147 mg/dl (30-150); VLDL Cholesterol 29 mg/dL (0-40)
[2020-10-19 06:29] LABS: Chol/HDL Ratio 4.9 (1-3.5); HDL Cholesterol 29 mg/dl (40-60)
[2020-10-19 06:39] LABS: Direct LDL Cholesterol 84.44 mg/dL (100-129)
[2020-10-19 07:29] LABS: Hemoglobin 11.6 g/dL (12.2-16.2)
--- NOTE | 2020-10-19 07:31 | HMH.PHAVTE ---
[facility] Pharmacy VTE Monitoring - Patient Demographics Admission date: 10/18/20 Report Date: 10/19/20 Time: 07:31 Allergies/Adverse Reactions: Patient Allergies spironolactone Allergy (Intermediate, Verified 10/18/20 19:33) hives lactase [From Dairy Aid] Allergy (Mild, Verified 10/18/20 19:33) Diarrhea atorvastatin Adverse Reaction (Severe, Verified 10/18/20 19:33) myalgias Height: 1.68 m Weight: 121.109 kg Patient Problems: Current Active Problems (Last Reviewed 07/30/18 @ 06:26 by Tiffany Looney) SVT (supraventricular tachycardia) (Acute) KEVIN (acute kidney injury) (Acute) Chest pain (Acute) - VTE Risk Labs: VTE Related Lab Results Hgb 11.6 g/dL (12.2-16.2) L D 10/19/20 05:55 Hct 36.2 % (37.0-47.0) L 10/19/20 05:55 Plt Count 213 K/mm3 (142-424) 10/19/20 05:55 PT 10.9 seconds (9.4-11.8) 10/19/20 05:55 INR 0.98 (0.9-1.1) 10/19/20 05:55 BUN 30 mg/dl (7-17) H 10/19/20 05:55 Creatinine 1.30 mg/dl (0.52-1.04) H D 10/19/20 05:55 Estimated Creat Clear 46 mL/min (50-200) 10/19/20 05:55 Was VTE Risk Assessment Performed: Yes VTE Score: 5 VTE Risk Level: Low Risk - Prophylaxis VTE Prophylaxis Ordered?: Yes Types of VTE Prophylaxis: TEDS Knee High Location of Applied Device: Bilateral Lower Extremeties
--- NOTE | 2020-10-19 08:10 | HMH.CNCARD ---
History of Present Illness Consult date: 10/19/20 Requesting physician: Demarco Richard Consult reason: chest pain Chief complaint: chest pain, fast HR Additional Medical History:: 1. normal cors A. [facility] 01/2018 shows: Normal coronaries, normal EF with LVEDP of 25 mm Hg B. [facility] myoview, 05/2019, no ischemia with LVEF of 63% 2. HTN/HHD A. Echo, 05/2019, mild LAE, mild CLVH. EF 55% with grade I DD. Mild MR/TR. 3. HLD A. LDL 84, HDL 29, 10/2020 4. SHIRAZ A. Needs CPAP or BiPAP therapy. Waiting to get machine 5. PAF A. Newly diagnosed, 08/2020, with elevated CHADS-VASC score for which she was started on eliquis B. Sotalol caused QTc prolongation C. Rhythmol started 08/2020 D. Hospitalization, 10/19/2020, wide complex tachycardia with HR of 204 bpm. Treated with IV metoprolol. 6. CKD, stage 2-3 History of present illness: 54-year-old white female with known history of normal coronary arteries and recently diagnosed paroxysmal atrial fibrillation with RVR in August 2020 was admitted 10/18/2020 for complaint of chest pain and rapid heart rate. Patient was seen in the ER after onset of symptoms 2 hours prior while walking across a parking lot. She denies any near-syncope or syncopal symptoms. EKG in the ER showed a wide-complex tachycardia rate of 204 bpm. This was successfully treated to sinus rhythm with 5 mg IV metoprolol x1. Patient was kept overnight for observation and further evaluation and treatment. Troponins returned normal x2. Patient remains in sinus rhythm. She does complain of chest soreness. Cardiology consulted for evaluation recommendations. Discussed with Dr. Tyler who felt that the wide-complex tachycardia was atrial flutter with a slow one-to-one conduction. In light of the patient's normal coronaries and breakthrough arrhythmia on Rythmol and diltiazem it is best that the patient be referred to EP for further evaluation and treatment. [facility] History Medical History: Reports:: Asthma, Atrial Fibrillation, Congestive Heart Failure, Gastroesophageal Reflux Disease(GERD), Hyperlipidemia, Hypertension, Lung Disease, Renal Insufficiency Denies:: Cancer, Diabetes Mellitus Type 1, Diabetes Mellitus Type 2, Internal Pacemaker, MRSA, Seizures *Have you ever received a pneumonia vaccine?: No *Have you received a flu vaccine this season?: No Other Medical History: Reports: Anemia, Arthritis, Liver Disease, Other. Denies: Blood Transfusion Reaction Laterality Cases: Left: Breast Biopsy Other Surgeries: Yes: Cardiac Catheterization, Cholecystectomy, Colonoscopy, EGD, Hysterectomy-Total, Hysterectomy-Partial, Tubal Ligation, Other. No: Pacemaker Amputation: No Fractures: Yes (hand, r foot) - *Social History Last grade of school completed: 7th or 8th Smoking Status: Current every day smoker Tobacco Type: cigarettes # Packs/Day (cigarettes): 1 #Yrs smoked (if former smoker): 25 Alcohol Intake: never Alcohol Intake Frequency:: other Substance Use Type: denies use *Occupational Status:: disabled Housing: house Household Members: spouse *Travel in the last 8 weeks: None Family Hx:: Diabetes, Heart Attack Meds Home Medications Medication Instructions Recorded Confirmed Type pantoprazole 40 mg tablet,delayed 40 mg PO DAILY #90 tab 12/13/19 10/18/20 Rx release montelukast 10 mg tablet 10 mg PO DAILY tab 02/09/20 10/18/20 History fluticasone furoate 200 1 puff IH DAILY 08/09/20 10/18/20 History mcg/actuation blister powder for inhalation Losartan Potassium [Cozaar 50mg 50 mg PO DAILY 09/12/20 10/18/20 History Tablets] furosemide 20 mg tablet 40 mg PO DAILY tab 10/06/20 10/18/20 History Apixaban [Eliquis] 5 mg PO BID 10/18/20 10/18/20 History Lovastatin 20 mg PO DAILY 10/18/20 10/18/20 History Propafenone HCl 150 mg PO TID 10/18/20 10/18/20 History dilTIAZem HCL [Cardizem Cd] 120 mg PO DAILY 10/18/20 10/18/20 History Loratadine [Allerclear] 10 mg PO DAILY 10/19/20 10/19/20 History
--- NOTE | 2020-10-19 08:27 | HMH.HP ---
*Admission Date: 10/18/20 *Chief complaint: Dysrhythmia *History of present illness: 54-year-old white female with known history of normal coronary arteries and recently diagnosed paroxysmal atrial fibrillation with RVR in August 2020 was admitted 10/18/2020 for complaint of chest pain and rapid heart rate. Patient was seen in the ER after onset of symptoms 2 hours prior while walking across a parking lot. She denies any near-syncope or syncopal symptoms. EKG in the ER showed a wide-complex tachycardia rate of 204 bpm. This was successfully treated to sinus rhythm with 5 mg IV metoprolol x1. Patient was kept overnight for observation and further evaluation and treatment. Troponins returned normal x2. Patient remains in sinus rhythm. She does complain of chest soreness. Cardiology consulted for evaluation recommendations. Above note per emergency department. This morning patient feels well, denies cardiology symptoms. [facility] History I have reviewed the patient's past medical history: Yes Medical History: Reports:: Asthma, Atrial Fibrillation, Congestive Heart Failure, Gastroesophageal Reflux Disease(GERD), Hyperlipidemia, Hypertension, Lung Disease, Renal Insufficiency Denies:: Cancer, Diabetes Mellitus Type 1, Diabetes Mellitus Type 2, Internal Pacemaker, MRSA, Seizures *Have you ever received a pneumonia vaccine?: No *Have you received a flu vaccine this season?: No Other Medical History: Reports: Anemia, Arthritis, Liver Disease, Other. Denies: Blood Transfusion Reaction Laterality Cases: Left: Breast Biopsy Other Surgeries: Yes: Cardiac Catheterization, Cholecystectomy, Colonoscopy, EGD, Hysterectomy-Total, Hysterectomy-Partial, Tubal Ligation, Other. No: Pacemaker Amputation: No Fractures: Yes (hand, r foot) - *Social History Last grade of school completed: 7th or 8th Smoking Status: Current every day smoker Tobacco Type: cigarettes # Packs/Day (cigarettes): 1 #Yrs smoked (if former smoker): 25 Alcohol Intake: never Alcohol Intake Frequency:: other Substance Use Type: denies use *Occupational Status:: disabled Housing: house Household Members: spouse *Travel in the last 8 weeks: None Family Hx:: Diabetes, Heart Attack Review of Systems - Review of Systems Review of systems:: pertinent systems reviewed and negative unless documented below - *Neurologic Reports headache(s) Meds Home Medications Medication Instructions Recorded Confirmed Type pantoprazole 40 mg tablet,delayed 40 mg PO DAILY #90 tab 12/13/19 10/18/20 Rx release montelukast 10 mg tablet 10 mg PO DAILY tab 02/09/20 10/18/20 History colestipol 1 gram tablet 1 g PO BID 08/09/20 10/18/20 History fluticasone furoate 200 1 puff IH DAILY 08/09/20 10/18/20 History mcg/actuation blister powder for inhalation Losartan Potassium [Cozaar 50mg 50 mg PO DAILY 09/12/20 10/18/20 History Tablets] furosemide 20 mg tablet 40 mg PO DAILY tab 10/06/20 10/18/20 History Apixaban [Eliquis] 5 mg PO BID 10/18/20 10/18/20 History Lovastatin 20 mg PO DAILY 10/18/20 10/18/20 History Propafenone HCl 150 mg PO TID 10/18/20 10/18/20 History dilTIAZem HCL [Cardizem Cd] 120 mg PO DAILY 10/18/20 10/18/20 History Allergies Allergy/AdvReac Type Severity Reaction Status Date / Time spironolactone Allergy Intermediate hives Verified 10/18/20 19:33 lactase [From Dairy Aid] Allergy Mild Diarrhea Verified 10/18/20 19:33 atorvastatin AdvReac Severe myalgias Verified 10/18/20 19:33 Exam Vital signs and Labs for Last 24 Hours: Temp Pulse Resp BP Pulse Ox 98.0 F 60 18 104/63 L 98 10/19/20 07:07 10/19/20 07:07 10/19/20 07:07 10/19/20 07:07 10/19/20 07:07 Laboratory Results - last 24 hr 10/18/20 16:08: WBC 12.9 H, RBC 4.92, Hgb 14.3, Hct 44.8, MCV 91.1, MCH 29.0, MCHC 31.9, RDW 12.9, Plt Count 273, MPV 9.4, Neut % (Auto) 61.1, Lymph % (Auto) 29.9, [place] % (Auto) 6.1, Eos % (Auto) 2.1, Baso % (Auto) 0.7, Neut # (Auto) 7.9 H, Lymph # (Auto) 3.9, [place]
--- NOTE | 2020-10-19 11:08 | HMH.PHAINT ---
home medication reconciliation completed using list from [email or web address], cardiology office and pt interview.
--- NOTE | 2020-10-19 20:20 | PC.NURSE ---
PATIENT A&O X4, LUNGS CLEAR, PATIENT AMBULATES IN ROOM, STEADY GAIT, TOLERATED DINNER. NO NEW CONCERNS AT THIS TIME.
[2020-10-20] VITALS: BP 98/62; PULSE 60; PULSE 61; RESP 16; TEMP 36.6; O2SAT 93
--- NOTE | 2020-10-20 | CA_ITS ---
APPROVED REPORT Exam: Exercise Treadmill Technologist: Denia Castro, Ht: 5 ft 4 in Wt: 264 lbs BSA: 2.20 m2 HR: 57 bpm BP: 114/63 mmHg Rhythm: SINUS JEAN-CLAUDE,INCOMPLETE RBBB, NSSTTW ABNORMALITIES Medical History Medical History: HTN, Hyperlipidemia Medications: Lovastatin,,,,, Losartan,,,,, Pantoprazole,,,,, Lasix,,,,, Montelukast,,,,, DilTiazem,,,,, PropAFENONE,,,,, Apixaban,,,,, Colestipol,,,,, ArNuity,,,,, Cardiac Risk Factors: Smoking, HTN, Hyperlipidemia, FHX of CAD Stress Test Details Test: Sony HR Resting HR: 65 bpm Max Heart Rate (APMHR): 166 bpm Max HR Achieved: 144 bpm Target HR (85% APMHR): 141 bpm % of APMHR: 86 Recovery HR: 74 bpm BP Resting BP: 114.0/63.0 mmHg Max BP: 118.0/60.0 mmHg Recovery BP: 118.0/60.0 mmHg ECG Resting ECG: SINUS BRADYCARDIA,ICRBBB,NSSTTW ABNORMALITIES Clinical Exercise duration: 02:29 min Highest Stage Achieved: Exercise capacity: 4.6 METs Stress ECG Conclusion WALKED 2:29. MAX HEART RATE 144 BPM. METS = 4.6. NO CP. NO ARRHYTHMIAS/ECTOPY. <1.5MM ST SEGMENT CHANGES. NEGATIVE STRESS FOR RECURRENT ARRHYTHMIAS. POOR EXERCISE TOLERANCE Electronically signed by : Eddie Tyler, 10/24/2020 08:59:06
--- NOTE | 2020-10-20 03:11 | PC.NURSE ---
Pt A&O x4. Has rested well this shift. C/O upset stomach early in shift, but has not c/o any additional discomfort. Pt is currently NPO for stress test this AM. Lung troncoso noted to have wheezing t/o and rhonchi to lupis bases. VSS at this time. Has been sinus bossman at times this shift. Medications administered per jan. Call light within reach. Will continue to monitor.
[2020-10-20 04:00] VITALS: BP 108/59; PULSE 57; PULSE 60; RESP 14; TEMP 36.7; O2SAT 95
--- NOTE | 2020-10-20 06:32 | [facility]H.DCSUM ---
General - General Admission date:: 10/18/20 Discharge date: 10/20/20 HPI HPI: 54-year-old white female with known history of normal coronary arteries and recently diagnosed paroxysmal atrial fibrillation with RVR in August 2020 was admitted 10/18/2020 for complaint of chest pain and rapid heart rate. Patient was seen in the ER after onset of symptoms 2 hours prior while walking across a parking lot. She denies any near-syncope or syncopal symptoms. EKG in the ER showed a wide-complex tachycardia rate of 204 bpm. This was successfully treated to sinus rhythm with 5 mg IV metoprolol x1. Patient was kept overnight for observation and further evaluation and treatment. Troponins returned normal x2. Patient remains in sinus rhythm. She does complain of chest soreness. Cardiology consulted for evaluation recommendations. Above note per emergency department. This morning patient feels well, denies cardiology symptoms. Hospital Course Hospital Course: Admitted for SVT. Treated with IV metoprolol x1 with resolution of her SVT. Admitted for further management of her tachycardia. Monitor overnight with no further episodes on telemetry. Transitioned medication to metoprolol. Cardiology was consulted, recommendations as follows: 1. SVT with suspected slow atrial flutter with one-to-one conduction, suspected to be related to Rythmol therapy. Switch to metoprolol 100 mg daily with discontinuation of Rythmol and diltiazem. Patient okay for discharge home with follow-up in our office in 1 week at which time we will refer her to Dr. Henry Lopez, truck engine assembler, for further evaluation and possible consideration of ablation for atrial fibrillation. 2. History of normal coronary arteries, 2018 with normal troponins this admission 3. Obesity 4. Tobacco use, cessation encouraged. 5. Paroxysmal atrial fibrillation, on apixaban therapy for elevated CHADS score Stress test performed day of discharge, patient did well with no further episodes. Able to tolerate several minutes with metabolic equivalents for 5 achieved without chest pain. Did to have significant deconditioning. Patient otherwise stable for medical discharge with close follow-up as stated above. Denies chest pain, palpitations, nausea, vomiting. Objective Vital signs: Temp Pulse Resp BP Pulse Ox 98.1 F 57 L 14 108/59 L 95 10/20/20 04:00 10/20/20 04:00 10/20/20 04:00 10/20/20 04:00 10/20/20 04:00 Narrative: - Constitutional morbidly obese - *Routine HEENT Exam Head: Present: normocephalic Eye: Present: EOMI, PERRL ENT: Present: mucous membranes moist - *Routine Neck Exam Present: supple. Absent: lymphadenopathy - *Routine Respiratory Exam Present: CTA bilaterally - *Routine Cardiovascular Exam Present: RRR - *Routine Abdominal Exam Present: soft, normoactive bowel sounds. Absent: tenderness - *Routine Extremities Exam Absent: cyanosis, clubbing, edema - *Routine Skin Exam Present: warm. Absent: rash - *Routine Neurological Exam Present: alert, oriented X3 Results Labs on day of discharge: Labs from last 24 hours 10/19/20 10/19/20 05:55 05:55 WBC 9.1 D RBC 3.92 L Hgb 11.6 L D Hct 36.2 L MCV 92.3 MCH 29.7 MCHC 32.1 RDW 12.9 Plt Count 213 MPV 9.1 Neut % (Auto) 63.1 Lymph % (Auto) 28.5 [place] % (Auto) 5.9 Eos % (Auto) 2.1 Baso % (Auto) 0.5 Neut # (Auto) 5.8 Lymph # (Auto) 2.6 [place] # (Auto) 0.5 Eos # (Auto) 0.2 Baso # (Auto) 0.0 Sodium 141 Potassium 4.4 Chloride 111 H Carbon Dioxide 27 Anion Gap 7.4 BUN 30 H Creatinine 1.30 H D Estimated Creat Clear 46 Estimated GFR 43 L Est GFR ( Amer) 52 L D Glucose 99 Calcium 8.0 L D Phosphorus 4.6 H Magnesium 1.9 Triglycerides 147 Cholesterol 142 LDL Cholesterol Direct 84.44 L VLDL Cholesterol 29 HDL Cholesterol 29 L Cholesterol/HDL Ratio 4.9 H D
[2020-10-20 08:00] VITALS: BP 111/64; PULSE 60; PULSE 62; RESP 16; TEMP 36.7; O2SAT 99
[2020-10-20 08:15] VITALS: PULSE 62; RESP 16; O2SAT 99
--- NOTE | 2020-10-20 09:17 | P.PN_ITS ---
Subjective Date: 10/20/20 Time: 09:17 Principal diagnosis: SVT Interval history: 54-year-old white female seen in the stress lab this morning in no acute distress. No arrhythmias noted overnight. Patient did not receive diltiazem last evening Patient did undergo stress test and exercised for 2-1/2 minutes to target heart rate without ST segment changes, chest pain or arrhythmias. Total METs achieved was 4-5. Exam Vital signs and Labs for Last 24 Hours: Temp Pulse Resp BP Pulse Ox 98.1 F 57 L 14 108/59 L 95 10/20/20 04:00 10/20/20 04:00 10/20/20 04:00 10/20/20 04:00 10/20/20 04:00 Laboratory Results - last 24 hr 10/19/20 05:55: Calcium 8.0 L D I & O for Last 24 hours: Intake & Output 10/17/20 10/18/20 10/19/20 10/20/20 11:59 11:59 11:59 11:59 Intake Total 2282 / 2282 880 / 880 Output Total 525 / 525 1999 / 1999 Balance 1757 / 1757 -1120 / -1120 Weight 267 lb - Constitutional no acute distress - *Routine HEENT Exam Head: Present: normocephalic Eye: Present: EOMI, PERRL ENT: Present: mucous membranes moist - *Routine Neck Exam Present: supple. Absent: lymphadenopathy - *Routine Respiratory Exam Present: CTA bilaterally - *Routine Cardiovascular Exam Present: RRR - *Routine Abdominal Exam Present: soft, normoactive bowel sounds. Absent: tenderness - *Routine Extremities Exam Absent: cyanosis, clubbing, edema - *Routine Skin Exam Present: warm. Absent: rash - *Routine Neurological Exam Present: alert, oriented X3 Progress Note: A&P (1) Atrial flutter with rapid ventricular response Status: Acute (2) Chest pain Status: Acute (3) Diastolic dysfunction Status: Chronic (4) HTN (hypertension) Status: Chronic (5) Morbid obesity Status: Chronic (6) Tobacco use Status: Chronic Assessment and Plan for All Diagnoses:: 1. SVT with suspected slow atrial flutter with one-to-one conduction, suspected to be related to Rythmol therapy. Switch to metoprolol 100 mg daily with discontinuation of Rythmol and diltiazem. Patient okay for discharge home with follow-up in our office in 1 week at which time we will refer her to Dr. Henry Lopez, aws developer, for further evaluation and possible consideration of ablation for atrial fibrillation. 2. History of normal coronary arteries, 2018 with normal troponins this admission 3. Obesity 4. Tobacco use, cessation encouraged. 5. Paroxysmal atrial fibrillation, on apixaban therapy for elevated CHADS score.
== END 2020-10-20 10:45 | disposition home or self-care (01) | DRG 309 ==
LOC: ER 16:54 → 2ND 18:01
PROVIDERS: Admitting Provider Internal Medicine Adolescent Medicine; Emergency Provider Family Medicine; Visit Provider Internal Medicine Adolescent Medicine
DX: I48.92 Unspecified atrial flutter (principal); I13.0 Hypertensive heart and chronic kidney disease with heart failure and stage 1 through stage 4 chronic kidney disease, or unspecified chronic kidney disease; I50.32 Chronic diastolic (congestive) heart failure; Z68.41 Body mass index [BMI] 40.0-44.9, adult; I48.0 Paroxysmal atrial fibrillation; N18.30 Chronic kidney disease, stage 3 unspecified; Z72.0 Tobacco use; E78.5 Hyperlipidemia, unspecified; J44.9 Chronic obstructive pulmonary disease, unspecified; E66.01 Morbid (severe) obesity due to excess calories; Z88.8 Allergy status to other drugs, medicaments and biological substances; Z79.51 Long term (current) use of inhaled steroids; Z79.01 Long term (current) use of anticoagulants
CPT/HCPCS: 36415; 71045; 80048; 80053; 80061; 82550; 82553; 83735; 84100; 84484; 85025; 85610; 86328; 93005; 93017; 96365; 96366; 96375; 99284; J2405

== ENCOUNTER → 2020-11-27 08:43 | Outpatient (CLI) | payer BC, SELFPAY ==
[2020-11-27 09:50] LABS: Basophils # 0.1 K/mm3 (0-0.2); Basophils % 0.8 % (0.1-2.0); Eosinophils # 0.3 K/mm3 (0.0-0.4); Eosinophils % 2.6 % (0.1-12.0); Hematocrit 42.1 % (37.0-47.0); Hemoglobin 13.5 g/dL (12.2-16.2); Lymphocytes # 2.6 K/mm3 (0.7-4.5); Lymphocytes % 26.4 % (10-50); Mean Corpuscular Hemoglobin 28.8 pg (27.0-31.2); Mean Platelet Volume 9.6 fl (7.4-10.4); Monocytes # 0.6 K/mm3 (0.1-1.0); Monocytes % 6.3 % (1.7-9.3); Neutrophils # 6.2 K/mm3 (1.8-7.8); Neutrophils % 63.9 % (37.0-80.0); Platelet Count 204 K/mm3 (142-424); Red Blood Count 4.67 M/mm3 (4.20-5.40); Red Cell Distribution Width 13.4 % (11.5-17.5); White Blood Count 9.7 K/mm3 (4.8-10.8)
[2020-11-27 10:02] LABS: INR 0.95 (0.9-1.1); Prothrombin Time 10.6 seconds (9.4-11.8)
[2020-11-27 10:10] LABS: Chloride 104 mmol/L (98-107); Potassium 3.9 mmoL/L (3.5-5.1); Sodium 140 mmol/L (136-145)
[2020-11-27 10:13] LABS: Anion Gap 9.9 mEq/L (5-15); Blood Urea Nitrogen 33 mg/dl (7-17); Calcium 9.4 mg/dl (8.4-10.2); Carbon Dioxide 30 mmol/L (22.0-30.0); Estimated Glomerular Filt Rate 39 ml/min (>60); GFR (African American) 47 ML/MIN (>60); Glucose 101 mg/dl (74-100)
[2020-11-27 11:59] LABS: Hemoglobin A1C 5.8 % (4.0-6.0)
== END ==
PROVIDERS: Visit Provider Internal Medicine Clinical Cardiac Electrophysiology
DX: Z01.818 Encounter for other preprocedural examination (principal)
CPT/HCPCS: 36415; 80048; 83036; 85025; 85610

== ENCOUNTER → 2021-01-25 12:13 | Outpatient (CLI) | payer BC, SELFPAY ==
[2021-01-25 15:03] LABS: Chloride 104 mmol/L (98-107); Sodium 141 mmol/L (136-145)
[2021-01-25 15:04] LABS: Potassium 4.2 mmoL/L (3.5-5.1)
[2021-01-25 15:06] LABS: Anion Gap 10.2 mEq/L (5-15); Blood Urea Nitrogen 32 mg/dl (7-17); Carbon Dioxide 31 mmol/L (22.0-30.0); Estimated Glomerular Filt Rate 31 ml/min (>60); GFR (African American) 38 ML/MIN (>60); Glucose 92 mg/dl (74-100)
[2021-01-25 15:07] LABS: Calcium 9.6 mg/dl (8.4-10.2); Magnesium 2.2 mg/dl (1.6-2.3)
== END ==
PROVIDERS: PCP Family Medicine; Visit Provider Physician Assistant
DX: R00.2 Palpitations (principal)
CPT/HCPCS: 36415; 80048; 83735; 93225; 93226

== ENCOUNTER → 2021-02-07 13:45 | Outpatient (CLI) | payer BC, SELFPAY ==
[2021-02-07 15:47] LABS: Ferritin 57.9 ng/ml (11.1-264)
== END ==
PROVIDERS: Visit Provider Specialist
DX: E83.10 Disorder of iron metabolism, unspecified (principal)
CPT/HCPCS: 36415; 82728

== ENCOUNTER → 2021-02-09 09:33 | Outpatient (CLI) | payer BC, SELFPAY ==
[2021-02-09 13:59] LABS: Chloride 109 mmol/L (98-107)
[2021-02-09 14:00] LABS: Potassium 4.5 mmoL/L (3.5-5.1); Sodium 142 mmol/L (136-145)
[2021-02-09 14:02] LABS: Blood Urea Nitrogen 29 mg/dl (7-17); Estimated Glomerular Filt Rate 39 ml/min (>60); GFR (African American) 47 ML/MIN (>60)
[2021-02-09 14:03] LABS: Anion Gap 8.5 mEq/L (5-15); Calcium 9.2 mg/dl (8.4-10.2); Carbon Dioxide 29 mmol/L (22.0-30.0); Glucose 105 mg/dl (74-100)
== END ==
PROVIDERS: Visit Provider Physician Assistant
DX: I48.91 Unspecified atrial fibrillation (principal)
CPT/HCPCS: 36415; 80048

== ENCOUNTER → 2021-07-31 09:55 | Outpatient (CLI) | payer BC, SELFPAY ==
--- NOTE | 2021-07-31 09:56 | US_ITS ---
APPROVED REPORT Exam Type: Ankle to Brachial Index Video Producer: Molly Hsu RT(R), Eufemia Tucker Rahul Indications Rest Pain: Right History of Smoking Risk Factors Hypertension Hyperlipidemia Obesity Current Smoker Pressures/Indices Right Indices Left Indices Brachial 104.00 mmHg Brachial 110.00 mmHg Low Thigh 115.00 mmHg 1.05 Low Thigh 125.00 mmHg 1.14 Calf 113.00 mmHg 1.03 Calf 131.00 mmHg 1.19 Ankle(PT) 122.00 mmHg 1.11 Ankle(PT) 101.00 mmHg 0.92 Ankle(DP) 123.00 mmHg 1.12 Ankle(DP) 115.00 mmHg 1.05 Digit 93.00 mmHg 0.85 Digit 123.00 mmHg 1.12 Doppler Waveforms SFA (R) Monophasic Findings RT DAVIAN=1.12 LT DAVIAN=1.12 RT TPI=0.85 LT TPI=1.05 Dampened pulses due to extreme body habitus. Waveforms are within normal limits. Conclusion RT DAVIAN=1.12 LT DAVIAN=1.12 RT TPI=0.85 LT TPI=1.05 Dampened pulses due to extreme body habitus. Waveforms are within normal limits. No evidence significant arterial disease throughout the right and left lower extremities as evidenced by normal resting indices. Electronically signed by : Brant Land MD 07/31/2021 16:19:53
--- NOTE | 2021-07-31 09:56 | CA_ITS ---
APPROVED REPORT Right Lower Extremity Venous Study for DVT. Thread Clipper: CORA Indications Lower Extremity Pain: Right Varicose Veins History of Smoking right groin pain, Obesity Vein Imaging CFV (R): compressive, spontaneous, phasic, augmentation SFJ (R): compressive, spontaneous, phasic, augmentation FEM (R): compressive, spontaneous, phasic, augmentation POP (R): compressive, spontaneous, phasic, augmentation DFV (R): compressive, spontaneous, phasic, augmentation PTV (R): compressive, spontaneous, phasic, augmentation GSV (R): compressive, spontaneous, phasic, augmentation SSV (R): compressive, spontaneous, phasic, augmentation Peroneals (R):compressive, spontaneous, phasic, augmentation GAS (R): compressive, spontaneous, phasic, augmentation Findings Color flow duplex demonstrates no evidence of DVT of the following right lower extremity Veins:Common Femoral Vein, Femoral Vein, Popliteal Vein, Posterior Tibial Veins, Peroneal Veins, Deep Femoral Vein. Negative for DVT. Conclusion Negative for DVT. Electronically signed by : Brant Land MD 07/31/2021 16:20:18
== END ==
PROVIDERS: PCP Nurse Practitioner Family; Visit Provider Internal Medicine Cardiovascular Disease
DX: R10.31 Right lower quadrant pain (principal); M79.604 Pain in right leg; I73.9 Peripheral vascular disease, unspecified
CPT/HCPCS: 93923; 93971

== ENCOUNTER → 2022-11-11 11:44 | Outpatient (CLI) | payer BC, SELFPAY | PROVIDERS: Visit Provider Nurse Practitioner Family | DX: G47.33 Obstructive sleep apnea (adult) (pediatric) (principal); G47.34 Idiopathic sleep related nonobstructive alveolar hypoventilation; I48.91 Unspecified atrial fibrillation; R94.30 Abnormal result of cardiovascular function study, unspecified; Z99.89 Dependence on other enabling machines and devices | CPT/HCPCS: 94762 ==

== ENCOUNTER → 2022-12-19 19:44 | Outpatient (CLI) | payer BC, SELFPAY | PROVIDERS: PCP Emergency Medicine; Visit Provider Nurse Practitioner Family | DX: G47.33 Obstructive sleep apnea (adult) (pediatric) (principal); R09.02 Hypoxemia | CPT/HCPCS: 95811 ==

== ENCOUNTER → 2023-03-18 09:00 | Outpatient (CLI) | payer BC, SELFPAY ==
[2023-03-18 09:45] LABS: Basophils # 0.1 K/mm3 (0-0.2); Basophils % 0.6 % (0.1-2.0); Eosinophils # 0.2 K/mm3 (0.0-0.4); Eosinophils % 1.5 % (0.1-12.0); Hematocrit 42.7 % (37.0-47.0); Hemoglobin 13.6 g/dL (12.2-16.2); Lymphocytes % 23.2 % (10-50); Mean Corpuscular HGB Conc 31.8 g/dL (31.8-35.4); Mean Corpuscular Volume 91.2 fl (81-99); Mean Platelet Volume 9.9 fl (7.4-10.4); Monocytes # 0.8 K/mm3 (0.1-1.0); Monocytes % 5.8 % (1.7-9.3); Neutrophils % 68.9 % (37.0-80.0); Platelet Count 259 K/mm3 (142-424); Red Blood Count 4.68 M/mm3 (4.20-5.40); Red Cell Distribution Width 13.2 % (11.5-17.5)
[2023-03-18 10:42] LABS: Free T4 (Free Thyroxine) 0.98 ng/dl (0.78-2.19)
[2023-03-18 11:15] LABS: Alanine Aminotransferase 17 U/L (12-78); Albumin Level 3.7 g/dl (3.5-5.0); Alkaline Phosphatase 91 U/L (38-126); Anion Gap 9.8 mEq/L (5-15); Aspartate Amino Transferase 19 U/L (14-36); Bilirubin,Indirect 0.4 mg/dL (0.0-0.9); Bilirubin,Total 0.4 mg/dl (0.2-1.3); Bilirubin,Unconjugated 0.5 mg/dL (0.0-1.1); Blood Urea Nitrogen 25 mg/dl (7-17); Carbon Dioxide 30 mmol/L (22.0-30.0); Chloride 103 mmol/L (98-107); Chol/HDL Ratio 4.4 (1-3.5); Cholesterol 161 mg/dl (140-200); Estimated Glomerular Filt Rate 33 ml/min (>60); GFR (African American) 40 ML/MIN (>60); Glucose 93 mg/dl (74-100); HDL Cholesterol 37 mg/dl (40-60); Potassium 4.8 mmoL/L (3.5-5.1); Sodium 138 mmol/L (136-145); Total Protein,Serum 6.1 g/dl (6.3-8.2); Triglycerides 159 mg/dl (30-150); VLDL Cholesterol 32 mg/dL (0-40)
[2023-03-18 11:26] LABS: Direct LDL Cholesterol 103.32 mg/dL (100-129)
[2023-03-18 11:45] LABS: Thyroid Stimulating Hormone 5.17 uIU/mL (0.465-4.68)
== END ==
PROVIDERS: PCP Emergency Medicine; Visit Provider Physician Assistant
DX: R06.00 Dyspnea, unspecified (principal); I11.9 Hypertensive heart disease without heart failure; I63.9 Cerebral infarction, unspecified; M79.10 Myalgia, unspecified site; E66.01 Morbid (severe) obesity due to excess calories; R25.2 Cramp and spasm; Z68.41 Body mass index [BMI] 40.0-44.9, adult
CPT/HCPCS: 36415; 80048; 80061; 80076; 83735; 84439; 84443; 85025

== ENCOUNTER → 2023-05-15 14:19 | Outpatient (CLI) | payer BC, SELFPAY ==
--- NOTE | 2023-05-15 14:22 | XR_ITS ---
FINAL REPORT CLINICAL HISTORY: right foot pain COMPARISON: None FINDINGS: RIGHT FOOT: Three views of the right foot were obtained. There is no acute fracture or dislocation. There is mild degenerative change. Calcaneal spurs are noted. There is no soft tissue abnormality. IMPRESSION: No acute bony abnormality. Reviewed, Interpreted and Dictated by Nikhil Quintero III, MD Transcribed by Loreto Echols Authenticated and [facility]
== END ==
PROVIDERS: PCP Emergency Medicine; Visit Provider Nurse Practitioner Family
DX: M79.671 Pain in right foot (principal)
CPT/HCPCS: 73630

== ENCOUNTER 2024-01-16 13:32 | Observation (INO) | payer BC, SELFPAY ==
[2024-01-16] VITALS (23 sets, daily range): BP systolic 90–147; BP diastolic 45–103; PULSE 40–67; RESP 12–21; TEMP 36.8; O2SAT 86–99; BMI 42.9; BMI 41.2
--- NOTE | 2024-01-16 13:30 | ECG_ITS ---
APPROVED REPORT Exam: Resting ECG HR:65 bpm ECG Measurements Heart Rate 65 AXES MS 168 P 69 QRSd 123 QRS 9 QT 417 T -16 QTc 429 Conclusion SINUS RHYTHM MODERATE INTRAVENTRICULAR CONDUCTION DELAY [110+ ms QRS DURATION] MODERATE T-WAVE ABNORMALITY, CONSIDER ANTEROLATERAL ISCHEMIA [-0.1+ mV T-WAVE IN V3-V6] MODERATE T-WAVE ABNORMALITY, CONSIDER INFERIOR ISCHEMIA [-0.1+ mV T-WAVE IN II/aVF] ABNORMAL ECG UNCONFIRMED REPORT Electronically signed by : Demarco Richard MD 01/17/2024 08:18:01
--- NOTE | 2024-01-16 13:50 | XR_ITS ---
FINAL REPORT CLINICAL HISTORY: sternal chest pain COMPARISON: 10/18/2020 FINDINGS: A single portable view of the chest was obtained. The heart size and pulmonary vascularity are within normal limits. The mediastinum is within normal limits. No acute pulmonary abnormality is identified. The bony thorax is intact. IMPRESSION: No active cardiopulmonary disease. Reviewed, Interpreted and Dictated by Nkihil Quintero III, MD Transcribed by Loreto Echols Authenticated and . [facility]
[2024-01-16 14:02] LABS: Basophils % 0.2 % (0.1-2.0); Eosinophils # 0.1 K/mm3 (0.0-0.4); Eosinophils % 0.5 % (0.1-12.0); Hematocrit 44.8 % (37.0-47.0); Hemoglobin 14.8 g/dL (12.2-16.2); Lymphocytes # 2.6 K/mm3 (0.7-4.5); Lymphocytes % 11.8 % (10-50); Mean Corpuscular HGB Conc 33.1 g/dL (31.8-35.4); Mean Corpuscular Hemoglobin 29.4 pg (27.0-31.2); Mean Corpuscular Volume 88.9 fl (81-99); Mean Platelet Volume 10.1 fl (7.4-10.4); Monocytes % 4.6 % (1.7-9.3); Neutrophils # 18.3 K/mm3 (1.8-7.8); Neutrophils % 82.9 % (37.0-80.0); Platelet Count 288 K/mm3 (142-424); Red Blood Count 5.04 M/mm3 (4.20-5.40); Red Cell Distribution Width 13.2 % (11.5-17.5); White Blood Count 22.1 K/mm3 (4.8-10.8)
[2024-01-16 14:04] LABS: Chloride 108 mmol/L (98-107); Potassium 4.4 mmoL/L (3.5-5.1); Sodium 140 mmol/L (136-145)
[2024-01-16 14:07] LABS: Alanine Aminotransferase 32 U/L (12-78); Albumin Level 4.5 g/dl (3.5-5.0); Albumin/Globulin Ratio 1.3 (1.1-1.8); Alkaline Phosphatase 102 U/L (38-126); Aspartate Amino Transferase 38 U/L (14-36); Bilirubin,Total 0.4 mg/dl (0.2-1.3); Blood Urea Nitrogen 22 mg/dl (7-17); Carbon Dioxide 26 mmol/L (22.0-30.0); Creatinine Clearance Estimated 44 mL/min (50-200); Estimated Glomerular Filt Rate 46 ml/min (>60); GFR (African American) 56 ML/MIN (>60); Globulin 3.4 g/dL (1.3-3.2); Total Protein,Serum 7.9 g/dl (6.3-8.2)
[2024-01-16 14:08] LABS: Anion Gap 10.4 mEq/L (5-15); Calcium 9.6 mg/dl (8.4-10.2); Glucose 160 mg/dl (74-100)
[2024-01-16 14:11] LABS: MANUAL DIFFERENTIAL MANUAL DIFFERENTIAL (MANUAL DIFF)
--- NOTE | 2024-01-16 14:18 | [facility].EDCP ---
Discharge Plan Disposition Patient Disposition: Admitted Prescriptions Prescriptions: No Action montelukast 10 mg tablet 10 mg PO DAILY metoprolol succinate 100 mg tablet extended release 24 hr 100 mg PO DAILY fenofibrate nanocrystallized 48 mg tablet 48 mg PO DAILY famotidine 40 mg tablet 40 mg PO DAILY colestipol 1 gram tablet 2 g PO TID Patient Comments: TAKE 2 TABLETS 1 TIME EACH DAY. albuterol sulfate [ProAir HFA] 90 mcg/actuation HFA aerosol inhaler 1 inh INHALATION PRN fluticasone propion-salmeterol [Advair Diskus] 250-50 mcg/dose blister with device 1 inh inhalation BID fluticasone propionate 50 mcg/actuation spray,suspension 1 spray intranasal DAILY Patient Comments: SPRAY 1 TIME IN EACH NOSTRIL 1 TIME EACH DAY pantoprazole 40 mg tablet,delayed release (DR/EC) 40 mg PO DAILY cetirizine 10 mg tablet 10 mg PO DAILY Patient Comments: TAKE 1 TABLET 1 TIME EACH DAY meloxicam 7.5 mg tablet 7.5 mg PO DAILY 30 Days Qty: 30 2RF meloxicam 7.5 mg tablet 7.5 mg PO DAILY 30 Days Qty: 30 2RF lovastatin 20 mg tablet 20 mg PO DAILY Qty: 90 3RF losartan 50 mg tablet See Rx Instructions .ROUTE .COMPLEX Qty: 30 5RF Dose Instruction: TAKE 1 TABLET 1 TIME EACH DAY FOR HIGH BLOOD PRESSURE Rx Instructions: TAKE 1 TABLET 1 TIME EACH DAY FOR HIGH BLOOD PRESSURE Eliquis 5 mg tablet See Rx Instructions .ROUTE .COMPLEX Qty: 180 1RF Dose Instruction: TAKE 1 TABLET 2 TIMES EACH DAY. Rx Instructions: TAKE 1 TABLET 2 TIMES EACH DAY. potassium chloride 20 mEq tablet,ER particles/crystals See Rx Instructions .ROUTE .COMPLEX Qty: 90 2RF Dose Instruction: TAKE 1 TABLET 1 TIME EACH DAY Rx Instructions: TAKE 1 TABLET 1 TIME EACH DAY furosemide 20 mg tablet See Rx Instructions .ROUTE .COMPLEX Qty: 60 5RF Dose Instruction: TAKE 2 TABLETS 1 TIME EACH DAY NEEDED FOR SWELLING Rx Instructions: TAKE 2 TABLETS 1 TIME EACH DAY NEEDED FOR SWELLING loratadine 10 MG tablet 10 mg PO DAILY Referrals Follow up/Referrals: Provider,ReferralMD [Referring] - See instructions Clinical Impressions Clinical Impression: Chest pain, Angina pectoris, unstable Discharge ED Provider: Selvin Brown HPI <Selvin Brown MD - Last Filed: 01/16/24 15:50> General Chief Complaint: Chest Pain Stated Complaint: cp Time Seen by Provider: 01/16/24 14:09 Mode of Arrival: Ambulatory Source of Information: Patient Limitations: No Limitations Description of Symptoms (Recalled from ER Triage Doc. by RN): pt c/o sternal chest pain since yesterday around 1300. pt states the pain is a 10/10 and feels like pressure. pt states she was positive for covid and finished her 5d quarentine on Friday. pt c/o SOA and a GONZALEZ. pt states Dr. Tyler is her automatic driller and reamer and she has a follow up appointment with him on 01/20 History of Present Illness HPI narrative: 58-year-old female on day 7 of COVID presents to the ER with concerns of sternal chest pain since 1 PM yesterday. Patient states it feels like pressure. She states she is currently on steroids and doxycycline because she was not getting over the cough. She states Dr. Tyler is her automatic driller and reamer and she has a follow-up appointment with him on January 20 but she was concerned when her left arm also started to have pain today. She states her cough is finally improving and she does not have any other associated symptoms at this time. Related Data Home Medications Medication Instructions Recorded Confirmed montelukast 10 mg tablet 10 mg PO DAILY allergic rhinitis 02/09/20 11/13/23 loratadine 10 mg tablet 10 mg PO DAILY Allergy symptoms 10/19/20 11/13/23 famotidine 40 mg tablet 40 mg PO DAILY 11/15/20 11/13/23 fenofibrate nanocrystallized 48 mg 48 mg PO DAILY 01/25/21 11/13/23 tablet albuterol sulfate 90 mcg/actuation 1 inh inhalation PRN 08/08/21 11/13/23 aerosol inhaler (ProAir HFA) metoprolol succinate 100 mg 100 mg PO DAILY 01/24/22 11/13/23 tablet,extended release 24 hr colestipol 1 gram tablet 2 g PO TID 10/02/22 11/13/23 fluticasone 250 mcg-salmeterol 50 1 inh inhalation BID 10/02/22 11/13/23 mcg/dose blistr powdr for inhalation (Advair Diskus) fluticasone propionate 50 1 spray intranasal DAILY 10/02/22 11/13/23 mcg/actuation nasal spray,suspension pantoprazole 40 mg tablet,delayed 40 mg PO DAILY 01/06/23 11/13/23 release cetirizine 10 mg tablet 10 mg PO DAILY 02/05/23 11/13/23 Previous Rx's Medication Instructions Recorded lovastatin 20 mg tablet 20 mg PO DAILY Cholesterol #90 tabs 05/29/21 losartan 50 mg tablet See Rx Instructions .Route 10/24/21 .COMPLEX #30 tabs meloxicam 7.5 mg tablet 7.5 mg PO DAILY right foot pain 30 08/14/23 days #30 tabs apixaban 5 mg tablet (Eliquis) See Rx Instructions .Route 09/19/23 .COMPLEX #180 tabs meloxicam 7.5 mg tablet 7.5 mg PO DAILY foot 11/13/23 pain/arthritis 30 days #30 tabs furosemide 20 mg tablet See Rx Instructions .Route 01/14/24 .COMPLEX #60 tabs potassium chloride 20 mEq See Rx Instructions .Route 01/14/24 tablet,extended release(part/cryst) .COMPLEX #90 tabs Allergies Allergy/AdvReac Type Severity Reaction Status Date / Time spironolactone Allergy Intermediate hives Verified 11/13/23 12:59 lactase [From Dairy Aid] Allergy Mild Diarrhea Verified 11/13/23 12:59 atorvastatin AdvReac Severe myalgias Verified 11/13/23 12:59 PFSH <Selvin Brown MD - Last Filed: 01/16/24 15:50> [facility] Disclaimer: The information contained in this section may have been updated after the patient was seen, as this information can be updated by other users. Medical History Atrial fibrillation Chest pain Claudication Daytime somnolence Diastolic dysfunction Dyspnea Fatigue Gastroesophageal reflux disease PUD (peptic ulcer disease) Restless sleeper Right groin pain Seasonal allergies Snoring SOB (shortness of breath) Social History Smoking Status: Current every day smoker tobacco type: cigarettes packs per day: 1 second hand exposure: Yes alcohol intake: never counseling provided: provider counseling substance use type: denies use current occupational status: disabled Travel in the last 8 weeks: Inside the [place] household members: spouse housing: house current occupational exposures/hazards: No caffeine: Yes <Selvin Brown MD - Last Filed: 01/16/24 15:50> ROS Obtained: Yes All systems reviewed & no additional complaints except as documented Constitutional Constitutional: Denies chills, Denies fever(s), Denies headache(s) and Denies weakness Eyes Eyes: Denies change in vision ENT Ears, Nose, Mouth, and Throat: Denies dizziness, Denies headache(s), Denies nasal congestion and Denies sore throat Cardiovascular Cardiovascular: Reports chest pain, Reports dyspnea and Denies leg edema Respiratory Respiratory: Reports cough and Reports dyspnea Gastrointestinal Gastrointestingal: Denies constipation, diarrhea, nausea or vomiting Genitourinary Female Genitourinary: Denies dysuria Musculoskeletal Musculoskeletal: Denies arthralgias, Denies myalgias, Denies numbness and Denies tingling Integumentary/Breasts Skin/Breast: Denies change in pigmentation Neurologic Neurologic: Denies dizziness, Denies headache(s), Denies numbness, Denies tingling and Denies weakness Physical Exam <Selvin Brown MD - Last Filed: 01/16/24 15:50> General General appearance: alert and in no apparent distress Head Head exam: atraumatic and normocephalic Eye Eye exam: Present PERRL and EOMI ENT ENT exam: Present mucous membranes moist Neck Neck exam: Present normal inspection and full ROM Chest Chest inspection: Present symmetric chest wall rise; Absent tenderness Respiratory Respiratory exam: Present wheezes (Mild intermittent in the right lung); Absent respiratory distress, stridor, accessory muscle use or prolonged expiratory phase Cardiovascular Cardiovascular exam: Present regular rate and normal rhythm Abdominal Exam Abdominal exam: Present soft; Absent distention, tenderness, guarding or rebound Extremities Exam Extremities exam: Present full ROM Neurological Exam Neurological exam: Present alert and oriented X3; Absent motor sensory deficit Psychiatric Psychiatric exam: Present normal affect and normal mood Skin Skin exam: Present warm and dry HEART Score <Selvin Brown MD - Last Filed: 01/16/24 15:50> HEART Score HEART Score assessment performed?: Yes History (anamnesis): Slightly suspicious ECG: Non-specific disturbance Age: 45-65 years Risk factors: 3 or more risk factors Troponin: </= normal limit HEART Score: 4 <Vignesh Haque MD - Last Filed: 01/16/24 16:57> HEART Score History (anamnesis): Highly suspicious HEART Score: 6 Critical Care <Selvin Brown MD - Last Filed: 01/16/24 15:50> Critical Care Time Critical Care Time: No <Vignesh Haque MD - Last Filed: 01/16/24 16:57> Critical Care Time Critical Care Time: Yes (cv) Attestation: On 01/16/24, the high probability of a clinically significant, sudden or life threatening deterioration of the following system(s) required my full and direct attention, intervention and personal management. The time I documented below is in addition to time spent performing reported procedures but includes the following listed in this critical care notation. Total Time Total Critical Care Time: 45 Medical Decision Making <Selvin Brown MD - Last Filed: 01/16/24 15:50> Rashard Inquiry Pt receiving controlled substance: No Vital Signs Vital Signs: 01/16/24 13:39 01/16/24 13:50 01/16/24 14:01 Temperature 98.2 F Temperature Source Oral Pulse Rate 65 54 L Pulse Rate [Left] 60 Respiratory Rate 17 20 Blood Pressure 90/45 L Blood Pressure [Right Arm] 126/65 Blood Pressure Mean 60 Blood Pressure Mean [Right Arm] 85 Blood Pressure Source [Right Arm] Automatic Cuff Blood Pressure Position [Right Arm] Sitting 02 Sat by Pulse Oximetry 99 95 Oxygen Delivery Method 01/16/24 14:31 01/16/24 15:15 01/16/24 15:31 Temperature Temperature Source Pulse Rate 54 L 52 L 55 L Pulse Rate [Left] Respiratory Rate 18 12 18 Blood Pressure 117/50 L 113/63 117/67 Blood Pressure [Right Arm] Blood Pressure Mean 79 78 Blood Pressure Mean [Right Arm] Blood Pressure Source [Right Arm] Blood Pressure Position [Right Arm] 02 Sat by Pulse Oximetry 97 98 96 Oxygen Delivery Method Room Air 01/16/24 16:01 Temperature Temperature Source Pulse Rate 49 L Pulse Rate [Left] Respiratory Rate 21 Blood Pressure 128/64 Blood Pressure [Right Arm] Blood Pressure Mean Blood Pressure Mean [Right Arm] Blood Pressure Source [Right Arm] Blood Pressure Position [Right Arm] 02 Sat by Pulse Oximetry 97 Oxygen Delivery Method Room Air Lab Data Labs: Lab Results 01/16/24 13:35: WBC 22.1 H*, RBC 5.04, Hgb 14.8, Hct 44.8, MCV 88.9, MCH 29.4, MCHC 33.1, RDW 13.2, Plt Count 288, MPV 10.1, Neut % (Auto) 82.9 H, Lymph % (Auto) 11.8, Carter % (Auto) 4.6, Eos % (Auto) 0.5, Baso % (Auto) 0.2, Neut # (Auto) 18.3 H, Lymph # (Auto) 2.6, Carter # (Auto) 1.0, Eos # (Auto) 0.1, Baso # (Auto) 0.0, Total Counted 100, Neutrophils % (Manual) 81 H, Lymphocytes % (Manual) 16, Monocytes % (Manual) 2, Eosinophils % (Manual) 1, Platelet Estimate Normal, RBC Morphology Normal, Sodium 140, Potassium 4.4, Chloride 108 H, Carbon Dioxide 26, Anion Gap 10.4, BUN 22 H, Creatinine 1.20 H, Estimated Creat Clear 44, Estimated GFR 46 L, Est GFR ( Amer) 56 L, Glucose 160 H, Calcium 9.6, Total Bilirubin 0.4, AST 38 H, ALT 32, Alkaline Phosphatase 102, Troponin I < 0.01, Total Protein 7.9 D, Albumin 4.5, Globulin 3.4 H, Albumin/Globulin Ratio 1.3 01/16/24 13:35 01/16/24 13:35 Response Orders (Tests/Meds): ED MEDICATIONS Generic Name Dose Route Start Last Admin Trade Name Freq PRN Reason Stop Dose Admin Heparin Sodium (Porcine) 5,000 unit 01/16/24 16:47 Heparin Sodium 5,000 Unit/Ml Vial IV 01/16/24 16:48 ONCE ONE Miscellaneous 1 each 01/16/24 17:00 Heparin Drip Consult NOTAPPLIC 02/15/24 16:59 CONSULT PHARMACY [facility] Sodium Chloride 10 ml 01/16/24 13:56 Sodium Chloride 0.9% 10ml Flush Syringe IV 02/15/24 13:55 NEEDED PRN Maintain IV Site Discontinued Medications Generic Name Dose Route Start Last Admin Trade Name Freq PRN Reason Stop Dose Admin Aspirin 325 mg 01/16/24 16:28 01/16/24 16:36 Aspirin 325mg Tablet PO 01/16/24 16:29 325 mg ONCE ONE Administration Belladonna Alkaloids 60 ml 01/16/24 14:16 01/16/24 14:24 Belladonna Alkaloids 60 Ml Ml PO 01/16/24 14:17 60 ml ONCE ONE Administration ORDERS Category Date Time Status XR chest portable Stat Exams 01/16/24 13:50 Completed Complete Blood Count Auto Diff Stat Lab 01/16/24 13:35 Completed Comprehensive Metabolic Panel Stat Lab 01/16/24 13:35 Completed PTT Heparin (inpatient only) Stat Lab 01/16/24 16:52 Ordered Trop I [Troponin I] Stat Lab 01/16/24 13:35 Completed Troponin I Q3H Lab 01/16/24 17:00 Ordered Troponin I Q3H Lab 01/16/24 20:00 Ordered ECG initial Besson Routine Y 01/16/24 13:30 Completed MDM Narrative Medical Decision Narrative: In summary, this 58year old female presents to the emergency department today with chest pain. On initial evaluation patient is hemodynamically stable, afebrile, cardiopulmonary exam is reassuring though she does have faint wheezes in the right lung intermittently, she is moving good air, no pitting peripheral edema. Differential diagnosis includes but is not limited to ACS, pneumonia, also considered esophageal spasm or other dyspepsia but ruling out the most morbid condition drove my assessment. Based on these concerns, I ordered cardiac workup, chest x-ray. ECG personally interpreted demonstrates normal sinus rhythm, rate 65, no interval abnormality, normal axis, no STEMI. Patient received GI cocktail for treatment. Labs personally reviewed demonstrate significant leukocytosis which is likely due to the patient's ongoing steroid use, no anemia, BUN and creatinine are actually improved from prior, no actionable electrolyte abnormalities, normal bilirubin. Initial troponin less than 0.01. Serial troponin has been ordered given patient had onset of left arm pain today. Chest x-ray personally interpreted does not demonstrate any acute intrathoracic abnormality, see radiology read for final interpretation. Patient placed in ED observation at 1537. She was put in ED observation for serial troponins in order to rule out ACS and hopefully preclude unnecessary admission. She is on the monitoring and evaluation advisor and will continue to be frequently reassessed during observation. Patient handed off to Dr. Haque at physician shift change for further management and disposition while in ED observation. <Vignesh Haque MD - Last Filed: 01/16/24 16:57> Vital Signs Vital Signs: 01/16/24 13:39 01/16/24 13:50 01/16/24 14:01 Temperature 98.2 F Temperature Source Oral Pulse Rate 65 54 L Pulse Rate [Left] 60 Respiratory Rate 17 20 Blood Pressure 90/45 L Blood Pressure [Right Arm] 126/65 Blood Pressure Mean 60 Blood Pressure Mean [Right Arm] 85 Blood Pressure Source [Right Arm] Automatic Cuff Blood Pressure Position [Right Arm] Sitting 02 Sat by Pulse Oximetry 99 95 Oxygen Delivery Method 01/16/24 14:31 01/16/24 15:15 01/16/24 15:31 Temperature Temperature Source Pulse Rate 54 L 52 L 55 L Pulse Rate [Left] Respiratory Rate 18 12 18 Blood Pressure 117/50 L 113/63 117/67 Blood Pressure [Right Arm] Blood Pressure Mean 79 78 Blood Pressure Mean [Right Arm] Blood Pressure Source [Right Arm] Blood Pressure Position [Right Arm] 02 Sat by Pulse Oximetry 97 98 96 Oxygen Delivery Method Room Air 01/16/24 16:01 Temperature Temperature Source Pulse Rate 49 L Pulse Rate [Left] Respiratory Rate 21 Blood Pressure 128/64 Blood Pressure [Right Arm] Blood Pressure Mean Blood Pressure Mean [Right Arm] Blood Pressure Source [Right Arm] Blood Pressure Position [Right Arm] 02 Sat by Pulse Oximetry 97 Oxygen Delivery Method Room Air Lab Data Labs: Lab Results 01/16/24 13:35: WBC 22.1 H*, RBC 5.04, Hgb 14.8, Hct 44.8, MCV 88.9, MCH 29.4, MCHC 33.1, RDW 13.2, Plt Count 288, MPV 10.1, Neut % (Auto) 82.9 H, Lymph % (Auto) 11.8, Carter % (Auto) 4.6, Eos % (Auto) 0.5, Baso % (Auto) 0.2, Neut # (Auto) 18.3 H, Lymph # (Auto) 2.6, Carter # (Auto) 1.0, Eos # (Auto) 0.1, Baso # (Auto) 0.0, Total Counted 100, Neutrophils % (Manual) 81 H, Lymphocytes % (Manual) 16, Monocytes % (Manual) 2, Eosinophils % (Manual) 1, Platelet Estimate Normal, RBC Morphology Normal, Sodium 140, Potassium 4.4, Chloride 108 H, Carbon Dioxide 26, Anion Gap 10.4, BUN 22 H, Creatinine 1.20 H, Estimated Creat Clear 44, Estimated GFR 46 L, Est GFR ( Amer) 56 L, Glucose 160 H, Calcium 9.6, Total Bilirubin 0.4, AST 38 H, ALT 32, Alkaline Phosphatase 102, Troponin I < 0.01, Total Protein 7.9 D, Albumin 4.5, Globulin 3.4 H, Albumin/Globulin Ratio 1.3 Response Orders (Tests/Meds): ED MEDICATIONS Generic Name Dose Route Start Last Admin Trade Name Freq PRN Reason Stop Dose Admin Heparin Sodium (Porcine) 5,000 unit 01/16/24 16:47 Heparin Sodium 5,000 Unit/Ml Vial IV 01/16/24 16:48 ONCE ONE Miscellaneous 1 each 01/16/24 17:00 Heparin Drip Consult NOTAPPLIC 02/15/24 16:59 CONSULT PHARMACY [facility] Sodium Chloride 10 ml 01/16/24 13:56 Sodium Chloride 0.9% 10ml Flush Syringe IV 02/15/24 13:55 NEEDED PRN Maintain IV Site Discontinued Medications Generic Name Dose Route Start Last Admin Trade Name Freq PRN Reason Stop Dose Admin Aspirin 325 mg 01/16/24 16:28 01/16/24 16:36 Aspirin 325mg Tablet PO 01/16/24 16:29 325 mg ONCE ONE Administration Belladonna Alkaloids 60 ml 01/16/24 14:16 01/16/24 14:24 Belladonna Alkaloids 60 Ml Ml PO 01/16/24 14:17 60 ml ONCE ONE Administration ORDERS Category Date Time Status XR chest portable Stat Exams 01/16/24 13:50 Completed Complete Blood Count Auto Diff Stat Lab 01/16/24 13:35 Completed Comprehensive Metabolic Panel Stat Lab 01/16/24 13:35 Completed PTT Heparin (inpatient only) Stat Lab 01/16/24 16:52 Ordered Trop I [Troponin I] Stat Lab 01/16/24 13:35 Completed Troponin I Q3H Lab 01/16/24 17:00 Ordered Troponin I Q3H Lab 01/16/24 20:00 Ordered ECG initial Besson Routine Y 01/16/24 13:30 Completed MDM Narrative Medical Decision Narrative: In summary, this 58year old female presents to the emergency department today with chest pain. On initial evaluation patient is hemodynamically stable, afebrile, cardiopulmonary exam is reassuring though she does have faint wheezes in the right lung intermittently, she is moving good air, no pitting peripheral edema. Differential diagnosis includes but is not limited to ACS, pneumonia, also considered esophageal spasm or other dyspepsia but ruling out the most morbid condition drove my assessment. Based on these concerns, I ordered cardiac workup, chest x-ray. ECG personally interpreted demonstrates normal sinus rhythm, rate 65, no interval abnormality, normal axis, no STEMI. Patient received GI cocktail for treatment. Labs personally reviewed demonstrate significant leukocytosis which is likely due to the patient's ongoing steroid use, no anemia, BUN and creatinine are actually improved from prior, no actionable electrolyte abnormalities, normal bilirubin. Initial troponin less than 0.01. Serial troponin has been ordered given patient had onset of left arm pain today. Chest x-ray personally interpreted does not demonstrate any acute intrathoracic abnormality, see radiology read for final interpretation. Patient placed in ED observation at 1537. She was put in ED observation for serial troponins in order to rule out ACS and hopefully preclude unnecessary admission. She is on the monitoring and evaluation advisor and will continue to be frequently reassessed during observation. Patient handed off to Dr. Haque at physician shift change for further management and disposition while in ED observation. Shabnam: I assume primary responsibility for this patient after signout from previous physician. On my evaluation, patient complaining of 10 out of 10 chest pain, diaphoretic. Blood pressure 100/60, bradycardic 50 bpm. Patient was given 325 mg aspirin. Repeat EKGs 2 and 3 concerning for evolving acute coronary syndrome. She has T wave inversions in 2, 3, aVF as well as all precordial leads. Poor R wave progression. On third EKG, patient having bradycardia 49 beats a minute, progressively deepening T waves, concern for ST elevation in aVL. Cardiology was contacted, patient was given heparin bolus and drip and taken to catheterization lab. Because patient high risk for clinical decompensation, deemed appropriate for inpatient admission. Results were relayed to patient who voiced understanding and patient was agreeable to inpatient admission and management. Patient was admitted to the hospital for further definitive management.
[2024-01-16 14:21] LABS: Troponin I < 0.01 ng/ml (0.00-0.034)
[2024-01-16] MEDS: BELLADONNA ALKALOIDS 60 ML ML PO (14:24)
[2024-01-16 15:02] LABS: Eosinophils % 1 % (0-3); Lymphocytes % 16 % (10-50); Monocytes % 2 % (2-9); Neutrophils % 81 % (42-76); Platelet Estimate Normal; RBC Morphology Normal; Total Cells Counted 100
--- NOTE | 2024-01-16 16:16 | ECG_ITS ---
APPROVED REPORT Exam: Resting ECG HR:45 bpm ECG Measurements Heart Rate 45 AXES OR 192 P 71 QRSd 122 QRS 32 QT 488 T -54 QTc 443 Conclusion SINUS BRADYCARDIA MODERATE INTRAVENTRICULAR CONDUCTION DELAY [110+ ms QRS DURATION] MODERATE T-WAVE ABNORMALITY, CONSIDER ANTEROLATERAL ISCHEMIA [-0.1+ mV T-WAVE IN V3-V6] MODERATE T-WAVE ABNORMALITY, CONSIDER INFERIOR ISCHEMIA [-0.1+ mV T-WAVE IN II/aVF] ABNORMAL ECG UNCONFIRMED REPORT Electronically signed by : Demarco Richard MD 01/17/2024 08:13:00
[2024-01-16] MEDS: ASPIRIN 325MG TABLET 325 MG PO (16:36)
--- NOTE | 2024-01-16 16:44 | ECG_ITS ---
APPROVED REPORT Exam: Resting ECG HR:49 bpm ECG Measurements Heart Rate 49 AXES UT 172 P 62 QRSd 122 QRS 37 QT 486 T -57 QTc 458 Conclusion SINUS BRADYCARDIA MODERATE INTRAVENTRICULAR CONDUCTION DELAY [110+ ms QRS DURATION] MODERATE T-WAVE ABNORMALITY, CONSIDER ANTEROLATERAL ISCHEMIA [-0.1+ mV T-WAVE IN V3-V6] MODERATE T-WAVE ABNORMALITY, CONSIDER INFERIOR ISCHEMIA [-0.1+ mV T-WAVE IN II/aVF] ABNORMAL ECG UNCONFIRMED REPORT Electronically signed by : Demarco Richard MD 01/17/2024 08:12:53
--- NOTE | 2024-01-16 16:52 | PC.NURSE ---
Addendum entered by Jackie Ornelas RN 01/16/24 16:52: call quality control lab technician in Original Note: Per , he wants quality control lab technician in, HS aware
[2024-01-16] MEDS: HEPARIN DRIP CONSULT 1 EACH NOTAPPLIC (16:56)
--- NOTE | 2024-01-16 16:57 | PC.NURSE ---
spoke with jennifer in pharmacy about heparin dosing, Jennifer will put in the order
[2024-01-16] MEDS: HEPARIN SODIUM 5,000 UNIT/ML VIAL 5000 UNIT IV (17:03)
--- NOTE | 2024-01-16 17:04 | IR_ITS ---
APPROVED REPORT Patient Location: Outpatient Rn Supplemental: TONYA Terry RT (R) PROCEDURES Left heart catheterization Left ventriculogram Selective coronary angiogram INDICATION Acute coronary syndrome Informed consent was obtained prior to the procedure. COMPLICATIONS NONE Estimated Blood Loss: LESS THAN 10 ML TECHNIQUE One percent lidocaine used to anesthetize the right anterior aspect of the wrist. The right radial artery was accessed via the Seldinger technique. A 6 Amharic sheath was placed in the right radial artery. 2.5 mg of Verapamil, 800 mcg of nitroglycerin, 1mg Lidocaine and 5000 U Heparin were given through the arterial sheath. The papa catheter was also used to perform left heart catheterization, left ventriculogram and selective coronary angiogram. At the end of the procedure the sheath was removed good hemostasis was achieved using Traclet band, patient was transferred to the postop holding area in stable condition. ANGIOGRAPHIC RESULTS The left main artery Normal The left anterior descending artery Proximally normal with a mid vessel myocardial bridge compressing 30% during systole The circumflex artery Dominant normal The right coronary artery Normal The SUNSHINE ventriculogram reveals Normal 65% The left ventricular end-diastolic pressure 20 mmHg IMPRESSION No evidence of atherosclerotic disease with a mild clinically insignificant myocardial bridge compressing 30% during systole Normal ejection fraction Elevated LVEDP PLAN 1. Medical management 2. Evaluation of noncardiac chest pain Electronically signed by : Eddie Tyler MD 01/16/2024 17:53:58
[2024-01-16] MEDS: HEPARIN SODIUM,PORCINE/D5W 500 ML 20 UNIT IV (17:10)
[2024-01-16] MEDS: MORPHINE 4MG/ML SYRINGE 4 MG IV (17:15)
--- NOTE | 2024-01-16 17:15 | PC.NURSE ---
pt was shaved and placed in gown
[2024-01-16 17:37] LABS: PTT Heparin (inpatient only) 25.9 Seconds (23.6-34.0)
[2024-01-16] MEDS: VERAPAMIL 2.5MG/ML 2ML VIAL 2.5 MG IV (17:38)
[2024-01-16] MEDS: HEPARIN 1,000 UNITS/ML 10ML VIAL (CATH LAB) 10000 UNIT IV (17:38)
[2024-01-16] MEDS: LIDOCAINE 1% 10ML MDV 20 ML IJ (17:38)
[2024-01-16] MEDS: 0.9 % SODIUM CHLORIDE 500 ML 25 ML IV (17:38)
[2024-01-16] MEDS: HEPARIN 1,000 UNITS/500ML NS (CATH LAB) 3000 UNIT IV (17:38)
[2024-01-16] MEDS: diphenhydrAMINE 50MG/ML VIAL 50 MG IV (17:38)
[2024-01-16] MEDS: NITROGLYCERIN 800MCG/8ML SYR (CATH LAB) 800 MCG IA (17:39)
[2024-01-16] MEDS: MIDAZOLAM HCL 1MG/1ML 5ML VIAL 1 MG IV (17:50)
[2024-01-16] MEDS: FENTANYL 100MCG/2ML VIAL 50 MCG IV (17:50)
[2024-01-16] MEDS: IOPAMIDOL-370 (76%);100ML BOTTLE 50 ML IV (18:16)
--- NOTE | 2024-01-16 18:23 | PC.NURSE ---
arrived by alexer from [employer]
--- NOTE | 2024-01-16 18:32 | PC.NURSE ---
Pt. to the floor vss, 98% on ra, pulses positive times 4, pulses are positive, aox 4.
--- NOTE | 2024-01-16 19:43 | CT_ITS ---
PROCEDURE INFORMATION: Exam: CTA Chest With Contrast Exam date and time: 01/16/2024 8:07 PM Age: 58 years old Clinical indication: Shortness of breath; Additional info: Chest pain TECHNIQUE: Imaging protocol: Computed tomographic angiography of the chest with contrast. Exam focused on the arteries. 3D rendering (Not supervised by radiologist): MIP and/or 3D reconstructed images were created by the technologist. Radiation optimization: All CT scans at this facility use at least one of these dose optimization techniques: automated exposure control; mA and/or kV adjustment per patient size (includes targeted exams where dose is matched to clinical indication); or iterative reconstruction. Contrast material: ISOVUE 370; Contrast volume: 70 ml; Contrast route: INTRAVENOUS (IV); COMPARISON: CR XR CHEST PORTABLE 01/16/2024 1:59 PM FINDINGS: Pulmonary arteries: Normal. No pulmonary emboli. Aorta: Unremarkable. No aortic aneurysm. No aortic dissection. Lungs: Stable small area of chronic scarring/atelectasis in the right middle lobe. No acute infiltrate. Pleural spaces: Unremarkable. No pneumothorax. No pleural effusion. Heart: Unremarkable. No cardiomegaly. No pericardial effusion. Lymph nodes: Unremarkable. No enlarged lymph nodes. Kidneys and ureters: There has been interval increase in size of the now 3.6 cm lobulated cortical cystic mass upper pole right kidney. Visualized portion of the left kidney appears unremarkable. Bones/joints: Old, healed posterior right 8th rib fracture. No acute fracture. Moderate degenerative changes in the lower thoracic spine. Soft tissues: Unremarkable. IMPRESSION: 1. No evidence of pulmonary embolus or other acute abnormality in the chest 2. Interval increase in size of 3.6 cm lobulated cortical cystic mass upper right kidney. Renal protocol CT abdomen and pelvis recommended for complete evaluation
--- NOTE | 2024-01-16 19:51 | P.HP_ITS ---
Attending attestation Patient was seen and evaluated at the bedside myself, agree with SARINA note. History of Present Illness *Admission Date: 01/16/24 *Reason for visit:: Angina *History of present illness: 58 year old female presented to [facility] ED for c/o chest pain that started the day prior at 1 p.m. The pain is located in the center of chest and is worse with movement. PMHX of CAD, CHF, HTN, Gerd, Smoking, and COPD. The pt arrives to the floor post cardiac cath. In the ED, the pt started to have worsening chest pain. The pt became bradycardic and diaphoretic. Her EKG's revealed t-wave inversions and concerns for ST elevation. The ED contact Cardiology and the pt was taken [facility]. She arrives to the medical floor in no acute distress. The ED physician consulted the hospitalist team for further medical management. I admitted the pt to the medical floor. The pt reports recently getting over COVID. She has been taking prednisone, azithromycin, and doxycycline. The pt states she has been feeling weak. She is on a daily blood thinner and protonixs. Upon admission I have ordered a CTA of the chest due to pt still complaining of chest pain with movement. Blood work reveals leukocytosis of 22.1. Her first troponin was negative. [facility] Disclaimer: The information contained in this section may have been updated after the patient was seen, as this information can be updated by other users. Medical History Atrial fibrillation Chest pain Claudication Daytime somnolence Diastolic dysfunction Dyspnea Fatigue Gastroesophageal reflux disease PUD (peptic ulcer disease) Restless sleeper Right groin pain Seasonal allergies Snoring SOB (shortness of breath) Social History Smoking Status: Current every day smoker tobacco type: cigarettes packs per day: 1 second hand exposure: Yes alcohol intake: never counseling provided: provider counseling substance use type: denies use current occupational status: disabled Travel in the last 8 weeks: Inside the [place] household members: spouse housing: house current occupational exposures/hazards: No caffeine: Yes Review of Systems Constitutional Constitutional: Denies headache(s) and Denies weakness ENT Ears, Nose, Mouth, and Throat: Denies dizziness and Denies headache(s) *Cardiovascular Cardiovascular: Reports chest pain with activity *Respiratory Respiratory: Reports system reviewed and no additional complaints, except as documented *Gastrointestinal Gastrointestinal: Reports dyspepsia *Genitourinary Genitourinary: Reports system reviewed and no additional complaints, except as documented *Musculoskeletal Musculoskeletal: Reports system reviewed and no additional complaints, except as documented, Denies numbness and Denies tingling *Neurologic Neurologic: Reports system reviewed and no additional complaints, except as documented, Denies dizziness, Denies headache(s), Denies numbness, Denies tingling and Denies weakness Meds Home Medications and Allergies Home Medications Medication Instructions Recorded Confirmed Type montelukast 10 mg tablet 10 mg PO DAILY allergic rhinitis 02/09/20 11/13/23 History loratadine 10 mg tablet 10 mg PO DAILY Allergy symptoms 10/19/20 11/13/23 History famotidine 40 mg tablet 40 mg PO DAILY 11/15/20 11/13/23 History fenofibrate nanocrystallized 48 mg 48 mg PO DAILY 01/25/21 11/13/23 History tablet lovastatin 20 mg tablet 20 mg PO DAILY Cholesterol #90 tabs 05/29/21 11/13/23 Rx albuterol sulfate 90 mcg/actuation 1 inh inhalation PRN 08/08/21 11/13/23 History aerosol inhaler (ProAir HFA) losartan 50 mg tablet See Rx Instructions .Route 10/24/21 11/13/23 Rx .COMPLEX #30 tabs metoprolol succinate 100 mg 100 mg PO DAILY 01/24/22 11/13/23 History tablet,extended release 24 hr colestipol 1 gram tablet 2 g PO TID 10/02/22 11/13/23 History fluticasone 250 mcg-salmeterol 50 1 inh inhalation BID 10/02/22 11/13/23 History mcg/dose blistr powdr for inhalation (Advair Diskus) fluticasone propionate 50 1 spray intranasal DAILY 10/02/22 11/13/23 History mcg/actuation nasal spray,suspension pantoprazole 40 mg tablet,delayed 40 mg PO DAILY 01/06/23 11/13/23 History release cetirizine 10 mg tablet 10 mg PO DAILY 02/05/23 11/13/23 History meloxicam 7.5 mg tablet 7.5 mg PO DAILY right foot pain 30 08/14/23 11/13/23 Rx days #30 tabs apixaban 5 mg tablet (Eliquis) See Rx Instructions .Route 09/19/23 11/13/23 Rx .COMPLEX #180 tabs meloxicam 7.5 mg tablet 7.5 mg PO DAILY foot 11/13/23 11/13/23 Rx pain/arthritis 30 days #30 tabs furosemide 20 mg tablet See Rx Instructions .Route 01/14/24 Rx .COMPLEX #60 tabs potassium chloride 20 mEq See Rx Instructions .Route 01/14/24 Rx tablet,extended release(part/cryst) .COMPLEX #90 tabs New Prescriptions to Start Prescriptions: Allergies Allergy/AdvReac Type Severity Reaction Status Date / Time spironolactone Allergy Intermediate hives Verified 11/13/23 12:59 lactase [From Dairy Aid] Allergy Mild Diarrhea Verified 11/13/23 12:59 atorvastatin AdvReac Severe myalgias Verified 11/13/23 12:59 Exam Data for Last 24 hours Vital signs and Labs for Last 24 Hours: Temp Pulse Resp BP Pulse Ox O2 Del Method O2 Flow Rate 98.2 F 65 18 92/61 L 98 Simple Mask 6 01/16/24 17:40 01/16/24 18:15 01/16/24 18:15 01/16/24 18:15 01/16/24 18:15 01/16/24 18:15 01/16/24 18:15 Laboratory Results - last 24 hr 01/16/24 13:35: WBC 22.1 H*, RBC 5.04, Hgb 14.8, Hct 44.8, MCV 88.9, MCH 29.4, MCHC 33.1, RDW 13.2, Plt Count 288, MPV 10.1, Neut % (Auto) 82.9 H, Lymph % (Auto) 11.8, [place] % (Auto) 4.6, Eos % (Auto) 0.5, Baso % (Auto) 0.2, Neut # (Auto) 18.3 H, Lymph # (Auto) 2.6, [place] # (Auto) 1.0, Eos # (Auto) 0.1, Baso # (Auto) 0.0, Total Counted 100, Neutrophils % (Manual) 81 H, Lymphocytes % (Manual) 16, Monocytes % (Manual) 2, Eosinophils % (Manual) 1, Platelet Estimate Normal, RBC Morphology Normal, APTT 25.9, Sodium 140, Potassium 4.4, Chloride 108 H, Carbon Dioxide 26, Anion Gap 10.4, BUN 22 H, Creatinine 1.20 H, Estimated Creat Clear 44, Estimated GFR 46 L, Est GFR ( Amer) 56 L, Glucose 160 H, Calcium 9.6, Total Bilirubin 0.4, AST 38 H, ALT 32, Alkaline Phosphatase 102, Troponin I < 0.01, Total Protein 7.9 D, Albumin 4.5, Globulin 3.4 H, Albumin/Globulin Ratio 1.3 I & O for Last 24 hours: Intake & Output 01/13/24 01/14/24 01/15/24 01/16/24 23:59 23:59 23:59 23:59 Weight 109.032 kg Constitutional Constitutional: no acute distress and obese *Routine HEENT Exam Head: Present normocephalic Eye: Present EOMI ENT: Present mucous membranes moist *Routine Neck Exam Neck: Present full ROM *Routine Respiratory Exam Respiratory: Present wheezes and symmetric chest movement *Routine Cardiovascular Exam Cardiovascular: Present RRR *Routine Abdominal Exam Abdominal: Present soft and normoactive bowel sounds; Absent tenderness *Routine Rectal Exam Rectal:: deferred *Routine Genitalia Exam Genitalia:: deferred *Routine Extremities Exam Extremities: Present full ROM *Routine Skin Exam Skin: Present intact Comments: right wrist accessed for cardiac cath *Routine Neurological Exam Neurological: Present alert and oriented X3 Assessment and Plan *Assessment and plan (1) Chest pain: Status: Acute Category: Medical Code(s): R07.9 - Chest pain, unspecified (2) HTN (hypertension): Status: Chronic Qualifiers: Hypertension type: essential hypertension Qualified Code(s): I10 - Essential (primary) hypertension Category: Medical Code(s): I10 - Essential (primary) hypertension (3) HLD (hyperlipidemia): Status: Chronic Qualifiers: Hyperlipidemia type: mixed hyperlipidemia Qualified Code(s): E78.2 - Mixed hyperlipidemia Category: Medical Code(s): E78.5 - Hyperlipidemia, unspecified (4) CHF (congestive heart failure): Status: Acute Category: Medical Code(s): I50.9 - Heart failure, unspecified (5) Atrial fibrillation: Status: Chronic Qualifiers: Atrial fibrillation type: paroxysmal Qualified Code(s): I48.0 - Paroxysmal atrial fibrillation Category: Medical Code(s): I48.91 - Unspecified atrial fibrillation (6) Gastroesophageal reflux disease: Status: Chronic Qualifiers: Esophagitis presence: esophagitis presence not specified Qualified Code(s): K21.9 - Gastro-esophageal reflux disease without esophagitis Category: Medical Code(s): K21.9 - Gastro-esophageal reflux disease without esophagitis (7) Tobacco use: Status: Chronic Category: Social Hx Code(s): Z72.0 - Tobacco use (8) Morbid obesity: Status: Chronic Category: Medical Code(s): E66.01 - Morbid (severe) obesity due to excess calories Plan 58 year old female presented to [facility] ED for c/o chest pain that started the day prior at 1 p.m. The pain is located in the center of chest and is worse with movement. PMHX of CAD, CHF, HTN, Gerd, Smoking, and COPD. The pt arrives to the floor post cardiac cath. In the ED, the pt started to have worsening chest pain. The pt became bradycardic and diaphoretic. Her EKG's revealed t-wave inversions and concerns for ST elevation. The ED contact Cardiology and the pt was taken to [facility]. She arrives to the medical floor in no acute distress. The ED physician consulted the hospitalist team for further medical management. I admitted the pt to the medical floor. The pt reports recently getting over COVID. She has been taking prednisone, azithromycin, and doxycycline. The pt states she has been feeling weak. She is on a daily blood thinner and protonixs. Upon admission I have ordered a CTA of the chest due to pt still complaining of chest pain with movement. Blood work reveals leukocytosis of 22.1. Her first troponin was negative. CHEST PAIN -PT presented to ED with c/o chest pain -First troponin negative. Pt chest pain worsen in ED -EKG prior to cardiac cath reveals T WAVE abnormality in v3, v4, v5, v6, lead 2 and avf. -Chest xray reviewed and reveals no acute cardiopulmonary process -Upon admission, pt still c/o chest pain with movement. -Cardiac cath revealed no occlusions -I have ordered a CTA of chest to rule out P.E. with recent covid dx. Pt is on eliquis daily -IV protonixs 40 mg BID for GERD. HTN HLD CHF A FIB GERD -awaiting home med req -Protonix 40mg IV BID TOBACCO USE -nicotine patch PRN OBESITY -complicates all aspects of care FULL CODE CARDIAC DIET DVT: ALICIA
[2024-01-16] MEDS: IOPAMIDOL-370 (76%);100ML BOTTLE 70 ML IV (20:23)
[2024-01-16] MEDS: 0.9 % SODIUM CHLORIDE 50 ML VIAL 40 ML IV (20:23)
[2024-01-16] MEDS: SODIUM CHLORIDE 0.9% 10ML SYR (RAD ONLY) 10 ML IV (20:23)
[2024-01-16] MEDS: PANTOPRAZOLE 40MG TABLET 40 MG PO (23:01)
--- NOTE | 2024-01-16 23:05 | PC.NURSE ---
radial band off at 2230, gauze and tegaderm applied, no bleeding noted
[2024-01-17 00:45] VITALS: BP 104/52; PULSE 43; RESP 18; O2SAT 96
[2024-01-17 01:45] VITALS: BP 103/43; PULSE 46; RESP 18; O2SAT 97
[2024-01-17 04:00] VITALS: BP 103/61; PULSE 43; PULSE 50; RESP 16; TEMP 36.4; O2SAT 96; BMI 41.1
--- NOTE | 2024-01-17 04:28 | PC.NURSE ---
pt has rested well this shift, no c/o chest pain, right radial cath site is covered with a dressing that is c/d/i, HR has been 43-50 throughout the night, SURVEY ANALYST is aware
[2024-01-17 07:06] LABS: Basophils # 0.1 K/mm3 (0-0.2); Basophils % 0.4 % (0.1-2.0); Eosinophils # 0.1 K/mm3 (0.0-0.4); Lymphocytes # 4.1 K/mm3 (0.7-4.5); Mean Corpuscular Hemoglobin 29.5 pg (27.0-31.2)
[2024-01-17 07:11] LABS: Chloride 110 mmol/L (98-107); Potassium 4.4 mmoL/L (3.5-5.1); Sodium 141 mmol/L (136-145)
[2024-01-17 07:14] LABS: Anion Gap 6.4 mEq/L (5-15); Blood Urea Nitrogen 27 mg/dl (7-17); Calcium 8.9 mg/dl (8.4-10.2); Carbon Dioxide 29 mmol/L (22.0-30.0); Creatinine Clearance Estimated 38 mL/min (50-200); Estimated Glomerular Filt Rate 39 ml/min (>60); GFR (African American) 47 ML/MIN (>60); Glucose 85 mg/dl (74-100)
[2024-01-17 07:23] LABS: Eosinophils % 0.8 % (0.1-12.0); Hematocrit 39.3 % (37.0-47.0); Lymphocytes % 29.5 % (10-50); Mean Corpuscular HGB Conc 33.4 g/dL (31.8-35.4); Mean Corpuscular Volume 88.3 fl (81-99); Mean Platelet Volume 9.6 fl (7.4-10.4); Monocytes # 0.7 K/mm3 (0.1-1.0); Monocytes % 4.9 % (1.7-9.3); Neutrophils % 64.4 % (37.0-80.0); Platelet Count 233 K/mm3 (142-424); Red Blood Count 4.45 M/mm3 (4.20-5.40); Red Cell Distribution Width 13.4 % (11.5-17.5)
[2024-01-17 08:00] VITALS: BP 119/78; PULSE 44; PULSE 50; RESP 20; TEMP 36.6; O2SAT 94
[2024-01-17 08:06] LABS: Hemoglobin 13.1 g/dL (12.2-16.2)
[2024-01-17] MEDS: PANTOPRAZOLE 40MG TABLET 40 MG PO (08:59)
[2024-01-17] MEDS: FAMOTIDINE 20MG TABLET 40 MG PO (08:59)
[2024-01-17 09:00] VITALS: BMI 41.0
[2024-01-17 10:16] VITALS: BP 121/79; BP 138/79; BP 142/90; PULSE 46; PULSE 51; PULSE 59
--- NOTE | 2024-01-17 10:21 | PC.NURSE ---
spoke with Dr. Tyler regarding pt being consistently bradycardic. will obtain 12 lead and send results.
--- NOTE | 2024-01-17 10:39 | ECG_ITS ---
APPROVED REPORT Exam: Resting ECG HR:100 bpm ECG Measurements Heart Rate 100 AXES QRSd 5 QRS 0 QT 338 T 75 QTc 395 Conclusion Significant sinus bossman with HR <50 RBBB POSSIBLE ANTERIOR MYOCARDIAL INFARCTION , PROBABLY OLD [30 ms Q WAVE IN V3/V4, OR R < 0.2 mV IN V4] ABNORMAL RHYTHM ECG UNCONFIRMED REPORT Electronically signed by : Demarco Richard MD 01/18/2024 07:47:41
--- NOTE | 2024-01-17 10:49 | ECG_ITS ---
APPROVED REPORT Exam: Resting ECG HR:48 bpm ECG Measurements Heart Rate 48 AXES WA 190 P 70 QRSd 119 QRS -1 QT 470 T -13 QTc 436 Conclusion SINUS BRADYCARDIA MODERATE INTRAVENTRICULAR CONDUCTION DELAY [110+ ms QRS DURATION] MODERATE T-WAVE ABNORMALITY, CONSIDER ANTEROLATERAL ISCHEMIA [-0.1+ mV T-WAVE IN V3-V6] ABNORMAL ECG UNCONFIRMED REPORT Electronically signed by : Demarco Richard MD 01/18/2024 07:45:56
[2024-01-17 11:25] VITALS: RESP 18; TEMP 36.6; O2SAT 96
--- NOTE | 2024-01-17 11:26 | PC.NURSE ---
pt will be discahrged home with a holter monitor until follow up with cardiology friday
--- NOTE | 2024-01-17 11:58 | EXP.DC.SUM ---
General Admission date:: 01/16/24 Discharge date: 01/17/24 HPI HPI HPI: 58 year old female presented to [facility] ED for c/o chest pain that started the day prior at 1 p.m. The pain is located in the center of chest and is worse with movement. PMHX of CAD, CHF, HTN, Gerd, Smoking, and COPD. The pt arrives to the floor post cardiac cath. In the ED, the pt started to have worsening chest pain. The pt became bradycardic and diaphoretic. Her EKG's revealed t-wave inversions and concerns for ST elevation. The ED contact Cardiology and the pt was taken to the prosthetic lab technician. She arrives to the medical floor in no acute distress. The ED physician consulted the hospitalist team for further medical management. I admitted the pt to the medical floor. The pt reports recently getting over COVID. She has been taking prednisone, azithromycin, and doxycycline. The pt states she has been feeling weak. She is on a daily blood thinner and protonixs. Upon admission I have ordered a CTA of the chest due to pt still complaining of chest pain with movement. Blood work reveals leukocytosis of 22.1. Her first troponin was negative. Hospital Course Hospital Course Hospital Course: 58 year old female presented to [facility] ED for c/o chest pain that started the day prior at 1 p.m. The pain is located in the center of chest and is worse with movement. PMHX of CAD, CHF, HTN, Gerd, Smoking, and COPD. The pt arrives to the floor post cardiac cath. In the ED, the pt started to have worsening chest pain. The pt became bradycardic and diaphoretic. Her EKG's revealed t-wave inversions and concerns for ST elevation. The ED contact Cardiology and the pt was taken to the prosthetic lab technician. She arrives to the medical floor in no acute distress. The ED physician consulted the hospitalist team for further medical management. I admitted the pt to the medical floor. The pt reports recently getting over COVID. She has been taking prednisone, azithromycin, and doxycycline. The pt states she has been feeling weak. She is on a daily blood thinner and protonixs. Upon admission I have ordered a CTA of the chest due to pt still complaining of chest pain with movement. Blood work reveals leukocytosis of 22.1. Her first troponin was negative. CHEST PAIN - resolved, likely GERD, s/p protonix Cardiac cath is negative, no stenting needed Sinus bradycardia - on metoprolol Hold metoprolol, Holter monitor ordered HTN HLD CHF A FIB GERD -awaiting home med req -Protonix 40mg IV BID TOBACCO USE -nicotine patch PRN OBESITY -complicates all aspects of care FULL CODE CARDIAC DIET DVT: ELIQUIS Exam Data for Last 24 hours Vital signs and Labs for Last 24 Hours: Temp Pulse Resp BP Pulse Ox O2 Del Method O2 Flow Rate 97.8 F 46 L 18 121/79 96 Room Air 6 01/17/24 11:25 01/17/24 10:16 01/17/24 11:25 01/17/24 10:16 01/17/24 11:25 01/17/24 11:25 01/16/24 18:15 Laboratory Results - last 24 hr 01/16/24 13:35: WBC 22.1 H*, RBC 5.04, Hgb 14.8, Hct 44.8, MCV 88.9, MCH 29.4, MCHC 33.1, RDW 13.2, Plt Count 288, MPV 10.1, Neut % (Auto) 82.9 H, Lymph % (Auto) 11.8, [place] % (Auto) 4.6, Eos % (Auto) 0.5, Baso % (Auto) 0.2, Neut # (Auto) 18.3 H, Lymph # (Auto) 2.6, [place] # (Auto) 1.0, Eos # (Auto) 0.1, Baso # (Auto) 0.0, Total Counted 100, Neutrophils % (Manual) 81 H, Lymphocytes % (Manual) 16, Monocytes % (Manual) 2, Eosinophils % (Manual) 1, Platelet Estimate Normal, RBC Morphology Normal, APTT 25.9, Sodium 140, Potassium 4.4, Chloride 108 H, Carbon Dioxide 26, Anion Gap 10.4, BUN 22 H, Creatinine 1.20 H, Estimated Creat Clear 44, Estimated GFR 46 L, Est GFR ( Amer) 56 L, Glucose 160 H, Calcium 9.6, Total Bilirubin 0.4, AST 38 H, ALT 32, Alkaline Phosphatase 102, Troponin I < 0.01, Total Protein 7.9 D, Albumin 4.5, Globulin 3.4 H, Albumin/Globulin Ratio 1.3 01/17/24 06:28: WBC 14.0 H D, RBC 4.45, Hgb 13.1 D, Hct 39.3, MCV 88.3, MCH 29.5, MCHC 33.4, RDW 13.4, Plt Count 233, MPV 9.6, Neut % (Auto) 64.4, Lymph % (Auto) 29.5, [place] % (Auto) 4.9, Eos % (Auto) 0.8, Baso % (Auto) 0.4, Neut # (Auto) 9.0 H, Lymph # (Auto) 4.1, Essex # (Auto) 0.7, Eos # (Auto) 0.1, Baso # (Auto) 0.1, Sodium 141, Potassium 4.4, Chloride 110 H, Carbon Dioxide 29, Anion Gap 6.4, BUN 27 H, Creatinine 1.40 H, Estimated Creat Clear 38, Estimated GFR 39 L, Est GFR ( Amer) 47 L, Glucose 85 D, Calcium 8.9 I & O for Last 24 hours: Intake & Output 01/14/24 01/15/24 01/16/24 01/17/24 23:59 23:59 23:59 23:59 Intake Total 455 / 455 Output Total 0 / 0 Balance 455 / 455 Weight 109.032 kg 109 kg Constitutional Constitutional: no acute distress *Routine HEENT Exam Head: Present normocephalic Eye: Present EOMI and PERRL ENT: Present mucous membranes moist *Routine Neck Exam Neck: Present supple; Absent lymphadenopathy *Routine Respiratory Exam Respiratory: Present CTA bilaterally *Routine Cardiovascular Exam Cardiovascular: Present RRR *Routine Abdominal Exam Abdominal: Present soft and normoactive bowel sounds; Absent tenderness *Routine Extremities Exam Extremities: Absent cyanosis, clubbing or edema *Routine Skin Exam Skin: Present warm; Absent rash *Routine Neurological Exam Neurological: Present alert and oriented X3 Results Data Completed and Pending Labs on day of discharge: Labs from last 24 hours 01/17/24 01/16/24 06:28 13:35 WBC 14.0 H D 22.1 H* RBC 4.45 5.04 Hgb 13.1 D 14.8 Hct 39.3 44.8 MCV 88.3 88.9 MCH 29.5 29.4 MCHC 33.4 33.1 RDW 13.4 13.2 Plt Count 233 288 MPV 9.6 10.1 Neut % (Auto) 64.4 82.9 H Lymph % (Auto) 29.5 11.8 Essex % (Auto) 4.9 4.6 Eos % (Auto) 0.8 0.5 Baso % (Auto) 0.4 0.2 Neut # (Auto) 9.0 H 18.3 H Lymph # (Auto) 4.1 2.6 Essex # (Auto) 0.7 1.0 Eos # (Auto) 0.1 0.1 Baso # (Auto) 0.1 0.0 Total Counted 100 Neutrophils % (Manual) 81 H Lymphocytes % (Manual) 16 Monocytes % (Manual) 2 Eosinophils % (Manual) 1 Platelet Estimate Normal RBC Morphology Normal APTT 25.9 Sodium 141 140 Potassium 4.4 4.4 Chloride 110 H 108 H Carbon Dioxide 29 26 Anion Gap 6.4 10.4 BUN 27 H 22 H Creatinine 1.40 H 1.20 H Estimated Creat Clear 38 44 Estimated GFR 39 L 46 L Est GFR ( Amer) 47 L 56 L Glucose 85 D 160 H Calcium 8.9 9.6 Total Bilirubin 0.4 AST 38 H ALT 32 Alkaline Phosphatase 102 Troponin I < 0.01 Total Protein 7.9 D Albumin 4.5 Globulin 3.4 H Albumin/Globulin Ratio 1.3 DS: Diagnosis Discharge Diagnosis (1) Chest pain: Status: Acute Code(s): R07.9 - Chest pain, unspecified (2) HTN (hypertension): Status: Chronic Code(s): I10 - Essential (primary) hypertension Qualifiers: Hypertension type: essential hypertension Qualified Code(s): I10 - Essential (primary) hypertension (3) HLD (hyperlipidemia): Status: Chronic Code(s): E78.5 - Hyperlipidemia, unspecified Qualifiers: Hyperlipidemia type: mixed hyperlipidemia Qualified Code(s): E78.2 - Mixed hyperlipidemia (4) CHF (congestive heart failure): Status: Acute Code(s): I50.9 - Heart failure, unspecified (5) Atrial fibrillation: Status: Chronic Code(s): I48.91 - Unspecified atrial fibrillation Qualifiers: Atrial fibrillation type: paroxysmal Qualified Code(s): I48.0 - Paroxysmal atrial fibrillation (6) Gastroesophageal reflux disease: Status: Chronic Code(s): K21.9 - Gastro-esophageal reflux disease without esophagitis Qualifiers: Esophagitis presence: esophagitis presence not specified Qualified Code(s): K21.9 - Gastro-esophageal reflux disease without esophagitis (7) Tobacco use: Status: Chronic Code(s): Z72.0 - Tobacco use (8) Morbid obesity: Status: Chronic Code(s): E66.01 - Morbid (severe) obesity due to excess calories Meds Home Medications and Allergies Home Medications Medication Instructions Recorded Confirmed Type montelukast 10 mg tablet 10 mg PO DAILY allergic rhinitis 02/09/20 01/16/24 History loratadine 10 mg tablet 10 mg PO DAILY Allergy symptoms 10/19/20 01/16/24 History famotidine 40 mg tablet 40 mg PO DAILY 11/15/20 01/16/24 History fenofibrate nanocrystallized 48 mg 48 mg PO DAILY 01/25/21 01/16/24 History tablet lovastatin 20 mg tablet 20 mg PO DAILY Cholesterol #90 tabs 05/29/21 01/16/24 Rx losartan 50 mg tablet See Rx Instructions .Route 10/24/21 01/16/24 Rx .COMPLEX #30 tabs colestipol 1 gram tablet 2 g PO TID 10/02/22 01/16/24 History fluticasone 250 mcg-salmeterol 50 1 inh inhalation BID 10/02/22 01/16/24 History mcg/dose blistr powdr for inhalation (Advair Diskus) fluticasone propionate 50 1 spray intranasal DAILY 10/02/22 01/16/24 History mcg/actuation nasal spray,suspension pantoprazole 40 mg tablet,delayed 40 mg PO DAILY 01/06/23 01/16/24 History release cetirizine 10 mg tablet 10 mg PO DAILY 02/05/23 01/16/24 History apixaban 5 mg tablet (Eliquis) See Rx Instructions .Route 09/19/23 01/16/24 Rx .COMPLEX #180 tabs meloxicam 7.5 mg tablet 7.5 mg PO DAILY foot 11/13/23 01/16/24 Rx pain/arthritis 30 days #30 tabs furosemide 20 mg tablet See Rx Instructions .Route 01/14/24 01/16/24 Rx .COMPLEX #60 tabs potassium chloride 20 mEq See Rx Instructions .Route 02/14/24 02/16/24 Rx tablet,extended release(part/cryst) .COMPLEX #90 tabs fexofenadine 180 mg tablet 180 mg PO DAILY 01/16/24 01/16/24 History (Allergy Relief (fexofenadine)) levothyroxine 50 mcg tablet 50 mcg PO DAILY 01/16/24 01/16/24 History multivitamin with minerals 1 tab PO DAILY 01/16/24 01/16/24 History New Prescriptions to Start Prescriptions: Allergies Allergy/AdvReac Type Severity Reaction Status Date / Time spironolactone Allergy Intermediate hives Verified 11/13/23 12:59 lactase [From Dairy Aid] Allergy Mild Diarrhea Verified 11/13/23 12:59 atorvastatin AdvReac Severe myalgias Verified 11/13/23 12:59 Discharge Plan Disposition Patient Disposition: Home, Self-Care Condition: Good Follow up Plan Follow up with: Eddie Tyler MD [Staff Physician] - 1 week Provider,MD Luis [Referring] - See instructions (please call for sppointment) Prescriptions/Medication Reconciliation: Continued montelukast 10 mg tablet 10 mg PO DAILY fenofibrate nanocrystallized 48 mg tablet 48 mg PO DAILY famotidine 40 mg tablet 40 mg PO DAILY colestipol 1 gram tablet 2 g PO TID Patient Comments: TAKE 2 TABLETS 1 TIME EACH DAY. fluticasone propion-salmeterol [Advair Diskus] 250-50 mcg/dose blister with device 1 inh inhalation BID fluticasone propionate 50 mcg/actuation spray,suspension 1 spray intranasal DAILY Patient Comments: SPRAY 1 TIME IN EACH NOSTRIL 1 TIME EACH DAY pantoprazole 40 mg tablet,delayed release (DR/EC) 40 mg PO DAILY cetirizine 10 mg tablet 10 mg PO DAILY Patient Comments: TAKE 1 TABLET 1 TIME EACH DAY meloxicam 7.5 mg tablet 7.5 mg PO DAILY 30 Days Qty: 30 2RF lovastatin 20 mg tablet 20 mg PO DAILY Qty: 90 3RF losartan 50 mg tablet See Rx Instructions .ROUTE .COMPLEX Qty: 30 5RF Dose Instruction: TAKE 1 TABLET 1 TIME EACH DAY FOR HIGH BLOOD PRESSURE Rx Instructions: TAKE 1 TABLET 1 TIME EACH DAY FOR HIGH BLOOD PRESSURE Eliquis 5 mg tablet See Rx Instructions .ROUTE .COMPLEX Qty: 180 1RF Dose Instruction: TAKE 1 TABLET 2 TIMES EACH DAY. Rx Instructions: TAKE 1 TABLET 2 TIMES EACH DAY. potassium chloride 20 mEq tablet,ER particles/crystals See Rx Instructions .ROUTE .COMPLEX Qty: 90 2RF Dose Instruction: TAKE 1 TABLET 1 TIME EACH DAY Rx Instructions: TAKE 1 TABLET 1 TIME EACH DAY furosemide 20 mg tablet See Rx Instructions .ROUTE .COMPLEX Qty: 60 5RF Dose Instruction: TAKE 2 TABLETS 1 TIME EACH DAY NEEDED FOR SWELLING Rx Instructions: TAKE 2 TABLETS 1 TIME EACH DAY NEEDED FOR SWELLING loratadine 10 MG tablet 10 mg PO DAILY fexofenadine [Allergy Relief (fexofenadine)] 180 mg tablet 180 mg PO DAILY levothyroxine 50 mcg tablet 50 mcg PO DAILY multivitamin with minerals Tablet 1 tab PO DAILY Discontinued metoprolol succinate 100 mg tablet extended release 24 hr 100 mg PO DAILY Problem Reconciliation Problems Reviewed?: Yes Patient Discharge Instructions ACTIVITY: Ambulate as tolerated DIET: advance to your usual diet Patient Instructions: Cardiac Catheterization, Surgical Site Infection Providers Primary Care Provider: Dave Arriola Admit Provider: Ladonna Ambrosio Attending Provider: Ladonna Ambrosio
--- NOTE | 2024-01-19 12:56 | CARE MANAGER ---
Contacted patient related to hospital discharge. She states she is some better. She has an appointment with cardiology tomorrow and is going to schedule with her PCP. She complains of continued shortness of breath but is going to talk to cardiology about it tomorrow. GINA Ro
== END 2024-01-17 12:15 | disposition home or self-care (01) ==
LOC: ER 17:34 → CATHLAB 17:48 → 2ND 18:03
PROVIDERS: Emergency Medicine; Internal Medicine; Nurse Practitioner Critical Care Medicine; Admitting Provider Internal Medicine; Emergency Provider Emergency Medicine; PCP Emergency Medicine; Visit Provider Internal Medicine
DX: R07.9 Chest pain, unspecified (principal); K21.9 Gastro-esophageal reflux disease without esophagitis; I73.9 Peripheral vascular disease, unspecified; F17.210 Nicotine dependence, cigarettes, uncomplicated; E78.2 Mixed hyperlipidemia; I11.0 Hypertensive heart disease with heart failure; I50.9 Heart failure, unspecified; I48.20 Chronic atrial fibrillation, unspecified; E66.01 Morbid (severe) obesity due to excess calories; Z68.41 Body mass index [BMI] 40.0-44.9, adult; R00.1 Bradycardia, unspecified; Z72.0 Tobacco use
CPT/HCPCS: 93458; 36415; 71045; 71275; 80048; 80053; 84484; 85007; 85025; 85730; 93005; 93225; 93226; 99152; C1725; C1769; G0378; J1644; Q9967

== ENCOUNTER 2024-01-20 15:41 | Outpatient (CLI) | payer BC, SELFPAY ==
--- NOTE | 2024-01-20 15:46 | CA_ITS ---
FINAL REPORT CLINICAL HISTORY: Cath 01/16/24 with right wrist access, throbbing pain since, HTN, HLD, smoker, obesity. FINDINGS: Spectral and Doppler waveform evaluations of the right wrist was performed. Spectral analysis was performed. There is no evidence of pseudoaneurysm. IMPRESSION: No evidence of pseudoaneurysm. Reviewed, Interpreted and Dictated by Rufino Grover MD Transcribed by Loreto Echols Authenticated and [facility]
== END 2024-01-20 23:59 ==
LOC: RT 15:42
PROVIDERS: PCP Emergency Medicine; Visit Provider Internal Medicine
DX: R07.9 Chest pain, unspecified (principal); M25.531 Pain in right wrist; I50.9 Heart failure, unspecified; I10 Essential (primary) hypertension; K21.9 Gastro-esophageal reflux disease without esophagitis; Z72.0 Tobacco use
CPT/HCPCS: 93931

== ENCOUNTER 2024-02-03 12:50 | Outpatient (CLI) | payer BC, SELFPAY ==
--- NOTE | 2024-02-03 12:51 | CA_ITS ---
APPROVED REPORT EXAM: Comprehensive 2D, Doppler, and color-flow Echocardiogram Cupola Liner: Idania Zamora CRT Ht: 5 ft 4 in Wt: 241lbs BSA: 2.12 BP: 123/74 mmHg Indications: Chest Pain, Shortness of Breath, Hypertension/HDD, Smoker 2D Dimensions LA Volume 38.80 mL LA Volume Index 17.90 mL/m2 (M/F) 16-34 M-Mode Dimensions RVDd 2.25 cm (0.9-2.6) LA Diam 3.96 cm (1.9-4.0) LVDd 5.39 cm (3.5-5.7) LVDs 3.59 cm (3.5-5.7) IVSd 1.62 cm (0.6-1.1) PWd 0.92 cm (0.6-1.1) EF (Teich) 61.50% FS 33.40% EDV (Teich) 140.70 mL TAPSE 1.93 (<1.7) ESV (Teich) 54.10 mL LV Diastology E Decel Time 237 (160-240 msec) E/A Ratio 0.75 MED A' 8.50 cm/s LAT A' 10.30 cm/s Aortic Valve AI PHT 605.00 ms AO Peak GR. 8.20 mmHg Mitral Valve MV E Max Uli. 59.0 (40-130 cm/s) MV A Velocity 79.0 (40-130 cm/s) E/A Ratio 0.75 MV PHT 69.0 ms Pulmonary Valve PV Peak Velocity 155.0 (50-150 cm/s) Tricuspid Valve TR P. Velocity 279.00 cm/s RAP Estimate 10.00 mmHg RVSP 41.10 mmHg Left Ventricle The left ventricle is normal size. The left ventricular systolic function is normal. The left ventricular ejection fraction is within the normal range. There is increased LV wall thickness. There is normal LV segmental wall motion. The left ventricular diastolic function is normal. LVEF is 60%. Right Ventricle The right ventricle is normal size. The right ventricular systolic function is normal. Atria The left atrium size is normal. The right atrium size is normal. There is no Doppler evidence of interatrial shunt. Aortic Valve The aortic valve is mildly thickened. There is no aortic valvular stenosis. Trace aortic regurgitation. Mitral Valve The mitral valve is normal in structure. No evidence of mitral valve stenosis. There is no mitral valve regurgitation noted. Tricuspid Valve The tricuspid valve leaflets are thin and pliable. Trace tricuspid regurgitation. There is insufficient jet to estimate RVSP. Pulmonic Valve The pulmonary valve is normal in structure. Trace pulmonic regurgitation. Great Vessels The aortic root is normal in size. The ascending aorta is not well-visualized. IVC is normal in size and collapses >50% with inspiration. Pericardium There is no pericardial effusion. Other Information Study Quality: Technically Difficult Conclusion Technically difficult study due to poor acoustic windows. Normal biventricular systolic function. No significant valvular stenosis or regurgitation. Electronically signed by : Astrid Feliciano MD 02/03/2024 14:12:28
== END 2024-02-03 23:59 ==
LOC: RT 12:51
PROVIDERS: PCP Emergency Medicine; Visit Provider Internal Medicine
DX: R06.00 Dyspnea, unspecified (principal); R07.9 Chest pain, unspecified; I11.0 Hypertensive heart disease with heart failure; K21.9 Gastro-esophageal reflux disease without esophagitis; F17.210 Nicotine dependence, cigarettes, uncomplicated; M25.531 Pain in right wrist; I50.9 Heart failure, unspecified
CPT/HCPCS: 93306

== ENCOUNTER → 2024-03-11 20:22 | Outpatient (CLI) | payer BC, SELFPAY | LOC: SL 20:23 | PROVIDERS: PCP Emergency Medicine; Visit Provider Nurse Practitioner Family | DX: G47.33 Obstructive sleep apnea (adult) (pediatric) (principal); R06.83 Snoring | CPT/HCPCS: 95811 ==

== ENCOUNTER 2024-05-27 15:18 | Outpatient (CLI) | payer BC, SELFPAY ==
[2024-05-27 17:13] LABS: Ferritin 60.1 ng/ml (11.1-264)
== END 2024-05-27 23:59 | disposition home or self-care (01) ==
LOC: LAB 15:18
PROVIDERS: PCP Emergency Medicine; Visit Provider Specialist
DX: E83.10 Disorder of iron metabolism, unspecified (principal)
CPT/HCPCS: 36415; 82728

== ENCOUNTER 2024-09-15 13:45 | Outpatient (CLI) | payer BC, SELFPAY | END 2024-09-15 23:59 | disposition home or self-care (01) | LOC: RT 13:46 | PROVIDERS: PCP Emergency Medicine; Visit Provider Nurse Practitioner | DX: R00.2 Palpitations (principal); R06.00 Dyspnea, unspecified | CPT/HCPCS: 93270 ==

== ENCOUNTER 2024-10-07 07:39 | Outpatient (CLI) | payer BC, SELFPAY ==
--- NOTE | 2024-10-07 | CA_ITS ---
APPROVED REPORT Exam: Pharmacologic Ht: 5 ft 4 in Wt: 241 lbs BSA: 2.12 m2 HR: 46 bpm BP: 136/79 mmHg Rhythm: Marked sinus bossman, non specific T wave abns Medical History Medical History: HTN, Hyperlipidemia,, Diabetes Medications: Albuterol, Apixaban, Cetirizine, Famotidine, Fenofibrate nanocrystallized, Fexofenadinem, Advair, Flonase, Furosemide, Levothyroxine, Loraradine, Losartan, Lovastatin, Metoprolol Succinate ER, Montelukast, Potassium chloride ER Allergies: Spironolactone, Lactose, Atorvastatin Cardiac Risk Factors: HTN, Hyperlipidemia, Diabetes, FHX of CAD, Smoking Stress Test Details Test: Lexiscan HR Resting HR: 46 bpm Max Heart Rate (APMHR): 162.349375 bpm Target HR (85% APMHR): 137.672184 bpm BP Resting BP: 136.0/79.0 mmHg Max BP: 149.0/74.0 mmHg ECG Resting ECG: Marked sinus bossman, non specific T wave abns Stress ECG Conclusion Pt had mild soa, and mild chest discomfort No significant changes Unremarkable lexiscan stress Electronically signed by : Astrid Feliciano MD 10/10/2024 20:41:00
--- NOTE | 2024-10-07 07:39 | NM_ITS ---
APPROVED REPORT Exam: Nuclear Stress Test Indication: chest pain..soa..palpitations..fatigue Patient Location: Outpatient Stress Tech: Lashanda Treadwell [place] Tech:Mala ClaytonTONYA RT(R)(N) Ht: 5 ft 4 in Wt: 240 lbs Bra Size: 44dd HR: 46 bpm BP: 136/79 mmHg BSA: 2.11 m2 TID: 1.14 BMI: 41.1 History: chest pain..soa..palpitations..fatigue Procedure: Patient received 0.4 mg of intravenous Lexiscan, resting heart rate 46 bpm, resting blood pressure 136/79 mmHg, with Lexiscan maximum heart rate achieved was 72 bpm which is 85 % of the maximum predicted heart rate and blood pressure was 139/73 mmHg. With Lexiscan, patient denied any complaint of chest pain. Cardiac Stress and Resting SPECT Images: Cardiac Stress and Resting SPECT images were obtained using technetium 99m Myoview 26.8 mCi stress and 8.67 mCi at rest. Resting and stress imaging in supine and prone positions demonstrate no evidence of fixed or reversible perfusion defects. Gated imaging demonstrates normal global and regional LV systolic function. LVEF is calculated at 52%. Conclusion: No evidence of fixed or reversible perfusion defects. Gated imaging demonstrates normal global and regional LV systolic function. LVEF is calculated at 52%. Electronically signed by : Astrid Feliciano MD 10/10/2024 20:42:48
--- NOTE | 2024-10-07 07:39 | CA_ITS ---
APPROVED REPORT EXAM: Comprehensive 2D, Doppler, and color-flow Echocardiogram Patient Financial Advocate: Molly Hsu RT(R) Ht: 5 ft 4 in Wt: 245lbs BSA: 2.13 BP: 134/62 mmHg Indications: palpitations, dyspnea, smoker, HTN, hyperlipidemia, SOB, SHIRAZ, CHF, PAF, GERD, DD, myocardial bridge 2D Dimensions Left Atrium 3.35 cm F: 2.7 - 3.8 LVEF (Martinez's) 67.10 % F: 54 - 74 LVOT 2.14 cm (M/F) 1.5-2.5 LV Volume 119.00 mL F: 46 - 106 LV Volume Index 55.9 mL/m2 F: 29 - 61 LA Volume 41.70 mL LA Volume Index 19.58 mL/m2 (M/F) 16-34 EF AP4 53.10 % EF AP2 75.1 % EF BP 67.1 % GL Strain -16.9 % M-Mode Dimensions RVDd 2.62 cm (0.9-2.6) LVDd 5.24 cm (3.5-5.7) Ao Diam 3.58 cm (2.0-3.7) LVDs 3.38 cm (3.5-5.7) IVSd 1.06 cm (0.6-1.1) PWd 0.95 cm (0.6-1.1) EF (Teich) 64.50% FS 35.50% EDV (Teich) 131.80 mL ESV (Teich) 46.80 mL LV Diastology E Decel Time 194 (160-240 msec) E/A Ratio 1.1 MED E' 6.8 (>= 7 cm/sec) E'/MED E' Ratio 11.24 (<= 14) LAT E' 7.4 (>= 10 cm/sec) E/LAT E' Ratio 10.32 (<= 14) Mitral Valve MV E Max Uli. 76.0 (40-130 cm/s) MV A Velocity 67.0 (40-130 cm/s) E/A Ratio 1.14 MV Decel. Time 194 (160-240 ms) Left Ventricle The left ventricle is normal size. The left ventricular systolic function is normal. The left ventricular ejection fraction is within the normal range. There is increased LV wall thickness. There is normal LV segmental wall motion. The left ventricular diastolic function is normal. LVEF is 55%. Right Ventricle The right ventricle is normal size. The right ventricular systolic function is normal. Atria Left atrium is mildly dilated. The right atrium size is normal. There is no Doppler evidence of interatrial shunt. Aortic Valve The aortic valve leaflets are mildly thickened. There is no aortic valvular stenosis. Trace aortic regurgitation. Mitral Valve The mitral valve leaflets are mildly thickened. Mild mitral regurgitation. No evidence of mitral valve stenosis. Tricuspid Valve The tricuspid valve leaflets are thin and pliable. Trace tricuspid regurgitation. There is insufficient TR jet to estimate RVSP. Pulmonic Valve The pulmonary valve is normal in structure. Trace pulmonic regurgitation. Great Vessels The aortic root is normal in size. IVC is normal in size and collapses >50% with inspiration. Pericardium There is no pericardial effusion. Other Information Study Quality: Technically Difficult Conclusion Technically difficult study due to poor acoustic windows. Normal biventricular systolic function. Mild LA dilation. Mild MR. Electronically signed by : Astrid Feliciano MD 10/11/2024 00:39:36
[2024-10-07] MEDS: SODIUM CHLORIDE 0.9% 10ML SYR (RAD ONLY) 10 ML IV ×2 (09:12)
[2024-10-07] MEDS: ISOTOPE MYOVIEW (PER STUDY) 1 DOSE IV (09:12)
[2024-10-07] MEDS: REGADENOSON 0.4MG/5ML SYRINGE 0.4 MG IV (09:12)
== END 2024-10-07 23:59 | disposition home or self-care (01) ==
LOC: RAD 07:39
PROVIDERS: PCP Emergency Medicine; Visit Provider Nurse Practitioner
DX: R00.2 Palpitations (principal); R06.00 Dyspnea, unspecified
CPT/HCPCS: 78452; 93017; 93018; 93306; A9502; J2785

== ENCOUNTER 2025-02-04 13:42 | Outpatient (CLI) | payer OTHER, SELFPAY ==
--- NOTE | 2025-02-04 13:46 | CT_ITS ---
FINAL REPORT CLINICAL HISTORY: Lung nodule 6 month F/U pt states right side COMPARISON: CTA of the chest 11/15/2024 FINDINGS: CT CHEST without contrast COMPARISON: None . TECHNIQUE: Axial CT without contrast This study was performed with techniques to keep radiation doses as low as reasonably achievable, (ALARA). Individualized dose reduction techniques using automated exposure control or adjustment of mA and/or kV according to the patient's size were employed. FINDINGS: No acute lung disease is present . There is oval scarring in the lateral right lower lobe, stable when compared to the prior exam. There has been resolution of the right middle lobe atelectasis or pneumonia since the prior exam. There is resolution of the left lower lobe atelectasis as well. No suspicious nodule is identified. No pleural or pericardial effusion is seen . No adenopathy or mass lesion is present . The right renal cyst noted on the prior exam remain present and are stable in appearance. IMPRESSION: No suspicious nodule identified. No acute lung disease. This study was performed using automated techniques to achieve radiation exposure as low as reasonably achievable Reviewed, Interpreted and Dictated by Danis Ahumada MD Transcribed by Jane Banuelos Authenticated and [facility]
[2025-02-04] MEDS: ALBUTEROL 0.083% 2.5 MG/3 ML NEB IH (14:23)
--- NOTE | 2025-02-04 14:23 | PC.NURSE ---
PFT and 6 Minute Walk Test completed without incident. Albuterol 0.083% given via HHN, per written protocol, Pt tolerated tx well.
== END 2025-02-04 23:59 | disposition home or self-care (01) ==
LOC: RAD 13:43
PROVIDERS: PCP Emergency Medicine; Visit Provider Internal Medicine Pulmonary Disease
DX: R91.8 Other nonspecific abnormal finding of lung field (principal); R06.09 Other forms of dyspnea
CPT/HCPCS: 71250; 94060; 94618; 94726; 94729; J7613

== ENCOUNTER 2025-03-14 13:50 | Observation (INO) | payer OTHER, SELFPAY ==
[2025-03-14] VITALS (15 sets, daily range): BP systolic 95–162; BP diastolic 30–118; PULSE 49–136; RESP 13–23; TEMP 36.6–36.7; O2SAT 93–99; BMI 41.1; BMI 18.3
--- NOTE | 2025-03-14 13:57 | ECG_ITS ---
APPROVED REPORT Exam: Resting ECG HR:141 bpm ECG Measurements Heart Rate 141 AXES QRSd 118 QRS -2 QT 354 T 127 QTc 436 Conclusion ATRIAL FIBRILLATION WITH RAPID VENTRICULAR RESPONSE SEPTAL MYOCARDIAL INFARCTION , PROBABLY OLD [40+ ms Q WAVE IN V1/V2] No STEMI Electronically signed by : PENELOPE ALLEN, 03/15/2025 00:23:01
--- NOTE | 2025-03-14 13:57 | ED_ITS ---
<Statement entered by Melissa Tyler MD - 03/14/25 22:52> I was consulted by the SARINA, and we discussed the complexity of the problems being addressed. I approved the treatment and management plan for this patient's care in the emergency department, thus performing a substantive portion of the medical decision making. Melissa Tyler MD, MIKO, FACEP <Statement entered by Isaura Hudson DO - 03/14/25 15:26> I was consulted by the SARINA, and we discussed the complexity of the problems being addressed. I approved the treatment and management plan for this patient's care in the emergency department, thus performing a substantive portion of the medical decision making. I was initially involved in care of patient up until 1530 at time of departure in signout to the oncoming provider, Dr. Tyler, with STAN Pantoja. Isaura Hudson DO Discharge Plan Disposition Patient Disposition: Admitted Condition: Serious Clinical Impressions Clinical Impression: Atrial fibrillation with rapid ventricular response Discharge ED Provider: Isaura Hudson General Adult HPI <STAN Jha - Last Filed: 03/14/25 21:08> General Chief complaint: Dizziness Stated complaint: passed out, cp Time Seen by Provider: 03/14/25 13:57 History of Present Illness HPI narrative: Patient presents for evaluation of near syncope. Patient has intermittent dizziness since December of this year. Patient states it only happened when she standing. She describes it as the room spinning. She occasionally gets nauseated has never passed out before. She has not sought treatment for it previously. Over the last 4 days patient reports that she has had significant increase in those symptoms. Sister is concerned that she almost had a wreck [place] [address] due to the dizziness and has been very symptomatic. She was coming to the cardiology clinic today and had a near syncopal event prior to being seen. She denies any chest pain fever chills hemoptysis hematochezia melena. Patient does have a history of atrial fibrillation status post ablation and on Eliquis. Ablation was done [facility]. Related Data Home Medications ?Medication ?Instructions ?Recorded ?Confirmed montelukast 10 mg tablet 10 mg PO DAILY allergic rhinitis 02/09/20 03/14/25 loratadine 10 mg tablet 10 mg PO DAILY Allergy symptoms 10/19/20 03/14/25 famotidine 40 mg tablet 40 mg PO DAILY 11/15/20 03/14/25 fenofibrate nanocrystallized 48 mg 48 mg PO DAILY 01/25/21 03/14/25 tablet cetirizine 10 mg tablet 10 mg PO DAILY 02/05/23 03/14/25 fexofenadine 180 mg tablet 180 mg PO DAILY 01/16/24 03/14/25 (Allergy Relief (fexofenadine)) levothyroxine 50 mcg tablet 50 mcg PO DAILY 01/16/24 03/14/25 albuterol sulfate 90 mcg/actuation 2 puff inhalation DAILYP PRN soa 02/05/24 03/14/25 aerosol inhaler (Ventolin HFA) fluticasone propionate 50 1 spray intranasal DAILY PRN 02/05/24 03/14/25 mcg/actuation nasal allergies spray,suspension colestipol 1 gram tablet 1 g PO BID 01/06/25 03/14/25 Previous Rx's ?Medication ?Instructions ?Recorded lovastatin 20 mg tablet 20 mg PO DAILY Cholesterol #90 tabs 05/29/21 apixaban 5 mg tablet (Eliquis) See Rx Instructions .Route 09/14/24 .COMPLEX #180 tabs potassium chloride 20 mEq See Rx Instructions .Route 10/12/24 tablet,extended release(part/cryst) .COMPLEX #90 tabs fluticasone 500 mcg-salmeterol 50 1 inh inhalation BID #180 ea 01/06/25 mcg/dose blistr powdr for inhalation (Advair Diskus) furosemide 20 mg tablet See Rx Instructions .Route 01/12/25 .COMPLEX #60 tabs metoprolol succinate 50 mg 50 mg PO DAILY #30 tabs 01/12/25 tablet,extended release 24 hr (Toprol XL) losartan 25 mg tablet 25 mg PO DAILY #30 tabs 02/14/25 Allergies Allergy/AdvReac Type Severity Reaction Status Date / Time spironolactone Allergy Intermediate hives Verified 02/09/25 14:30 lactase (From Dairy Aid) Allergy Mild Diarrhea Verified 02/09/25 14:30 atorvastatin AdvReac Severe myalgias Verified 02/09/25 14:30 [facility] <STAN Jha - Last Filed: 03/14/25 21:08> [facility] Disclaimer: The information contained in this section may have been updated after the patient was seen, as this information can be updated by other users. Medical History Asthma Dyspnea on exertion Smoking greater than 30 pack years Multiple pulmonary nodules HLD (hyperlipidemia) Atrial fibrillation HTN (hypertension) Dyspnea FH: cholecystectomy SHIRAZ (obstructive sleep apnea) CHF (congestive heart failure) Angina pectoris, unstable Chest pain Incurved toenail Pincer nail deformity Arthritis of right foot Calcaneal spur of right foot Callus of foot Tobacco abuse History of ankle sprain Right ankle pain Right foot pain Acute kidney injury Leg cramps Muscle ache Nocturnal hypoxemia CPAP titration indicated a good response was seen at CPAP at 14 cm but in light of the hypoxemia while hospitalized without CPAP and the fatigue with CPAP, will evaluate for recurrent hypoxemia. Fatigue Symptomatic improvement with CPAP. Potentially multifactorial in the setting of SHIRAZ, hypertension, A. fib, borderline A1c, kidney disease. RLS (restless legs syndrome) Asymptomatic with CPAP. BMI 40.0-44.9, adult 11 pound weight loss since July 2023 SHIRAZ on CPAP Mild to moderate SHIRAZ with hypoxemia, excellent compliance on CPAP at 14 cm as recommended by CPAP titration. Complains of fatigue. Claudication Right groin pain Atrial flutter with rapid ventricular response KEVIN (acute kidney injury) SVT (supraventricular tachycardia) PAF (paroxysmal atrial fibrillation) Daytime somnolence Restless sleeper Snoring Chest pain Elevated left ventricular end-diastolic pressure (LVEDP) Atrial fibrillation with RVR New onset atrial fibrillation Rapid atrial fibrillation Morbid obesity Gastroesophageal reflux disease Contusion of rib on right side Atelectasis Acute bronchitis Edema Tubular adenoma of colon multiple complex polyps between 45cm and the right colon Post surgical complication Dysuria Abdominal pain Enteropathogenic Escherichia coli infection Diastolic dysfunction Diarrhea Acute renal insufficiency Dehydration Diabetes Cholelithiasis Colitis PUD (peptic ulcer disease) SOB (shortness of breath) Seasonal allergies Fatigue Diastolic dysfunction Chronic pain Family history of ischemic heart disease Tobacco use Abnormal stress test Superficial thrombophlebitis Lymphadenitis Thromboembolism Surgical History Hx of cholecystectomy H/O: hysterectomy Family History Other Cancer Diabetes Heart attack Social History (Reviewed 02/09/25 @ 14:30 by OPAL Deluca Smoking Status: Current every day smoker tobacco type: cigarettes packs per day: 1 second hand exposure: Yes alcohol intake: never counseling provided: provider counseling substance use type: denies use current occupational status: disabled Travel in the last 8 weeks: Inside the [place] household members: spouse housing: house current occupational exposures/hazards: No caffeine: Yes Have you lived/traveled outside [place] in past 30 days?: No Contact w/someone who lives/traveled outside US past 30 days?: No Exposure to someone with infectious disease in past 14 days?: No Do you have a fever (greater than 100.4 F or 38 C)?: No Have you tested positive for COVID-19: No Exposed to someone with COVID-19 in past 14 days?: No Do you have a sore throat?: No Do you have a cough?: No Do you have any weakness?: No Do you have any diarrhea?: No Are you experiencing any unusual bleeding?: No Do you have any muscle aches/pain?: No Do you have any abdominal pain?: No Are you experiencing loss of taste or smell?: No Other Medical History Have you received the Flu Vaccine for this season: No Have you received the Pneumonia Vaccine: No <STAN Jha - Last Filed: 03/14/25 21:08> ROS Obtained: Yes Systems reviewed as appropriate & no additional complaints except as documented Physical Exam <STAN Jha - Last Filed: 03/14/25 21:08> General General appearance: alert and in no apparent distress Respiratory Respiratory exam: Present normal lung sounds bilaterally and accessory muscle use Cardiovascular Cardiovascular exam: Present tachycardia and irregular rhythm Neurological Exam Neurological exam: Present alert and oriented X3 Medical Decision Making <STAN Jha - Last Filed: 03/14/25 21:08> Medical Records Medical records reviewed: Yes I reviewed the patient's medical records. Screening: Per USPSTF and CDC recommendations, given the prevalence of disease in our region, it is our hospital?s policy to screen for HIV and viral Hepatitis for all patients aged 18 and over and those with ongoing risk factors. Rashard Inquiry Pt receiving controlled substance: No Vital Signs: 03/14/25 14:03 03/14/25 14:31 03/14/25 15:01 Temperature 98.1 F Temperature Source Oral Pulse Rate 91 H 134 H Pulse Rate [Left] 136 H Respiratory Rate 23 16 21 Blood Pressure 134/112 H 95/78 L Blood Pressure [Right Arm] 162/118 H Blood Pressure Mean 119 83 Blood Pressure Mean [Right Arm] 132 Blood Pressure Source [Right Arm] Automatic Cuff Blood Pressure Position [Right Arm] Sitting 02 Sat by Pulse Oximetry 99 96 99 Oxygen Delivery Method Room Air 03/14/25 15:09 03/14/25 16:00 03/14/25 16:15 Temperature Temperature Source Pulse Rate 89 62 62 Pulse Rate [Left] Respiratory Rate 17 17 20 Blood Pressure 116/66 115/75 Blood Pressure [Right Arm] Blood Pressure Mean 90 Blood Pressure Mean [Right Arm] Blood Pressure Source [Right Arm] Blood Pressure Position [Right Arm] 02 Sat by Pulse Oximetry 95 97 97 Oxygen Delivery Method 03/14/25 16:30 03/14/25 16:45 03/14/25 19:01 Temperature Temperature Source Pulse Rate 74 115 H 49 L Pulse Rate [Left] Respiratory Rate 15 21 21 Blood Pressure 108/69 L 113/62 Blood Pressure [Right Arm] Blood Pressure Mean Blood Pressure Mean [Right Arm] Blood Pressure Source [Right Arm] Blood Pressure Position [Right Arm] 02 Sat by Pulse Oximetry 97 93 L 95 Oxygen Delivery Method 03/14/25 19:30 03/14/25 20:00 03/14/25 20:01 Temperature Temperature Source Pulse Rate 58 L 60 58 L Pulse Rate [Left] Respiratory Rate 13 18 14 Blood Pressure 124/30 L 108/87 L Blood Pressure [Right Arm] Blood Pressure Mean Blood Pressure Mean [Right Arm] Blood Pressure Source [Right Arm] Blood Pressure Position [Right Arm] 02 Sat by Pulse Oximetry 97 96 96 Oxygen Delivery Method 03/14/25 20:31 Temperature Temperature Source Pulse Rate 52 L Pulse Rate [Left] Respiratory Rate 22 Blood Pressure 108/65 L Blood Pressure [Right Arm] Blood Pressure Mean Blood Pressure Mean [Right Arm] Blood Pressure Source [Right Arm] Blood Pressure Position [Right Arm] 02 Sat by Pulse Oximetry 96 Oxygen Delivery Method Lab Data Lab results reviewed: Yes I reviewed the patient's lab results. Lab Results 03/14/25 14:08: WBC 10.6, RBC 4.88, Hgb 14.1, Hct 44.4, MCV 91.0, MCH 28.9, MCHC 31.8, RDW 13.2, Plt Count 248, MPV 12.5 H, Neut % (Auto) 53.3, Lymph % (Auto) 37.8, [place] % (Auto) 5.8, Eos % (Auto) 1.8, Baso % (Auto) 0.9, Neut # (Auto) 5.7, Lymph # (Auto) 4.0, [place] # (Auto) 0.6, Eos # (Auto) 0.2, Baso # (Auto) 0.1, D- Dimer 0.63 H, VBG pH 7.37, VBG pCO2 42.7, VBG pO2 41.1 H, VBG HCO3 24.0, VBG Total CO2 25.3, VBG O2 Saturation 82.5 H, VBG Base Excess -1.3, VBG Lactic Acid 2.0, Sodium 144, Potassium 3.9, Chloride 105, Carbon Dioxide 26, Anion Gap 16.9 H, BUN 19 H, Creatinine 1.30 H, Estimated Creat Clear 80, Estimated GFR 42 L, E st GFR ( Amer) 51 L, Glucose 119 H, Calcium 9.4, Magnesium 1.9, Total Bilirubin 0.4, AST 24, ALT 18, Alkaline Phosphatase 93, Troponin I < 0.01, N T-Pro-B Natriuret Pep 275 H, Total Protein 7.8, Albumin 4.4, Globulin 3.4 H, Albumin/Globulin Ratio 1.3, Procalcitonin 0.055, TSH 3.57, Free T4 Index 3.3 L, Thyroxine (T4) 10.8, T3 Uptake 31, HCV Ab AGUILA w/Rflx PCR Qn Negative, HIV Ag/Ab Combo Qual Negative 03/14/25 15:24: Urine Color Yellow, Urine Appearance Clear, Urine pH 6.0, Ur Specific Scott 1.010, Urine Protein Negative, Urine Glucose (UA) Negative, Urine Ketones Negative, Urine Blood Negative, Urine Nitrate Negative, Urine Bilirubin Negative, Urine Urobilinogen 0.2, Ur Leukocyte Esterase Negative, Urine RBC None, Urine WBC None, Ur Squamous Epith Cells None, Urine Bacteria None 03/14/25 17:15: Troponin I < 0.01 03/14/25 14:08 03/14/25 14:08 Orders (Tests/Meds): ED MEDICATIONS Generic Name Dose Route Start Last Admin Trade Name Freq PRN Reason Stop Dose Admin Diltiazem HCl 100 mg/ Sodium 100 mls @ 5 mls/hr 03/14/25 17:01 03/14/25 18:26 Chloride IV 04/13/25 17:00 5 mg/hr .Q20H ALICE 5 mls/hr Titration Protocol 5 MG/HR Sodium Chloride 10 ml 03/14/25 15:42 03/14/25 15:43 Sodium Chloride 0.9% 10ml Syr (Rad Only) IV 04/13/25 15:41 10 ml NEEDED PRN Administration Maintain IV Site Discontinued Medications Generic Name Dose Route Start Last Admin Trade Name Freq PRN Reason Stop Dose Admin Dexamethasone Sodium Phosphate 10 mg 03/14/25 15:27 03/14/25 16:07 Dexamethasone 4mg/Ml 5ml Mdv IV 03/14/25 15:28 10 mg ONCE ONE Administration Diltiazem HCl 20 mg 03/14/25 14:59 03/14/25 15:06 Diltiazem 25mg/5ml Vial IV 03/14/25 15:00 20 mg ONCE ONE Administration Iopamidol 160 ml 03/14/25 15:42 03/14/25 15:44 Iopamidol-370 (76%);100ml Bottle IV 03/14/25 15:43 160 ml ONCE ONE Administration Ondansetron HCl 4 mg 03/14/25 14:13 03/14/25 14:17 Ondansetron 4mg/2ml Vial IV 03/14/25 14:14 4 mg ONCE ONE Administration Sodium Chloride 100 ml 03/14/25 15:42 03/14/25 15:44 0.9 % Sodium Chloride 50 Ml Vial IV 03/14/25 15:43 100 ml ONCE ONE Administration ORDERS Category Date Time Status CT angio chest - dissection Stat Cat Scan 03/14/25 14:[address] angio head Stat Cat Scan 03/14/25 14:[address] angio neck Stat Cat Scan 03/14/25 14:[address] head/brain wo con Stat Cat Scan 03/14/25 14:56 Completed BNP [NT Pro Brain Natriuretic Pep.] Stat Lab 03/14/25 14:08 Completed CBC w/Auto Diff [Complete Blood Count Auto Diff] Stat Lab 03/14/25 14:08 Completed CMP [Comprehensive Metabolic Panel] Stat Lab 03/14/25 14:08 Completed D-Dimer Stat Lab 03/14/25 14:08 Completed HIV Combo Stat Lab 03/14/25 14:08 Completed Hepatitis C Ab Qual. W/ RFX Stat Lab 03/14/25 14:08 Completed Magnesium Stat Lab 03/14/25 14:08 Completed Procalcitonin Stat Lab 03/14/25 14:08 Completed Thyroid Panel Stat Lab 03/14/25 14:08 Completed Trop I [Troponin I] Stat Lab 03/14/25 14:08 Completed Troponin I Q3H Lab 03/14/25 17:15 Completed Troponin I Q3H Lab 03/14/25 20:42 Received UA [Urinalysis and Microscopic] Stat Lab 03/14/25 15:24 Completed VBG [Venous Blood Gas] Stat RT 03/14/25 14:08 Completed HEART Score History (anamnesis): Slightly suspicious ECG: Non-specific disturbance Age: >65 years Risk factors: Atherosclerosis history Medical Decision Narrative: In summary patient is a 59-year-old female who presents to the emergency department for evaluation of near syncope. Patient is currently hypertensive with a blood pressure 162/118 tachycardic at 136 and atrial fibrillation with rapid ventricular response on the bedside monitor, breathing 23 times a minute satting at 99% on room air upon arrival, afebrile at 98.1. Physical exam is remarkable for a well-nourished well-developed much older than stated age. 59-year-old female who otherwise in no acute distress. Pupils equal round reactive to light, Josias Coma Score 15, no focal neurologic deficits, cranial 2-12 intact grossly to exam, patient is awake alert and oriented person place circumstance. Patient moves all 4 extremities and show score 0. Process clear and equal bilaterally to the bases without adventitious sounds. Cardiac is rapid irregularly irregular rate and rhythm without murmurs gallops rubs or thrills. Patient has 2+ dependent edema noted. Abdomen soft nontender no rebound no guarding no rigidity. Bowel sounds normal active. Differential diagnosis includes A-fib RVR versus stroke versus vertigo versus electrolyte abnormality versus CHF versus ACS etc. Initial workup will be conducted with hematologic labs, EKG CT scan of the head without contrast including head neck and chest angios. Initial interventions include Zofran and 20 mg IV push Cardizem. Initial workup reviewed by and her hematologic labs are nonactionable however twelve-lead EKG shows atrial fibrillation with RVR. I attempted to slow her heart rate down with a push dose of Cardizem which was unsuccessful though she was transition to a Cardizem drip. I did had a interactive discussion with the grinder operator surface tool [facility] at the patient request as that is where she had her previous ablation. We discussed patient presentation results and management and he agreed with a Cardizem drip and has accepted the patient in transfer however there is no beds available and she has been paced on the wait list. At this point critical care has been stabilized and patient now waiting for bed. U. Given this the patient was placed in observation status at 1730. Medical necessity for observational status is awaiting bed availability at [facility] and continuous monitoring on the Cardizem drip. The patient was provided serial reevaluations continuous cardiac monitoring pulse oximetry while awaiting results. Patient did convert to a controlled rate on the Cardizem drip thus her drip rate was slowed. At 2100 hrs confirmed that there is go to be no bed availability this evening at [facility] thus I had interact discussion with hospital medicine regarding patient AVILA and management and she will be admitted upstairs until bed availability opens at [facility] and excepting is Dr. Malone. Total time in observation was 3 and half hours. <Isaura Hudson, DO - Last Filed: 03/14/25 15:28> Vital Signs: 03/14/25 14:03 03/14/25 14:31 03/14/25 15:01 Temperature 98.1 F Temperature Source Oral Pulse Rate 91 H 134 H Pulse Rate [Left] 136 H Respiratory Rate 23 16 21 Blood Pressure 134/112 H 95/78 L Blood Pressure [Right Arm] 162/118 H Blood Pressure Mean 119 83 Blood Pressure Mean [Right Arm] 132 Blood Pressure Source [Right Arm] Automatic Cuff Blood Pressure Position [Right Arm] Sitting 02 Sat by Pulse Oximetry 99 96 99 Oxygen Delivery Method Room Air 03/14/25 15:09 03/14/25 16:00 03/14/25 16:15 Temperature Temperature Source Pulse Rate 89 62 62 Pulse Rate [Left] Respiratory Rate 17 17 20 Blood Pressure 116/66 115/75 Blood Pressure [Right Arm] Blood Pressure Mean 90 Blood Pressure Mean [Right Arm] Blood Pressure Source [Right Arm] Blood Pressure Position [Right Arm] 02 Sat by Pulse Oximetry 95 97 97 Oxygen Delivery Method 03/14/25 16:30 03/14/25 16:45 03/14/25 19:01 Temperature Temperature Source Pulse Rate 74 115 H 49 L Pulse Rate [Left] Respiratory Rate 15 21 21 Blood Pressure 108/69 L 113/62 Blood Pressure [Right Arm] Blood Pressure Mean Blood Pressure Mean [Right Arm] Blood Pressure Source [Right Arm] Blood Pressure Position [Right Arm] 02 Sat by Pulse Oximetry 97 93 L 95 Oxygen Delivery Method 03/14/25 19:30 03/14/25 20:00 03/14/25 20:01 Temperature Temperature Source Pulse Rate 58 L 60 58 L Pulse Rate [Left] Respiratory Rate 13 18 14 Blood Pressure 124/30 L 108/87 L Blood Pressure [Right Arm] Blood Pressure Mean Blood Pressure Mean [Right Arm] Blood Pressure Source [Right Arm] Blood Pressure Position [Right Arm] 02 Sat by Pulse Oximetry 97 96 96 Oxygen Delivery Method 03/14/25 20:31 Temperature Temperature Source Pulse Rate 52 L Pulse Rate [Left] Respiratory Rate 22 Blood Pressure 108/65 L Blood Pressure [Right Arm] Blood Pressure Mean Blood Pressure Mean [Right Arm] Blood Pressure Source [Right Arm] Blood Pressure Position [Right Arm] 02 Sat by Pulse Oximetry 96 Oxygen Delivery Method Lab Data Lab Results 03/14/25 14:08: WBC 10.6, RBC 4.88, Hgb 14.1, Hct 44.4, MCV 91.0, MCH 28.9, MCHC 31.8, RDW 13.2, Plt Count 248, MPV 12.5 H, Neut % (Auto) 53.3, Lymph % (Auto) 37.8, [place] % (Auto) 5.8, Eos % (Auto) 1.8, Baso % (Auto) 0.9, Neut # (Auto) 5.7, Lymph # (Auto) 4.0, [place] # (Auto) 0.6, Eos # (Auto) 0.2, Baso # (Auto) 0.1, D- Dimer 0.63 H, VBG pH 7.37, VBG pCO2 42.7, VBG pO2 41.1 H, VBG HCO3 24.0, VBG Total CO2 25.3, VBG O2 Saturation 82.5 H, VBG Base Excess -1.3, VBG Lactic Acid 2.0, Sodium 144, Potassium 3.9, Chloride 105, Carbon Dioxide 26, Anion Gap 16.9 H, BUN 19 H, Creatinine 1.30 H, Estimated Creat Clear 80, Estimated GFR 42 L, E st GFR ( Amer) 51 L, Glucose 119 H, Calcium 9.4, Magnesium 1.9, Total Bilirubin 0.4, AST 24, ALT 18, Alkaline Phosphatase 93, Troponin I < 0.01, N T-Pro-B Natriuret Pep 275 H, Total Protein 7.8, Albumin 4.4, Globulin 3.4 H, Albumin/Globulin Ratio 1.3, Procalcitonin 0.055, TSH 3.57, Free T4 Index 3.3 L, Thyroxine (T4) 10.8, T3 Uptake 31, HCV Ab AGUILA w/Rflx PCR Qn Negative, HIV Ag/Ab Combo Qual Negative 03/14/25 15:24: Urine Color Yellow, Urine Appearance Clear, Urine pH 6.0, Ur Specific Scott 1.010, Urine Protein Negative, Urine Glucose (UA) Negative, Urine Ketones Negative, Urine Blood Negative, Urine Nitrate Negative, Urine Bilirubin Negative, Urine Urobilinogen 0.2, Ur Leukocyte Esterase Negative, Urine RBC None, Urine WBC None, Ur Squamous Epith Cells None, Urine Bacteria None 03/14/25 17:15: Troponin I < 0.01 Orders (Tests/Meds): ED MEDICATIONS Generic Name Dose Route Start Last Admin Trade Name Freq PRN Reason Stop Dose Admin Diltiazem HCl 100 mg/ Sodium 100 mls @ 5 mls/hr 03/14/25 17:01 03/14/25 18:26 Chloride IV 04/13/25 17:00 5 mg/hr .Q20H ALICE 5 mls/hr Titration Protocol 5 MG/HR Sodium Chloride 10 ml 03/14/25 15:42 03/14/25 15:43 Sodium Chloride 0.9% 10ml Syr (Rad Only) IV 04/13/25 15:41 10 ml NEEDED PRN Administration Maintain IV Site Discontinued Medications Generic Name Dose Route Start Last Admin Trade Name Freq PRN Reason Stop Dose Admin Dexamethasone Sodium Phosphate 10 mg 03/14/25 15:27 03/14/25 16:07 Dexamethasone 4mg/Ml 5ml Mdv IV 03/14/25 15:28 10 mg ONCE ONE Administration Diltiazem HCl 20 mg 03/14/25 14:59 03/14/25 15:06 Diltiazem 25mg/5ml Vial IV 03/14/25 15:00 20 mg ONCE ONE Administration Iopamidol 160 ml 03/14/25 15:42 03/14/25 15:44 Iopamidol-370 (76%);100ml Bottle IV 03/14/25 15:43 160 ml ONCE ONE Administration Ondansetron HCl 4 mg 03/14/25 14:13 03/14/25 14:17 Ondansetron 4mg/2ml Vial IV 03/14/25 14:14 4 mg ONCE ONE Administration Sodium Chloride 100 ml 03/14/25 15:42 03/14/25 15:44 0.9 % Sodium Chloride 50 Ml Vial IV 03/14/25 15:43 100 ml ONCE ONE Administration ORDERS Category Date Time Status CT angio chest - dissection Stat Cat Scan 03/14/25 14:[address] angio head Stat Cat Scan 03/14/25 14:[address] angio neck Stat Cat Scan 03/14/25 14:[address] head/brain wo con Stat Cat Scan 03/14/25 14:56 Completed BNP [NT Pro Brain Natriuretic Pep.] Stat Lab 03/14/25 14:08 Completed CBC w/Auto Diff [Complete Blood Count Auto Diff] Stat Lab 03/14/25 14:08 Completed CMP [Comprehensive Metabolic Panel] Stat Lab 03/14/25 14:08 Completed D-Dimer Stat Lab 03/14/25 14:08 Completed HIV Combo Stat Lab 03/14/25 14:08 Completed Hepatitis C Ab Qual. W/ RFX Stat Lab 03/14/25 14:08 Completed Magnesium Stat Lab 03/14/25 14:08 Completed Procalcitonin Stat Lab 03/14/25 14:08 Completed Thyroid Panel Stat Lab 03/14/25 14:08 Completed Trop I [Troponin I] Stat Lab 03/14/25 14:08 Completed Troponin I Q3H Lab 03/14/25 17:15 Completed Troponin I Q3H Lab 03/14/25 20:42 Received UA [Urinalysis and Microscopic] Stat Lab 03/14/25 15:24 Completed VBG [Venous Blood Gas] Stat RT 03/14/25 14:08 Completed ECG Data Tracing #1: I reviewed this ECG and interpreted as documented below: Atrial fibrillation with rapid ventricular response with a rate of [address] changes concerning for STEMI ECG initial impression date: 03/14/25 ECG initial impression time: 13:59 Critical Care <STAN Jha - Last Filed: 03/14/25 21:08> Critical Care Time Critical Care Time: Yes Attestation: On 03/14/25, the high probability of a clinically significant, sudden or life threatening deterioration of the following system(s) required my full and direct attention, intervention and personal management. The time I documented below is in addition to time spent performing reported procedures but includes the following listed in this critical care notation. Total Time Total Critical Care Time: 35
--- NOTE | 2025-03-14 14:16 | PC.NURSE ---
pt placed on pure wic
[2025-03-14] MEDS: ONDANSETRON 4MG/2ML VIAL 4 MG IV (14:17)
[2025-03-14 14:18] LABS: VBG Base Excess -1.3 mmol/L (-2.4-2.3); VBG Oxygen Saturation 82.5 % (50-70); VBG PCO2 42.7 mmol/L (35-51); VBG PH 7.37 mmol/L (7.31-7.41); VBG PO2 41.1 mmol/L (28-40); VBG Total CO2 25.3 mmol/L (23-27)
[2025-03-14 14:31] LABS: Alanine Aminotransferase 18 U/L (12-78); Albumin Level 4.4 g/dl (3.5-5.0); Albumin/Globulin Ratio 1.3 (1.1-1.8); Alkaline Phosphatase 93 U/L (38-126); Anion Gap 16.9 mEq/L (5-15); Aspartate Amino Transferase 24 U/L (14-36); Bilirubin,Total 0.4 mg/dl (0.2-1.3); Blood Urea Nitrogen 19 mg/dl (7-17); Calcium 9.4 mg/dl (8.4-10.2); Carbon Dioxide 26 mmol/L (22.0-30.0); Chloride 105 mmol/L (98-107); Creatinine Clearance Estimated 80 mL/min (50-200); Estimated Glomerular Filt Rate 42 ml/min (>60); GFR (African American) 51 ML/MIN (>60); Globulin 3.4 g/dL (1.3-3.2); Glucose 119 mg/dl (74-100); Magnesium 1.9 mg/dl (1.6-2.3); Potassium 3.9 mmoL/L (3.5-5.1); Sodium 144 mmol/L (136-145); Total Protein,Serum 7.8 g/dl (6.3-8.2)
[2025-03-14 14:32] LABS: Basophils # 0.1 K/mm3 (0-0.2); Basophils % 0.9 % (0.1-2.0); Eosinophils # 0.2 K/mm3 (0.0-0.4); Eosinophils % 1.8 % (0.1-12.0); Hematocrit 44.4 % (37.0-47.0); Hemoglobin 14.1 g/dL (12.2-16.2); Lymphocytes % 37.8 % (10-50); Mean Corpuscular HGB Conc 31.8 g/dL (31.8-35.4); Mean Corpuscular Hemoglobin 28.9 pg (27.0-31.2); Mean Platelet Volume 12.5 fl (7.4-10.4); Monocytes # 0.6 K/mm3 (0.1-1.0); Monocytes % 5.8 % (1.7-9.3); Neutrophils # 5.7 K/mm3 (1.8-7.8); Neutrophils % 53.3 % (37.0-80.0); Nucleated Red Blood Cells # 0 10^3/uL; Nucleated Red Blood Cells % 0 %; Platelet Count 248 K/mm3 (142-424); Red Blood Count 4.88 M/mm3 (4.20-5.40); Red Cell Distribution Width 13.2 % (11.5-17.5); Red Cell Distribution Width-SD 44.3 fL; White Blood Count 10.6 K/mm3 (4.8-10.8)
[2025-03-14 14:43] LABS: NT Pro Brain Natriuretic Pep. 275 pg/mL (0-125)
[2025-03-14 14:48] LABS: Procalcitonin 0.055 ng/mL (0.0-2.0)
[2025-03-14 14:51] LABS: Troponin I < 0.01 ng/ml (0.00-0.034)
--- NOTE | 2025-03-14 14:55 | CT_ITS ---
FINAL REPORT TECHNIQUE: The patient was injected with IV contrast. Axial images were obtained through the chest in a PE protocol. 3-D reconstruction images were also performed. Individualized dose reduction techniques using automated exposure control or adjustment of the MA and/or KV according to patient's size were employed. CLINICAL HISTORY: Dizziness near syncope COMPARISON: CT chest 02/04/2025 FINDINGS: Mediastinal vasculature is adequately opacified. No pulmonary artery filling defects are identified to suggest PE. There is no aortic dissection. There is no axillary adenopathy. There is no hilar or mediastinal adenopathy. There is a small to moderate paraesophageal hiatal hernia. The heart size is normal. There is no pericardial or pleural effusion. Linear scarring at the right lung base is stable. Limited images of the upper abdomen demonstrate multiple cysts arising from the right kidney, the largest measures 3.2 cm. IMPRESSION: No pulmonary embolus or dissection. Reviewed, Interpreted and Dictated by Rufino Grover MD Transcribed by Loreto Echols Authenticated and [facility]
--- NOTE | 2025-03-14 14:55 | CT_ITS ---
FINAL REPORT TECHNIQUE: NASCET technique utilized for stenosis evaluation. CLINICAL HISTORY: Dizziness near syncope COMPARISON: None FINDINGS: RIGHT CAROTID: Minimal calcification in the bifurcation without evidence of significant stenosis. LEFT CAROTID: Moderate calcification of the bifurcation without significant stenosis. VERTEBRALS: The vertebrals are patent. No significant stenosis is present. The vertebral arteries are codominant. IMPRESSION: No significant arterial abnormality. Reviewed, Interpreted and Dictated by Rufino Grover MD Transcribed by Loreto Echols Authenticated and [facility]
--- NOTE | 2025-03-14 14:55 | CT_ITS ---
FINAL REPORT TECHNIQUE: thin section axial CT with and without IV contrast supplemented with multiplanar 3-D reconstruction of the head. This study was performed with techniques to keep radiation doses as low as reasonably achievable, (ALARA)individualized dose reduction techniques using automated exposure control or adjustment of mA and/or kV according to the patient's size were employed. CLINICAL HISTORY: Dizziness near syncope COMPARISON: None FINDINGS: HEAD CT: The ventricles are normal in size. There is no evidence of hemorrhage. No masses are identified. No extra-axial fluid is seen. The sinuses are normal. CTA: The cranial circulation is unremarkable. There is no significant stenosis, aneurysm or occlusion. IMPRESSION: No acute process. Reviewed, Interpreted and Dictated by Rufino Grover MD Transcribed by Loreto Echols Authenticated and . [facility]
--- NOTE | 2025-03-14 14:56 | CT_ITS ---
FINAL REPORT TECHNIQUE: Axial CT images were performed through the head. Coronal reformatted images were submitted. This study was performed with techniques to keep radiation doses as low as reasonably achievable (ALARA). Individualized dose reduction techniques using automated exposure control or adjustment of mA and/or kV according to the patient's size were employed. CLINICAL HISTORY: Dizziness near syncope FINDINGS: The ventricles are normal in size. There is no evidence of hemorrhage. There is no mass or edema identified. There is no abnormal extra-axial fluid seen. The sinuses lobular mucoperiosteal thickening of the bilateral maxillary sinuses, sphenoid sinus and ethmoid air cells. IMPRESSION: No acute intracranial process. Chronic pansinusitis. Reviewed, Interpreted and Dictated by Rufino Grover MD Transcribed by Philly Izaguirre Authenticated and [facility]
[2025-03-14 14:57] LABS: Free Thyroxine Index 3.3 ug/dL (5.93-13.13); T4 (Thyroxine) 10.8 ug/dl (5.53-11.0); Triiodothryronine (T3) Uptake 31 % (23.5-40.5)
[2025-03-14 15:00] LABS: D-Dimer 0.63 ug/mL (0.0-0.5)
--- NOTE | 2025-03-14 15:05 | PC.NURSE ---
HR 144 BEFORE CARDIZEM
[2025-03-14] MEDS: dilTIAZem 25MG/5ML VIAL 20 MG IV (15:06)
[2025-03-14 15:10] LABS: Thyroid Stimulating Hormone 3.57 uIU/mL (0.465-4.68)
[2025-03-14 15:19] LABS: HIV Combo NEGATIVE (Negative)
[2025-03-14 15:29] LABS: Microscopic, Urine URINE MICROSCOPIC (MICROSCOPIC)
[2025-03-14] MEDS: SODIUM CHLORIDE 0.9% 10ML SYR (RAD ONLY) 10 ML IV (15:43)
[2025-03-14 15:44] LABS: Hepatitis C Ab Qual. W/ RFX NEGATIVE (Negative)
[2025-03-14] MEDS: IOPAMIDOL-370 (76%);100ML BOTTLE 160 ML IV (15:44)
[2025-03-14] MEDS: 0.9 % SODIUM CHLORIDE 50 ML VIAL 100 ML IV (15:44)
[2025-03-14 15:51] LABS: Appearance,Urine CLEAR (Clear); Bilirubin,Urine Negative (Negative); Blood, Urine Negative (Negative); Glucose,Urine (UA) Negative (Negative); Ketones,Urine Negative (Negative); Leukocyte Esterase,Urine Negative (Negative); Nitrate,Urine Negative (Negative); Protein,Urine Negative (Negative); Urobilinogen,Urine 0.2 EU/dl (0.2)
[2025-03-14] MEDS: DEXAMETHASONE 4MG/ML 5ML MDV 10 MG IV (16:07)
--- NOTE | 2025-03-14 16:11 | PC.NURSE ---
I rounded on the pt. no new complaints at this time. no needs voiced. call simmons in reach.
--- NOTE | 2025-03-14 16:15 | PC.NURSE ---
Dre states sepsis bolus/cultures are not needed due to cardiac explanation of abnormal vitals.
[2025-03-14 16:31] LABS: Color,Urine Yellow (Yellow)
--- NOTE | 2025-03-14 17:09 | PC.NURSE ---
Called [facility] to speak with them about this pt. [employer] advised that they would page patients bill of lading clerk and would call us back.
[2025-03-14] MEDS: dilTIAZem HCL 100 MG in 0.9 % SODIUM CHLORIDE 100 ML IV (17:23)
[2025-03-14 18:01] LABS: Troponin I < 0.01 ng/ml (0.00-0.034)
[2025-03-14] MEDS: METHOCARBAMOL 500MG TABLET 500 MG PO (21:18)
[2025-03-14 21:30] LABS: Troponin I < 0.01 ng/ml (0.00-0.034)
--- NOTE | 2025-03-14 21:35 | PC.NURSE ---
Attempted to call report; floor unable to take report at this time
[2025-03-14] MEDS: ACETAMINOPHEN 325MG TAB 650 MG PO (23:27)
[2025-03-14] MEDS: APIXABAN 5MG TABLET 5 MG PO (23:28)
[2025-03-15] VITALS (7 sets, daily range): BP systolic 101–141; BP diastolic 48–69; PULSE 48–60; RESP 18–22; TEMP 36.4–36.7; O2SAT 90–97; BMI 40.4
[2025-03-15] MEDS: LIDOCAINE 5% TRANSDERMAL PATCH 1 EACH TD (01:13)
--- NOTE | 2025-03-15 03:56 | P.HP_ITS ---
<Statement entered by Portillo Mccray MD - 03/15/25 21:24> Rounded on patient after nurse practitioner. Personally examined and interviewed patient. Agree with exam findings and care plan as documented. Patient symptoms doing better by morning. Was able to come off diltiazem prior to arrival to the floor. Heart rate has remained in sinus rhythm. Short of breath with exertion and feels weak but no syncope. Vitals remained stable. Cardiology evaluating in the morning History of Present Illness *Admission Date: 03/14/25 *Reason for visit:: Shortness of Breath *History of present illness: A 59-year-old female with a past medical history of cardiac ablation, atrial fibrillation, chronic obstructive pulmonary disease (COPD), tobacco dependence, pulmonary nodules, hyperlipidemia, hypertension, restless leg syndrome, renal insufficiency, and obstructive sleep apnea presents to the emergency department for evaluation of near syncope. She reports symptoms leading to near syncope, though specific details are not provided, and has a history of atrial fibri llation with prior ablation at [facility]. She is compliant with apixaban (Eliquis) 5 mg twice daily at home for A-fib. The history was obtained through interactive discussion with the patient and adult sister, who is deemed reliable. On initial ED examination, the patient was hypertensive (blood pressure 162/118), tachycardic (heart rate 136), afebrile (98.1), with a respiratory rate of 23 breaths per minute and oxygen saturation of 99 on room air. Josias Coma Scale is 15, with no focal neurologic deficits, Cardiac exam showed a rapid, irregularly irregular rhythm consistent with atrial fibrillation with RVR Labs show normal WBC (10.6), hemoglobin (14.1), creatinine (1.3), reduced GFR (42), slightly elevated glucose (119), normal potassium (3.9), magnesium (1.9), troponin (<0.01), elevated NT-proBNP (275), normal TSH (3.57), and slightly low free T4 index (3.3). D-dimer is elevated (0.63), and VBG shows normal pH (7.37), pCO2 (42.7), bicarbonate (24.0), and lactate (2.0). Urinalysis is unremarkable. EKG confirms atrial fibrillation with RVR. CT head without contrast and CT angiograms of head, neck, and chest show no acute process, with chest CTA negative for pulmonary embolism. Treatments implemented in the emergency department include ondansetron (Zofran) for nausea and diltiazem (Cardizem) 20 mg IV push, which was unsuccessful in controlling heart rate, followed by a Cardizem drip. The patient developed hypotension and converted to a controlled rate on the drip, allowing the drip rate to be slowed. Upon admission, she was found to be in sinus bradycardia (heart rate 52), and the Cardizem drip was discontinued due to hypotension and bradycardia risk. The patient was placed in observation status at 1730 due to lack of bed availability at [facility], where her bottom finisher agreed to accept her for transfer following discussion. Continuous cardiac monitoring and pulse oximetry were maintained. At 2100, no bed was available, and hospital medicine accepted her for admission upstairs under until transfer is possible. [facility] Disclaimer: The information contained in this section may have been updated after the patient was seen, as this information can be updated by other users. Medical History Asthma Dyspnea on exertion Smoking greater than 30 pack years Multiple pulmonary nodules HLD (hyperlipidemia) Atrial fibrillation HTN (hypertension) Dyspnea FH: cholecystectomy SHIRAZ (obstructive sleep apnea) CHF (congestive heart failure) Angina pectoris, unstable Chest pain Incurved toenail Pincer nail deformity Arthritis of right foot Calcaneal spur of right foot Callus of foot Tobacco abuse History of ankle sprain Right ankle pain Right foot pain Acute kidney injury Leg cramps Muscle ache Nocturnal hypoxemia CPAP titration indicated a good response was seen at CPAP at 14 cm but in light of the hypoxemia while hospitalized without CPAP and the fatigue with CPAP, will evaluate for recurrent hypoxemia. Fatigue Symptomatic improvement with CPAP. Potentially multifactorial in the setting of SHIRAZ, hypertension, A. fib, borderline A1c, kidney disease. RLS (restless legs syndrome) Asymptomatic with CPAP. BMI 40.0-44.9, adult 11 pound weight loss since July 2023 SHIRAZ on CPAP Mild to moderate SHIRAZ with hypoxemia, excellent compliance on CPAP at 14 cm as recommended by CPAP titration. Complains of fatigue. Claudication Right groin pain Atrial flutter with rapid ventricular response KEVIN (acute kidney injury) SVT (supraventricular tachycardia) PAF (paroxysmal atrial fibrillation) Daytime somnolence Restless sleeper Snoring Chest pain Elevated left ventricular end-diastolic pressure (LVEDP) Atrial fibrillation with RVR New onset atrial fibrillation Rapid atrial fibrillation Morbid obesity Gastroesophageal reflux disease Contusion of rib on right side Atelectasis Acute bronchitis Edema Tubular adenoma of colon multiple complex polyps between 45cm and the right colon Post surgical complication Dysuria Abdominal pain Enteropathogenic Escherichia coli infection Diastolic dysfunction Diarrhea Acute renal insufficiency Dehydration Diabetes Cholelithiasis Colitis PUD (peptic ulcer disease) SOB (shortness of breath) Seasonal allergies Fatigue Diastolic dysfunction Chronic pain Family history of ischemic heart disease Tobacco use Abnormal stress test Superficial thrombophlebitis Lymphadenitis Thromboembolism Surgical History Hx of cholecystectomy H/O: hysterectomy Family History Other Cancer Diabetes Heart attack Social History Smoking Status: Current every day smoker tobacco type: cigarettes packs per day: 1 second hand exposure: Yes alcohol intake: never counseling provided: provider counseling substance use type: denies use current occupational status: disabled Travel in the last 8 weeks: Inside the [place] household members: spouse housing: house current occupational exposures/hazards: No caffeine: Yes Have you lived/traveled outside [place] in past 30 days?: No Contact w/someone who lives/traveled outside [place] past 30 days?: No Exposure to someone with infectious disease in past 14 days?: No Do you have a fever (greater than 100.4 F or 38 C)?: No Have you tested positive for COVID-19: No Exposed to someone with COVID-19 in past 14 days?: No Do you have a sore throat?: No Do you have a cough?: No Do you have any weakness?: No Do you have any diarrhea?: No Are you experiencing any unusual bleeding?: No Do you have any muscle aches/pain?: No Do you have any abdominal pain?: No Are you experiencing loss of taste or smell?: No Other Medical History Have you received the Flu Vaccine for this season: Yes Have you received the Pneumonia Vaccine: No Review of Systems Review of Systems Review of systems (narrative): 13 point review of systems negative except as listed in HPI Meds Home Medications and Allergies Home Medications ?Medication ?Instructions ?Recorded ?Confirmed ?Type montelukast 10 mg tablet 10 mg PO DAILY allergic rhinitis 02/09/20 03/14/25 History loratadine 10 mg tablet 10 mg PO DAILY Allergy symptoms 10/19/20 03/14/25 History famotidine 40 mg tablet 40 mg PO DAILY 11/15/20 03/14/25 History fenofibrate nanocrystallized 48 mg 48 mg PO DAILY 01/25/21 03/14/25 History tablet lovastatin 20 mg tablet 20 mg PO DAILY Cholesterol #90 tabs 05/29/21 03/14/25 Rx cetirizine 10 mg tablet 10 mg PO DAILY 02/05/23 03/14/25 History fexofenadine 180 mg tablet 180 mg PO DAILY 01/16/24 03/14/25 History (Allergy Relief (fexofenadine)) levothyroxine 50 mcg tablet 50 mcg PO DAILY 01/16/24 03/14/25 History albuterol sulfate 90 mcg/actuation 2 puff inhalation DAILYP PRN soa 02/05/24 03/14/25 History aerosol inhaler (Ventolin HFA) fluticasone propionate 50 1 spray intranasal DAILY PRN 02/05/24 03/14/25 History mcg/actuation nasal allergies spray,suspension colestipol 1 gram tablet 1 g PO BID 01/06/25 03/14/25 History fluticasone 500 mcg-salmeterol 50 1 inh inhalation BID #180 ea 01/06/25 03/14/25 Rx mcg/dose blistr powdr for inhalation (Advair Diskus) metoprolol succinate 50 mg 50 mg PO DAILY #30 tabs 01/12/25 03/14/25 Rx tablet,extended release 24 hr (Toprol XL) losartan 25 mg tablet 25 mg PO DAILY #30 tabs 02/14/25 03/14/25 Rx apixaban 5 mg tablet (Eliquis) 5 mg PO BID 03/14/25 03/14/25 History furosemide 20 mg tablet 40 mg PO NEEDED PRN edema 03/14/25 03/14/25 History potassium chloride 20 mEq 10 meq PO DAILY 03/14/25 03/14/25 History tablet,extended release(part/cryst) New Prescriptions to Start Prescriptions: Allergies Allergy/AdvReac Type Severity Reaction Status Date / Time spironolactone Allergy Intermediate hives Verified 02/09/25 14:30 lactase (From D[employer]) Allergy Mild Diarrhea Verified 02/09/25 14:30 atorvastatin AdvReac Severe myalgias Verified 02/09/25 14:30 Exam Data for Last 24 hours Vital signs and Labs for Last 24 Hours: Temp Pulse Resp BP Pulse Ox O2 Del Method FiO2 97.7 F 54 L 21 113/48 L 90 L CPAP 30 03/15/25 00:00 03/15/25 02:00 03/15/25 02:00 03/15/25 02:00 03/15/25 02:00 03/15/25 02:01 03/15/25 02:01 Laboratory Results - last 24 hr 03/14/25 14:08: WBC 10.6, RBC 4.88, Hgb 14.1, Hct 44.4, MCV 91.0, MCH 28.9, MCHC 31.8, RDW 13.2, Plt Count 248, MPV 12.5 H, Neut % (Auto) 53.3, Lymph % (Auto) 37.8, Blair % (Auto) 5.8, Eos % (Auto) 1.8, Baso % (Auto) 0.9, Neut # (Auto) 5.7, Lymph # (Auto) 4.0, Blair # (Auto) 0.6, Eos # (Auto) 0.2, Baso # (Auto) 0.1, D- Dimer 0.63 H, VBG pH 7.37, VBG pCO2 42.7, VBG pO2 41.1 H, VBG HCO3 24.0, VBG Total CO2 25.3, VBG O2 Saturation 82.5 H, VBG Base Excess -1.3, VBG Lactic Acid 2.0, Sodium 144, Potassium 3.9, Chloride 105, Carbon Dioxide 26, Anion Gap 16.9 H, BUN 19 H, Creatinine 1.30 H, Estimated Creat Clear 80, Estimated GFR 42 L, Est GFR ( Amer) 51 L, Glucose 119 H, Calcium 9.4, Magnesium 1.9, Total Bilirubin 0.4, AST 24, ALT 18, Alkaline Phosphatase 93, Troponin I < 0.01, NT-Pro-B Natriuret Pep 275 H, Total Protein 7.8, Albumin 4.4, Globulin 3.4 H, Albumin/Globulin Ratio 1.3, Procalcitonin 0.055, TSH 3.57, Free T4 Index 3.3 L, Thyroxine (T4) 10.8, T3 Uptake 31, HCV Ab AGUILA w/Rflx PCR Qn Negative, HIV Ag/Ab Combo Qual Negative 03/14/25 15:24: Urine Color Yellow, Urine Appearance Clear, Urine pH 6.0, Ur Specific [place] 1.010, Urine Protein Negative, Urine Glucose (UA) Negative, Urine Ketones Negative, Urine Blood Negative, Urine Nitrate Negative, Urine Bilirubin Negative, Urine Urobilinogen 0.2, Ur Leukocyte Esterase Negative, Urine RBC None, Urine WBC None, Ur Squamous Epith Cells None, Urine Bacteria None 03/14/25 17:15: Troponin I < 0.01 03/14/25 20:42: Troponin I < 0.01 I & O for Last 24 hours: Intake & Output 03/12/25 03/13/25 03/14/25 03/15/25 23:59 23:59 23:59 23:59 Intake Total 28.25 / 628.25 600 / 600 Balance 28.25 / 628.25 600 / 600 Weight 48.67 kg Constitutional Constitutional: no acute distress and chronically ill appearing *Routine HEENT Exam Head: Present normocephalic Eye: Present EOMI and PERRL ENT: Present mucous membranes moist *Routine Neck Exam Neck: Present supple; Absent lymphadenopathy *Routine Respiratory Exam Respiratory: Present CTA bilaterally *Routine Cardiovascular Exam Cardiovascular: Present bradycardia *Routine Abdominal Exam Abdominal: Present soft and normoactive bowel sounds; Absent tenderness *Routine Rectal Exam Rectal:: deferred *Routine Genitalia Exam Genitalia:: deferred *Routine Extremities Exam Extremities: Present edema (+1-2 nonpitting edema to ankles); Absent cyanosis or clubbing *Routine Skin Exam Skin: Present warm; Absent rash *Routine Neurological Exam Neurological: Present alert and oriented X3 Assessment and Plan *Assessment and plan (1) Atrial fibrillation with rapid ventricular response: Status: Acute Category: Medical Code(s): I48.91 - Unspecified atrial fibrillation (2) Asthma: Status: Acute Category: Medical Code(s): J45.909 - Unspecified asthma, uncomplicated (3) Smoking greater than 30 pack years: Status: Acute Category: Social Hx Code(s): F17.210 - Nicotine dependence, cigarettes, uncomplicated (4) Dyspnea on exertion: Status: Acute Category: Medical Code(s): R06.09 - Other forms of dyspnea (5) HLD (hyperlipidemia): Status: Acute Qualifiers: Hyperlipidemia type: mixed hyperlipidemia Qualified Code(s): E78.2 - Mixed hyperlipidemia Category: Medical Code(s): E78.5 - Hyperlipidemia, unspecified (6) SHIRAZ (obstructive sleep apnea): Status: Acute Category: Medical Code(s): G47.33 - Obstructive sleep apnea (adult) (pediatric) Plan * Atrial Fibrillation with Rapid Ventricular Response (RVR), Now Sinus Bradycardia and Hypotension: Near syncope with initial A-fib RVR (HR 136), controlled on Cardizem drip, but developed hypotension and converted to sinus bradycardia (HR 52), in a patient with prior ablation and A-fib, suggesting possible post-ablation sinus node dysfunction or Cardizem effect. * Discontinue Cardizem drip due to hypotension and bradycardia; monitor heart rate and BP every 2 hours. * Maintain telemetry to assess for A-fib recurrence or worsening bradycardia; repeat EKG in 4 hours or if symptoms (near syncope, dizziness) recur. * Continue apixaban 5 mg oral twice daily for A-fib stroke prevention, given compliance and negative CTAs (no bleeding). * Administer normal saline 500 mL IV bolus if systolic BP falls below 90, rechecking BP every 15 minutes during bolus. * Monitor for near syncope, neurologic symptoms, or chest pain every 4 hours; maintain fall precautions. * Admit to medical-surgical floor, pending transfer to [facility] for cardiology follow-up. * Hypertension (BP 162/118, Now Hypotensive): Initial hypertension likely from A-fib RVR, now hypotensive post-Cardizem, in a patient with known hypertension, no end-organ damage (negative CT head, troponin <0.01). * Monitor BP every 2 hours, targeting 120?140 systolic; hold home antihyperte nsives (e.g., lisinopril, amlodipine) until BP >110 systolic and HR >60. * Verify home antihypertensive regimen and resume once hemodynamically stable. * Recheck electrolytes in 12 hours (potassium 3.9, magnesium 1.9) to rule out contribution. * Dependent Edema with Elevated NT-proBNP (275): 2+ dependent edema and elevated NT-proBNP, suggesting possible heart failure exacerbation triggered by A-fib RVR, in a patient with CAD, hypertension, and renal insufficiency, though no pulmonary edema. * Hold diuretics (e.g., furosemide) until BP stabilizes (>100 systolic) and bradycardia resolves; consider 20 mg IV furosemide if edema worsens or dyspnea develops. * Monitor daily weights and input/output; restrict sodium to 2 g/day. * Recheck NT-proBNP in 24 hours if heart failure symptoms persist. * Chronic Kidney Disease (Creatinine 1.3, GFR 42): Known renal insufficiency with stable KEVIN, likely prerenal from hypoperfusion during A-fib RVR and hypotension, no obstruction on CT. * Continue normal saline at 50 mL/hour to support perfusion, stopping if signs of fluid overload (dyspnea, worsening edema). * Monitor urine output every 4 hours, targeting adequate flow. * Avoid nephrotoxic agents (e.g., NSAIDs); adjust apixaban dose (5 mg BID appropriate for GFR 42) if renal function worsens. * Hyperglycemia (Glucose 119): Mildly elevated glucose, possibly stress-related or reflecting undiagnosed diabetes, no prior diabetes history noted. * Monitor glucose every 4 hours; administer sliding-scale insulin (e.g., aspart 4 units subcutaneous) for glucose >180. * Order hemoglobin A1c to evaluate for diabetes. * Recheck glucose with morning labs to trend. * COPD and Tobacco Dependence: No acute respiratory symptoms, clear lungs, 99% saturation, but COPD and smoking history increase risk for hypoxia with A-fib or heart failure. * Administer albuterol-ipratropium nebulizer every 6 hours as needed for w heezing or dyspnea. * Offer nicotine replacement (e.g., 21 mg patch daily) to support cessation. * Monitor respiratory rate and oxygen saturation every 4 hours; provide supplemental oxygen if saturation falls below 92. * Consult pulmonology if respiratory symptoms develop or pulmonary nodules require follow-up. * Pulmonary Nodules: Known nodules, no acute findings on chest CTA (negative for PE), no change noted. * Compare CTA with prior imaging to assess nodule stability; obtain old records from [facility]. * Monitor for cough, hemoptysis, or dyspnea every 8 hours. * Obstructive Sleep Apnea: No acute respiratory compromise, but untreated SHIRAZ may exacerbate A-fib and heart failure. * Verify CPAP use at home and ensure access during admission; encourage nightly use. * Monitor for snoring or desaturations overnight; check oxygen saturation every 4 hours. * Hyperlipidemia: Stable chronic condition, no acute lipid-related issues. * Verify home statin) and continue * Admit to stepdown until transfer to [facility]. * Maintain telemetry and pulse oximetry for A-fib, bradycardia, and hypotension monitoring. * Check vital signs every 4 hours, including glucose every 4 hours. * Offer ondansetron 4 mg IV every 8 hours as needed for nausea; acetaminophen 650 mg oral every 6 hours as needed for discomfort. * Confirm transfer coordination with [facility].
[2025-03-15 06:04] LABS: Basophils % 0.2 % (0.1-2.0); Hematocrit 41.7 % (37.0-47.0); Hemoglobin 13.2 g/dL (12.2-16.2); Lymphocytes # 1.5 K/mm3 (0.7-4.5); Lymphocytes % 11.7 % (10-50); Mean Corpuscular HGB Conc 31.7 g/dL (31.8-35.4); Mean Corpuscular Hemoglobin 28.7 pg (27.0-31.2); Mean Corpuscular Volume 90.7 fl (81-99); Mean Platelet Volume 11.9 fl (7.4-10.4); Monocytes # 0.3 K/mm3 (0.1-1.0); Monocytes % 2.5 % (1.7-9.3); Neutrophils # 11.1 K/mm3 (1.8-7.8); Neutrophils % 85.2 % (37.0-80.0); Nucleated Red Blood Cells # 0 10^3/uL; Nucleated Red Blood Cells % 0 %; Platelet Count 221 K/mm3 (142-424); Red Cell Distribution Width 13.1 % (11.5-17.5)
[2025-03-15 06:11] LABS: Chloride 110 mmol/L (98-107)
[2025-03-15 06:12] LABS: Potassium 4.4 mmoL/L (3.5-5.1); Sodium 142 mmol/L (136-145)
[2025-03-15 06:14] LABS: Anion Gap 12.4 mEq/L (5-15); Blood Urea Nitrogen 24 mg/dl (7-17); Carbon Dioxide 24 mmol/L (22.0-30.0); Creatinine Clearance Estimated 39 mL/min (50-200); Estimated Glomerular Filt Rate 46 ml/min (>60); GFR (African American) 56 ML/MIN (>60)
[2025-03-15 06:15] LABS: Calcium 9.4 mg/dl (8.4-10.2); Glucose 202 mg/dl (74-100); Magnesium 1.8 mg/dl (1.6-2.3); Phosphorous 2.8 mg/dl (2.5-4.5)
--- NOTE | 2025-03-15 07:45 | ECG_ITS ---
APPROVED REPORT Exam: Resting ECG HR:54 bpm ECG Measurements Heart Rate [address] 190 P 55 QRSd 124 QRS 21 QT 500 T -30 QTc 487 Conclusion SINUS BRADYCARDIA MODERATE INTRAVENTRICULAR CONDUCTION DELAY [110+ ms QRS DURATION] MODERATE T-WAVE ABNORMALITY, CONSIDER ANTEROLATERAL ISCHEMIA [-0.1+ mV T-WAVE IN V3-V6] MODERATE T-WAVE ABNORMALITY, CONSIDER INFERIOR ISCHEMIA [-0.1+ mV T-WAVE IN II/aVF] ABNORMAL ECG UNCONFIRMED REPORT Electronically signed by : Demarco Richard MD 03/15/2025 08:48:57
[2025-03-15] MEDS: METOPROLOL SUCCINATE XL 50MG TABLET 50 MG PO (08:22)
[2025-03-15] MEDS: APIXABAN 5MG TABLET 5 MG PO (08:22)
[2025-03-15] MEDS: FLUTICASONE PROP 50MCG NASAL SPRAY 16GM 1 SPRAY NS (08:22)
[2025-03-15] MEDS: CALCIUM CARBONATE 500MG CHEWTAB 500 MG PO (08:22)
[2025-03-15] MEDS: LORATADINE 10MG TABLET 10 MG PO (08:22)
[2025-03-15] MEDS: LEVOTHYROXINE 50MCG (0.05MG) TAB 50 MCG PO (08:22)
[2025-03-15] MEDS: FLUTICASONE/SALMETEROL 500/50MCG DISKUS 1 PUFF IH (08:27)
--- NOTE | 2025-03-15 09:05 | HMH.PHAINT1 ---
Pharmacy Intervention Comments: COMPARED MED LIST TO OFFICE NOTES AND FILL HX.
[2025-03-15] MEDS: ACETAMINOPHEN 325MG TAB 650 MG PO (09:40)
--- NOTE | 2025-03-15 10:25 | PC.NURSE ---
this SRNA asked pt if she wanted to get up to the chair, pt refused and said she was watching TV. pt also did not want to sit up on the side of the bed. pt did state she would eat her lunch on the side of the bed. pt was given a mountain dew upon request. no further requests were voiced at this time. call light is within reach.
--- NOTE | 2025-03-15 12:15 | P.DS_ITS ---
General Admission date:: 03/14/25 Discharge date: 03/15/25 HPI HPI HPI: A 59-year-old female with a past medical history of cardiac ablation, atrial fibrillation, chronic obstructive pulmonary disease (COPD), tobacco dependence, pulmonary nodules, hyperlipidemia, hypertension, restless leg syndrome, renal insufficiency, and obstructive sleep apnea presents to the emergency department for evaluation of near syncope. She reports symptoms leading to near syncope, though specific details are not provided, and has a history of atrial fibrillation with prior ablation at [facility]. She is compliant with apixaban (Eliquis) 5 mg twice daily at home for A-fib. The history was obtained through interactive discussion with the patient and adult sister, who is deemed reliable. On initial ED examination, the patient was hypertensive (blood pressure 162/118), tachycardic (heart rate 136), afebrile (98.1), with a respiratory rate of 23 breaths per minute and oxygen saturation of 99 on room air. Josias Coma Scale is 15, with no focal neurologic deficits, Cardiac exam showed a rapid, irregularly irregular rhythm consistent with atrial fibrillation with RVR Labs show normal WBC (10.6), hemoglobin (14.1), creatinine (1.3), reduced GFR (42), slightly elevated glucose (119), normal potassium (3.9), magnesium (1.9), troponin (<0.01), elevated NT-proBNP (275), normal TSH (3.57), and slightly low free T4 index (3.3). D-dimer is elevated (0.63), and VBG shows normal pH (7.37), pCO2 (42.7), bicarbonate (24.0), and lactate (2.0). Urinalysis is unremarkable. EKG confirms atrial fibrillation with RVR. CT head without contrast and CT angiograms of head, neck, and chest show no acute process, with chest CTA negative for pulmonary embolism. Treatments implemented in the emergency department include ondansetron (Zofran) for nausea and diltiazem (Cardizem) 20 mg IV push, which was unsuccessful in controlling heart rate, followed by a Cardizem drip. The patient developed hypotension and converted to a controlled rate on the drip, allowing the drip rate to be slowed. Upon admission, she was found to be in sinus bradycardia (heart rate 52), and the Cardizem drip was discontinued due to hypotension and bradycardia risk. The patient was placed in observation status at 1730 due to lack of bed availability at [facility], where her marketing specialist agreed to accept her for transfer following discussion. Continuous cardiac monitoring and pulse oximetry were maintained. At 2100, no bed was available, and hospital medicine accepted her for admission upstairs under until transfer is possible. Hospital Course Hospital Course Hospital Course: 59-year-old female who presented with A-fib RVR. Converted with initiation of diltiazem. Remained in sinus rhythm overnight. Cardiology consulted, will make adjustments to medication regimen. Would benefit from outpatient EP referral. Stable to discharge home at this time with medication adjustments and continued anticoagulation. Problems addressed as follows: Sick Sinus Syndrome - A-fib RVR, SB, NSVT, SVT Hypertension - s/p a-fib ablation 2020. Patient has done well and been in sinus rhythm since to her knowledge. She has continued to be on medications to help control her heart along with Eliquis for anticoagulation. She presented to the ED in A-fib with RVR with rates in the 130s. Was initiated on diltiazem and converted to sinus rhythm. Diltiazem was stopped after very short period of time. Remained in sinus rhythm overnight. Given her improved rate control, will continue her home metoprolol regimen with metoprolol succinate 50 mg daily. Initiate diltiazem 120 mg nightly. Cardiology recommends 2-week event monitor. Continue Eliquis 5 mg twice daily. Patient was walked prior to discharge and did well with no change in her vitals, blood pressure, heart rate. Did feel somewhat weak if she got back to her room but had no hypotension or tachyarrhythmia. Will have close follow-up with cardiology and further discussion about referral to electrophysiology at [facility] per patient request for further evaluation and possible repeat ablation. Strongly encouraged efforts to continue weight loss, reduce tobacco use, increase her compliance with CPAP and improve blood pressure control. Morbid Obesity - needs aggressive weight loss via diet and exericse. Complicates all aspects of her care. Recommend considering outpatient GLP-1 therapy. Will defer to PCP and cardiology for further discussion SHIRAZ: recommend CPAP Compliance Hypothyroidism: TSH normal at 3.57. Continue levothyroxine 50 mcg daily Total time spent on discharge 45 minutes in counseling, documentation, chart review, and direct care with patient. Exam Data for Last 24 hours Vital signs and Labs for Last 24 Hours: Temp Pulse Resp BP Pulse Ox O2 Del Method FiO2 97.9 F 60 19 141/69 H 97 Room Air 30 03/15/25 08:00 03/15/25 08:00 03/15/25 08:00 03/15/25 08:00 03/15/25 08:00 03/15/25 11:00 03/15/25 02:01 Laboratory Results - last 24 hr 03/14/25 14:08: WBC 10.6, RBC 4.88, Hgb 14.1, Hct 44.4, MCV 91.0, MCH 28.9, MCHC 31.8, RDW 13.2, Plt Count 248, MPV 12.5 H, Neut % (Auto) 53.3, Lymph % (Auto) 37.8, [place] % (Auto) 5.8, Eos % (Auto) 1.8, Baso % (Auto) 0.9, Neut # (Auto) 5.7, Lymph # (Auto) 4.0, [place] # (Auto) 0.6, Eos # (Auto) 0.2, Baso # (Auto) 0.1, D- Dimer 0.63 H, VBG pH 7.37, VBG pCO2 42.7, VBG pO2 41.1 H, VBG HCO3 24.0, VBG Total CO2 25.3, VBG O2 Saturation 82.5 H, VBG Base Excess -1.3, VBG Lactic Acid 2.0, Sodium 144, Potassium 3.9, Chloride 105, Carbon Dioxide 26, Anion Gap 16.9 H, BUN 19 H, Creatinine 1.30 H, Estimated Creat Clear 80, Estimated GFR 42 L, Est GFR ( Amer) 51 L, Glucose 119 H, Calcium 9.4, Magnesium 1.9, Total Bilirubin 0.4, AST 24, ALT 18, Alkaline Phosphatase 93, Troponin I < 0.01, NT-Pro-B Natriuret Pep 275 H, Total Protein 7.8, Albumin 4.4, Globulin 3.4 H, Albumin/Globulin Ratio 1.3, Procalcitonin 0.055, TSH 3.57, Free T4 Index 3.3 L, Thyroxine (T4) 10.8, T3 Uptake 31, HCV Ab AGUILA w/Rflx PCR Qn Negative, HIV Ag/Ab Combo Qual Negative 03/14/25 15:24: Urine Color Yellow, Urine Appearance Clear, Urine pH 6.0, Ur Specific Fraser 1.010, Urine Protein Negative, Urine Glucose (UA) Negative, Urine Ketones Negative, Urine Blood Negative, Urine Nitrate Negative, Urine Bilirubin Negative, Urine Urobilinogen 0.2, Ur Leukocyte Esterase Negative, Urine RBC None, Urine WBC None, Ur Squamous Epith Cells None, Urine Bacteria None 03/14/25 17:15: Troponin I < 0.01 03/14/25 20:42: Troponin I < 0.01 03/15/25 05:45: WBC 13.0 H, RBC 4.60, Hgb 13.2, Hct 41.7, MCV 90.7, MCH 28.7, MCHC 31.7 L, RDW 13.1, Plt Count 221, MPV 11.9 H, Neut % (Auto) 85.2 H, Lymph % (Auto) 11.7, [place] % (Auto) 2.5, Eos % (Auto) 0.0 L, Baso % (Auto) 0.2, Neut # (Auto) 11.1 H, Lymph # (Auto) 1.5, [place] # (Auto) 0.3, Eos # (Auto) 0.0, Baso # (Auto) 0.0, Sodium 142, Potassium 4.4, Chloride 110 H, Carbon Dioxide 24, Anion Gap 12.4, BUN 24 H D, Creatinine 1.20 H, Estimated Creat Clear 39, Estimated GFR 46 L, Est GFR ( Amer) 56 L, Glucose 202 H D, Calcium 9.4, Phosphorus 2.8, Magnesium 1.8 I & O for Last 24 hours: Intake & Output 03/12/25 03/13/25 03/14/25 03/15/25 23:59 23:59 23:59 23:59 Intake Total . / 8.25 960 / 960 Output Total 900 / 900 Balance .8.25 60 / 60 Weight 48.67 kg Constitutional Constitutional: no acute distress, morbidly obese, chronically ill appearing and cooperative *Routine HEENT Exam Head: Present normocephalic Eye: Present EOMI and PERRL ENT: Present mucous membranes moist *Routine Neck Exam Neck: Present supple; Absent lymphadenopathy *Routine Respiratory Exam Respiratory: Present CTA bilaterally *Routine Cardiovascular Exam Cardiovascular: Present RRR *Routine Abdominal Exam Abdominal: Present soft and normoactive bowel sounds; Absent tenderness *Routine Rectal Exam Patient deferred: visual exam *Routine Exam Patient deferred: external exam *Routine Extremities Exam Extremities: Absent cyanosis, clubbing or edema *Routine Skin Exam Skin: Present intact and warm; Absent rash *Routine Neurological Exam Neurological: Present alert, oriented X3 and moving all extremities; Absent altered mental status Results Data Completed and Pending Labs on day of discharge: Labs from last 24 hours 03/15/25 03/14/25 03/14/25 05:45 20:42 17:15 WBC 13.0 H RBC 4.60 Hgb 13.2 Hct 41.7 MCV 90.7 MCH 28.7 MCHC 31.7 L RDW 13.1 Plt Count 221 MPV 11.9 H Neut % (Auto) 85.2 H Lymph % (Auto) 11.7 [place] % (Auto) 2.5 Eos % (Auto) 0.0 L Baso % (Auto) 0.2 Neut # (Auto) 11.1 H Lymph # (Auto) 1.5 [place] # (Auto) 0.3 Eos # (Auto) 0.0 Baso # (Auto) 0.0 D-Dimer VBG pH VBG pCO2 VBG pO2 VBG HCO3 VBG Total CO2 VBG O2 Saturation VBG Base Excess VBG Lactic Acid Sodium 142 Potassium 4.4 Chloride 110 H Carbon Dioxide 24 Anion Gap 12.4 BUN 24 H D Creatinine 1.20 H Estimated Creat Clear 39 Estimated GFR 46 L Est GFR ( Amer) 56 L Glucose 202 H D Calcium 9.4 Phosphorus 2.8 Magnesium 1.8 Total Bilirubin AST ALT Alkaline Phosphatase Troponin I < 0.01 < 0.01 NT-Pro-B Natriuret Pep Total Protein Albumin Globulin Albumin/Globulin Ratio Procalcitonin TSH Free T4 Index Thyroxine (T4) T3 Uptake Urine Color Urine Appearance Urine pH Ur Specific Fraser Urine Protein Urine Glucose (UA) Urine Ketones Urine Blood Urine Nitrate Urine Bilirubin Urine Urobilinogen Ur Leukocyte Esterase Urine RBC Urine WBC Ur Squamous Epith Cells Urine Bacteria HCV Ab AGUILA w/Rflx PCR Qn HIV Ag/Ab Combo Qual 03/14/25 03/14/25 15:24 14:08 WBC 10.6 RBC 4.88 Hgb 14.1 Hct 44.4 MCV 91.0 MCH 28.9 MCHC 31.8 RDW 13.2 Plt Count 248 MPV 12.5 H Neut % (Auto) 53.3 Lymph % (Auto) 37.8 [place] % (Auto) 5.8 Eos % (Auto) 1.8 Baso % (Auto) 0.9 Neut # (Auto) 5.7 Lymph # (Auto) 4.0 [place] # (Auto) 0.6 Eos # (Auto) 0.2 Baso # (Auto) 0.1 D-Dimer 0.63 H VBG pH 7.37 VBG pCO2 42.7 VBG pO2 41.1 H VBG HCO3 24.0 VBG Total CO2 25.3 VBG O2 Saturation 82.5 H VBG Base Excess -1.3 VBG Lactic Acid 2.0 Sodium 144 Potassium 3.9 Chloride 105 Carbon Dioxide 26 Anion Gap 16.9 H BUN 19 H Creatinine 1.30 H Estimated Creat Clear 80 Estimated GFR 42 L Est GFR ( Amer) 51 L Glucose 119 H Calcium 9.4 Phosphorus Magnesium 1.9 Total Bilirubin 0.4 AST 24 ALT 18 Alkaline Phosphatase 93 Troponin I < 0.01 NT-Pro-B Natriuret Pep 275 H Total Protein 7.8 Albumin 4.4 Globulin 3.4 H Albumin/Globulin Ratio 1.3 Procalcitonin 0.055 TSH 3.57 Free T4 Index 3.3 L Thyroxine (T4) 10.8 T3 Uptake 31 Urine Color Yellow Urine Appearance Clear Urine pH 6.0 Ur Specific Fraser 1.010 Urine Protein Negative Urine Glucose (UA) Negative Urine Ketones Negative Urine Blood Negative Urine Nitrate Negative Urine Bilirubin Negative Urine Urobilinogen 0.2 Ur Leukocyte Esterase Negative Urine RBC None Urine WBC None Ur Squamous Epith Cells None Urine Bacteria None HCV Ab AGUILA w/Rflx PCR Qn Negative HIV Ag/Ab Combo Qual Negative DS: Diagnosis Discharge Diagnosis (1) Atrial fibrillation with rapid ventricular response: Status: Acute Code(s): I48.91 - Unspecified atrial fibrillation (2) Asthma: Status: Acute Code(s): J45.909 - Unspecified asthma, uncomplicated (3) Smoking greater than 30 pack years: Status: Acute Code(s): F17.210 - Nicotine dependence, cigarettes, uncomplicated (4) Dyspnea on exertion: Status: Acute Code(s): R06.09 - Other forms of dyspnea (5) HLD (hyperlipidemia): Status: Acute Code(s): E78.5 - Hyperlipidemia, unspecified Qualifiers: Hyperlipidemia type: mixed hyperlipidemia Qualified Code(s): E78.2 - Mixed hyperlipidemia (6) SHIRAZ (obstructive sleep apnea): Status: Acute Code(s): G47.33 - Obstructive sleep apnea (adult) (pediatric) Meds Home Medications and Allergies Home Medications ?Medication ?Instructions ?Recorded ?Confirmed ?Type montelukast 10 mg tablet 10 mg PO DAILY allergic rhinitis 02/09/20 03/17/25 History famotidine 40 mg tablet 40 mg PO HS 11/15/20 03/17/25 History fenofibrate nanocrystallized 48 mg 48 mg PO DAILY 01/25/21 03/17/25 History tablet cetirizine 10 mg tablet 10 mg PO DAILY 02/05/23 03/17/25 History levothyroxine 50 mcg tablet 50 mcg PO DAILYDM 01/16/24 03/17/25 History albuterol sulfate 90 mcg/actuation 2 puff inhalation DAILYP PRN soa 02/05/24 03/17/25 History aerosol inhaler (Ventolin HFA) colestipol 1 gram tablet 1 g PO BID 01/06/25 03/17/25 History fluticasone 500 mcg-salmeterol 50 1 inh inhalation BID #180 ea 01/06/25 03/17/25 Rx mcg/dose blistr powdr for inhalation (Advair Diskus) metoprolol succinate 50 mg 50 mg PO DAILY #30 tabs 01/12/25 03/17/25 Rx tablet,extended release 24 hr (Toprol XL) apixaban 5 mg tablet (Eliquis) 5 mg PO BID 03/14/25 03/17/25 History potassium chloride 20 mEq 20 meq PO DAILY 03/14/25 03/17/25 History tablet,extended release(part/cryst) diltiazem HCl 120 mg 120 mg PO HS #30 caps 03/15/25 03/17/25 Rx capsule,extended release 24 hr lovastatin 20 mg tablet 20 mg PO HS 03/15/25 03/17/25 History fexofenadine 180 mg tablet 180 mg PO DAILY 03/17/25 03/17/25 History (Allergy Relief (fexofenadine)) losartan 25 mg tablet 25 mg PO DAILY #90 tabs 03/17/25 03/17/25 Rx New Prescriptions to Start Prescriptions: diltiazem HCl Portillo Mccray Allergies Allergy/AdvReac Type Severity Reaction Status Date / Time spironolactone Allergy Intermediate hives Verified 03/17/25 11:28 lactase (From Dairy Aid) Allergy Mild Diarrhea Verified 03/17/25 11:28 atorvastatin AdvReac Severe myalgias Verified 03/17/25 11:28 Discharge Plan Disposition Patient Disposition: Home, Self-Care Condition: Fair Follow up Plan Follow up with: Ishaan Lehman PA [Physician Bar Staff] - 04/05/25 1:00 pm Dave Arriola MD [Primary Care Provider] - 03/22/25 10:00 am Prescriptions/Medication Reconciliation: New diltiazem HCl 120 mg capsule,extended release 24hr 120 mg PO HS Qty: 30 0RF Continued montelukast 10 mg tablet 10 mg PO DAILY albuterol sulfate [Ventolin HFA] 90 mcg/actuation HFA aerosol inhaler 2 puff inhalation DAILYP PRN (Reason: soa) Patient Comments: INHALE 2 PUFFS EVERY 4 HOURS NEEDED fenofibrate nanocrystallized 48 mg tablet 48 mg PO DAILY famotidine 40 mg tablet 40 mg PO HS cetirizine 10 mg tablet 10 mg PO DAILY Patient Comments: TAKE 1 TABLET 1 TIME EACH DAY colestipol 1 gram tablet 1 g PO BID Patient Comments: TAKE 2 TABLETS EVERY DAY DIRECTED fluticasone propion-salmeterol [Advair Diskus] 500-50 mcg/dose blister with device 1 inh inhalation BID Qty: 180 2RF metoprolol succinate [Toprol XL] 50 mg tablet extended release 24 hr 50 mg PO DAILY Qty: 30 11RF levothyroxine 50 mcg tablet 50 mcg PO DAILYDM potassium chloride 20 mEq tablet,ER particles/crystals 20 meq PO DAILY Eliquis 5 mg tablet 5 mg PO BID Rx Instructions: TAKE 1 TABLET 2 TIMES EACH DAY lovastatin 20 mg tablet 20 mg PO HS No Action fexofenadine [Allergy Relief (fexofenadine)] 180 mg tablet 180 mg PO DAILY Patient Comments: TAKE 1 TABLET 1 TIME EACH DAY losartan 25 mg tablet 25 mg PO DAILY Qty: 90 3RF Problem Reconciliation Problems Reviewed?: Yes Patient Discharge Instructions ACTIVITY: Continue current activity DIET: continue same diet Patient Instructions: DI for Atrial Fibrillation Print Language: Armenian Providers Primary Care Provider: Dave Arriola Admit Provider: Charles Baxter Attending Provider: Charles Baxter
--- NOTE | 2025-03-15 12:42 | PC.NURSE ---
RT at BS placing pt on a 2-week event monitor as ordered.
--- NOTE | 2025-03-15 12:43 | P.CONCA_ITS ---
History of Present Illness History of Present Illness Consult date: 03/15/25 Requesting physician: Charles Baxter Consult reason: atrial fibrillation Chief complaint: near syncope History of present illness: 59-year-old white female established patient of our office with a history of paroxysmal atrial fibrillation status post ablation in [place] 2020. She also has history of sinus bradycardia, NSVT, SVT. Normal echo and stress test in October 2024. She has COPD with ongoing tobacco use, sleep apnea, obesity. Currently takes Eliquis and metoprolol 50 mg at home. Last seen in our office in October and symptoms were improving with increased beta-angela dose. Patient states over the past several days she has had worsening episodes of palpitations with severe shortness of breath and near syncope. She had an appointment in our office yesterday but instead went to the emergency room where she was found to be in A-fib RVR with rate 136. She was started on Cardizem bolus and subsequent drip and converted to sinus bradycardia 54 bpm and is currently asymptomatic. WBC 13,000, D-dimer 0.63 but CTA was negative for PE, troponins normal x 3, proBNP 275, T4 is 3.3 but she is on Synthroid at home, TSH normal. [facility] Disclaimer: The information contained in this section may have been updated after the patient was seen, as this information can be updated by other users. Medical History Asthma Dyspnea on exertion Smoking greater than 30 pack years Multiple pulmonary nodules HLD (hyperlipidemia) Atrial fibrillation HTN (hypertension) Dyspnea FH: cholecystectomy SHIRAZ (obstructive sleep apnea) CHF (congestive heart failure) Angina pectoris, unstable Chest pain Incurved toenail Pincer nail deformity Arthritis of right foot Calcaneal spur of right foot Callus of foot Tobacco abuse History of ankle sprain Right ankle pain Right foot pain Acute kidney injury Leg cramps Muscle ache Nocturnal hypoxemia Fatigue RLS (restless legs syndrome) BMI 40.0-44.9, adult SHIRAZ on CPAP Claudication Right groin pain Atrial flutter with rapid ventricular response KEVIN (acute kidney injury) SVT (supraventricular tachycardia) PAF (paroxysmal atrial fibrillation) Daytime somnolence Restless sleeper Snoring Chest pain Elevated left ventricular end-diastolic pressure (LVEDP) Atrial fibrillation with RVR New onset atrial fibrillation Rapid atrial fibrillation Morbid obesity Gastroesophageal reflux disease Contusion of rib on right side Atelectasis Acute bronchitis Edema Tubular adenoma of colon Post surgical complication Dysuria Abdominal pain Enteropathogenic Escherichia coli infection Diastolic dysfunction Diarrhea Acute renal insufficiency Dehydration Diabetes Cholelithiasis Colitis PUD (peptic ulcer disease) SOB (shortness of breath) Seasonal allergies Fatigue Diastolic dysfunction Chronic pain Family history of ischemic heart disease Tobacco use Abnormal stress test Superficial thrombophlebitis Lymphadenitis Thromboembolism Surgical History Hx of cholecystectomy H/O: hysterectomy Family History Other Cancer Diabetes Heart attack Social History Smoking Status: Current every day smoker tobacco type: cigarettes packs per day: 1 second hand exposure: Yes alcohol intake: never counseling provided: provider counseling substance use type: denies use current occupational status: disabled Travel in the last 8 weeks: Inside the [place] household members: spouse housing: house current occupational exposures/hazards: No caffeine: Yes Have you lived/traveled outside [place] in past 30 days?: No Contact w/someone who lives/traveled outside [place] past 30 days?: No Exposure to someone with infectious disease in past 14 days?: No Do you have a fever (greater than 100.4 F or 38 C)?: No Have you tested positive for COVID-19: No Exposed to someone with COVID-19 in past 14 days?: No Do you have a sore throat?: No Do you have a cough?: No Do you have any weakness?: No Do you have any diarrhea?: No Are you experiencing any unusual bleeding?: No Do you have any muscle aches/pain?: No Do you have any abdominal pain?: No Are you experiencing loss of taste or smell?: No Review of Systems Constitutional Constitutional: Reports fatigue and Reports weakness Eyes Eyes: Denies loss of vision ENT Ears, Nose, Mouth, and Throat: Denies hearing loss and Denies vertigo *Cardiovascular Cardiovascular: Reports chest pain, Reports dyspnea, Reports palpitations and Denies syncope *Respiratory Respiratory: Denies cough and Reports dyspnea *Gastrointestinal Gastrointestinal: Denies change in stool character, Denies nausea and Denies vomiting *Musculoskeletal Musculoskeletal: Denies muscle weakness Integumentary/Breasts Skin/Breast: Denies changing lesions *Neurologic Neurologic: Denies loss of vision, Denies syncope, Denies vertigo and Reports weakness Endocrine Endocrine: Reports fatigue and Reports palpitations Exam Data for Last 24 hours Vital signs and Labs for Last 24 Hours: Temp Pulse Resp BP Pulse Ox O2 Del Method FiO2 98.0 F 57 L 18 129/60 97 Room Air 30 03/15/25 12:00 03/15/25 12:00 03/15/25 12:00 03/15/25 12:00 03/15/25 12:00 03/15/25 12:00 03/15/25 02:01 Laboratory Results - last 24 hr 03/14/25 14:08: WBC 10.6, RBC 4.88, Hgb 14.1, Hct 44.4, MCV 91.0, MCH 28.9, MCHC 31.8, RDW 13.2, Plt Count 248, MPV 12.5 H, Neut % (Auto) 53.3, Lymph % (Auto) 37.8, Frederick % (Auto) 5.8, Eos % (Auto) 1.8, Baso % (Auto) 0.9, Neut # (Auto) 5.7, Lymph # (Auto) 4.0, Frederick # (Auto) 0.6, Eos # (Auto) 0.2, Baso # (Auto) 0.1, D- Dimer 0.63 H, VBG pH 7.37, VBG pCO2 42.7, VBG pO2 41.1 H, VBG HCO3 24.0, VBG Total CO2 25.3, VBG O2 Saturation 82.5 H, VBG Base Excess -1.3, VBG Lactic Acid 2.0, Sodium 144, Potassium 3.9, Chloride 105, Carbon Dioxide 26, Anion Gap 16.9 H, BUN 19 H, Creatinine 1.30 H, Estimated Creat Clear 80, Estimated GFR 42 L, Est GFR ( Amer) 51 L, Glucose 119 H, Calcium 9.4, Magnesium 1.9, Total Bilirubin 0.4, AST 24, ALT 18, Alkaline Phosphatase 93, Troponin I < 0.01, NT-Pro-B Natriuret Pep 275 H, Total Protein 7.8, Albumin 4.4, Globulin 3.4 H, Albumin/Globulin Ratio 1.3, Procalcitonin 0.055, TSH 3.57, Free T4 Index 3.3 L, Thyroxine (T4) 10.8, T3 Uptake 31, HCV Ab AGUILA w/Rflx PCR Qn Negative, HIV Ag/Ab Combo Qual Negative 03/14/25 15:24: Urine Color Yellow, Urine Appearance Clear, Urine pH 6.0, Ur Specific [place] 1.010, Urine Protein Negative, Urine Glucose (UA) Negative, Urine Ketones Negative, Urine Blood Negative, Urine Nitrate Negative, Urine Bilirubin Negative, Urine Urobilinogen 0.2, Ur Leukocyte Esterase Negative, Urine RBC None, Urine WBC None, Ur Squamous Epith Cells None, Urine Bacteria None 03/14/25 17:15: Troponin I < 0.01 03/14/25 20:42: Troponin I < 0.01 03/15/25 05:45: WBC 13.0 H, RBC 4.60, Hgb 13.2, Hct 41.7, MCV 90.7, MCH 28.7, MCHC 31.7 L, RDW 13.1, Plt Count 221, MPV 11.9 H, Neut % (Auto) 85.2 H, Lymph % (Auto) 11.7, Frederick % (Auto) 2.5, Eos % (Auto) 0.0 L, Baso % (Auto) 0.2, Neut # (Auto) 11.1 H, Lymph # (Auto) 1.5, Frederick # (Auto) 0.3, Eos # (Auto) 0.0, Baso # (Auto) 0.0, Sodium 142, Potassium 4.4, Chloride 110 H, Carbon Dioxide 24, Anion Gap 12.4, BUN 24 H D, Creatinine 1.20 H, Estimated Creat Clear 39, Estimated GFR 46 L, Est GFR ( Amer) 56 L, Glucose 202 H D, Calcium 9.4, Phosphorus 2.8, Magnesium 1.8 I & O for Last 24 hours: Intake & Output 03/12/25 03/13/25 03/14/25 03/15/25 23:59 23:59 23:59 23:59 Intake Total 28.25 / 628.25 960 / 960 Output Total 900 / 900 Balance 28.25 / 628.25 60 / 60 Weight 107 lb 4.8 oz Meds Home Medications and Allergies Home Medications ?Medication ?Instructions ?Recorded ?Confirmed ?Type montelukast 10 mg tablet 10 mg PO DAILY allergic rhinitis 02/09/20 03/14/25 History famotidine 40 mg tablet 40 mg PO HS 11/15/20 03/15/25 History fenofibrate nanocrystallized 48 mg 48 mg PO DAILY 01/25/21 03/14/25 History tablet cetirizine 10 mg tablet 10 mg PO DAILY 02/05/23 03/14/25 History levothyroxine 50 mcg tablet 50 mcg PO DAILYDM 01/16/24 03/15/25 History albuterol sulfate 90 mcg/actuation 2 puff inhalation DAILYP PRN soa 02/05/24 03/14/25 History aerosol inhaler (Ventolin HFA) colestipol 1 gram tablet 1 g PO BID 01/06/25 03/14/25 History fluticasone 500 mcg-salmeterol 50 1 inh inhalation BID #180 ea 01/06/25 03/14/25 Rx mcg/dose blistr powdr for inhalation (Advair Diskus) metoprolol succinate 50 mg 50 mg PO DAILY #30 tabs 01/12/25 03/14/25 Rx tablet,extended release 24 hr (Toprol XL) apixaban 5 mg tablet (Eliquis) 5 mg PO BID 03/14/25 03/14/25 History furosemide 20 mg tablet 40 mg PO DAILYP PRN edema 03/14/25 03/15/25 History potassium chloride 20 mEq 20 meq PO DAILY 03/14/25 03/15/25 History tablet,extended release(part/cryst) diltiazem HCl 120 mg 120 mg PO HS #30 caps 03/15/25 Rx capsule,extended release 24 hr losartan 25 mg tablet 25 mg PO DAILY 03/15/25 03/15/25 History lovastatin 20 mg tablet 20 mg PO HS 03/15/25 03/15/25 History New Prescriptions to Start Prescriptions: diltiazem HCl [facility] M[facility]ray Allergies Allergy/AdvReac Type Severity Reaction Status Date / Time spironolactone Allergy Intermediate hives Verified 02/09/25 14:30 lactase (From [employer]) Allergy Mild Diarrhea Verified 02/09/25 14:30 atorvastatin AdvReac Severe myalgias Verified 02/09/25 14:30 Assessment and Plan *Assessment and plan (1) Atrial fibrillation with rapid ventricular response: Status: Acute Category: Medical Code(s): I48.91 - Unspecified atrial fibrillation (2) Dyspnea on exertion: Status: Acute Category: Medical Code(s): R06.09 - Other forms of dyspnea (3) Smoking greater than 30 pack years: Status: Acute Category: Social Hx Code(s): F17.210 - Nicotine dependence, cigarettes, uncomplicated (4) Sick sinus syndrome: Status: Acute Category: Medical Code(s): I49.5 - Sick sinus syndrome (5) NSVT (nonsustained ventricular tachycardia): Status: Acute Category: Medical Code(s): I47.29 - Other ventricular tachycardia Plan Sick Sinus Syndrome - A-fib RVR, SB, NSVT, SVT - s/p a-fib ablation 2020 - Presented here with rapid ventricular response 130s, converted with rate control - increaseing need for AVB recently - continue Metoprolol 50, add Cardizem CD 180 and 2 week monitor at discharge - Continue Eliquis - if she cannot tolerate rate control or it proves to be ineffective she may benefit from ablation and/or addition of antiarrhythmic - Will refer to electrophysiology at [facility] per patient's request - Continue efforts at weight loss, reducing tobacco, CPAP compliant, BP control Morbid Obesity - needs aggressive weight loss via diet and exericse - consider OP GLP-1 SHIRAZ - recommend CPAP Compliance Hypothyroidism - cont synthroid Htn - well controlled, cont Losartan, Metoprlol CV stable for DC home with addition of Cardizem. She needs to see EP at [facility] within the next month and she needs f/u in our office in 1-2 weeks.
--- NOTE | 2025-03-15 12:48 | PC.NURSE ---
RESP CARE NOTE: Event monitor placed on patient and instruction discussed. Pt states understanding.
--- NOTE | 2025-03-15 13:31 | PC.NURSE ---
pt ambulated around 300 feet around the unit with standby assistance. no complaints while ambulating, normal gait and no SOA or pain stated by pt.
--- NOTE | 2025-03-16 10:15 | SW/DCPLANNER ---
Spoke with patient on the phone. Patient stated that she is still having her headaches but tylenol and her flonase is helping. Patient stated that she was able to get her medicine and they brought it to her room. Patient stated that she is aware of her upcoming appointments. Patient stated that she has no concerns or questions at this time. Gautam Jacobson
== END 2025-03-15 14:33 | disposition home or self-care (01) ==
LOC: ER 14:30 → 2ND 21:05
PROVIDERS: Nurse Practitioner Family; Physician Assistant; Admitting Provider Student in an Organized Health Care Education/Training Program; Emergency Provider Emergency Medicine; PCP Emergency Medicine; Visit Provider Student in an Organized Health Care Education/Training Program
DX: I48.0 Paroxysmal atrial fibrillation (principal); F17.210 Nicotine dependence, cigarettes, uncomplicated; I49.5 Sick sinus syndrome; J45.909 Unspecified asthma, uncomplicated; E78.5 Hyperlipidemia, unspecified; G47.33 Obstructive sleep apnea (adult) (pediatric); I10 Essential (primary) hypertension; Z79.01 Long term (current) use of anticoagulants; E66.01 Morbid (severe) obesity due to excess calories; Z68.41 Body mass index [BMI] 40.0-44.9, adult; E03.9 Hypothyroidism, unspecified; Z79.899 Other long term (current) drug therapy; Z91.011 Allergy to milk products; Z88.8 Allergy status to other drugs, medicaments and biological substances; Z79.51 Long term (current) use of inhaled steroids
CPT/HCPCS: 70450; 70496; 70498; 71275; 80048; 80053; 81001; 82803; 83735; 83880; 84100; 84145; 84436; 84443; 84479; 84484; 85025; 85378; 86803; 87389; 93005; 93270; 94660; 99291; G0378; J1100; J2405; Q9967

== ENCOUNTER 2025-06-03 21:36 | Emergency (ER) | payer OTHER, SELFPAY ==
--- OUTSIDE RECORDS SUMMARY | 2025-06-03 22:35 | XMS_ITS | Data Portability ---
Author Organization [facility] [place] & MAVIS Garcia ADMIN Address [address] [place] [id number] Care Team Providers Care Professor/Nurse Anesthetist Name Role Phone CHRISTINE BOYD Medical Artist DAVE ALFARO Primary Care Provider Assessment Encounter Date Assessment Date Assessment LastModified by Organization Details LastModified Time 07/29/2024 07/29/2024 I spent 30 minute discussing lifestyle changes and dietary modifications to improve health. [email or web address] Not available 07/29/2024 12:02:12 01/24/2025 01/24/2025 PATIENT TO CONTINUE WITH CURRENT MANAGEMENT. WE HAVE HAD EXTENSIVE DISCUSSIONS REGARDING CHRONIC ISSUES. WILL CALL PATIENT TO DISCUSS RESULTS OF LAB WORK AND MAKE PLANS BASED ON FINDINGS. [email or web address] Not available 01/24/2025 08:59:49 Plan of Treatment Reminders Order Date Submit Date Provider Last Modified By Organization Details Last Modified Time Details Appointments OV EST 15 2024 11:45A M Dave Alfaro MD Not available Not available Not available OV EST 15 2024 03:00P Maulik Boyd NP Not available Not available Not available Lab lipids, total, serum 2024 025 [facility] (Laboratory), [address] [place], [address], 01/31/2025 07:32:22 CBC w/ auto diff 2024 025 [facility] (Laboratory), [address] [place], [address], 01/24/2025 13:06:43 CMP, serum or plasma 2024 025 [facility] (Laboratory), [address] [place], [address], 01/24/2025 13:32:25 TSH, serum or plasma 2024 [facility] (Laboratory), [address] [place], [address], 01/24/2025 13:32:23 HbA1c (hemoglo bin A1c), blood 2024 [facility] (Laboratory), [address] [place], [address], 01/24/2025 14:10:10 CMP, serum or plasma 2023 [facility] (Laboratory), [address] [place], [address], 11/03/2024 16:54:55 TSH + free T4, serum 2023 [facility] (Laboratory), [address] [place], [address], 11/03/2024 07:59:59 CMP, serum or plasma 2023 [facility] (Laboratory), [address] [place], [address], 10/27/2024 13:31:07 CBC w/ auto diff 2023 [facility] (Laboratory), [address] [place], [address], 10/27/2024 12:59:48 lipid panel, serum 2023 [facility] (Laboratory), [address] [place], [address], 10/27/2024 13:31:09 magnesiu m, serum or plasma 2023 [facility] (Laboratory), [address] [place], [address], 07/29/2024 13:35:49 lipid panel, serum 2023 [facility] (Laboratory), [address] [place], [address], 07/29/2024 13:35:47 HbA1c (hemoglo bin A1c), blood 2023 024 [facility] (Laboratory), [address] [place], [address], 07/29/2024 13:30:14 CBC w/ auto diff 2023 [facility] (Laboratory), [address] [place], [address], 07/29/2024 13:17:04 CMP, serum or plasma 2023 024 [facility] (Laboratory), [address] [place], [address], 07/29/2024 13:35:45 TSH + free T4, serum 2023 [facility] (Laboratory), [address] [place], [address], 08/05/2024 07:45:03 Referral None recorded . Procedures None recorded . Surgeries None recorded . Imaging LDCT, chest, for lung cancer screenin g 2023 [facility] Centralized Scheduling, [address] [place], [address], 08/03/2024 15:45:18 Medication Orders None recorded . Patient TargetsNo targets recorded. Patient InstructionsNo instructions recorded. Reason for Referral None Reported. Results Created Date Observation Date Name Description Value Unit Range Abnormal Flag Note LastModifiedBy Organization Detail LastModifiedTime 07/29/20 24 07/29/2024 CBC AUTO W DIFF WBC 8.7 10 4.5-11 .5 Not Available [facility] (Lab Registration) [address] [place], [address], 07/29/2024 13:17:04 07/29/20 24 07/29/2024 CBC AUTO W DIFF RBC 4.69 10 4.25-5 .57 Not Available [facility] (Lab Registration) [address] [place], [address], 07/29/2024 13:17:04 07/29/20 24 07/29/2024 CBC AUTO W DIFF HGB 13.5 g/dL 12.0-1 5.7 Not Available [facility] (Lab Registration) [address] [place], [address], 07/29/2024 13:17:04 07/29/20 24 07/29/2024 CBC AUTO W DIFF HCT 42.3 % 36.0-4 7.0 Not Available [facility] (Lab Registration) [address] [place], [address], 07/29/2024 13:17:04 07/29/20 24 07/29/2024 CBC AUTO W DIFF MCV 90.2 fL 80-95 Not Available [facility] (Lab Registration) [address] [place], [address], 07/29/2024 13:17:04 07/29/20 24 07/29/2024 CBC AUTO W DIFF MCH 28.8 pg 27.0-3 4.0 Not Available [facility] (Lab Registration) [address] [place], [address], 07/29/2024 13:17:04 07/29/20 24 07/29/2024 CBC AUTO W DIFF MCHC 31.9 g/dL 32.0-3 6.0 low Not Available [facility] (Lab Registration) [address] [place], [address], 07/29/2024 13:17:04 07/29/20 24 07/29/2024 CBC AUTO W DIFF platelet count 220 10 150-45 0 Not Available [facility] (Lab Registration) [address] [place], [address], 07/29/2024 13:17:04 07/29/20 24 07/29/2024 CBC AUTO W DIFF RDW 13.6 % 12.3-1 5.1 Not Available [facility] (Lab Registration) [address] [place], [address], 07/29/2024 13:17:04 07/29/20 24 07/29/2024 CBC AUTO W DIFF MPV 12.5 fL 7.4-10 .4 high Not Available [facility] (Lab Registration) [address] [place], [address], 07/29/2024 13:17:04 07/29/20 24 07/29/2024 CBC AUTO W DIFF granulocyte% 55.5 % 40-75 Not Available [facility] (Lab Registration) [address] [place], [address], 07/29/2024 13:17:04 07/29/20 24 07/29/2024 CBC AUTO W DIFF lymphocyte% 34.8 % 15-57 Not Available [facility] (Lab Registration) [address] [place], [address], 07/29/2024 13:17:04 07/29/20 24 07/29/2024 CBC AUTO W DIFF monocyte% 6.9 % 4.0-12 .0 Not Available [facility] (Lab Registration) [address] [place], [address], 07/29/2024 13:17:04 07/29/20 24 07/29/2024 CBC AUTO W DIFF eosinophil% 2.2 % 0.0-4. 0 Not Available [facility] (Lab Registration) [address] [place], [address], 07/29/2024 13:17:04 07/29/20 24 07/29/2024 CBC AUTO W DIFF basophil% 0.5 % 0.0-1. 0 Not Available [facility] (Lab Registration) [address] [place], [address], 07/29/2024 13:17:04 07/29/20 24 07/29/2024 CBC AUTO W DIFF immature granulocytes % 0.1 % 0.0-0. 8 Not Available [facility] (Lab Registration) [address] [place], [address], 07/29/2024 13:17:04 07/29/20 24 07/29/2024 CBC AUTO W DIFF granulocyte# 4.84 10 Not Available [facility] (Lab Registration) [address] [place], [address], 07/29/2024 13:17:04 07/29/20 24 07/29/2024 CBC AUTO W DIFF lymphocyte# 3.03 10 Not Available [facility] (Lab Registration) [address] [place], [address], 07/29/2024 13:17:04 07/29/20 24 07/29/2024 CBC AUTO W DIFF monocyte# 0.60 10 Not Available [facility] (Lab Registration) [address] [place], [address], 07/29/2024 13:17:04 07/29/20 24 07/29/2024 CBC AUTO W DIFF eosinophil# 0.19 10 Not Available [facility] (Lab Registration) [address] [place], [address], 07/29/2024 13:17:04 07/29/20 24 07/29/2024 CBC AUTO W DIFF basophil# 0.04 10 Not Available [facility] (Lab Registration) [address] [place], [address], 07/29/2024 13:17:04 07/29/20 24 07/29/2024 CBC AUTO W DIFF immature granulocytes # 0.01 10 Not Available [facility] (Lab Registration) [address] [place], [address], 07/29/2024 13:17:04 07/29/20 24 07/29/2024 CBC AUTO W DIFF manual differential NO Not Available [facility] (Lab Registration) [address] [place], [address], 07/29/2024 13:17:04 07/29/20 24 07/29/2024 CBC AUTO W DIFF note Unles s other lovett noted testi ng perfo rmed at: [facility] [address] [place] [address] [phone] Ismael blanca MD CLIA: [id number] Not Available [facility] (Lab Registration) [address] [place], [address], 07/29/2024 13:17:04 07/29/20 24 07/29/2024 HEMOG LOBIN A1C glycosylated hemoglobin A1C 5.8 % 4.5-6. 2 Not Available [facility] (Lab Registration) [address] [place], [address], 07/29/2024 13:30:14 07/29/20 24 07/29/2024 HEMOG LOBIN A1C estimated average glucose 120 mg/dL 82-131 Not Available [facility] (Lab Registration) [address] [place], [address], 07/29/2024 13:30:14 07/29/20 24 07/29/2024 HEMOG LOBIN A1C note Unles s other lovett noted testi ng perfo rmed at: [facility] [address] [place] [address] [phone] Ismael blanca MD CLIA: [id number] Not Available [facility] (Lab Registration) [address] [place], [address], 07/29/2024 13:30:14 07/29/20 24 07/29/2024 THYRO ID STIMU LATIN G HORMO NE thyroid stimulating hormone 2.27 mIU/m L 0.34-4 .80 Not Available [facility] (Lab Registration) [address] [place], [address], 07/29/2024 13:35:44 07/29/20 24 07/29/2024 THYRO ID STIMU LATIN G HORMO NE note Unles s other lovett noted testi ng perfo rmed at: [facility] [address] [place] [address] [phone] Ismael blanca MD CLIA: [id number] Not Available [facility] (Lab Registration) [address] [place], [address], 07/29/2024 13:35:44 07/29/20 24 07/29/2024 COMP METAB OLIC PANEL sodium 143 mmol/ L 136-14 5 Not Available [facility] (Lab Registration) [address] [place], [address], 07/29/2024 13:35:45 07/29/20 24 07/29/2024 COMP METAB OLIC PANEL potassium 4.9 mmol/ L 3.5-5. 1 Not Available [facility] (Lab Registration) [address] [place], [address], 07/29/2024 13:35:45 07/29/20 24 07/29/2024 COMP METAB OLIC PANEL chloride 107 mmol/ L 98-107 Not Available [facility] (Lab Registration) [address] [place], [address], 07/29/2024 13:35:45 07/29/20 24 07/29/2024 COMP METAB OLIC PANEL carbon dioxide 27 mmol/ L 21-32 Not Available [facility] (Lab Registration) [address] [place], [address], 07/29/2024 13:35:45 07/29/20 24 07/29/2024 COMP METAB OLIC PANEL anion gap 9.0 Not Available [facility] (Lab Registration) [address] [place], [address], 07/29/2024 13:35:45 07/29/20 24 07/29/2024 COMP METAB OLIC PANEL glucose 92 mg/dL 70-110 Not Available [facility] (Lab Registration) [address] [place], [address], 07/29/2024 13:35:45 07/29/20 24 07/29/2024 COMP METAB OLIC PANEL blood urea nitrogen 19 mg/dL 7-18 high Not Available [facility] (Lab Registration) [address] [place], [address], 07/29/2024 13:35:45 07/29/20 24 07/29/2024 COMP METAB OLIC PANEL creatinine 1.3 mg/dL 0.6-1. 0 high Not Available [facility] (Lab Registration) [address] [place], [address], 07/29/2024 13:35:45 07/29/20 24 07/29/2024 COMP METAB OLIC PANEL BUN/creatini ne ratio 14.6 ratio 9-21 Not Available [facility] (Lab Registration) [address] [place], [address], 07/29/2024 13:35:45 07/29/20 24 07/29/2024 COMP METAB OLIC PANEL estimated glom filtration rate 48 mL/mi n >60- low Not Available [facility] (Lab Registration) [address] [place], [address], 07/29/2024 13:35:45 07/29/20 24 07/29/2024 COMP METAB OLIC PANEL total protein 7.2 g/dL 6.4-8. 2 Not Available [facility] (Lab Registration) [address] [place], [address], 07/29/2024 13:35:45 07/29/20 24 07/29/2024 COMP METAB OLIC PANEL albumin 3.7 g/dL 3.4-5. 0 Not Available [facility] (Lab Registration) [address] [place], [address], 07/29/2024 13:35:45 07/29/20 24 07/29/2024 COMP METAB OLIC PANEL calcium 9.7 mg/dL 8.5-10 .1 Not Available [facility] (Lab Registration) [address] [place], [address], 07/29/2024 13:35:45 07/29/20 24 07/29/2024 COMP METAB OLIC PANEL corrected calcium 9.9 mg/dL 8.5-10 .1 Not Available [facility] (Lab Registration) [address] [place], [address], 07/29/2024 13:35:45 07/29/20 24 07/29/2024 COMP METAB OLIC PANEL bilirubin total 0.5 mg/dL 0.4-1. 5 Not Available [facility] (Lab Registration) [address] [place], [address], 07/29/2024 13:35:45 07/29/20 24 07/29/2024 COMP METAB OLIC PANEL AST (SGOT) 14 U/L 15-37 low Not Available [facility] (Lab Registration) [address] [place], [address], 07/29/2024 13:35:45 07/29/20 24 07/29/2024 COMP METAB OLIC PANEL ALT (SGPT) 23 U/L 12-78 Not Available [facility] (Lab Registration) [address] [place], [address], 07/29/2024 13:35:45 07/29/20 24 07/29/2024 COMP METAB OLIC PANEL alk phosphatase 100 U/L 50-120 Not Available [facility] (Lab Registration) [address] [place], [address], 07/29/2024 13:35:45 07/29/20 24 07/29/2024 COMP METAB OLIC PANEL note Unles s other lovett noted testi ng perfo rmed at: [facility] [address] [place] [address] [phone] Ismael blanca MD CLIA: [id number] Not Available [facility] (Lab Registration) [address] [place], [address], 07/29/2024 13:35:45 07/29/20 24 07/29/2024 LIPID PANEL triglyceride 161 mg/dL 20-200 The [employer]io nal [employer] (NCEP ) has set the follo wing guide lines for Fasti ng Trigl yceri jerri: YURIY L: <150 mg/dL BORDE RLINE HIGH: 150 - 199 mg/dL HIGH: 200 - 499 mg/dL VERY HIGH: > or =500 mg/dL Not Available [facility] (Lab Registration) [address] , [place], [address], 07/29/2024 13:35:47 07/29/20 24 07/29/2024 LIPID PANEL cholesterol 175 mg/dL 0-200 The [employer]io n[employer] am (NCEP ) has set the follo wing guide lines for Fasti ng Neida stero l: JUSTINA ABLE: <200 mg/dL BORDE RLINE HIGH: 200 - 239 mg/dL HIGH: > or =240 mg/dL Not Available [facility] (Lab Registration) [address], [place], [address], 07/29/2024 13:35:47 07/29/20 24 07/29/2024 LIPID PANEL HDL cholesterol 43 mg/dL 60- low The [employer]io n[employer] t[employer]gr am (NCEP ) has set the follo wing guide lines for Fasti ng HDL Neida stero l: LOW HDL: <40 mg/dL YURIY L: 40 - 60 mg/dL JUSTINA ABLE: >60 mg/dL Not Available [facility] (Lab Registration) [address], [place], [address], 07/29/2024 13:35:47 07/29/20 24 07/29/2024 LIPID PANEL LDL calculated 100 mg/dL 100- The Natio nal [employer]ca t[employer]gr am (NCEP ) has set the follo wing guide lines for Fasti ng LDL Neida stero l: OPTIM AL: < 100 mg/dL LOW RISK: 100 - 129 mg/dL BORDE RLINE HIGH: 130 - 159 mg/dL HIGH: 160 - 189 mg/dL VERY HIGH: > or = 190 mg/dL Not Available [facility] (Lab Registration) [address] [place], [address], 07/29/2024 13:35:47 07/29/20 24 07/29/2024 LIPID PANEL chol/HDL ratio 4 ratio -5 Not Available [facility] (Lab Registration) [address] [place], [address], 07/29/2024 13:35:47 07/29/20 24 07/29/2024 LIPID PANEL note Unles s other lovett noted testi ng perfo rmed at: [facility] [address] [place] [address] [phone] Ismael blanca MD CLIA: [id number] Not Available [facility] (Lab Registration) [address] [place], [address], 07/29/2024 13:35:47 07/29/20 24 07/29/2024 MAGNE SIUM magnesium 1.8 mg/dL 1.8-2. 4 Not Available [facility] (Lab Registration) [address] [place], [address], 07/29/2024 13:35:49 07/29/20 24 07/29/2024 MAGNE SIUM note Unles s other lovett noted testi ng perfo rmed at: [facility] [address] [place] [address] [phone] Ismael blanca MD CLIA: [id number] Not Available [facility] (Lab Registration) [address] [place], [address], 07/29/2024 13:35:49 07/29/20 24 07/29/2024 T4 FREE T4,free 0.96 NG/dL 0.76-1 .46 Effec tive today 013 new Refer ence Range . Not Available [facility] (Lab Registration) [address] [place], [address], 07/29/2024 13:35:51 07/29/20 24 07/29/2024 T4 FREE note Unles s other lovett noted testi ng perfo rmed at: [facility] [address] [place] [address] [phone] Ismael blanca MD CLIA: [id number] Not Available [facility] (Lab Registration) [address] [place], [address], 07/29/2024 13:35:51 10/27/20 24 10/27/2024 CBC AUTO W DIFF WBC 8.4 10 4.5-11 .5 Not Available [facility] (Lab Registration) [address] [place], [address], 10/27/2024 12:59:48 10/27/20 24 10/27/2024 CBC AUTO W DIFF RBC 4.64 10 4.25-5 .57 Not Available [facility] (Lab Registration) [address] [place], [address], 10/27/2024 12:59:48 10/27/20 24 10/27/2024 CBC AUTO W DIFF HGB 13.4 g/dL 12.0-1 5.7 Not Available [facility] (Lab Registration) [address] [place], [address], 10/27/2024 12:59:48 10/27/20 24 10/27/2024 CBC AUTO W DIFF HCT 43.3 % 36.0-4 7.0 Not Available [facility] (Lab Registration) [address] [place], [address], 10/27/2024 12:59:48 10/27/20 24 10/27/2024 CBC AUTO W DIFF MCV 93.3 fL 80-95 Not Available [facility] (Lab Registration) [address] [place], [address], 10/27/2024 12:59:48 10/27/20 24 10/27/2024 CBC AUTO W DIFF MCH 28.9 pg 27.0-3 4.0 Not Available [facility] (Lab Registration) [address] [place], [address], 10/27/2024 12:59:48 10/27/20 24 10/27/2024 CBC AUTO W DIFF MCHC 30.9 g/dL 32.0-3 6.0 low Not Available [facility] (Lab Registration) [address] [place], [address], 10/27/2024 12:59:48 10/27/20 24 10/27/2024 CBC AUTO W DIFF platelet count 235 10 150-45 0 Not Available [facility] (Lab Registration) [address] [place], [address], 10/27/2024 12:59:48 10/27/20 24 10/27/2024 CBC AUTO W DIFF RDW 12.9 % 12.3-1 5.1 Not Available [facility] (Lab Registration) [address] [place], [address], 10/27/2024 12:59:48 10/27/20 24 10/27/2024 CBC AUTO W DIFF MPV 12.3 fL 7.4-10 .4 high Not Available [facility] (Lab Registration) [address] [place], [address], 10/27/2024 12:59:48 10/27/20 24 10/27/2024 CBC AUTO W DIFF granulocyte% 58.6 % 40-75 Not Available [facility] (Lab Registration) [address] [place], [address], 10/27/2024 12:59:48 10/27/20 24 10/27/2024 CBC AUTO W DIFF lymphocyte% 33.3 % 15-57 Not Available [facility] (Lab Registration) [address] [place], [address], 10/27/2024 12:59:48 10/27/20 24 10/27/2024 CBC AUTO W DIFF monocyte% 5.9 % 4.0-12 .0 Not Available [facility] (Lab Registration) [address] [place], [address], 10/27/2024 12:59:48 10/27/20 24 10/27/2024 CBC AUTO W DIFF eosinophil% 1.9 % 0.0-4. 0 Not Available [facility] (Lab Registration) [address] [place], [address], 10/27/2024 12:59:48 10/27/20 24 10/27/2024 CBC AUTO W DIFF basophil% 0.2 % 0.0-1. 0 Not Available [facility] (Lab Registration) [address] [place], [address], 10/27/2024 12:59:48 10/27/20 24 10/27/2024 CBC AUTO W DIFF immature granulocytes % 0.1 % 0.0-0. 8 Not Available [facility] (Lab Registration) [address] [place], [address], 10/27/2024 12:59:48 10/27/20 24 10/27/2024 CBC AUTO W DIFF granulocyte# 4.94 10 Not Available [facility] (Lab Registration) [address] [place], [address], 10/27/2024 12:59:48 10/27/20 24 10/27/2024 CBC AUTO W DIFF lymphocyte# 2.81 10 Not Available [facility] (Lab Registration) [address], [place], [address], 10/27/2024 12:59:48 10/27/20 24 10/27/2024 CBC AUTO W DIFF monocyte# 0.50 10 Not Available [facility] (Lab Registration) [address] [place], [address], 10/27/2024 12:59:48 10/27/20 24 10/27/2024 CBC AUTO W DIFF eosinophil# 0.16 10 Not Available [facility] (Lab Registration) [address] [place], [address], 10/27/2024 12:59:48 10/27/20 24 10/27/2024 CBC AUTO W DIFF basophil# 0.02 10 Not Available [facility] (Lab Registration) [address] [place], [address], 10/27/2024 12:59:48 10/27/20 24 10/27/2024 CBC AUTO W DIFF immature granulocytes # 0.01 10 Not Available [facility] (Lab Registration) [address] [place], [address], 10/27/2024 12:59:48 10/27/20 24 10/27/2024 CBC AUTO W DIFF manual differential NO Not Available [facility] (Lab Registration) [address] [place], [address], 10/27/2024 12:59:48 10/27/20 24 10/27/2024 CBC AUTO W DIFF note Unles s other lovett noted testi ng perfo rmed at: [facility] [address] [place] [address] [phone] Ismael blanca MD CLIA: [id number] Not Available [facility] (Lab Registration) [address], [place], [address], 10/27/2024 12:59:48 10/27/20 24 10/27/2024 THYRO ID STIMU LATIN G HORMO NE thyroid stimulating hormone 4.61 mIU/m L 0.34-4 .80 Not Available [facility] (Lab Registration) [address], [place], [address], 10/27/2024 13:31:06 10/27/20 24 10/27/2024 THYRO ID STIMU LATIN G HORMO NE note Unles s other lovett noted testi ng perfo rmed at: [facility] [address] [facility] [place] [address] [phone] Ismael blanca MD CLIA: [id number] Not Available [facility] (Lab Registration) [address] [place], [address], 10/27/2024 13:31:06 10/27/20 24 10/27/2024 COMP METAB OLIC PANEL sodium 143 mmol/ L 136-14 5 Not Available [facility] (Lab Registration) [address] [place], [address], 10/27/2024 13:31:07 10/27/20 24 10/27/2024 COMP METAB OLIC PANEL potassium 5.5 mmol/ L 3.5-5. 1 high Not Available [facility] (Lab Registration) [address] [place], [address], 10/27/2024 13:31:07 10/27/20 24 10/27/2024 COMP METAB OLIC PANEL chloride 107 mmol/ L 98-107 Not Available [facility] (Lab Registration) [address] [place], [address], 10/27/2024 13:31:07 10/27/20 24 10/27/2024 COMP METAB OLIC PANEL carbon dioxide 27 mmol/ L 21-32 Not Available [facility] (Lab Registration) [address] [place], [address], 10/27/2024 13:31:07 10/27/20 24 10/27/2024 COMP METAB OLIC PANEL anion gap 9.0 Not Available [facility] (Lab Registration) [address] [place], [address], 10/27/2024 13:31:07 10/27/20 24 10/27/2024 COMP METAB OLIC PANEL glucose 97 mg/dL 70-110 Not Available [facility] (Lab Registration) [address] [place], [address], 10/27/2024 13:31:07 10/27/20 24 10/27/2024 COMP METAB OLIC PANEL blood urea nitrogen 24 mg/dL 7-18 high Not Available [facility] (Lab Registration) [address] [place], [address], 10/27/2024 13:31:07 10/27/20 24 10/27/2024 COMP METAB OLIC PANEL creatinine 1.4 mg/dL 0.6-1. 0 high Not Available [facility] (Lab Registration) [address], [place], [address], 10/27/2024 13:31:07 10/27/20 24 10/27/2024 COMP METAB OLIC PANEL BUN/creatini ne ratio 17.1 9-21 Not Available [facility] (Lab Registration) [address] [place], [address], 10/27/2024 13:31:07 10/27/20 24 10/27/2024 COMP METAB OLIC PANEL estimated glom filtration rate 44 mL/mi n >60- low GFR LIMIT ATION : The eGFR equat ion CKD-E PI 2020 is not appli cable for pedia tric patie nts or great er than 90 years of age. The follo wing condi tions may alter the GFR resul t: extre mes in body size, malnu triti on or obesi ty, skele kacey muscl e disea se, parap legia or quadr ipleg ia, veget chris diet or rapid ly ely ing kiney funct ion. Not Available [facility] (Lab Registration) [address], [place], [address], 10/27/2024 13:31:07 10/27/20 24 10/27/2024 COMP METAB OLIC PANEL total protein 7.2 g/dL 6.4-8. 2 Not Available [facility] (Lab Registration) [address] [place], [address], 10/27/2024 13:31:07 10/27/20 24 10/27/2024 COMP METAB OLIC PANEL albumin 3.8 g/dL 3.4-5. 0 Not Available [facility] (Lab Registration) [address] [place], [address], 10/27/2024 13:31:07 10/27/20 24 10/27/2024 COMP METAB OLIC PANEL calcium 9.7 mg/dL 8.5-10 .1 Not Available [facility] (Lab Registration) [address] [place], [address], 10/27/2024 13:31:07 10/27/20 24 10/27/2024 COMP METAB OLIC PANEL corrected calcium 9.9 mg/dL 8.5-10 .1 Not Available [facility] (Lab Registration) [address] [place], [address], 10/27/2024 13:31:07 10/27/20 24 10/27/2024 COMP METAB OLIC PANEL bilirubin total 0.4 mg/dL 0.4-1. 5 Not Available [facility] (Lab Registration) [address] [place], [address], 10/27/2024 13:31:07 10/27/20 24 10/27/2024 COMP METAB OLIC PANEL AST (SGOT) 14 U/L 15-37 low Not Available [facility] (Lab Registration) [address] [place], [address], 10/27/2024 13:31:07 10/27/20 24 10/27/2024 COMP METAB OLIC PANEL ALT (SGPT) 19 U/L 12-78 Not Available [facility] (Lab Registration) [address] [place], [address], 10/27/2024 13:31:07 10/27/20 24 10/27/2024 COMP METAB OLIC PANEL alk phosphatase 108 U/L 50-120 Not Available [facility] (Lab Registration) [address] [place], [address], 10/27/2024 13:31:07 10/27/20 24 10/27/2024 COMP METAB OLIC PANEL note Unles s other lovett noted testi ng perfo rmed at: [facility] [address] [place] [address] [phone] Ismael blanca MD CLIA: [id number] Not Available [facility] (Lab Registration) [address] [place], [address], 10/27/2024 13:31:07 10/27/20 24 10/27/2024 LIPID PANEL triglyceride 149 mg/dL 20-200 The Natio nal Neida stero l Educa tion Progr am (NCEP ) has set the follo wing guide lines for Fasti ng Trigl yceri jerri: YURIY L: <150 mg/dL BORDE RLINE HIGH: 150 - 199 mg/dL HIGH: 200 - 499 mg/dL VERY HIGH: > or =500 mg/dL Not Available [facility] (Lab Registration) [address] [place], [address], 10/27/2024 13:31:09 10/27/20 24 10/27/2024 LIPID PANEL cholesterol 155 mg/dL 0-200 The Natio nal Neida stero l Educa tion Progr am (NCEP ) has set the follo wing guide lines for Fasti ng Neida stero l: JUSTINA ABLE: <200 mg/dL BORDE RLINE HIGH: 200 - 239 mg/dL HIGH: > or =240 mg/dL Not Available [facility] (Lab Registration) [address] [place], [address], 10/27/2024 13:31:09 10/27/20 24 10/27/2024 LIPID PANEL HDL cholesterol 41 mg/dL 60- low The Natio nal Neida stero l Educa tion Progr am ([facility] ) has set the follo wing guide lines for Fasti ng HDL Neida stero l: LOW HDL: <40 mg/dL YURIY L: 40 - 60 mg/dL JUSTINA ABLE: >60 mg/dL Not Available [facility] (Lab Registration) [address] [place], [address], 10/27/2024 13:31:09 10/27/20 24 10/27/2024 LIPID PANEL LDL calculated 84 mg/dL 100- low The Natio nal Neida stero l Educa tion Progr am ([facility] ) has set the follo wing guide lines for Fasti ng LDL Neida stero l: OPTIM AL: < 100 mg/dL LOW RISK: 100 - 129 mg/dL BORDE RLINE HIGH: 130 - 159 mg/dL HIGH: 160 - 189 mg/dL VERY HIGH: > or = 190 mg/dL Not Available [facility] (Lab Registration) [address] [place], [address], 10/27/2024 13:31:09 10/27/20 24 10/27/2024 LIPID PANEL chol/HDL ratio 4 -5 Not Available [facility] (Lab Registration) [address] [place], [address], 10/27/2024 13:31:09 10/27/20 24 10/27/2024 LIPID PANEL note Unles s other lovett noted testi ng perfo rmed at: [facility] [address] [place] [address] [phone] Ismael blanca MD CLIA: [id number] Not Available [facility] (Lab Registration) [address] [place], [address], 10/27/2024 13:31:09 11/03/20 24 11/03/2024 COMP METAB OLIC PANEL sodium 143 mmol/ L 136-14 5 Not Available [facility] (Lab Registration) [address] [place], [address], 11/03/2024 16:54:55 11/03/20 24 11/03/2024 COMP METAB OLIC PANEL potassium 5.2 mmol/ L 3.5-5. 1 high Not Available [facility] (Lab Registration) [address] [place], [address], 11/03/2024 16:54:55 11/03/20 24 11/03/2024 COMP METAB OLIC PANEL chloride 108 mmol/ L 98-107 high Not Available [facility] (Lab Registration) [address] [place], [address], 11/03/2024 16:54:55 11/03/20 24 11/03/2024 COMP METAB OLIC PANEL carbon dioxide 26 mmol/ L 21-32 Not Available [facility] (Lab Registration) [address] [place], [address], 11/03/2024 16:54:55 11/03/20 24 11/03/2024 COMP METAB OLIC PANEL anion gap 9.0 Not Available [facility] (Lab Registration) [address] [place], [address], 11/03/2024 16:54:55 11/03/20 24 11/03/2024 COMP METAB OLIC PANEL glucose 81 mg/dL 70-110 Not Available [facility] (Lab Registration) [address] [place], [address], 11/03/2024 16:54:55 11/03/20 24 11/03/2024 COMP METAB OLIC PANEL blood urea nitrogen 18 mg/dL 7-18 Not Available [facility] (Lab Registration) [address], [place], [address], 11/03/2024 16:54:55 11/03/20 24 11/03/2024 COMP METAB OLIC PANEL creatinine 1.4 mg/dL 0.6-1. 0 high Not Available [facility] (Lab Registration) [address] [place], [address], 11/03/2024 16:54:55 11/03/20 24 11/03/2024 COMP METAB OLIC PANEL BUN/creatini ne ratio 12.9 9-21 Not Available [facility] (Lab Registration) [address], [place], [address], 11/03/2024 16:54:55 11/03/20 24 11/03/2024 COMP METAB OLIC PANEL estimated glom filtration rate 44 mL/mi n >60- low GFR LIMIT ATION : The eGFR equat ion CKD-E PI 2020 is not appli cable for pedia tric patie nts or great er than 90 years of age. The follo wing condi tions may alter the GFR resul t: extre mes in body size, malnu triti on or obesi ty, skele kacey muscl e disea se, parap legia or quadr ipleg ia, veget chris diet or rapid ly ely ing kiney funct ion. Not Available [facility] (Lab Registration) [address] [place], [address], 11/03/2024 16:54:55 11/03/20 24 11/03/2024 COMP METAB OLIC PANEL total protein 7.0 g/dL 6.4-8. 2 Not Available [facility] (Lab Registration) [address] [place], [address], 11/03/2024 16:54:55 11/03/20 24 11/03/2024 COMP METAB OLIC PANEL albumin 3.6 g/dL 3.4-5. 0 Not Available [facility] (Lab Registration) [address] [place], [address], 11/03/2024 16:54:55 11/03/20 24 11/03/2024 COMP METAB OLIC PANEL calcium 9.5 mg/dL 8.5-10 .1 Not Available [facility] (Lab Registration) [address] [place], [address], 11/03/2024 16:54:55 11/03/20 24 11/03/2024 COMP METAB OLIC PANEL corrected calcium 9.8 mg/dL 8.5-10 .1 Not Available [facility] (Lab Registration) [address] [place], [address], 11/03/2024 16:54:55 11/03/20 24 11/03/2024 COMP METAB OLIC PANEL bilirubin total 0.3 mg/dL 0.4-1. 5 low Not Available [facility] (Lab Registration) [address] [place], [address], 11/03/2024 16:54:55 11/03/20 24 11/03/2024 COMP METAB OLIC PANEL AST (SGOT) 19 U/L 15-37 Not Available [facility] (Lab Registration) [address] [place], [address], 11/03/2024 16:54:55 11/03/20 24 11/03/2024 COMP METAB OLIC PANEL ALT (SGPT) 19 U/L 12-78 Not Available [facility] (Lab Registration) [address] [place], [address], 11/03/2024 16:54:55 11/03/20 24 11/03/2024 COMP METAB OLIC PANEL alk phosphatase 106 U/L 50-120 Not Available [facility] (Lab Registration) [address] [place], [address], 11/03/2024 16:54:55 11/03/20 24 11/03/2024 COMP METAB OLIC PANEL note Unles s other lovett noted testi ng perfo rmed at: [facility] [address] [place] [address] [phone] Ismael blanca MD CLIA: [id number] Not Available [facility] (Lab Registration) [address] [place], [address], 11/03/2024 16:54:55 01/24/20 25 01/24/2025 CBC AUTO W DIFF WBC 8.0 10 4.5-11 .5 Not Available [facility] (Lab Registration) [address] [place], [address], 01/24/2025 13:06:43 01/24/20 25 01/24/2025 CBC AUTO W DIFF RBC 4.62 10 4.25-5 .57 Not Available [facility] (Lab Registration) [address] [place], [address], 01/24/2025 13:06:43 01/24/20 25 01/24/2025 CBC AUTO W DIFF HGB 13.3 g/dL 12.0-1 5.7 Not Available [facility] (Lab Registration) [address] [place], [address], 01/24/2025 13:06:43 01/24/20 25 01/24/2025 CBC AUTO W DIFF HCT 42.9 % 36.0-4 7.0 Not Available [facility] (Lab Registration) [address] [place], [address], 01/24/2025 13:06:43 01/24/20 25 01/24/2025 CBC AUTO W DIFF MCV 92.9 fL 80-95 Not Available [facility] (Lab Registration) [address] [place], [address], 01/24/2025 13:06:43 01/24/20 25 01/24/2025 CBC AUTO W DIFF MCH 28.8 pg 27.0-3 4.0 Not Available [facility] (Lab Registration) [address] [place], [address], 01/24/2025 13:06:43 01/24/20 25 01/24/2025 CBC AUTO W DIFF MCHC 31.0 g/dL 32.0-3 6.0 low Not Available [facility] (Lab Registration) [address] [place], [address], 01/24/2025 13:06:43 01/24/20 25 01/24/2025 CBC AUTO W DIFF platelet count 231 10 150-45 0 Not Available [facility] (Lab Registration) [address] [place], [address], 01/24/2025 13:06:43 01/24/20 25 01/24/2025 CBC AUTO W DIFF RDW 13.0 % 12.3-1 5.1 Not Available [facility] (Lab Registration) [address] [place], [address], 01/24/2025 13:06:43 01/24/20 25 01/24/2025 CBC AUTO W DIFF MPV 12.2 fL 7.4-10 .4 high Not Available [facility] (Lab Registration) [address] [place], [address], 01/24/2025 13:06:43 01/24/20 25 01/24/2025 CBC AUTO W DIFF granulocyte% 60.1 % 40-75 Not Available [facility] (Lab Registration) [address] [place], [address], 01/24/2025 13:06:43 01/24/20 25 01/24/2025 CBC AUTO W DIFF lymphocyte% 29.9 % 15-57 Not Available [facility] (Lab Registration) [address] [place], [address], 01/24/2025 13:06:43 01/24/20 25 01/24/2025 CBC AUTO W DIFF monocyte% 7.1 % 4.0-12 .0 Not Available [facility] (Lab Registration) [address] [place], [address], 01/24/2025 13:06:43 01/24/20 25 01/24/2025 CBC AUTO W DIFF eosinophil% 2.5 % 0.0-4. 0 Not Available [facility] (Lab Registration) [address] [place], [address], 01/24/2025 13:06:43 01/24/20 25 01/24/2025 CBC AUTO W DIFF basophil% 0.2 % 0.0-1. 0 Not Available [facility] (Lab Registration) [address] [place], [address], 01/24/2025 13:06:43 01/24/20 25 01/24/2025 CBC AUTO W DIFF immature granulocytes % 0.2 % 0.0-0. 8 Not Available [facility] (Lab Registration) [address] [place], [address], 01/24/2025 13:06:43 01/24/20 25 01/24/2025 CBC AUTO W DIFF granulocyte# 4.81 10 Not Available [facility] (Lab Registration) [address] [place], [address], 01/24/2025 13:06:43 01/24/20 25 01/24/2025 CBC AUTO W DIFF lymphocyte# 2.40 10 Not Available [facility] (Lab Registration) [address] [place], [address], 01/24/2025 13:06:43 01/24/20 25 01/24/2025 CBC AUTO W DIFF monocyte# 0.57 10 Not Available [facility] (Lab Registration) [address] [place], [address], 01/24/2025 13:06:43 01/24/20 25 01/24/2025 CBC AUTO W DIFF eosinophil# 0.20 10 Not Available [facility] (Lab Registration) [address] [place], [address], 01/24/2025 13:06:43 01/24/20 25 01/24/2025 CBC AUTO W DIFF basophil# 0.02 10 Not Available [facility] (Lab Registration) [address] [place], [address], 01/24/2025 13:06:43 01/24/20 25 01/24/2025 CBC AUTO W DIFF immature granulocytes # 0.02 10 Not Available [facility] (Lab Registration) [address] [place], [address], 01/24/2025 13:06:43 01/24/20 25 01/24/2025 CBC AUTO W DIFF manual differential NO Not Available [facility] (Lab Registration) [address] [place], [address], 01/24/2025 13:06:43 01/24/20 25 01/24/2025 CBC AUTO W DIFF note Unles s other lovett noted testi ng perfo rmed at: [facility] [address] [place] [address] [phone] Ismael blanca MD CLIA: [id number] Not Available [facility] (Lab Registration) [address], [address], 01/24/2025 13:06:43 01/24/20 25 01/24/2025 THYRO ID STIMU LATIN G HORMO NE thyroid stimulating hormone 4.25 mIU/m L 0.34-4 .80 Not Available [facility] (Lab Registration) [address] [place], [address], 01/24/2025 13:32:23 01/24/20 25 01/24/2025 THYRO ID STIMU LATIN G HORMO NE note Unles s other lovett noted testi ng perfo rmed at: [facility] [address] [place] [phone] Ismael blanca MD CLIA: [id number] Not Available [facility] (Lab Registration) [address] [place], [address], 01/24/2025 13:32:23 01/24/20 25 01/24/2025 COMP METAB OLIC PANEL sodium 144 mmol/ L 136-14 5 Not Available [facility] (Lab Registration) [address] [place], [address], 01/24/2025 13:32:25 01/24/20 25 01/24/2025 COMP METAB OLIC PANEL potassium 4.6 mmol/ L 3.5-5. 1 Not Available [facility] (Lab Registration) [address] [place], [address], 01/24/2025 13:32:25 01/24/20 25 01/24/2025 COMP METAB OLIC PANEL chloride 107 mmol/ L 98-107 Not Available [facility] (Lab Registration) [address] [place], [address], 01/24/2025 13:32:25 01/24/20 25 01/24/2025 COMP METAB OLIC PANEL carbon dioxide 30 mmol/ L 21-32 Not Available [facility] (Lab Registration) [address] [place], [address], 01/24/2025 13:32:25 01/24/20 25 01/24/2025 COMP METAB OLIC PANEL anion gap 7.0 Not Available [facility] (Lab Registration) [address] [place], [address], 01/24/2025 13:32:25 01/24/20 25 01/24/2025 COMP METAB OLIC PANEL glucose 89 mg/dL 70-110 Not Available [facility] (Lab Registration) [address] [place], [address], 01/24/2025 13:32:25 01/24/20 25 01/24/2025 COMP METAB OLIC PANEL blood urea nitrogen 17 mg/dL 7-18 Not Available [facility] (Lab Registration) [address], [place], [address], 01/24/2025 13:32:25 01/24/20 25 01/24/2025 COMP METAB OLIC PANEL creatinine 1.2 mg/dL 0.6-1. 0 high Not Available [facility] (Lab Registration) [address] [place], [address], 01/24/2025 13:32:25 01/24/20 25 01/24/2025 COMP METAB OLIC PANEL BUN/creatini ne ratio 14.2 9-21 Not Available [facility] (Lab Registration) [address], [place], [address], 01/24/2025 13:32:25 01/24/20 25 01/24/2025 COMP METAB OLIC PANEL estimated glom filtration rate 52 mL/mi n >60- low GFR LIMIT ATION : The eGFR equat ion CKD-E PI 2020 is not appli cable for pedia tric patie nts or great er than 90 years of age. The follo wing condi tions may alter the GFR resul t: extre mes in body size, malnu triti on or obesi ty, skele kacey muscl e disea se, parap legia or quadr ipleg ia, veget chris diet or rapid ly ely ing kiney funct ion. Not Available [facility] (Lab Registration) [address], [place], [address], 01/24/2025 13:32:25 01/24/20 25 01/24/2025 COMP METAB OLIC PANEL total protein 6.6 g/dL 6.4-8. 2 Not Available [facility] (Lab Registration) [address] [place], [address], 01/24/2025 13:32:25 01/24/20 25 01/24/2025 COMP METAB OLIC PANEL albumin 3.9 g/dL 3.4-5. 0 Not Available [facility] (Lab Registration) [address] [place], [address], 01/24/2025 13:32:25 01/24/20 25 01/24/2025 COMP METAB OLIC PANEL calcium 9.2 mg/dL 8.5-10 .1 Not Available [facility] (Lab Registration) [address] [place], [address], 01/24/2025 13:32:25 01/24/20 25 01/24/2025 COMP METAB OLIC PANEL corrected calcium 9.3 mg/dL 8.5-10 .1 Not Available [facility] (Lab Registration) [address] [place], [address], 01/24/2025 13:32:25 01/24/20 25 01/24/2025 COMP METAB OLIC PANEL bilirubin total 0.4 mg/dL 0.4-1. 5 Not Available [facility] (Lab Registration) [address] [place], [address], 01/24/2025 13:32:25 01/24/20 25 01/24/2025 COMP METAB OLIC PANEL AST (SGOT) 13 U/L 15-37 low Not Available [facility] (Lab Registration) [address] [place], [address], 01/24/2025 13:32:25 01/24/20 25 01/24/2025 COMP METAB OLIC PANEL ALT (SGPT) 18 U/L 12-78 Not Available [facility] (Lab Registration) [address] [place], [address], 01/24/2025 13:32:25 01/24/20 25 01/24/2025 COMP METAB OLIC PANEL alk phosphatase 100 U/L 37-110 Not Available [facility] (Lab Registration) [address] [place], [address], 01/24/2025 13:32:25 01/24/20 25 01/24/2025 COMP METAB OLIC PANEL note Unles s other lovett noted testi ng perfo rmed at: [facility] [address] [place] [address] [phone] Ismael blanca MD CLIA: [id number] Not Available [facility] (Lab Registration) [address] [place], [address], 01/24/2025 13:32:25 01/24/20 25 01/24/2025 LIPID PANEL triglyceride 135 mg/dL 20-200 The Natio nal Neida stero l Educa tion Progr am (NCEP ) has set the follo wing guide lines for Fasti ng Trigl yceri jerri: YURIY L: <150 mg/dL BORDE RLINE HIGH: 150 - 199 mg/dL HIGH: 200 - 499 mg/dL VERY HIGH: > or =500 mg/dL Not Available [facility] (Lab Registration) [address] [place], [address], 01/24/2025 13:32:27 01/24/20 25 01/24/2025 LIPID PANEL cholesterol 147 mg/dL 0-200 The Natio nal Neida stero l Educa tion Progr am (NCEP ) has set the follo wing guide lines for Fasti ng Neida stero l: JUSTINA ABLE: <200 mg/dL BORDE RLINE HIGH: 200 - 239 mg/dL HIGH: > or =240 mg/dL Not Available [facility] (Lab Registration) [address] [place], [address], 01/24/2025 13:32:27 01/24/20 25 01/24/2025 LIPID PANEL HDL cholesterol 44 mg/dL 60- low The Natio nal Neida stero l Educa tion Progr am (NCEP ) has set the follo wing guide lines for Fasti ng HDL Neida stero l: LOW HDL: <40 mg/dL YURIY L: 40 - 60 mg/dL JUSTINA ABLE: >60 mg/dL Not Available [facility] (Lab Registration) [address] [place], [address], 01/24/2025 13:32:27 01/24/20 25 01/24/2025 LIPID PANEL LDL calculated 76 mg/dL 100- low The Natio nal Neida stero l Educa tion Progr am (NCEP ) has set the follo wing guide lines for Fasti ng LDL Neida stero l: OPTIM AL: < 100 mg/dL LOW RISK: 100 - 129 mg/dL BORDE RLINE HIGH: 130 - 159 mg/dL HIGH: 160 - 189 mg/dL VERY HIGH: > or = 190 mg/dL Not Available [facility] (Lab Registration) [address], [place], [address], 01/24/2025 13:32:27 01/24/20 25 01/24/2025 LIPID PANEL chol/HDL ratio 3 -5 Not Available [facility] (Lab Registration) [address], [place], [address], 01/24/2025 13:32:27 01/24/20 25 01/24/2025 LIPID PANEL note Jayy s other lovett noted testi ng perfo rmed at: [facility] [address] [place] [address] [phone] Ismael blanca MD CLIA: [id number] Not Available [facility] (Lab Registration) [address], [place], [address], 01/24/2025 13:32:27 01/24/20 25 01/24/2025 HEMOG LOBIN A1C glycosylated hemoglobin A1C 5.5 % 4.5-6. 2 Not Available [facility] (Lab Registration) [address] [place], [address], 01/24/2025 14:10:10 01/24/20 25 01/24/2025 HEMOG LOBIN A1C estimated average glucose 111 mg/dL 82-131 Not Available [facility] (Lab Registration) [address] [place], [address], 01/24/2025 14:10:10 01/24/20 25 01/24/2025 HEMOG LOBIN A1C note Unles s other lovett noted testi ng perfo rmed at: [facility] [address] [place] [address] [phone] Ismael blanca MD CLIA: [id number] Not Available [facility] (Lab Registration) [address] [place], [address], 01/24/2025 14:10:10 08/03/20 24 08/03/2024 LDCT, chest , for lung cance r scree erlinda [facility] [address] [facility] [place] [address] Phone: Fax: Name: CINDY ANDERSEN Exam Date: 08/03/20 : [birth year] Age 58 years Gender : F Access ion: [id number] Physic kelly: HARESH ALFARO Facili ty: [facility] Facili ty HSV: Outpat ient Exam: CT CHEST LOW DOSE PROCED URE: CT CHEST WITHOU T IV CONTRA ST TECHNI QUE: Thin sectio n axial images were obtain ed from the apex throug h the diaphr agmati c level to the adrena l glands withou t the admini strati on of IV contra st materi al. Evalua tion of the vascul ar struct ures is limite d. CT scan was done accord ing to REMI solis ple. One or more of the follow ing dose-o ptimiz ing techni ques was utiliz ed for this exam: automa viri exposu re contro l, adjust ment of the mA and/or kV accord ing to patien t size, and/or use of iterat pedro recons tructi on techni que. HISTOR Y: screen ing COMPAR XAVI: No simila r prior studie s FINDIN GS: Right breast nodula r 1.6 cm minima lly calcif ied mass, possib ly fibroa denoma . Right middle lobe platel juan luis atelec tasis and/or focal consol idatio n. Tiny less than 3 mm right upper lobe record cutter ior subple ural nodule , series 206 image #45. 1.7 cm right lower lobe subple ural patchy semiso lid nodule or infilt rate, series 206 image #85. 1 cm left lower lobe periva scular hazy semiso lid nodule or focal infilt rate, series 606 image #93. The heart size is mildly enlarg ed withou t CAD. 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 There is no signif icant axilla ry or medias tinal lympha denopa thy. Left hilar granul omatou s change s. No pleura l effusi on or pneumo thorax . Old right eighth rib fractu re deform ity. Mild to modera te centra l hiatal hernia . Right renal upper pole exophy tic 3.8 cm lobula r cyst-m anjali [facility] 15. IMPRES DENISE: 1. Right middle lobe platel juan luis atelec tasis and/or focal consol idatio n or scarri ng. 2. Bilate ral lower lobe patchy semiso lid nodule s or focal infilt rates. Short- term CT chest follow -up, such as 4-6 months , advise d to assess stabil ity. 3. Tiny right upper lobe subple ural nodule . 4. Main pulmon jose ramon artery aneury sm, which may sugges t the presen ce of pulmon jose ramon arteri al hypert ension . Consid er correl ation with echoca rdiogr am. 5. Right breast nodula r mass, possib ly fibroa denoma . Correl ation with mammog vernon and ultras ound is advise d. 6. Right renal upper pole exophy tic cyst. Electr onical ly signed by: Chris Elmore MD 2023 03:40 PM EDT RP Workst ation: [id number] Dictat ed By: Chris Elmore Transc ribed By: Transc ribed On: 08/03/20 3:23 PM Electr onical ly signed by: Chris Elmore 08/03/20 Thank you for referr CINDY Osullivan to [facility]. Legall y authen ticate d by KESHAV RAMIREZ MD 2023-08-03 15:23: 40 CC'ed Logic: Orderi ng Provid er: ANGELINA PELAYOSALINA NDE CC Provid er: ANGELINA PELAYOSTEPHANYU NDE Attend ing Provid er: ANGELINA GERARDU NDE Referr ing Provid er: ANGELINA PELAYOSTEPHANYU NDE Admitt ing Provid er: ANGELINA GEELigia NDE [id number] [facility] (Radiology) [address] [place], [address], 08/09/2024 09:43:18 08/03/20 24 08/03/2024 MAMMO , scree erlinda, digit al, [facility]at [facility] [address] [facility] [place] [address] Phone: Fax: Name: CINDY ANDERSEN Exam Date: 08/03/20 24 : [birth year] Age 58 years Gender : F Access ion: [id number] Physic kelly: HARESH ALFARO Facili ty: [facility] Facili ty HSV: Outpat ient Exam: SCREEN MAMMO W CAD BILAT Exam: 3-D screen ing mammog vernon includ ing tomosy nthesi s and CAD (Compu ter Assist ed Detect ion). Clinic al indica tion: Asympt omatic screen ing exam Compar xavi: Exams to 2019 TECHNI QUE: Routin e bilate ral 2D screen ing mammog manda with CC and MLO views obtain ed. 3-D tomosy nthesi s and Comput er assist ed detect ion were utiliz ed for this exam. BREAST DENSIT Y: There are scatte red fibrog landul ar densit ies FINDIN GS: No suspic ious mass, florentin ectura l distor tion, or suspic ious calcif icatio ns are presen t. IMPRES DENISE: No eviden ce of malign venu in either breast Recomm endati on: Annual screen ing mammog vernon recomm ended in one year The result s of this report will be commun icated to the patien t by letter in layman 's terms. ACR BI-RAD S: BI-RAD S assess ment catego ry 1: Negati ve mammog manda Mammog vernon does not detect approx imatel y 10-15% of breast cancer s. A normal mammog manda does not exclud e breast cancer in a patien t with palpab le mass or abnorm al findin gs on physic al examin ation. These patien ts may need biopsi es and when clinic ally indica viri a biopsy should not be postpo jess becaus e of a normal mammog manda. If the patien t has breast surger y or biopsy , FDA/ [place] Regula tory Guidel ade mandat e that this facili ty receiv e pathol ogic result s for follow -up correl ation. Electr onical ly signed by: Mannie Elena MD 2023 03:42 PM EDT RP Workst ation: [id number] Dictat ed By: Mannie lEena Transc ribed By: Transc ribed On: 08/03/20 3:35 PM Electr onical ly signed by: Mannie Elena 08/03/20 Thank you for referr CINDY Osullivan to [facility]. Legall y authen ticate d by LAY VALDERRAMA MD 08-03 15:35: 00 CC'ed Logic: Orderi ng Provid er: SOKAN BABATU NDE CC Provid er: SOKAN BABATU NDE Attend ing Provid er: SOKAN BABATU NDE Referr ing Provid er: SOKAN BABATU NDE Admitt ing Provid er: SOKAN BABATU NDE [facility] (Radiology) [address] , [place], [address], 08/09/2024 09:43:29 10/10/20 24 10/07/2024 imagi ng inter preta tion No observ ation record ed. [facility] [address], [place], [address], 10/11/2024 08:19:36 10/10/20 24 10/07/2024 imagi ng inter preta tion No observ ation record ed. [facility] [address], [place], [address], 10/11/2024 08:19:31 10/11/20 24 10/07/2024 imagi ng inter preta tion No observ ation record ed. [facility] [address], [place], [address], 10/11/2024 08:19:26 02/05/20 25 02/04/2025 imagi ng inter preta tion No observ ation record ed. [facility] [address], [address], 02/09/2025 07:11:33 Result Notes Documentation Provider Name and Address Organization Details Recorded Time Ldct, Chest, For Lung Cancer Screening : [address] [place] [address] Name: LEONARDO ANDERSEN Exam Date: 08/03/2024 : 1965 Age 58 years Gender: F Physician: DAVE ALFARO Facility: [facility] Facility HSV: Outpatient Exam: CT CHEST LOW DOSE PROCEDURE: CT CHEST WITHOUT IV CONTRAST TECHNIQUE: Thin section axial images were obtained from the apex through the diaphragmatic level to the adrenal glands without the administration of IV contrast material. Evaluation of the vascular structures is limited. CT scan was done according to ALARA principle. One or more of the following dose-optimizing techniques was utilized for this exam: automated exposure control, adjustment of the mA and/or kV according to patient size, and/or use of iterative reconstruction technique. HISTORY: screening COMPARISON: No similar prior studies FINDINGS: Right breast nodular 1.6 cm minimally calcified mass, possibly fibroadenoma. Right middle lobe platelike atelectasis and/or focal consolidation. Tiny less than 3 mm right upper lobe posterior subpleural nodule, series 206 image #45. 1.7 cm right lower lobe subpleural patchy semisolid nodule or infiltrate, series 206 image #85. 1 cm left lower lobe perivascular hazy semisolid nodule or focal infiltrate, series 606 image #93. The heart size is mildly enlarged without CAD. 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 There is no significant axillary or mediastinal lymphadenopathy. Left hilar granulomatous changes. No pleural effusion or pneumothorax. Old right eighth rib fracture deformity. Mild to moderate central hiatal hernia. Right renal upper pole exophytic 3.8 cm lobular cyst-mean Hounsfield unit 15. IMPRESSION: 1. Right middle lobe platelike atelectasis and/or focal consolidation or scarring. 2. Bilateral lower lobe patchy semisolid nodules or focal infiltrates. Short-term CT chest follow-up, such as 4-6 months, advised to assess stability. 3. Tiny right upper lobe subpleural nodule. 4. 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 Consider correlation with echocardiogram. 5. Right breast nodular mass, possibly fibroadenoma. Correlation with mammography and ultrasound is advised. 6. Right renal upper pole exophytic cyst. Electronically signed by: Chris Elmore MD 08/03/2024 03:40 PM EDT RP Dictated By: Chris Elmore Transcribed By: Transcribed On: 08/03/2024 3:23 PM Electronically signed by: Chris Elmore 08/03/2024 Thank you for referring LEONARDO ANDERSEN to [facility]. Legally authenticated by KESHAV RAMIREZ MD 2024-08-03 15:23:40 CC'ed Logic: Ordering Provider: ANGELINA HER CC Provider: ANGELINA HER Attending Provider: ANGELINA HER Referring Provider: ANGELINA HER Admitting Provider: [place] Cota EDI [facility] 08/09/2024 09:43:18 Mammo, Screening, Digital, Bilateral : [address] [place] [address] Name: LEONARDO ANDERSEN Exam Date: 08/03/2024 : 1965 Age 58 years Gender: F Physician: DAVE ALFARO Facility: [facility] Facility HSV: Outpatient Exam: SCREEN MAMMO W CAD BILAT Exam: 3-D screening mammography including tomosynthesis and CAD (Computer Assisted Detection). Clinical indication: Asymptomatic screening exam Comparison: Exams to 2019 TECHNIQUE: Routine bilateral 2D screening mammogram with CC and MLO views obtained. 3-D tomosynthesis and Computer assisted detection were utilized for this exam. BREAST DENSITY: There are scattered fibroglandular densities FINDINGS: No suspicious mass, architectural distortion, or suspicious calcifications are present. IMPRESSION: No evidence of malignancy in either breast Recommendation: Annual screening mammography recommended in one year The results of this report will be communicated to the patient by letter in layman's terms. ACR BI-RADS: BI-RADS assessment category 1: Negative mammogram Mammography does not detect approximately 10-15% of breast cancers. A normal mammogram does not exclude breast cancer in a patient with palpable mass or abnormal findings on physical examination. These patients may need biopsies and when clinically indicated a biopsy should not be postponed because of a normal mammogram. If the patient has breast surgery or biopsy, FDA/SA Regulatory Guidelines mandate that this facility receive pathologic results for follow-up correlation. Electronically signed by: Feliberto Elena MD 08/03/2024 03:42 PM EDT RP Dictated By: Feliberto Elena Transcribed By: Transcribed On: 08/03/2024 3:35 PM Electronically signed by: Feliberto Elena 08/03/2024 Thank you for referring LEONARDO ANDERSEN to [facility]. Legally authenticated by LAY DE LA ROSA MD 2024-08-03 15:35:00 CC'ed Logic: Ordering Provider: ANGELINA HER CC Provider: ANGELINA HER Attending Provider: ANGELINA HER Referring Provider: ANGELINA HER Admitting Provider: [place] Cota [place] [facility] [place] 08/09/2024 09:43:29 Problems Name Problem SNOMED Code Status Onset Date Resolution Date Notes Provider Name and Address Organization Details Recorded Time Atrial fibrillation 53833252 Active 2024 [place] Polanco [place] [facility] [place] 5 10:13:28 Asthma 839684198 Active 2021 Mirna Pardini null, [place] [facility] [place] [facility] [place] 2 14:54:38 Essential hypertension 12754486 Active 2021 Mir[place]ardini [place] [facility] [place] 2 14:54:48 Paresthesia of upper limb 24553025 Active 2021 Mir[place]ard[place] [facility] [place] 2 14:55:14 Paresthesia 35295131 Active 2021 Mir[place]ard[place] [facility] [place] 2 14:55:49 Gastroesophag eal reflux disease 075237355 Active 2021 Mir[place]ard[place] [facility] [place] 2 14:56:01 History of polyp of colon 335511933 Active 2021 Mir[place] [facility] [place] 2 14:56:14 Chronic obstructive pulmonary disease 20949779 Active 2021 Mir[place] [facility] [place] 2 14:56:35 Diverticula of intestine 05001407 Active 2021 Mir[place] [facility] [place] [facility] [place] 2 14:56:50 Obstructive sleep apnea syndrome 72090840 Active 2021 Mir[place] [facility] [place] 2 14:57:03 Dyslipidemia 060221352 Active 2021 Mir[place] [facility] [place] 2 14:57:18 Left heart failure 60028175 Active 2021 Mir[place] [facility] [place] 2 14:57:28 Normal grief reaction 414063401 Active 2021 Mir[place] Emery [place] [facility] [place] [facility] [place] 2 14:57:41 Hypothyroidis m 50544945 Active 2021 Dave Alfaro MD [address] [place], [address] , [place] [facility] [place] [facility] [place] 2 15:55:50 End-stage renal disease 41495065 Active 2021 Dave Alfaro MD [address] [facility], [place], [address] , [place] [facility] [place] [facility] [place] 2 15:57:04 Allergic rhinitis 32419037 Active 2021 Mir[place] mccarthy, [place] [facility] [place] 2 16:16:04 Gastro-esopha geal reflux disease with esophagitis 301910474 Active 2022 Christine Boyd NP [address] [place] [address], [address] [place] [address], [phone] , [place] [facility] [place] [facility] [place] 3 13:37:34 Diarrhea 12738364 Active 2022 Christine Boyd NP [address] [place] [address], [address] [place] [address], [address] , [place] [facility] [place] [facility] [place] 3 13:37:41 Skin lesion 82998352 Active 2022 Christine Boyd NP [address] [place] [address], [address] [place] [address], [phone] , [place] [facility] [place] [facility] [place] 3 13:38:29 Problem Notes None recorded. Procedures Surgical History Date Name Laterality Status Provider Name and Address Organization Details Recorded Time 07/21/20 24 Colonoscopy completed Isaura VEE - [facility] - [place] [facility] [place] 07/27/2024 08:15:55 12/16/19 21 Unlisted px cardiac surgery completed Mirna VEE - [facility] - [place] [facility] [place] 09/02/2022 15:03:45 12/01/19 18 cholecystectomy completed [facility] & [place] 09/02/2022 15:02:02 12/01/19 18 colonoscopy completed [facility] & [place] 09/02/2022 15:03:12 Partial hysterectomy completed [facility] & [place] 09/02/2022 15:01:35 ligation of bilateral fallopian tubes completed [facility] & [place] 09/02/2022 15:01:49 Imaging Results None recorded. Procedure Notes None recorded. Medical Equipment None Reported. Allergies Allergen ID Allergen Name Allergen Category Reaction Reaction Severity Criticality Documentation Date Start Date Code Code System Note Provider Name and Address Organization Details Recorded Time 240868 spironola ctone medicatio n hives moderate Not available 07/21/2024 9997 RxNorm Doris Nelda [facility] & [place] 4 11:43:51 50950 atorvasta tin medicatio n myalgias (muscle pain) other moderate moderate high 09/02/2022 72525 RxNorm decre ases kidne y funct ion [facility] [place] & [place] 2 14:54:24 Medications Name Sig Start Date Stop Date Status Note LastModified by Organization Details LastModified Time Prescriptio n - Renewal active Not Available Not Available Not Available losartan 50 mg tablet TAKE 1 TABLET 1 TIME EACH DAY DIRECTED 07/29 completed Not Available Not Available Not Available cyclobenzap rine 10 mg tablet TAKE 1 TABLET 1 TIME EACH DAY AT BEDTIME NEEDED 09/26 completed Not Available Not Available Not Available prednisone 10 mg tablet TAKE 6 TABLETS ON 10/18. TAKE 5 TABLETS ON 10/19. TAKE 4 TABLETS ON 10/20. TAKE 3 TABLETS ON 10/21. TAKE 2 TABLETS ON 10/22. TAKE 1 TABLET ON 10/23. 01/01 completed Not Available Not Available Not Available doxycycline hyclate 100 mg capsule TAKE 1 CAPSULE 2 TIMES EACH DAY FOR 10 DAYS 01/22 completed Not Available Not Available Not Available cetirizine 10 mg tablet TAKE 1 TABLET 1 TIME EACH DAY active Not Available Not Available No t Available azithromyci n 250 mg tablet TAKE 2 TABLETS ON THE FIRST DAY, THEN TAKE 1 TABLET EACH DAY ON THE NEXT 4 DAYS. 09/02 completed Not Available Not Available Not Available metoprolol succinate ER 50 mg tablet,exte nded release 24 hr TAKE 1 TABLET 1 TIME EACH DAY active Not Available Not Available No t Available famotidine 40 mg tablet TAKE 1 TABLET 1 TIME EACH DAY AT BEDTIME active Not Available Not Available No t Available prednisone 20 mg tablet TAKE 1 TABLET 1 TIME EACH DAY FOR 10 DAYS 09/02 completed Not Available Not Available Not Available metoprolol succinate ER 100 mg tablet,exte nded release 24 hr TAKE 1 TABLET 1 TIME EACH DAY 01/22 completed Not Available Not Available Not Available promethazin e 6.25 mg-codeine 10 mg/5 mL syrup TAKE 5 ML (1 TEASPOONF UL) EVERY 6 HOURS NEEDED FOR 10 DAYS 09/02 completed Not Available Not Available Not Available pseudoephed rine ER 120 mg tablet,exte nded release TAKE 1 TABLET 2 TIMES EACH DAY 10/27 completed Not Available Not Available Not Available Kenalog 40 mg/mL suspension for injection Take 1 mL by injection route. 03/27 completed Not Available Not Available Not Available meloxicam 7.5 mg tablet TAKE 1 TABLET 1 TIME EACH DAY FOR FOOT PAIN/ARTH RITIS 03/22 completed Not Available Not Available Not Available potassium chloride ER 20 mEq tablet,exte nded release(par t/cryst) TAKE 1 TABLET 1 TIME EACH DAY active Not Available Not Available No t Available famotidine 20 mg tablet TAKE 1 TABLET EVERY 12 HOURS 01/01 completed Not Available Not Available Not Available levothyroxi ne 50 mcg tablet TAKE 1 TABLET ONCE A DAY IN THE MORNING ON AN EMPTY STOMACH active Not Available Not Available No t Available cephalexin 500 mg capsule TAKE 1 CAPSULE 2 TIMES EACH DAY FOR 10 DAYS 09/02 completed Not Available Not Available Not Available pantoprazol e 40 mg tablet,bruce yed release TAKE 1 TABLET 1 TIME EACH DAY active Not Available Not Available No t Available Gentle Laxative (bisacodyl) 5 mg tablet,bruce yed release Take 2 tablets by oral route for 1 day. 07/29 completed Not Available Not Available Not Available losartan 25 mg tablet TAKE 1 TABLET 1 TIME EACH DAY active Not Available Not Available No t Available Advair Diskus 250 mcg-50 mcg/dose powder for inhalation INHALE 1 DOSE 2 TIMES EACH DAY. RINSE MOUTH AFTER EACH USE. 01/24 completed Not Available Not Available Not Available flecainide 100 mg tablet TAKE 1 TABLET EVERY 12 HOURS NEEDED FOR AFIB WITH RVR active Not Available Not Available No t Available Advair Diskus 500 mcg-50 mcg/dose powder for inhalation INHALE 1 DOSE 2 TIMES EACH DAY active Not Available Not Available No t Available diltiazem CD 120 mg capsule,ext ended release 24 hr TAKE ONE CAPSULE BY MOUTH AT BEDTIME active Not Available Not Available No t Available montelukast 10 mg tablet TAKE 1 TABLET 1 TIME EACH DAY active Not Available Not Available No t Available furosemide 20 mg tablet TAKE 2 TABLETS 1 TIME EACH DAY NEEDED FOR SWELLING active Not Available Not Available No t Available metoprolol succinate ER 25 mg tablet,exte nded release 24 hr TAKE 1 TABLET 1 TIME EACH DAY 10/27 completed Not Available Not Available Not Available dexamethaso ne sodium phosphate 4 mg/mL injection solution Inject 1 mL twice a day by intramusc ular route. 03/27 completed Not Available Not Available Not Available ibuprofen 600 mg tablet TAKE 1 TABLET EVERY 6 HOURS NEEDED 01/01 completed Not Available Not Available Not Available lovastatin 20 mg tablet TAKE 1 TABLET 1 TIME EACH DAY WITH THE EVENING MEAL active Not Available Not Available No t Available methylpredn isolone 4 mg tablets in a dose pack TAKE ACCORDING TO PACKAGE INSTRUCTI ONS 01/22 completed Not Available Not Available Not Available fluticasone propionate 50 mcg/actuati on nasal spray,suspe nsion SPRAY 1 TIME IN EACH NOSTRIL 1 TIME EACH DAY active Not Available Not Available No t Available colestipol 1 gram tablet TAKE 2 TABLETS EVERY DAY DIRECTED active Not Available Not Available No t Available Ventolin HFA 90 mcg/actuati on aerosol inhaler INHALE 2 PUFFS EVERY 4 HOURS NEEDED 2024 active Not Available Not Available Not Avai lable fexofenadin e-pseudoeph edrine ER 180 mg-240 mg tablet,ext. release 24 hr Take 1 tablet every day by oral route. 01/22 completed Not Available Not Available Not Available fenofibrate nanocrystal lized 48 mg tablet TAKE 1 TABLET 1 TIME EACH DAY active Not Available Not Available No t Available ClearLax 17 gram/dose oral powder Take 17 g by oral route for 2 days. 10/27 completed Not Available Not Available Not Available Mucus Relief ER 600 mg tablet, extended release TAKE 2 TABLETS EVERY 12 HOURS 09/02 completed Not Available Not Available Not Available Allergy Relief (fexofenadi ne) 180 mg tablet TAKE 1 TABLET 1 TIME EACH DAY active Not Available Not Available No t Available Sentry 18 mg-400 mcg tablet TAKE 1 TABLET 1 TIME EACH DAY active Not Available Not Available No t Available Eliquis 5 mg tablet TAKE 1 TABLET 2 TIMES EACH DAY active Not Available Not Available No t Available Paxlovid 300 mg (150 mg x 2)-100 mg tablets in a dose pack TAKE 3 TABLETS TOGETHER (TWO 150 MG NIRMATREL VIR TABLETS AND ONE 100 MG RITONAVIR TABLET) BY MOUTH TWICE DAILY FOR 5 DAYS. 01/22 completed Not Available Not Available Not Available Vitals Date Recorded Body height Body mass index (BMI) Body weight Body temperature Oxygen saturation Oxygen saturation in Arterial blood by Pulse oximetry Heart rate Respiratory rate Systolic And Diastolic Provider Name and Address Organization Details Last Updated DateTime 5 162.56 cm 41.2 kg/m2 383851. 45 g 97.8 [degF] 100 % 100 % 63 /min 16 /min 151/87 mm[Hg] [facility] 5 09:00:05 Date Recorded Body height Body mass index (BMI) Body weight Body temperature Oxygen saturation Oxygen saturation in Arterial blood by Pulse oximetry Heart rate Respiratory rate Systolic And Diastolic Provider Name and Address Organization Details Last Updated DateTime 5 162.56 cm 41.4 kg/m2 038212. 2 g 97.9 [degF] 97 % 97 % 52 /min 16 /min 116/57 mm[Hg] [facility] & [place] 5 10:12:48 Date Recorded Body height Body mass index (BMI) Body weight Body temperature Oxygen saturation Oxygen saturation in Arterial blood by Pulse oximetry Heart rate Respiratory rate Systolic And Diastolic Provider Name and Address Organization Details Last Updated DateTime 4 162.56 cm 41.4 kg/m2 253115. 76 g 97.1 [degF] 97 % 97 % 59 /min 16 /min 151/81 mm[Hg] Mirna VEE [facility] & [place] 4 11:54:33 Date Recorded Body height Body mass index (BMI) Body weight Body temperature Oxygen saturation Oxygen saturation in Arterial blood by Pulse oximetry Heart rate Respiratory rate Systolic And Diastolic Provider Name and Address Organization Details Last Updated DateTime 4 162.56 cm 41.6 kg/m2 940088. 07 g 97.3 [degF] 99 % 99 % 48 /min 16 /min 116/74 mm[Hg] Mirna VEE [facility] & [place] 4 11:24:55 Social History Question Answer Notes LastModified by Organizat ion Details LastModified Time Tobacco Smoking Status Current Every Day Smoker Mirna Emery [facility] [place] [facility] & [place] 09/02/2022 15:01:18 Do You Have An Advance Directive? No Information n ot available 01/24/2025 Do You Wear A Helmet When Biking? Yes Information not available 12/26/2023 Are You Blind Or Do You Have Difficulty Seeing? No Information n ot available 12/26/2023 In The 14 Days Before Symptom Onset, Have You Had Close Contact With A Laboratory-confirm ed COVID-19 While That Case Was Ill? No Information n ot available 12/26/2023 In The 14 Days Before Symptom Onset, Have You Had Close Contact With A Person Who Is Under Investigation For COVID-19 While That Person Was Ill? No Information not available 12/26/2023 Have You Been To An Area Known To Be High Risk For COVID-19? No Information not available 12/26/2023 Are You Deaf Or Do You Have Serious Difficulty Hearing? No Information not available 12/26/2023 What Type Of Diet Are You Following? REGULAR Information n ot available 12/26/2023 Have You Processed Blood Or Body Fluids From An Ebola Virus Disease Patient Without Appropriate PPE? No Information not available 12/26/2023 Do You Reside In Or Have You Traveled To An Area Where Ebola Virus Transmission Is Active? No Information not available 12/26/2023 Have There Been Any Changes To Your Family Or Social Situation? No Information no t available 12/26/2023 What Is The Fluoride Status Of Your Home? Unknown Information not available 12/26/2023 Are There Any Guns Present In Your Home? No Information not available 12/26/2023 Have You Recently Or Are You Planning To Travel To An Area With Zika Virus? No Information not available 12/26/2023 Do You Use Insect Repellent Routinely? Yes Information not available 12/26/2023 What Is Your Current Pack Years? 30ormorepack years Information not available 12/26/2023 Do You Have Any Pets? No Information not available 12/26/2023 What Is Your Relationship Status? Single Information not available 12/26/2023 Do You Use Your Seat Belt Or Car Seat Routinely? Yes Information not available 12/26/2023 Are You Sexually Active? No Information not available 12/26/2023 Do You Have Smoke And Carbon Monoxide Detectors In Your Home? Yes Information not available 12/26/2023 Are You Passively Exposed To Smoke? Yes Information no t available 12/26/2023 How Much Tobacco Do You Smoke? 0.25 PPD Information not available 09/02/2022 Do You Use Sunscreen Routinely? Yes Information not available 12/26/2023 Has Tobacco Cessation Counseling Been Provided? Yes Information not available 09/02/2022 Do You Have Difficulty Walking Or Climbing Stairs? No Information not available 12/26/2023 Are You Currently In School? No Information not available 12/26/2023 Sex: Unknown Functional Status Question Answer Note LastModified by Organizat ion Details LastModified Time Do you use any illicit or recreational drugs? No Information not available 09/02/2022 Do you or have you ever used any other forms of tobacco or nicotine? No Information not available 09/02/2022 What is your level of alcohol consumption? None Information not available 09/02/2022 Are you currently employed? No Information not available 01/24/2025 Do you have transportation difficulties? No Information not available 12/26/2023 Are you able to walk? YESWOREST Information not available 12/26/2023 Do you have difficulty doing errands alone? No Information not available 12/26/2023 Are you able to care for yourself? Yes Information n ot available 12/26/2023 Do you have difficulty dressing or bathing? No Information not available 12/26/2023 What is your exercise level? Occasional Information not available 12/26/2023 Mental Status Question Answer Note LastModified by Organizat ion Details LastModified Time Do you feel stressed (tense, restless, nervous, or anxious, or unable to sleep at night)? [id number] Information not available 12/26/2023 Do you have difficulty concentrating, remembering or making decisions? No Information no t available 12/26/2023 Family History Relationship Description Onset Age of this Age Resolved Age Notes LastModified by Organization Details LastModified Time Father Type 2 diabetes mellitus [email or web address] Not available 2021 14:59:49 Father Father tpardini Not available 2021 14:59:58 Father Heart disease [email or web address] Not available 2023 11:44:50 Brother COVID-19 tpardini Not availabl e 09/02/2022 15:00:23 Brother Brother tpardini Not available 2021 15:00:41 Mother Myocardial infarction [email or web address] Not available 07/21 11:44:38 Medical History No medical history recorded. Gynecological HistoryNo gynecological history recorded. Obstetrics History GPAL:G 0 P 0 0 0 0 Immunizations Vaccine Type Date Status Note Provider Nam e and Address Organization Details Recorded Time Influenza, MDCK, trivalent, PF 6 completed Mirna mccarthy, [place] [facility] [place] [facility] [place] 09/26/2022 14:52:16 Influenza, split virus, quadrivalent, PF 1 completed Mirna Pardini [place] [facility] [place] [facility] [place] 09/26/2022 14:52:16 Influenza, split virus, quadrivalent, PF 0 completed Mirna Pardini [place] [facility] [place] [facility] [place] 09/26/2022 14:52:16 COVID-19, mRNA, LNP-S, PF, 100 mcg/0.5mL dose or 50 mcg/0.25mL dose 1 completed Mirna Pardini [place] [facility] [place] [facility] [place] 09/26/2022 14:52:16 COVID-19, mRNA, LNP-S, PF, 100 mcg/0.5mL dose or 50 mcg/0.25mL dose 1 completed Mirna Pardini [place] [facility] [place] [facility] [place] 09/26/2022 14:52:16 COVID-19, mRNA, LNP-S, PF, 100 mcg/0.5mL dose or 50 mcg/0.25mL dose 1 completed Mirna Pardini [place] [facility] [place] [facility] [place] 09/26/2022 14:52:16 Influenza, split virus, quadrivalent, PF 2 completed Mir[place] Pard[place] [facility] [place] 09/26/2022 14:52:16 Influenza, split virus, quadrivalent, PF 3 completed Dave Alfaro MD [address] [place] [address], [id number] [place] - [facility] - [place] [facility] [place] 08/13/2023 12:51:38 Pneumococcal Conjugate, unspecified formulation 4 completed Doris Lutz null[place] [facility] [place] [facility] [place] 07/21/2024 11:42:33 Influenza, split virus, trivalent, PF 4 completed Mirna Pardini [place] [facility] [place] [facility] [place] 10/27/2024 11:25:14 Past Encounters Encounter ID Performer Location Encounter Start Date Encounter Closed Date Diagnosis/Indication Diagnosis SNOMED-CT Code Diagnosis ICD10 Code Diagnosis Note [id number] Dave Alfaro MD [address] [phone] 09/10/2022 09:16:50 09/10/2022 11:05:37 Acute pharyngitis 022774048 J02.9 patient has been advised to change her toothbrush and gargle with salt water. Will put her on Augmentin. I will also give her a prescripti on for some fexofenadi ne. Chronic ob structive pulmonary disease 91539221 J44.9 Asthma 505482195 J45.90 9 stable Dyslipidemia 016533555 E 78.5 stable Essential hypertension 23812952 I10 Gastroesop hageal reflux disease 940630977 K21.9 Stable [id number] Dave Alfaro MD [address] [address] 09/26/2022 14:20:04 09/26/2022 15:22:45 Dyslipidemia 739965853 E78.5 stable Essential hypertension 38194547 I10 controlled Hypothyroidism 09887799 E03.9 will start patient on levothyrox ine. Will recheck her labs in 3 months End-stage renal disease 56182240 N18.6 patient's kidney function is indeed compromise d. Will refer her to Nephrology . I have instructed her to stop her furosemide . She insists that she will continue to take 1 tablet a day instead of 2. [id number] Dave Alfaro MD [address] [address] 01/01/2023 10:50:42 01/01/2023 12:29:59 Chronic obstructive pulmonary disease 13746179 J44.9 Controlled Dyslipidemia 014435197 E 78.5 stable Will check lab work today. End-stage renal disease 18823565 N18.6 Patient is being seen by Nephrology . Will obtain lab work today. Essential hypertension 14429181 I10 controlled Hypothyroidism 35575448 E03.9 will start patient on levothyrox ine. Will recheck her labs in 3 months Obstructiv e sleep apnea syndrome 91337026 G47.33 patient has had sleep study at [facility]. She is awaiting an appointmen t with the pulmonolog ist over the to figure out her CPAP settings. [id number] MD humera Gray[address] [address] 02/12/2023 14:03:35 02/12/2023 14:46:10 Breast lump 25045791 N63.0 will obtain mammogram [id number] MD humera Gray[address] [address] 03/03/2023 09:58:58 03/03/2023 11:04:22 Allergic rhinitis 42677280 J30.9 patient to get a shot of steroids today. Will put her on a Medrol Dosepak and start her on Katherine D. Patient has been instructed to continue to monitor blood pressure. She has been instructed to follow-up as needed. [id number] MD humera Gray[address] [address] 03/27/2023 10:46:13 03/27/2023 11:15:16 Pain of left calf [id number] 365847 M79.662 Will send patient to the hospital for Doppler studies. Hypothyroidism 50754596 E03.9 patient requests Synthroid. She states she reacts to levothyrox ine. [id number] Christine Boyd NP [facility] [address] [place] [id number] 05/28/2023 12:56:04 05/28/2023 13:34:23 Gastro-esophageal reflux disease with esophagitis 190674438 K21.00 controlled with use of pantoprazo le 40 mg of famotidine 40 mg HS. Will send refills today. Recommend continued reflux precaution s as well as weight loss. Diarrhea 96941539 R19.7 Continues colestipol for treatment diarrhea. Recently experienci ng episodes of constipati on after change of medication . I have suggested colestipol 1 mg 1 tablet daily at this time, may consider BID dosing based on symptoms. [id number] Dave Alfaro MD [facility] [address] [place] [address] 08/13/2023 11:13:05 08/13/2023 11:45:38 Influenza vaccine needed [id number] 106 Z23 [id number] Dave Alfaro MD [address] [place] [address] 11/17/2023 11:28:06 11/17/2023 11:56:17 Congestion of nasal sinus 15332068 R09.81 Headache 28340785 R51.9 Subacute headaches and sinus tenderness . Will obtain CT scans today. We moises call pt with results [id number] Dave Alfaro MD [address] [place] [address] 12/26/2023 10:39:05 12/26/2023 11:25:44 Adult health examination 494348673 Z00.00 Allergic rhinitis 461166 04 J30.9 PATIENT CONTINUES TO SUFFER FROM SEVERE ALLERGY SYMPTOMS. WILL REFER PATIENT TO AN HEAD BANDER AND LINER OPERATOR FOR ALLERGY TESTING. Asthma 502992177 J45.90 9 stable Dyslipidemia 196315046 E 78.5 stable Will check lab work today. Essential hypertension 02074796 I10 Continue with current regimen. patient is yet to take medication s this morning. Hypothyroidism 47106368 E03.9 will obtain lab work today. [id number] Dave Alfaro MD [address] [place] [address] 01/07/2024 10:24:39 01/09/2024 12:36:02 Respiratory tract congestion and cough 165043863 R05.1 COVID-19 932450636 U07.1 will treat patient with Paxlovid. She has been advised to stop her statin at this time. [id number] Dave Alfaro MD [address] [place] [address] 01/22/2024 11:47:48 01/22/2024 12:32:01 Chest pain 17558575 R07.9 patient has been advised to follow-up with her cardiologi st regarding her chest pain. Essential hypertension 01251988 I10 Please reduce your blood pressure medication . Take half a losartan 50 mg tablet for now. Asthma 057725251 J45.90 9 stable [id number] Christine Boyd NP [facility] [address] [place] [address] 05/26/2024 12:50:52 05/26/2024 14:54:37 History of polyp of colon 788929298 Z86.010 last colonoscop y 10/[address] Pearce multiple colon polyps resected. Due for repeat colonoscop y for surveillan ce. She will need cardiac clearance, Dr. Tyler, prior to scheduling . Gastro-eso phageal reflux disease with esophagitis 413377831 K21.00 Continues famotidine 40 mg HS due to CKD. Will send refills today. Recommend continued reflux precaution s as well as weight loss. Diarrhea 11705967 R19.7 Continues colestipol for treatment diarrhea. Will send refills today. [id number] Dave Alfaro MD [address] [place] [address] 07/29/2024 11:43:33 07/29/2024 11:57:50 Cigarette smoker 44826416 F17.210 Asthma 790913378 J45.90 9 stable Dyslipidemia 855856706 E 78.5 stable Will check lab work today. End-stage renal disease 42799023 N18.6 Patient is being seen by Nephrology . Will obtain lab work today. Essential hypertension 89219690 I10 Please reduce your blood pressure medication . Take half a losartan 50 mg tablet for now. Hypothyroidism 11123010 E03.9 will obtain lab work today. Hypomagnesemia 662252328 E83.42 [id number] Dave Alfaro MD [address] [place] [address] 10/27/2024 11:11:19 10/27/2024 11:53:25 Decreased renal function 23823300 R94.4 Rechecking labs today. Her labs inJuly were suggestive of stage 3 CKD with a GFR of 48. However she states she was cleared by the nephrologi st. Paroxysmal atrial fibrillation 495347001 I48.0 Following with cardiology , she goes back in 2 weeks. She states there has been no conversati on of a pacemaker. Essential hypertension 77283285 I10 Thyroid di sorder screening 177625007 Z13.29 Rechecking today Hyperlipidemia 07294092 E78.5 Rechecking today [id number] JOSE ALEJANDRO GILBERT, MICHAELA [address] [place] [address] 11/03/2024 14:01:51 11/03/2024 14:08:48 Hyperkalemia 13211572 E87.5 blood drawn in the right AC by Mirna Emery CMA, patient tolerated well. [id number] Dave Alfaro MD [address] [place] [address] 01/24/2025 08:51:45 01/24/2025 09:18:15 Dyslipidemia 598099563 E78.5 stable Will check lab work today. End-stage renal disease 48250040 N18.6 Patient is being seen by Nephrology . Will obtain lab work today. Essential hypertension 00700833 I10 Hypothyroidism 47423341 E03.9 will obtain lab work today. Diabetes m ellitus screening 409541298 Z13.1 will check A1c today. [id number] Dave Alfaro MD [address] [place] [address] 03/22/2025 09:27:41 03/22/2025 10:52:43 Atrial fibrillation 32949965 I48.91 Patient is under the care of cardiology . due to patient's symptomato logy I have advised her to follow-up with her cardiologi st today. Her sister who brings her to the clinic states they will go straight to her cardiologi st's office. Chronic ob structive pulmonary disease 71060829 J44.9 COPD appears to be stable at this time. Essential hypertension 77738923 I10 Hypertensi on appears to be controlled . Health Concerns Section Related Observation LastModified by Organization Detai ls LastModified Time None Recorded Concern Status LastModified by Organization Details LastModified Time None Recorded Advance Directives Directive N: Payers Insurance Date Sequence Insurance Name Policy Number Policy Araujo Covered Member ID Araujo Member ID Guarantor Name 09/06/2024 1 [place] [id number] Leonardo Andersen [id number] Leonardo Anedrsen 05/22/2025 1 [facility] [place] Leonardo Andersen [id number] Leonardo Andersen 01/21/2025 1 [place] [id number] Leonardo Andersen [id number] Leonardo Andersen 05/25/2020 1 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 She denies any new issues. She continues to take her medications as prescribed. Dave Alfaro MD [address] [place] [address], [phone], [facility] & [place] 07/29/2024 12:15:09 10/27/2024 text/html Ms. Leonardo Andersen is a 58yo female with a past medical history of A fib who presents to the clinic today for medication follow up. In july we checked her labs and her CMP was suggestive of stage 3 CKD. I referred her to nephrology. She states that they did not recheck her labs there and cleared her and scheduled her for a follow up apt in one year. Reports feeling moments of A fib where she can tell that her heart is out of rhythm. She feels very light headed and loopy headed She follows with cardiology. Goes back to see her in 2 week. Dave Alfaro MD [address] [place] [address], [phone], [facility] & [place] 10/27/2024 11:53:07 01/24/2025 text/html PT PRESENTS FOR CHRONIC CARE MANAGEMENT, DENIES ANY NEW ISSUES. IS COMPLIANT WITH MEDICATIONS Dave Alfaro MD [address] [place] [address], [phone], [facility] & [place] 01/24/2025 09:32:00 03/22/2025 text/html patient presents today to follow-up from hospital admission. Patient was admitted to [facility] due to atrial fib and AVR. She also was complaining of dizziness. And extreme fatigue. Patient also reports some near syncopal episodes. Patient appears to be stable at this time. She has awaiting an appointment at [facility]. Dave Alfaro MD [address] [place] [address], [phone], [facility] - [place] & [place] 03/22/2025 11:05:05 OBGyn Episode No OBEpisode recorded.
[2025-06-03 22:38] VITALS: BP 116/68; PULSE 58; RESP 18; TEMP 36.6; O2SAT 98; BMI 41.1
--- NOTE | 2025-06-03 23:03 | [facility].EDGENADL ---
Discharge Plan Disposition Patient Disposition: Home, Self-Care Prescriptions Prescriptions: No Action montelukast 10 mg tablet 10 mg PO DAILY albuterol sulfate [Ventolin HFA] 90 mcg/actuation HFA aerosol inhaler 2 puff inhalation DAILYP PRN (Reason: soa) Patient Comments: INHALE 2 PUFFS EVERY 4 HOURS NEEDED fexofenadine [Allergy Relief (fexofenadine)] 180 mg tablet 180 mg PO DAILY Patient Comments: TAKE 1 TABLET 1 TIME EACH DAY losartan 25 mg tablet 25 mg PO DAILY Qty: 90 3RF flecainide 100 mg tablet 100 mg PO Q12H PRN (Reason: Afib with RVR) Qty: 60 2RF furosemide 20 mg tablet 40 mg PO DAILY PRN Patient Comments: TAKE 2 TABLETS 1 TIME EACH DAY NEEDED FOR SWELLING fenofibrate nanocrystallized 48 mg tablet 48 mg PO DAILY famotidine 40 mg tablet 40 mg PO HS cetirizine 10 mg tablet 10 mg PO DAILY Patient Comments: TAKE 1 TABLET 1 TIME EACH DAY colestipol 1 gram tablet 1 g PO BID Patient Comments: TAKE 2 TABLETS EVERY DAY DIRECTED fluticasone propion-salmeterol [Advair Diskus] 500-50 mcg/dose blister with device 1 inh inhalation BID Qty: 180 2RF metoprolol succinate [Toprol XL] 50 mg tablet extended release 24 hr 50 mg PO DAILY Qty: 30 11RF levothyroxine 50 mcg tablet 50 mcg PO DAILYDM potassium chloride 20 mEq tablet,ER particles/crystals 20 meq PO DAILY Eliquis 5 mg tablet 5 mg PO BID Rx Instructions: TAKE 1 TABLET 2 TIMES EACH DAY lovastatin 20 mg tablet 20 mg PO HS Referrals Follow up/Referrals: Dave Arriola MD [Primary Care Provider, Medical] - See instructions Activity Restrictions/Add. Instructions Additional Instructions/Restrictions: Please follow-up with your primary care provider. Please use warm compresses intermittently. Please wrap the arm with an Dax bandage to help with compression. If the arm starts to get swollen or starts to look infected, recommend reassessment. Please return to the emergency department if you develop any new or worsening symptoms or become concerned for your health. Clinical Impressions Clinical Impression: Superficial thrombophlebitis Qualifiers: Superficial thrombophlebitis-Involved body area: upper extremity Laterality: right Qualified Code(s): I80.8 - Phlebitis and thrombophlebitis of other sites Print Language Print Language: Monegasque Discharge ED Provider: Tee Christensen General Adult HPI General Chief complaint: Urogenital-Female Stated complaint: Unable to pee, red streaks from IV site Time Seen by Provider: 06/03/25 22:55 Mode of Arrival: Ambulatory Source of Information: Patient Description of Symptoms (Recalled from ER Triage Doc. by RN): pt presents to the Ed d/t having redness and bruising in her arms due to recent iv placment. pt ahd heart ablation on friday and is having some redness in bilateral arms where iv was placed. pt also stating she is on diuretics and kidneys are not funcitoning properly due to anuria. History of Present Illness HPI narrative: 59-year-old female with history of heart failure, A-fib status post recent ablation, hypertension, lipidemia, chronic kidney disease presents for concern for red spot on her arm as well as some decreased urinary output. She reports that over the last day or so she has a bit of a red tender line on her right proximal forearm where they stuck her for an IV. Also has some bruising on the left side that looks a little bit more red. With regards to her urine output, she reports that she has been taking her diuretics as prescribed but she does not like she is peeing as much as she normally does. She does not report that she is anuric. Reports that she is taking her blood thinner as prescribed. Denies any pain or issues at the site of arterial access for her ablation. Denies any fever at home. Related Data Home Medications ?Medication ?Instructions ?Recorded ?Confirmed montelukast 10 mg tablet 10 mg PO DAILY allergic rhinitis 02/09/20 04/18/25 famotidine 40 mg tablet 40 mg PO HS 11/15/20 04/18/25 fenofibrate nanocrystallized 48 mg 48 mg PO DAILY 01/25/21 04/18/25 tablet cetirizine 10 mg tablet 10 mg PO DAILY 02/05/23 04/18/25 levothyroxine 50 mcg tablet 50 mcg PO DAILYDM 01/16/24 04/18/25 albuterol sulfate 90 mcg/actuation 2 puff inhalation DAILYP PRN soa 02/05/24 04/18/25 aerosol inhaler (Ventolin HFA) colestipol 1 gram tablet 1 g PO BID 01/06/25 04/18/25 apixaban 5 mg tablet (Eliquis) 5 mg PO BID 03/14/25 04/18/25 potassium chloride 20 mEq 20 meq PO DAILY 03/14/25 04/18/25 tablet,extended release(part/cryst) lovastatin 20 mg tablet 20 mg PO HS 03/15/25 04/18/25 fexofenadine 180 mg tablet 180 mg PO DAILY 03/17/25 04/18/25 (Allergy Relief (fexofenadine)) furosemide 20 mg tablet 40 mg PO DAILY PRN 04/18/25 04/18/25 Previous Rx's ?Medication ?Instructions ?Recorded fluticasone 500 mcg-salmeterol 50 1 inh inhalation BID #180 ea 01/06/25 mcg/dose blistr powdr for inhalation (Advair Diskus) metoprolol succinate 50 mg 50 mg PO DAILY #30 tabs 01/12/25 tablet,extended release 24 hr (Toprol XL) losartan 25 mg tablet 25 mg PO DAILY #90 tabs 03/17/25 flecainide 100 mg tablet 100 mg PO Q12H PRN Afib with RVR 03/22/25 #60 tabs Allergies Allergy/AdvReac Type Severity Reaction Status Date / Time spironolactone Allergy Intermediate hives Verified 04/18/25 10:34 lactase (From Dairy Aid) Allergy Mild Diarrhea Verified 04/18/25 10:34 atorvastatin AdvReac Severe myalgias Verified 04/18/25 10:34 [facility] Disclaimer: The information contained in this section may have been updated after the patient was seen, as this information can be updated by other users. Medical History Chest pain Fatigue Unsteadiness on feet Asthma Dyspnea on exertion Smoking greater than 30 pack years Multiple pulmonary nodules HLD (hyperlipidemia) Atrial fibrillation HTN (hypertension) Dyspnea FH: cholecystectomy SHIRAZ (obstructive sleep apnea) CHF (congestive heart failure) Angina pectoris, unstable Incurved toenail Pincer nail deformity Arthritis of right foot Calcaneal spur of right foot Callus of foot Tobacco abuse History of ankle sprain Right ankle pain Right foot pain Acute kidney injury Leg cramps Muscle ache Nocturnal hypoxemia CPAP titration indicated a good response was seen at CPAP at 14 cm but in light of the hypoxemia while hospitalized without CPAP and the fatigue with CPAP, will evaluate for recurrent hypoxemia. RLS (restless legs syndrome) Asymptomatic with CPAP. BMI 40.0-44.9, adult 11 pound weight loss since July 2023 SHIRAZ on CPAP Mild to moderate SHIRAZ with hypoxemia, excellent compliance on CPAP at 14 cm as recommended by CPAP titration. Complains of fatigue. Claudication Right groin pain Atrial flutter with rapid ventricular response KEVIN (acute kidney injury) SVT (supraventricular tachycardia) PAF (paroxysmal atrial fibrillation) Daytime somnolence Restless sleeper Snoring Chest pain Elevated left ventricular end-diastolic pressure (LVEDP) Atrial fibrillation with RVR New onset atrial fibrillation Rapid atrial fibrillation Morbid obesity Gastroesophageal reflux disease Contusion of rib on right side Atelectasis Acute bronchitis Edema Tubular adenoma of colon multiple complex polyps between 45cm and the right colon Post surgical complication Dysuria Abdominal pain Enteropathogenic Escherichia coli infection Diastolic dysfunction Diarrhea Acute renal insufficiency Dehydration Diabetes Cholelithiasis Colitis PUD (peptic ulcer disease) SOB (shortness of breath) Seasonal allergies Fatigue Diastolic dysfunction Chronic pain Family history of ischemic heart disease Tobacco use Abnormal stress test Superficial thrombophlebitis Lymphadenitis Thromboembolism Surgical History Hx of cholecystectomy H/O: hysterectomy Family History Other Cancer Diabetes Heart attack Social History Smoking Status: Current every day smoker tobacco type: cigarettes packs per day: 1 second hand exposure: Yes alcohol intake: never counseling provided: provider counseling substance use type: denies use current occupational status: disabled Travel in the last 8 weeks?: Inside the [place] household members: spouse housing: house current occupational exposures/hazards: No caffeine: Yes Have you lived/traveled outside [place] in past 30 days?: No Contact w/someone who lives/traveled outside [place] past 30 days?: No Exposure to someone with infectious disease in past 14 days?: No Do you have a fever (greater than 100.4 F or 38 C)?: No Have you tested positive for COVID-19?: No Exposed to someone with COVID-19 in past 14 days?: No Do you have a sore throat?: No Do you have a cough?: No Do you have any weakness?: No Do you have any diarrhea?: No Are you experiencing any unusual bleeding?: No Do you have any muscle aches/pain?: No Do you have any abdominal pain?: No Are you experiencing loss of taste or smell?: No Other Medical History Have you received the Flu Vaccine for this season: No Have you received the Pneumonia Vaccine: No ROS Obtained: Yes All systems reviewed & no additional complaints except as documented Physical Exam General General appearance: alert and in no apparent distress Head Head exam: atraumatic and normocephalic Eye Eye exam: Present normal appearance, PERRL and EOMI ENT ENT exam: Present normal oropharynx and normal external ear exam Neck Neck exam: Present normal inspection and full ROM Chest Chest inspection: Present normal inspection and symmetric chest wall rise; Absent tenderness Respiratory Respiratory exam: Present normal lung sounds bilaterally; Absent respiratory distress Cardiovascular Cardiovascular exam: Present regular rate and normal rhythm Abdominal Exam Abdominal exam: Present soft; Absent distention, tenderness or guarding Extremities Exam Extremities exam: Present edema (Bilateral lower extremity) and other (Approximately 4 inch thin linear area of erythema and tenderness at the proximal medial volar forearm) Back Exam Back exam: Present normal inspection; Absent tenderness Neurological Exam Neurological exam: Present alert and oriented X3; Absent motor sensory deficit Psychiatric Psychiatric exam: Present normal affect and normal mood Skin Skin exam: Present warm, dry and normal color Lymphatic Lymphatic Findings: no adenopathy Medical Decision Making Medical Records Medical records reviewed: Yes I reviewed the patient's medical records. Screening: Per USPSTF and CDC recommendations, given the prevalence of disease in our region, it is our hospital?s policy to screen for HIV and viral Hepatitis for all patients aged 18 and over and those with ongoing risk factors. Rashard Inquiry Pt receiving controlled substance: No Rashard was queried for this patient: No Vital Signs: 06/03/25 22:38 06/04/25 00:21 Temperature 97.8 F 98.2 F Temperature Source Oral Oral Pulse Rate 58 L Pulse Rate [Right Radial] 58 L Respiratory Rate 18 18 Blood Pressure 116/68 Blood Pressure [Right Arm] 116/68 Blood Pressure Mean [Right Arm] 84 Blood Pressure Position [Right Arm] Sitting 02 Sat by Pulse Oximetry 98 Oxygen Delivery Method Room Air Room Air Lab Data Lab results reviewed: Yes I reviewed the patient's lab results. Lab Results 06/03/25 23:25: WBC 11.6 H, RBC 4.31, Hgb 12.5, Hct 39.3, MCV 91.2, MCH 29.0, MCHC 31.8, RDW 13.8, Plt Count 193, MPV 11.8 H, Neut % (Auto) 55.9, Lymph % (Auto) 33.2, Mcdonough % (Auto) 7.3, Eos % (Auto) 2.6, Baso % (Auto) 0.7, Neut # (Auto) 6.5, Lymph # (Auto) 3.8, Mcdonough # (Auto) 0.8, Eos # (Auto) 0.3, Baso # (Auto) 0.1, PT 10.8, INR 0.97, APTT 23.1, Sodium 140, Potassium 3.9, Chloride 102, Carbon Dioxide 28, Anion Gap 13.9, BUN 32 H, Creatinine 1.60 H, Estimated Creat Clear 65, Estimated GFR 33 L, Est GFR ( Amer) 40 L, Glucose 108 H, Calcium 9.4, Total Bilirubin 0.3, AST 26, ALT 15, Alkaline Phosphatase 80, NT-Pro-B Natriuret Pep 590 H, Total Protein 7.2, Albumin 4.2, Globulin 3.0, Albumin/Globulin Ratio 1.4 06/03/25 23:25 06/03/25 23:25 Orders (Tests/Meds): ORDERS Category Date Time Status POCUS Point of Care (ER Only) Stat Exams 06/03/25 23:03 Completed BNP [NT Pro Brain Natriuretic Pep.] Stat Lab 06/03/25 23:25 Completed CBC w/Auto Diff [Complete Blood Count Auto Diff] Stat Lab 06/03/25 23:25 Completed CMP [Comprehensive Metabolic Panel] Stat Lab 06/03/25 23:25 Completed PT INR [Prothrombin Time INR] Stat Lab 06/03/25 23:25 Completed PTT [Activated Partial Thrombo Time] Stat Lab 06/03/25 23:25 Completed Medical Decision Narrative: 59-year-old female with history of heart failure, A-fib status post ablation earlier this week, obesity, who presents for concern for decreased urine output as well as streaking redness on the right forearm where she was stuck for her IV earlier this week. History was obtained via interactive discussion with patient, family, chart review. On arrival, patient is [afebrile, hemodynamically stable, satting appropriately, alert, oriented x4, GCS 15], moving all extremities spontaneously. Full physical exam performed and significant for bilateral lower extremity edema, thin streaky area approximately 4 inches long on the right volar proximal forearm. Differential includes but is not limited to superficial thrombophlebitis, deep vein thrombosis, renal failure, volume overload. Basic labs were ordered. Bedside ultrasound was performed which showed a small area of superficial thrombosis in the median antebrachial vein. No evidence of deep vein thrombosis. No evidence of cellulitis or abscess. Labs were interpreted by me independently, renal function is at baseline, BNP is only minimally elevated. Presentation is most consistent with superficial thrombophlebitis of a superficial vein of the right forearm as result of patient's recent IV stick. Patient is already on anticoagulation, though would not need anticoagulation based on location of thrombosis. Recommend patient continue to monitor the area and follow-up with PCP or ER if symptoms were to worsen, or if she were develop signs and symptoms of a DVT. Recommend she follow-up for repeat labs with her PCP if she feels like she is still not urinating as much is normal. Patient was discharged in stable condition with return precautions. Limited DVT ultrasound Indication: Limited compression ultrasonography of the right upper extremity was performed to evaluate for non-compressibility of the deep veins in the patient. The ultrasound was performed with the following indications, as noted in the H&P: Right arm erythema and pain Identified structures: Right [Ulnar vein, radial vein, cephalic vein, basilic vein, axillary vein. Findings: Upper extremity: Right UV complete compressibility Right RV: Good compressibility Right Cephalic vein: Good compressibility Right Basilic vein: Good compressibility Right Axillary vein: Good compressibility Right median antebrachial vein: Noncompressible Impression: Superficial thrombosis of the right median antebrachial vein Images were saved to permanent archive The study was technically adequate CPT: 71326-48-BX This study was performed by me, and I personally interpreted all images/videos. Based on my clinical judgement, these images were adequate and did not necessitate further imaging. Procedures Risk/Benefits of Procedure(s) Were Explained: Yes Critical Care Critical Care Time Critical Care Time: No
[2025-06-03 23:33] LABS: Hematocrit 39.3 % (37.0-47.0); Hemoglobin 12.5 g/dL (12.2-16.2); Immature Granulocytes % 0.3 %; Mean Corpuscular HGB Conc 31.8 g/dL (31.8-35.4); Mean Corpuscular Hemoglobin 29.0 pg (27.0-31.2); Mean Corpuscular Volume 91.2 fl (81-99); Nucleated Red Blood Cells % 0 %; Platelet Count 193 K/mm3 (142-424); Red Blood Count 4.31 M/mm3 (4.20-5.40); Red Cell Distribution Width-SD 46.9 fL; White Blood Count 11.6 K/mm3 (4.8-10.8)
[2025-06-03 23:39] LABS: Albumin Level 4.2 g/dl (3.5-5.0); Chloride 102 mmol/L (98-107); Sodium 140 mmol/L (136-145)
[2025-06-03 23:40] LABS: Potassium 3.9 mmoL/L (3.5-5.1)
[2025-06-03 23:42] LABS: Alanine Aminotransferase 15 U/L (12-78); Albumin/Globulin Ratio 1.4 (1.1-1.8); Anion Gap 13.9 mEq/L (5-15); Aspartate Amino Transferase 26 U/L (14-36); Blood Urea Nitrogen 32 mg/dl (7-17); Carbon Dioxide 28 mmol/L (22.0-30.0); Creatinine Clearance Estimated 65 mL/min (50-200); Creatinine,Serum 1.60 mg/dl (0.52-1.04); Estimated Glomerular Filt Rate 33 ml/min (>60); GFR (African American) 40 ML/MIN (>60); Globulin 3.0 g/dL (1.3-3.2); Total Protein,Serum 7.2 g/dl (6.3-8.2)
[2025-06-03 23:43] LABS: Alkaline Phosphatase 80 U/L (38-126); Bilirubin,Total 0.3 mg/dl (0.2-1.3); Calcium 9.4 mg/dl (8.4-10.2); Glucose 108 mg/dl (74-100)
[2025-06-03 23:44] LABS: Activated Partial Thrombo Time 23.1 seconds (22.8-30.6); INR 0.97 (0.9-1.1); Prothrombin Time 10.8 seconds (10.1-12.5)
[2025-06-03 23:51] LABS: NT Pro Brain Natriuretic Pep. 590 pg/mL (0-125)
[2025-06-04 00:21] VITALS: BP 116/68; PULSE 58; RESP 18; TEMP 36.8; O2SAT 99
== END 2025-06-04 00:32 | disposition home or self-care (01) ==
PROVIDERS: Emergency Provider Emergency Medicine; PCP Emergency Medicine
DX: I80.8 Phlebitis and thrombophlebitis of other sites (principal)
CPT/HCPCS: 80053; 83880; 85025; 85610; 85730; 99283

== ENCOUNTER 2025-06-09 14:22 | Outpatient (CLI) | payer OTHER, SELFPAY ==
--- OUTSIDE RECORDS SUMMARY | 2025-06-09 14:24 | XMS_ITS | Data Portability ---
Author Organization [facility] [place] & MAVIS Garcia ADMIN Address [address] [place] [id number] Care Team Providers Care Ict Programmer Name Role Phone CHRISTINE BOYD [facility] DAVE ALFARO Primary Care Provider Assessment Encounter Date Assessment Date Assessment LastModified by Organization Details LastModified Time 01/24/2025 01/24/2025 PATIENT TO CONTINUE WITH CURRENT MANAGEMENT. WE HAVE HAD EXTENSIVE DISCUSSIONS REGARDING CHRONIC ISSUES. WILL CALL PATIENT TO DISCUSS RESULTS OF LAB WORK AND MAKE PLANS BASED ON FINDINGS. [email or web address] Not available 01/24/2025 08:59:49 Plan of Treatment Reminders Order Date Submit Date Provider Last Modified By Organization Details Last Modified Time Details Appointments OV EST 15 2024 03:00P M Christine Boyd NP Not available Not available Not available OV EST 15 2024 03:00P M Dave Alfaro MD Not available Not available Not available Lab lipids, total, serum 2024 025 [email or web address] [facility] (Laboratory), [address] [place], [address], 01/31/2025 07:32:22 CBC w/ auto diff 2024 025 [facility] (Laboratory), [address] [place], [address], 01/24/2025 13:06:43 CMP, serum or plasma 2024 025 [facility] (Laboratory), [address] [place], [address], 01/24/2025 13:32:25 TSH, serum or plasma 2024 025 [facility] (Laboratory), [address] [place], [address], 01/24/2025 13:32:23 HbA1c (hemogl obin A1c), blood 2024 025 [facility] (Laboratory), [address] [place], [address], 01/24/2025 14:10:10 CMP, serum or plasma 2023 024 [facility] (Laboratory), [address] [place], [address], 11/03/2024 16:54:55 TSH + free T4, serum [facility]23 [facility] [address] [place], [address], 11/03/2024 07:59:59 CMP, serum or plasma 2023 024 [facility] (Laboratory), [address] [place], [address], 10/27/2024 13:31:07 CBC w/ auto diff 2023 024 [facility] (Laboratory), [address] [place], [address], 10/27/2024 12:59:48 lipid panel, serum 2023 024 [facility] (Laboratory), [address] [place], [address], 10/27/2024 13:31:09 Referral None recorde d. Procedures None recorde d. Surgeries None recorde d. Imaging None recorde d. Medication Orders None recorde d. Patient TargetsNo targets recorded. Patient InstructionsNo instructions recorded. Reason for Referral None Reported. Results Created Date Observation Date Name Description Value Unit Range Abnormal Flag Note LastModifiedBy Organization Detail LastModifiedTime 10/27/2010/27/2024 CBC AUTO W DIFF WBC 8.4 10 4.5-11 .5 Not Available [facility] (Lab Registration) [address] [place], [address], 10/27/2024 12:59:48 10/27/20 24 10/27/2024 CBC AUTO W DIFF RBC 4.64 10 4.25-5 .57 Not Available [facility] (Lab Registration) [address] [place], [address], 10/27/2024 12:59:48 10/27/2010/27/2024 CBC AUTO W DIFF HGB 13.4 g/dL 12.0-1 5.7 Not Available [facility] (Lab Registration) [address] [place], [address], 10/27/2024 12:59:48 10/27/20 24 10/27/2024 CBC AUTO W DIFF HCT 43.3 % 36.0-4 7.0 Not Available [facility] (Lab Registration) [address] [place], [address], 10/27/2024 12:59:48 10/27/20 24 10/27/2024 CBC AUTO W DIFF MCV 93.3 fL 80-95 Not Available [facility] (Lab Registration) [address] [place], [address], 10/27/2024 12:59:48 10/27/20 24 10/27/2024 CBC AUTO W DIFF MCH 28.9 pg 27.0-3 4.0 Not Available [facility] (Lab Registration) [address] [place], [address], 10/27/2024 12:59:48 10/27/20 24 10/27/2024 CBC AUTO W DIFF MCHC 30.9 g/dL 32.0-3 6.0 low Not Available [facility] (Lab Registration) [address] [place], [address], 10/27/2024 12:59:48 10/27/20 24 10/27/2024 CBC AUTO W DIFF platelet count 235 10 150-45 0 Not Available [facility] (Lab Registration) [address] [place], [address], 10/27/2024 12:59:48 10/27/20 24 10/27/2024 CBC AUTO W DIFF RDW 12.9 % 12.3-1 5.1 Not Available [facility] (Lab Registration) [address] [place], [address], 10/27/2024 12:59:48 10/27/20 24 10/27/2024 CBC AUTO W DIFF MPV 12.3 fL 7.4-10 .4 high Not Available [facility] (Lab Registration) [address] [place], [address], 10/27/2024 12:59:48 10/27/20 24 10/27/2024 CBC AUTO W DIFF granulocyte% 58.6 % 40-75 Not Available [facility] (Lab Registration) [address] [place], [address], 10/27/2024 12:59:48 10/27/20 24 10/27/2024 CBC AUTO W DIFF lymphocyte% 33.3 % 15-57 Not Available [facility] (Lab Registration) [address] [place], [address], 10/27/2024 12:59:48 10/27/20 24 10/27/2024 CBC AUTO W DIFF monocyte% 5.9 % 4.0-12 .0 Not Available [facility] (Lab Registration) [address] [place], [address], 10/27/2024 12:59:48 10/27/20 24 10/27/2024 CBC AUTO W DIFF eosinophil% 1.9 % 0.0-4. 0 Not Available [facility] (Lab Registration) [address] [place], [address], 10/27/2024 12:59:48 10/27/20 24 10/27/2024 CBC AUTO W DIFF basophil% 0.2 % 0.0-1. 0 Not Available [facility] (Lab Registration) [address] [place], [address], 10/27/2024 12:59:48 10/27/20 24 10/27/2024 CBC AUTO W DIFF immature granulocytes % 0.1 % 0.0-0. 8 Not Available [facility] (Lab Registration) [address] [place], [address], 10/27/2024 12:59:48 10/27/2010/27/2024 CBC AUTO W DIFF granulocyte# 4.94 10 Not Available [facility] (Lab Registration) [address] [place], [address], 10/27/2024 12:59:48 10/27/20 24 10/27/2024 CBC AUTO W DIFF lymphocyte# 2.81 10 Not Available [facility] (Lab Registration) [address] [place], [address], 10/27/2024 12:59:48 10/27/20 24 10/27/2024 CBC AUTO W DIFF monocyte# 0.50 10 Not Available [facility] (Lab Registration) [address] [place], [address], 10/27/2024 12:59:48 10/27/20 24 10/27/2024 CBC AUTO W DIFF eosinophil# 0.16 10 Not Available [facility] (Lab Registration) [address] [place], [address], 10/27/2024 12:59:48 10/27/20 24 10/27/2024 CBC AUTO W DIFF basophil# 0.02 10 Not Available [facility] (Lab Registration) [address] [place], [address], 10/27/2024 12:59:48 10/27/20 24 10/27/2024 CBC AUTO W DIFF immature granulocytes # 0.01 10 Not Available [facility] (Lab Registration) [address], [place], [address], 10/27/2024 12:59:48 10/27/20 24 10/27/2024 CBC AUTO W DIFF manual differential NO Not Available [facility] (Lab Registration) [address] [place], [address], 10/27/2024 12:59:48 10/27/20 24 10/27/2024 CBC AUTO W DIFF note Unles s other lovett noted testi ng perfo rmed at: [facility] [address] [place] [phone] Ismael blanca MD CLIA: [id number] Not Available [facility] (Lab Registration) [address] [place], [address], 10/27/2024 12:59:48 10/27/20 24 10/27/2024 THYRO ID STIMU LATIN G HORMO NE thyroid stimulating hormone 4.61 mIU/m L 0.34-4 .80 Not Available [facility] (Lab Registration) [address] [place], [address], 10/27/2024 13:31:06 10/27/20 24 10/27/2024 THYRO ID STIMU LATIN G HORMO NE note Unles s other lovett noted testi ng perfo rmed at: [facility] [address] [place] [phone] Ismael blanca MD CLIA: [id number] Not Available [facility] (Lab Registration) [address] [place], [address], 10/27/2024 13:31:06 10/27/20 24 10/27/2024 COMP METAB OLIC PANEL sodium 143 mmol/ L 136-14 5 Not Available [facility] (Lab Registration) [address] [place], [address], 10/27/2024 13:31:07 10/27/20 24 10/27/2024 COMP METAB OLIC PANEL potassium 5.5 mmol/ L 3.5-5. 1 high Not Available [facility] (Lab Registration) [address] [place], [address], 10/27/2024 13:31:07 10/27/20 24 10/27/2024 COMP METAB OLIC PANEL chloride 107 mmol/ L 98-107 Not Available [facility] (Lab Registration) [address] [place], [address], 10/27/2024 13:31:07 10/27/20 24 10/27/2024 COMP METAB OLIC PANEL carbon dioxide 27 mmol/ L 21-32 Not Available [facility] (Lab Registration) [address] [place], [address], 10/27/2024 13:31:07 10/27/20 24 10/27/2024 COMP METAB OLIC PANEL anion gap 9.0 Not Available [facility] (Lab Registration) [address] [place], [address], 10/27/2024 13:31:07 10/27/20 24 10/27/2024 COMP METAB OLIC PANEL glucose 97 mg/dL 70-110 Not Available [facility] (Lab Registration) [address] [place], [address], 10/27/2024 13:31:07 10/27/20 24 10/27/2024 COMP METAB OLIC PANEL blood urea nitrogen 24 mg/dL 7-18 high Not Available [facility] (Lab Registration) [address] [place], [address], 10/27/2024 13:31:07 10/27/20 24 10/27/2024 COMP METAB OLIC PANEL creatinine 1.4 mg/dL 0.6-1. 0 high Not Available [facility] (Lab Registration) [address], [place], [address], 10/27/2024 13:31:07 10/27/20 24 10/27/2024 COMP METAB OLIC PANEL BUN/creatini ne ratio 17.1 9-21 Not Available [facility] (Lab Registration) [address], [place], [address], 10/27/2024 13:31:07 10/27/20 24 10/27/2024 COMP METAB [...] ely ing kiney funct ion. Not Available [facility] (Lab Registration) [address], [place], [address], 10/27/2024 13:31:07 10/27/20 24 10/27/2024 COMP METAB OLIC PANEL total protein 7.2 g/dL 6.4-8. 2 Not Available [facility] (Lab Registration) [address] [place], [address], 10/27/2024 13:31:07 10/27/20 24 10/27/2024 COMP METAB OLIC PANEL albumin 3.8 g/dL 3.4-5. 0 Not Available [facility] (Lab Registration) [address], [place], [address], 10/27/2024 13:31:07 10/27/20 24 10/27/2024 COMP METAB OLIC PANEL calcium 9.7 mg/dL 8.5-10 .1 Not Available [facility] (Lab Registration) [address] [place], [address], 10/27/2024 13:31:07 10/27/20 24 10/27/2024 COMP METAB OLIC PANEL corrected calcium 9.9 mg/dL 8.5-10 .1 Not Available [facility] (Lab Registration) [address] [place], [address], 10/27/2024 13:31:07 10/27/20 24 10/27/2024 COMP METAB OLIC PANEL bilirubin total 0.4 mg/dL 0.4-1. 5 Not Available [facility] (Lab Registration) [address] [place], [address], 10/27/2024 13:31:07 10/27/2010/27/2024 COMP METAB OLIC PANEL AST (SGOT) 14 U/L 15-37 low Not Available [facility] (Lab Registration) [address] [place], [address], 10/27/2024 13:31:07 10/27/20 24 10/27/2024 COMP METAB OLIC PANEL ALT (SGPT) 19 U/L 12-78 Not Available [facility] (Lab Registration) [address] [place], [address], 10/27/2024 13:31:07 10/27/20 24 10/27/2024 COMP METAB OLIC PANEL alk phosphatase 108 U/L 50-120 Not Available [facility] (Lab Registration) [address] [place], [address], 10/27/2024 13:31:07 10/27/20 24 10/27/2024 COMP METAB OLIC PANEL note Unles s other lovett noted testi ng perfo rmed at: [facility] [address] [place] [address] [phone] Ismael blanca MD CLIA: [id number] Not Available [facility] (Lab Registration) [address] [place], [address], 10/27/2024 13:31:07 10/27/20 24 10/27/2024 LIPID PANEL triglyceride 149 mg/dL 20-200 The Natio nal [employer] l [employer] t[employer] am (NCEP ) has set the follo wing guide lines for Fasti ng Trigl yceri jerri: YURIY L: <150 mg/dL BORDE RLINE HIGH: 150 - 199 mg/dL HIGH: 200 - 499 mg/dL VERY HIGH: > or =500 mg/dL Not Available [facility] (Lab Registration) [address] [place], [address], 10/27/2024 13:31:09 10/27/2010/27/2024 LIPID PANEL cholesterol 155 mg/dL 0-200 The Natio nal [employer] l [employer]ca t[employer]gr am (NCEP ) has set the follo wing guide lines for Fasti ng Neida stero l: JUSTINA ABLE: <200 mg/dL BORDE RLINE HIGH: 200 - 239 mg/dL HIGH: > or =240 mg/dL Not Available [facility] (Lab Registration) [address] [place], [address], 10/27/2024 13:31:09 10/27/2010/27/2024 LIPID PANEL HDL cholesterol 41 mg/dL 60- low The Natio nal [employer] l [employer]ca tion Progr am (NCEP ) has set the follo wing guide lines for Fasti ng HDL Neida stero l: LOW HDL: <40 mg/dL YURIY L: 40 - 60 mg/dL JUSTINA ABLE: >60 mg/dL Not Available [facility] (Lab Registration) [address] [place], [address], 10/27/2024 13:31:09 10/27/2010/27/2024 LIPID PANEL LDL calculated 84 mg/dL 100- [...] > or = 190 mg/dL Not Available [facility] (Lab Registration) [address], [place], [address], 10/27/2024 13:31:09 10/27/20 24 10/27/2024 LIPID PANEL chol/HDL ratio 4 -5 Not Available [facility] (Lab Registration) [address] [place], [address], 10/27/2024 13:31:09 10/27/20 24 10/27/2024 LIPID PANEL note Unles s other lovett noted testi ng perfo rmed at: [facility] [address] [facility] [place] [address] [phone] Ismael blanca MD CLIA: [id number] Not Available [facility] (Lab Registration) [address] [place], [address], 10/27/2024 13:31:09 11/03/20 24 11/03/2024 COMP METAB OLIC PANEL sodium 143 mmol/ L 136-14 5 Not Available [facility] (Lab Registration) [address] [place], [address], 11/03/2024 16:54:55 11/03/20 24 11/03/2024 COMP METAB OLIC PANEL potassium 5.2 mmol/ L 3.5-5. 1 high Not Available [facility] (Lab Registration) [address] [place], [address], 11/03/2024 16:54:55 11/03/20 24 11/03/2024 COMP METAB OLIC PANEL chloride 108 mmol/ L 98-107 high Not Available [facility] (Lab Registration) [address] [place], [address], 11/03/2024 16:54:55 11/03/20 24 11/03/2024 COMP METAB OLIC PANEL carbon dioxide 26 mmol/ L 21-32 Not Available [facility] (Lab Registration) [address], [place], [address], 11/03/2024 16:54:55 11/03/20 24 11/03/2024 COMP METAB OLIC PANEL anion gap 9.0 Not Available [facility] (Lab Registration) [address], [place], [address], 11/03/2024 16:54:55 11/03/20 24 11/03/2024 COMP METAB OLIC PANEL glucose 81 mg/dL 70-110 Not Available [facility] (Lab Registration) [address] [place], [address], 11/03/2024 16:54:55 11/03/20 24 11/03/2024 COMP METAB OLIC PANEL blood urea nitrogen 18 mg/dL 7-18 Not Available [facility] (Lab Registration) [address] [place], [address], 11/03/2024 16:54:55 11/03/20 24 11/03/2024 COMP METAB OLIC PANEL creatinine 1.4 mg/dL 0.6-1. 0 high Not Available [facility] (Lab Registration) [address] [place], [address], 11/03/2024 16:54:55 11/03/20 24 11/03/2024 COMP METAB OLIC PANEL BUN/creatini ne ratio 12.9 9-21 Not Available [facility] (Lab Registration) [address] [place], [address], 11/03/2024 16:54:55 11/03/20 24 11/03/2024 COMP METAB [...] ely ing kiney funct ion. Not Available [facility] (Lab Registration) [address] [place], [address], 11/03/2024 16:54:55 11/03/20 24 11/03/2024 COMP METAB OLIC PANEL total protein 7.0 g/dL 6.4-8. 2 Not Available [facility] (Lab Registration) [address] [place], [address], 11/03/2024 16:54:55 11/03/20 24 11/03/2024 COMP METAB OLIC PANEL albumin 3.6 g/dL 3.4-5. 0 Not Available [facility] (Lab Registration) [address] [place], [address], 11/03/2024 16:54:55 11/03/20 24 11/03/2024 COMP METAB OLIC PANEL calcium 9.5 mg/dL 8.5-10 .1 Not Available [facility] (Lab Registration) [address] [place], [address], 11/03/2024 16:54:55 11/03/20 24 11/03/2024 COMP METAB OLIC PANEL corrected calcium 9.8 mg/dL 8.5-10 .1 Not Available [facility] (Lab Registration) [address] [place], [address], 11/03/2024 16:54:55 11/03/20 24 11/03/2024 COMP METAB OLIC PANEL bilirubin total 0.3 mg/dL 0.4-1. 5 low Not Available [facility] (Lab Registration) [address] [place], [address], 11/03/2024 16:54:55 11/03/20 24 11/03/2024 COMP METAB OLIC PANEL AST (SGOT) 19 U/L 15-37 Not Available [facility] (Lab Registration) [address] [place], [address], 11/03/2024 16:54:55 11/03/20 24 11/03/2024 COMP METAB OLIC PANEL ALT (SGPT) 19 U/L 12-78 Not Available [facility] (Lab Registration) [address] [place], [address], 11/03/2024 16:54:55 11/03/20 24 11/03/2024 COMP METAB OLIC PANEL alk phosphatase 106 U/L 50-120 Not Available [facility] (Lab Registration) [address] [place], [address], 11/03/2024 16:54:55 11/03/20 24 11/03/2024 COMP METAB OLIC PANEL note Unles s other lovett noted testi ng perfo rmed at: [facility] [address] [place] [address] [phone] Ismael blanca MD CLIA: [id number] Not Available [facility] (Lab Registration) [address] [place], [address], 11/03/2024 16:54:55 01/24/20 25 01/24/2025 CBC AUTO W DIFF WBC 8.0 10 4.5-11 .5 Not Available [facility] (Lab Registration) [address] [place], [address], 01/24/2025 13:06:43 01/24/20 25 01/24/2025 CBC AUTO W DIFF RBC 4.62 10 4.25-5 .57 Not Available [facility] (Lab Registration) [address] [place], [address], 01/24/2025 13:06:43 01/24/20 25 01/24/2025 CBC AUTO W DIFF HGB 13.3 g/dL 12.0-1 5.7 Not Available [facility] (Lab Registration) [address] [place], [address], 01/24/2025 13:06:43 01/24/20 25 01/24/2025 CBC AUTO W DIFF HCT 42.9 % 36.0-4 7.0 Not Available [facility] (Lab Registration) [address] [place], [address], 01/24/2025 13:06:43 01/24/20 25 01/24/2025 CBC AUTO W DIFF MCV 92.9 fL 80-95 Not Available [facility] (Lab Registration) [address] [place], [address], 01/24/2025 13:06:43 01/24/20 25 01/24/2025 CBC AUTO W DIFF MCH 28.8 pg 27.0-3 4.0 Not Available [facility] (Lab Registration) [address] [place], [address], 01/24/2025 13:06:43 01/24/20 25 01/24/2025 CBC AUTO W DIFF MCHC 31.0 g/dL 32.0-3 6.0 low Not Available [facility] (Lab Registration) [address] [place], [address], 01/24/2025 13:06:43 01/24/20 25 01/24/2025 CBC AUTO W DIFF platelet count 231 10 150-45 0 Not Available [facility] (Lab Registration) [address] [place], [address], 01/24/2025 13:06:43 01/24/20 25 01/24/2025 CBC AUTO W DIFF RDW 13.0 % 12.3-1 5.1 Not Available [facility] (Lab Registration) [address] [place], [address], 01/24/2025 13:06:43 01/24/20 25 01/24/2025 CBC AUTO W DIFF MPV 12.2 fL 7.4-10 .4 high Not Available [facility] (Lab Registration) [address] [place], [address], 01/24/2025 13:06:43 01/24/20 25 01/24/2025 CBC AUTO W DIFF granulocyte% 60.1 % 40-75 Not Available [facility] (Lab Registration) [address] [place], [address], 01/24/2025 13:06:43 01/24/20 25 01/24/2025 CBC AUTO W DIFF lymphocyte% 29.9 % 15-57 Not Available [facility] (Lab Registration) [address] [place], [address], 01/24/2025 13:06:43 01/24/20 25 01/24/2025 CBC AUTO W DIFF monocyte% 7.1 % 4.0-12 .0 Not Available [facility] (Lab Registration) [address] [place], [address], 01/24/2025 13:06:43 01/24/20 25 01/24/2025 CBC AUTO W DIFF eosinophil% 2.5 % 0.0-4. 0 Not Available [facility] (Lab Registration) [address] [place], [address], 01/24/2025 13:06:43 01/24/20 25 01/24/2025 CBC AUTO W DIFF basophil% 0.2 % 0.0-1. 0 Not Available [facility] (Lab Registration) [address] [place], [address], 01/24/2025 13:06:43 01/24/20 25 01/24/2025 CBC AUTO W DIFF immature granulocytes % 0.2 % 0.0-0. 8 Not Available [facility] (Lab Registration) [address] [place], [address], 01/24/2025 13:06:43 01/24/20 25 01/24/2025 CBC AUTO W DIFF granulocyte# 4.81 10 Not Available [facility] (Lab Registration) [address] [place], [address], 01/24/2025 13:06:43 01/24/20 25 01/24/2025 CBC AUTO W DIFF lymphocyte# 2.40 10 Not Available [facility] (Lab Registration) [address], [place], [address], 01/24/2025 13:06:43 01/24/20 25 01/24/2025 CBC AUTO W DIFF monocyte# 0.57 10 Not Available [facility] (Lab Registration) [address], [place], [address], 01/24/2025 13:06:43 01/24/20 25 01/24/2025 CBC AUTO W DIFF eosinophil# 0.20 10 Not Available [facility] (Lab Registration) [address], [place], [address], 01/24/2025 13:06:43 01/24/20 25 01/24/2025 CBC AUTO W DIFF basophil# 0.02 10 Not Available [facility] (Lab Registration) [address], [place], [address], 01/24/2025 13:06:43 01/24/20 25 01/24/2025 CBC AUTO W DIFF immature granulocytes # 0.02 10 Not Available [facility] (Lab Registration) [address], [place], [address], 01/24/2025 13:06:43 01/24/20 25 01/24/2025 CBC AUTO W DIFF manual differential NO Not Available [facility] (Lab Registration) [address] [place], [address], 01/24/2025 13:06:43 01/24/20 25 01/24/2025 CBC AUTO W DIFF note Unles s other lovett noted testi ng perfo rmed at: [facility] [address] [place] [address] [phone] Ismael blanca MD CLIA: [id number] Not Available [facility] (Lab Registration) [address], [place], [address], 01/24/2025 13:06:43 01/24/20 25 01/24/2025 THYRO ID STIMU LATIN G HORMO NE thyroid stimulating hormone 4.25 mIU/m L 0.34-4 .80 Not Available [facility] (Lab Registration) [address], [place], [address], 01/24/2025 13:32:23 01/24/20 25 01/24/2025 THYRO ID STIMU LATIN G HORMO NE note Unles s other lovett noted testi ng perfo rmed at: [facility] [address] [place] [address] [phone] Ismael blanca MD CLIA: [id number] Not Available [facility] (Lab Registration) [address], [place], [address], 01/24/2025 13:32:23 01/24/20 25 01/24/2025 COMP METAB OLIC PANEL sodium 144 mmol/ L 136-14 5 Not Available [facility] (Lab Registration) [address], [place], [address], 01/24/2025 13:32:25 01/24/20 25 01/24/2025 COMP METAB OLIC PANEL potassium 4.6 mmol/ L 3.5-5. 1 Not Available [facility] (Lab Registration) [address], [place], [address], 01/24/2025 13:32:25 01/24/20 25 01/24/2025 COMP METAB OLIC PANEL chloride 107 mmol/ L 98-107 Not Available [facility] (Lab Registration) [address], [place], [address], 01/24/2025 13:32:25 01/24/20 25 01/24/2025 COMP METAB OLIC PANEL carbon dioxide 30 mmol/ L 21-32 Not Available [facility] (Lab Registration) [address], [place], [address], 01/24/2025 13:32:25 01/24/20 25 01/24/2025 COMP METAB OLIC PANEL anion gap 7.0 Not Available [facility] (Lab Registration) [address], [place], [address], 01/24/2025 13:32:25 01/24/20 25 01/24/2025 COMP METAB OLIC PANEL glucose 89 mg/dL 70-110 Not Available [facility] (Lab Registration) [address], [place], [address], 01/24/2025 13:32:25 01/24/20 25 01/24/2025 COMP METAB OLIC PANEL blood urea nitrogen 17 mg/dL 7-18 Not Available [facility] (Lab Registration) [address], [place], [address], 01/24/2025 13:32:25 01/24/20 25 01/24/2025 COMP METAB OLIC PANEL creatinine 1.2 mg/dL 0.6-1. 0 high Not Available [facility] (Lab Registration) [address], [place], [address], 01/24/2025 13:32:25 01/24/20 25 01/24/2025 COMP METAB OLIC PANEL BUN/creatini ne ratio 14.2 9-21 Not Available [facility] (Lab Registration) [address], [place], [address], 01/24/2025 13:32:25 01/24/20 25 01/24/2025 COMP METAB [...] ely ing kiney funct ion. Not Available [facility] (Lab Registration) [address] [place], [address], 01/24/2025 13:32:25 01/24/20 25 01/24/2025 COMP METAB OLIC PANEL total protein 6.6 g/dL 6.4-8. 2 Not Available [facility] (Lab Registration) [address] [place], [address], 01/24/2025 13:32:25 01/24/20 25 01/24/2025 COMP METAB OLIC PANEL albumin 3.9 g/dL 3.4-5. 0 Not Available [facility] (Lab Registration) [address] [place], [address], 01/24/2025 13:32:25 01/24/20 25 01/24/2025 COMP METAB OLIC PANEL calcium 9.2 mg/dL 8.5-10 .1 Not Available [facility] (Lab Registration) [address] [place], [address], 01/24/2025 13:32:25 01/24/20 25 01/24/2025 COMP METAB OLIC PANEL corrected calcium 9.3 mg/dL 8.5-10 .1 Not Available [facility] (Lab Registration) [address] [place], [address], 01/24/2025 13:32:25 01/24/20 25 01/24/2025 COMP METAB OLIC PANEL bilirubin total 0.4 mg/dL 0.4-1. 5 Not Available [facility] (Lab Registration) [address] [place], [address], 01/24/2025 13:32:25 01/24/20 25 01/24/2025 COMP METAB OLIC PANEL AST (SGOT) 13 U/L 15-37 low Not Available [facility] (Lab Registration) [address] [place], [address], 01/24/2025 13:32:25 01/24/20 25 01/24/2025 COMP METAB OLIC PANEL ALT (SGPT) 18 U/L 12-78 Not Available [facility] (Lab Registration) [address] [place], [address], 01/24/2025 13:32:25 01/24/20 25 01/24/2025 COMP METAB OLIC PANEL alk phosphatase 100 U/L 37-110 Not Available [facility] (Lab Registration) [address] [place], [address], 01/24/2025 13:32:25 01/24/20 25 01/24/2025 COMP METAB OLIC PANEL note Unles s other lovett noted testi ng perfo rmed at: [facility] [address] [place] [address] [phone] Ismael blanca MD CLIA: [id number] Not Available [facility] (Lab Registration) [address] [place], [address], 01/24/2025 13:32:25 01/24/20 25 01/24/2025 LIPID PANEL triglyceride 135 mg/dL 20-200 The [employer]io nal [employer] am (NCEP ) has set the follo wing guide lines for Fasti ng Trigl yceri jerri: YURIY L: <150 mg/dL BORDE RLINE HIGH: 150 - 199 mg/dL HIGH: 200 - 499 mg/dL VERY HIGH: > or =500 mg/dL Not Available [facility] (Lab Registration) [address] [place], [address], 01/24/2025 13:32:27 01/24/20 25 01/24/2025 LIPID PANEL cholesterol 147 mg/dL 0-200 The [employer]io n[employer] t[employer] am (NCEP ) has set the follo wing guide lines for Fasti ng Neida stero l: JUSTINA ABLE: <200 mg/dL BORDE RLINE HIGH: 200 - 239 mg/dL HIGH: > or =240 mg/dL Not Available [facility] (Lab Registration) [address], [place], [address], 01/24/2025 13:32:27 01/24/20 25 01/24/2025 LIPID PANEL HDL cholesterol 44 mg/dL 60- low The [facility]io n[facility] [employer] [facility] [employer] [facility] am ([facility] ) has set the follo wing guide lines for Fasti ng HDL Neida stero l: LOW HDL: <40 mg/dL YURIY L: 40 - 60 mg/dL JUSTINA ABLE: >60 mg/dL Not Available [facility] (Lab Registration) [address], [place], [address], 01/24/2025 13:32:27 01/24/20 25 01/24/2025 LIPID PANEL LDL calculated 76 mg/dL 100- low The [employer] n[facility] [employer] t[employer]gr am (AREP ) has set the follo wing guide lines for Fasti ng LDL Neida stero l: OPTIM AL: < 100 mg/dL LOW RISK: 100 - 129 mg/dL BORDE RLINE HIGH: 130 - 159 mg/dL HIGH: 160 - 189 mg/dL VERY HIGH: > or = 190 mg/dL Not Available [facility] (Lab Registration) [address], [place], [address], 01/24/2025 13:32:27 01/24/20 25 01/24/2025 LIPID PANEL chol/HDL ratio 3 -5 Not Available [facility] (Lab Registration) [address], [place], [address], 01/24/2025 13:32:27 01/24/20 25 01/24/2025 LIPID PANEL note Unles s other lovett noted testi ng perfo rmed at: [facility] [address] [address] [phone] Ismael blanca MD CLIA: [id number] Not Available [facility] (Lab Registration) [address] , [place], [address], 01/24/2025 13:32:27 01/24/20 25 01/24/2025 HEMOG LOBIN A1C glycosylated hemoglobin A1C 5.5 % 4.5-6. 2 Not Available [facility] (Lab Registration) [address] [place], [address], 01/24/2025 14:10:10 01/24/20 25 01/24/2025 HEMOG LOBIN A1C estimated average glucose 111 mg/dL 82-131 Not Available [facility] (Lab Registration) [address] , [place], [address], 01/24/2025 14:10:10 01/24/20 25 01/24/2025 HEMOG LOBIN A1C note Unles s other lovett noted testi ng perfo rmed at: [facility] [address] [place] [address] [phone] Ismael blanca MD CLIA: [id number] Not Available [facility] (Lab Registration) [address], [place], [address], 01/24/2025 14:10:10 10/10/20 24 10/07/2024 imagi ng inter preta tion No observ ation record ed. [facility] [address], [place], [address], 10/11/2024 08:19:36 10/10/2010/07/2024 imagi ng inter preta tion No observ ation record ed. [facility] [address], [place], [address], 10/11/2024 08:19:31 10/11/20 24 10/07/2024 imagi ng inter preta tion No observ ation record ed. [facility] [address], [place], [address], 10/11/2024 08:19:26 02/05/20 25 02/04/2025 imagi ng inter preta tion No observ ation record ed. [facility] [address], [place], [address], 02/09/2025 07:11:33 Result Notes None recorded. Problems Name Problem SNOMED Code Status Onset Date Resolution Date Notes Provider Name and Address Organization Details Recorded Time Atrial fibrillation 53971959 Active 2024 Mirna Pardini null[place] [facility] [place] & [place] 5 10:13:28 Asthma 629152220 Active 2021 Mirna [place]ard[place] 2 14:54:38 Essential hypertension 62708476 Active 2021 Mirna Pard[place] 2 14:54:48 Paresthesia of upper limb 12173478 Active 2021 Mirna [place] 2 14:55:14 Paresthesia 37339567 Active 2021 Mirna [place] 2 14:55:49 Gastroesophag eal reflux disease 877391649 Active 2021 Mirna Pard[place] 2 14:56:01 History of polyp of colon 400933104 Active 2021 Mirna [place]ard[place] 2 14:56:14 Chronic obstructive pulmonary disease 87470863 Active 2021 Mirna [place] 2 14:56:35 Diverticula of intestine 51974816 Active 2021 Mirna [place]ard[place] 2 14:56:50 Obstructive sleep apnea syndrome 35217938 Active 2021 Mirna [place]ard[place] 2 14:57:03 Dyslipidemia 941925620 Active 2021 Mirna [place]ard[place] 2 14:57:18 Left heart failure 41576213 Active 2021 Mirna [place] 2 14:57:28 Normal grief reaction 658306235 Active 2021 Mirna Pard[place] 2 14:57:41 Hypothyroidis m 41517718 Active 2021 Dave Alfaro MD [address], [place], [address] , [place] 2 15:55:50 End-stage renal disease 76193474 Active 2021 Dave Alfaro MD [address], [place], [address] , [place] 2 15:57:04 Allergic rhinitis 11134030 Active 2021 Mirna Andrewdini [place] 2 16:16:04 Gastro-esopha geal reflux disease with esophagitis 627292937 Active 2022 Christine Boyd NP [address], [address], [place], [address] , [place] [facility] [place] [facility] [place] 3 13:37:34 Diarrhea 16054993 Active 2022 Christine Body NP [address], [address], [place], [address] , [place] [facility] [place] [facility] [place] 3 13:37:41 Skin lesion 88520531 Active 2022 Christine Boyd NP [address] [facility], [address], [place], [address] , [place] - [facility] & [place] 3 13:38:29 Problem Notes None recorded. Procedures Surgical History Date Name Laterality Status Provider Name and Address Organization Details Recorded Time 07/21/20 24 Colonoscopy completed Isaura VEE - [facility] & [place] 07/27/2024 08:15:55 12/16/19 21 Unlisted px cardiac surgery completed Mirna Andrewdini [place] - [facility] & [place] 09/02/2022 15:03:45 12/01/19 18 cholecystectomy completed Mirna Pardini [place] [facility] [facility] & [place] 09/02/2022 15:02:02 12/01/19 18 colonoscopy completed Mirna Andrewdini [place] [facility] [facility] & [place] 09/02/2022 15:03:12 Partial hysterectomy completed Mirna Andrewdini [place] [facility] [facility] & [place] 09/02/2022 15:01:35 ligation of bilateral fallopian tubes completed Mirna Andrewdini [place] [facility] [facility] & [place] 09/02/2022 15:01:49 Imaging Results None recorded. Procedure Notes None recorded. Medical Equipment None Reported. Allergies Allergen ID Allergen Name Allergen Category Reaction Reaction Severity Criticality Documentation Date Start Date Code Code System Note Provider Name and Address Organization Details Recorded Time 448328 spironola ctone medicatio n hives moderate Not available 07/21/2024 9997 RxNorm Doris Nelda null[place] [facility] [facility] & [place] 4 11:43:51 63213 atorvasta tin medicatio n myalgias (muscle pain) other moderate moderate high 09/02/2022 03304 RxNorm decre ases kidne y funct ion Mirna Pardini null[place] - [facility] [facility] & [place] 2 14:54:24 Medications Name Sig Start Date [...] 12 HOURS NEEDED FOR AFIB WITH RVR 06/07 completed Not Available Not Available Not Available Advair Diskus 500 mcg-50 mcg/dose powder [...] IN EACH NOSTRIL 1 TIME EACH DAY 06/07 completed Not Available Not Available Not Available colestipol 1 gram tablet TAKE 2 TABLETS EVERY DAY DIRECTED active Not Available Not Available No t Available Ventolin HFA 90 mcg/actuati on aerosol inhaler INHALE 2 PUFFS EVERY 4 HOURS NEEDED active Not Available Not Available No t Available fexofenadin e-pseudoeph edrine ER 180 mg-240 mg [...] Updated DateTime 5 162.56 cm 41.2 kg/m2 906046. 45 g 97.8 [degF] 100 % 100 % 63 /min 16 /min 151/87 mm[Hg] Mirna Emery [place] - [facility] - [facility] 5 09:00:05 Date Recorded Body height Body mass index (BMI) Body weight Body temperature Oxygen saturation Oxygen saturation in Arterial blood by Pulse oximetry Heart rate Respiratory rate Systolic And Diastolic Provider Name and Address Organization Details Last Updated DateTime 5 162.56 cm 41.4 kg/m2 825981. 2 g 97.9 [degF] 97 % 97 % 52 /min 16 /min 116/57 mm[Hg] Mirna GAMBLE [facility] & [place] 5 10:12:48 Date Recorded Body height Body mass index (BMI) Body weight Body temperature Oxygen saturation Oxygen saturation in Arterial blood by Pulse oximetry Heart rate Respiratory rate Systolic And Diastolic Provider Name and Address Organization Details Last Updated DateTime 5 162.56 cm 41.4 kg/m2 165451. 48 g 97.7 [degF] 98 % 98 % 58 /min 16 /min 135/75 mm[Hg] Mirna GAMBLE [facility] & [place] 5 09:37:32 Date Recorded Body height Body mass index (BMI) Body weight Body temperature Oxygen saturation Oxygen saturation in Arterial blood by Pulse oximetry Heart rate Respiratory rate Systolic And Diastolic Provider Name and Address Organization Details Last Updated DateTime 4 162.56 cm 41.6 kg/m2 039092. 07 g 97.3 [degF] 99 % 99 % 48 /min 16 /min 116/74 mm[Hg] Mirna GAMBLE [facility] & [place] 4 11:24:55 Social History Question Answer Notes LastModified by Organizat ion Details LastModified Time Tobacco Smoking Status Current Every Day Smoker Mirna mccarthy [place] [facility] & [place] 09/02/2022 15:01:18 Do You Have An Advance [...] Repellent Routinely? Yes Information not available 12/26/2023 Do You Feel Safe At Home? Yes Information not available 06/07/2025 What Is Your Current Pack Years? 30ormorepack years Information not available 12/26/2023 Do You Have Any Pets? No Information not available 12/26/2023 What Is Your Relationship Status? Information not available 06/07/2025 Do You Use Your Seat Belt Or [...] Functional Status Question Answer Note LastModified by [employer] Details LastModified Time Do you use any [...] Mental Status Question Answer Note LastModified by [employer] - your brands Details LastModified Time Do you feel stressed (tense, restless, nervous, or anxious, or unable to sleep at night)? [id number] Information not available 12/26/2023 Do you have [...] Influenza, MDCK, trivalent, PF 6 completed Mirna Pardini [place] [facility] & [place] 09/26/2022 14:52:16 Influenza, split virus, quadrivalent, PF 1 completed Mir[place]ard[place] 09/26/2022 14:52:16 Influenza, split virus, quadrivalent, PF 0 completed Mir[place] [facility] & [place] 09/26/2022 14:52:16 COVID-19, mRNA, LNP-S, PF, 100 mcg/0.5mL dose or 50 mcg/0.25mL dose 1 completed Mir[place] [facility] & [place] 09/26/2022 14:52:16 COVID-19, mRNA, LNP-S, PF, 100 mcg/0.5mL dose or 50 mcg/0.25mL dose 1 completed Mirna P[place] [facility] [facility] [place] 09/26/2022 14:52:16 COVID-19, mRNA, LNP-S, PF, 100 mcg/0.5mL dose or 50 mcg/0.25mL dose 1 completed Mirna [place] [facility] & [place] 09/26/2022 14:52:16 Influenza, split virus, quadrivalent, PF 2 completed Mir[place] 09/26/2022 14:52:16 Influenza, split virus, quadrivalent, PF 3 completed Dave Alfaro MD [address] [place] [address], [address], [place] [facility] [place] [facility] [place] 08/13/2023 12:51:38 Pneumococcal Conjugate, unspecified formulation 4 completed Doris Lutz [place] [facility] 07/21/2024 11:42:33 Influenza, split virus, trivalent, PF 4 completed Mir[place] 10/27/2024 11:25:14 Past Encounters Encounter ID Performer Location Encounter Start Date Encounter Closed Date Diagnosis/Indication Diagnosis SNOMED-CT Code Diagnosis ICD10 Code Diagnosis Note [id number] Dave Alfaro MD [address] [address] 09/10/2022 09:16:50 09/10/2022 11:05:37 Acute pharyngitis 598874072 J02.9 patient has been advised to change her toothbrush and gargle with salt water. Will put her on Augmentin. I will also give her a prescripti on for some fexofenadi ne. Chronic ob structive pulmonary disease 27481929 J44.9 Asthma 970566261 J45.90 9 stable Dyslipidemia 734111916 E 78.5 stable Essential hypertension 92212540 I10 Gastroesop hageal reflux disease 098328356 K21.9 Stable [id number] Dave Alfaro MD [address] [address] 09/26/2022 14:20:04 09/26/2022 15:22:45 Dyslipidemia 416218517 E78.5 stable Essential hypertension 17277895 I10 controlled Hypothyroidism 17305418 E03.9 will start patient on levothyrox ine. Will recheck her labs in 3 months End-stage renal disease 80612678 N18.6 patient's kidney function is indeed compromise d. Will refer her to Nephrology . I have instructed her to stop her furosemide . She insists that she will continue to take 1 tablet a day instead of 2. [id number] Dave Alfaro MD [address] [address] 01/01/2023 10:50:42 01/01/2023 12:29:59 Chronic obstructive pulmonary disease 02434087 J44.9 Controlled Dyslipidemia 263199820 E 78.5 stable Will check lab work today. End-stage renal disease 58045560 N18.6 Patient is being seen by Nephrology . Will obtain lab work today. Essential hypertension 88246149 I10 controlled Hypothyroidism 42775060 E03.9 will start patient on levothyrox ine. Will recheck her labs in 3 months Obstructiv e sleep apnea syndrome 93779946 G47.33 patient has [facility]. She is awaiting an appointmen t with the pulmonolog ist over the to figure out her CPAP settings. [id number] Dave Alfaro MD [address] [address] 02/12/2023 14:03:35 02/12/2023 14:46:10 Breast lump 38697675 N63.0 will obtain mammogram [id number] Dave Alfaro MD [address] [address] 03/03/2023 09:58:58 03/03/2023 11:04:22 Allergic rhinitis 06914017 J30.9 patient to get a shot of steroids today. Will put her on a Medrol Dosepak and start her on Katherine D. Patient has been instructed to continue to monitor blood pressure. She has been instructed to follow-up as needed. [id number] Dave Alfaro MD [address] [address] 03/27/2023 10:46:13 03/27/2023 11:15:16 Pain of left calf 5046874954 800154 M79.662 Will send patient to the hospital for Doppler studies. Hypothyroidism 98988504 E03.9 patient requests Synthroid. She states she reacts to levothyrox ine. [id number] Christine Boyd NP [facility] [address] [place] [id number] 05/28/2023 12:56:04 05/28/2023 13:34:23 Gastro-esophageal reflux disease with esophagitis 927147919 K21.00 controlled with use of pantoprazo le 40 mg of famotidine 40 mg HS. Will send refills today. Recommend continued reflux precaution s as well as weight loss. Diarrhea 86540245 R19.7 Continues colestipol for treatment diarrhea. Recently experienci ng episodes of constipati on after change of medication . I have suggested colestipol 1 mg 1 tablet daily at this time, may consider BID dosing based on symptoms. [id number] Dave Alfaro MD [address] [place] [address] 08/13/2023 11:13:05 08/13/2023 11:45:38 Influenza vaccine needed 7810976937 106 Z23 [id number] Dave Alfaro MD [address] [place] [address] 11/17/2023 11:28:06 11/17/2023 11:56:17 Congestion of nasal sinus 74295970 R09.81 Headache 21305682 R51.9 Subacute headaches and sinus tenderness . Will obtain CT scans today. We moises call pt with results [id number] Dave Alfaro MD [address] [place] [address] 12/26/2023 10:39:05 12/26/2023 11:25:44 Adult health examination 382293727 Z00.00 Allergic rhinitis 317121 04 J30.9 PATIENT CONTINUES TO SUFFER FROM SEVERE ALLERGY SYMPTOMS. WILL REFER PATIENT TO AN [employer]ARM[employer] DIVERSIFIED CROPS FOR ALLERGY TESTING. Asthma 539841314 J45.90 9 stable Dyslipidemia 092059111 E 78.5 stable Will check lab work today. Essential hypertension 94589435 I10 Continue with current regimen. patient is yet to take medication s this morning. Hypothyroidism 91134442 E03.9 will obtain lab work today. [id number] Dave Alfaro MD [address] [place] [address] 01/07/2024 10:24:39 01/09/2024 12:36:02 Respiratory tract congestion and cough 661180470 R05.1 COVID-19 425828047 U07.1 will treat patient with Paxlovid. She has been advised to stop her statin at this time. [id number] Dave Alfaro MD [address] [place] [id number] 01/22/2024 11:47:48 01/22/2024 12:32:01 Chest pain 15795026 R07.9 patient has been advised to follow-up with her cardiologi st regarding her chest pain. Essential hypertension 60577781 I10 Please reduce your blood pressure medication . Take half a losartan 50 mg tablet for now. Asthma 896313612 J45.90 9 stable [id number] Christine Boyd NP [facility] [address] [place] [address] 05/26/2024 12:50:52 05/26/2024 14:54:37 History of polyp of colon 319811796 Z86.010 last colonoscop y 10/[address] Pearce multiple colon polyps resected. Due for repeat colonoscop y for surveillan ce. She will need cardiac clearance, Dr. Tyler, prior to scheduling . Gastro-eso phageal reflux disease with esophagitis 750710233 K21.00 Continues famotidine 40 mg HS due to CKD. Will send refills today. Recommend continued reflux precaution s as well as weight loss. Diarrhea 79484314 R19.7 Continues colestipol for treatment diarrhea. Will send refills today. [id number] Dave Alfaro MD [place] [address] [address] [place] [id number] 07/29/2024 11:43:33 07/29/2024 11:57:50 Cigarette smoker 80821892 F17.210 Asthma 613211906 J45.90 9 stable Dyslipidemia 841921369 E 78.5 stable Will check lab work today. End-stage renal disease 65493724 N18.6 Patient is being seen by Nephrology . Will obtain lab work today. Essential hypertension 05201385 I10 Please reduce your blood pressure medication . Take half a losartan 50 mg tablet for now. Hypothyroidism 90050031 E03.9 will obtain lab work today. Hypomagnesemia 793561683 E83.42 [id number] Dave Alfaro MD [address] [place] [id number] 10/27/2024 11:11:19 10/27/2024 11:53:25 Decreased renal function 95990811 R94.4 Rechecking labs today. Her labs inJuly were suggestive of stage 3 CKD with a GFR of 48. However she states she was cleared by the nephrologi st. Paroxysmal atrial fibrillation 164334500 I48.0 Following with cardiology , she goes back in 2 weeks. She states there has been no conversati on of a pacemaker. Essential hypertension 83019334 I10 Thyroid di sorder screening 620316286 Z13.29 Rechecking today Hyperlipidemia 50227494 E78.5 Rechecking today [id number] JOSE ALEJANDRO GILBERT NP [address] [place] [id number] 11/03/2024 14:01:51 11/03/2024 14:08:48 Hyperkalemia 78502167 E87.5 blood drawn in the right AC by Mirna Emery CMA, patient tolerated well. [id number] Dave Alfaro MD [address] [place] [address] 01/24/2025 08:51:45 01/24/2025 09:18:15 Dyslipidemia 626460532 E78.5 stable Will check lab work today. End-stage renal disease 29133898 N18.6 Patient is being seen by Nephrology . Will obtain lab work today. Essential hypertension 06192493 I10 Hypothyroidism 11554359 E03.9 will obtain lab work today. Diabetes m ellitus screening 909977883 Z13.1 will check A1c today. [id number] Dave Alfaro MD [address] [place] [address] 03/22/2025 09:27:41 03/22/2025 10:52:43 Atrial fibrillation 98447479 I48.91 Patient is under the care of cardiology . due to patient's symptomato logy I have advised her to follow-up with her cardiologi st today. Her sister who brings her to the clinic states they will go straight to her cardiologi st's office. Chronic ob structive pulmonary disease 60935791 J44.9 COPD appears to be stable at this time. Essential hypertension 79653294 I10 Hypertensi on appears to be controlled . [id number] Dave Alfaro MD [facility] [address] [place] [address] 06/07/2025 09:19:18 06/07/2025 10:13:16 Thrombophlebitis of superficial vein of right upper limb 0510350630 7412203 I80.8 I have told patient that her blood clot will resolve spontaneou sly. She should continue to use a heating pad. And take anti-infla mmatory Atrial fibrillation 4944 6004 I48.91 patient is currently on Eliquis secondary to atrial fib. She appears to be stable at this time. Chronic ob structive pulmonary disease 92347772 J44.9 COPD appears to be stable at this time. Essential hypertension 14380988 I10 Good blood pressure control. Health Concerns Section Related Observation LastModified by Organization Detai ls LastModified Time None Recorded Concern Status LastModified by Organization Details LastModified Time None Recorded Advance Directives Directive N: Payers Insurance Date Sequence Insurance Name Policy Number Policy Araujo Covered Member ID Araujo Member ID Guarantor Name 09/06/2024 1 [facility] [place] [id number] Tita Moe [id number] Tita Moe 06/06/2025 1 [id number] Tita Lulu Abhi [id number] Tita Moe 01/21/2025 1 [id number] Tita A Abhi [id number] Tita Lulu Hudson 05/25/2020 1 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 Tita Moe is a 58yo female with a past [...] her in 2 week. Dave Alfaro MD [address] [place] [address], [phone], [facility] & [place] 10/27/2024 11:53:07 01/24/2025 text/html PT PRESENTS FOR CHRONIC CARE MANAGEMENT, DENIES ANY NEW ISSUES. IS COMPLIANT WITH MEDICATIONS Dave Alfaro MD [address] [place] [address], [phone], [facility] & [place] 01/24/2025 09:32:00 03/22/2025 text/html patient presents today to follow-up from hospital admission. Patient was [facility] due to atrial fib and AVR. She also was complaining of dizziness. And extreme fatigue. Patient also reports some near syncopal episodes. Patient appears to be stable at this time. She has awaiting an appointment at [facility]. Dave Alfaro MD [address] [place] [address], [phone], [facility] & [place] 03/22/2025 11:05:05 06/07/2025 text/html patient presents today for hospital follow-up. She was seen in the hospital emergency department on 06/03/2025 and diagnosed with a blood clot in her right upper extremity. She has requesting a referral to vascular surgery Dave Alfaro MD [address] [place] [address], [phone], [facility] & [place] 06/07/2025 10:02:04 OBGyn Episode No OBEpisode recorded.
--- OUTSIDE RECORDS SUMMARY | 2025-06-09 14:24 | XMS_ITS | Continuity of Care Document ---
Author Organization [facility] & [facility]- [facility] Address [address] [address] Care Team Providers Care Shoe Cobbler Name Role Phone CHRISTINE BOYD Technologist Infectious Disease DAVE ALFARO Primary Care Provider Assessment No assessment recorded. Plan of Treatment Reminders Order Date Submit Date Provider Last Modified By Organization Details Last Modified Time Details Appointments OV EST 15 025 03:00PM Christine Boyd NP Not available Not available Not available OV EST 15 025 03:00PM Dave Alfaro MD Not available Not available Not available Lab None record ed. Referral None record ed. Procedures None record ed. Surgeries None record ed. Imaging None record ed. Medication Orders None record ed. Patient TargetsNo targets recorded. Patient InstructionsNo instructions recorded. Reason for Referral None Reported. Problems Name Problem SNOMED Code Status Onset Date Resolution Date Notes Provider Name and Address Organization Details Recorded Time Atrial fibrillation 71645721 Active 2024 Mirna Pardini null, [place] - [facility] - [place] & [place] 5 10:13:28 Asthma 439246644 Active 2021 Mirna Pardini [place], [place] [facility] & [place] 2 14:54:38 Essential hypertension 15890568 Active 2021 Mirna Pard[place] [facility] [place] [facility] & [place] 2 14:54:48 Paresthesia of upper limb 96899761 Active 2021 Mir[place] [facility] [place] [facility] & [place] 2 14:55:14 Paresthesia 80924311 Active 2021 Mir[place]ard[place] [place] & [place] 2 14:55:49 Gastroesophag eal reflux disease 138385359 Active 2021 Mir[place] & [place] 2 14:56:01 History of polyp of colon 840213363 Active 2021 Mir[place] & [place] 2 14:56:14 Chronic obstructive pulmonary disease 77092767 Active 2021 Mir[place] & [place] 2 14:56:35 Diverticula of intestine 31167239 Active 2021 Mir[place] & [place] 2 14:56:50 Obstructive sleep apnea syndrome 77840618 Active 2021 Mir[place] & [place] 2 14:57:03 Dyslipidemia 813384829 Active 2021 Mir[place] 2 14:57:18 Left heart failure 27307744 Active 2021 Mir[place] & [place] 2 14:57:28 Normal grief reaction 325223500 Active 2021 Mirna [place]ard[place] & [place] 2 14:57:41 Hypothyroidis m 45200200 Active 2021 Dave Alfaro MD [address] [place] [address], [phone] , [place] [facility] [place] & [place] 2 15:55:50 End-stage renal disease 76008124 Active 2021 Dave Alfaro MD [address] [place] [address], [phone] , [place] [facility] [place] & [place] 2 15:57:04 Allergic rhinitis 66892267 Active 2021 Mirna Yuly [place] & [place] 2 16:16:04 Gastro-esopha geal reflux disease with esophagitis 152451774 Active 2022 Christine Boyd NP [address], [address], [place], [address] , [place] [facility] [place] & [place] 3 13:37:34 Diarrhea 86886850 Active 2022 Christine Boyd NP [address], [address], [place], [address] , [place] [facility] [place] & [place] 3 13:37:41 Skin lesion 22478353 Active 2022 Christine Boyd NP [address], [address], [place], [address] , [place] [facility] [place] & [place] 3 13:38:29 Problem Notes None recorded. Procedures Surgical History Date Name Laterality Status Provider Name and Address Organization Details Recorded Time 07/21/20 24 Colonoscopy completed Isaura Mckinney [place] [facility] [place] & [place] 07/27/2024 08:15:55 12/16/19 21 Unlisted px cardiac surgery completed Mirna Pardini [place] [facility] [place] & [place] 09/02/2022 15:03:45 12/01/19 18 cholecystectomy completed Mirna Pardini [place] & [place] 09/02/2022 15:02:02 12/01/19 18 colonoscopy completed Mirna [place]ardini [place] & [place] 09/02/2022 15:03:12 Partial hysterectomy completed Mirna [place]ardini [place] & [place] 09/02/2022 15:01:35 ligation of bilateral fallopian tubes completed Mirna Pardini [place] [facility] & [place] 09/02/2022 15:01:49 Imaging Results None recorded. Procedure Notes None recorded. Medical Equipment None Reported. Allergies Allergen ID Allergen Name Allergen Category Reaction Reaction Severity Criticality Documentation Date Start Date Code Code System Note Provider Name and Address Organization Details Recorded Time 910254 spironola ctone medicatio n hives moderate Not available 07/21/2024 9997 RxNorm Doris Lutz [facility] & [place] 4 11:43:51 19394 atorvasta tin medicatio n myalgias (muscle pain) other moderate moderate high 09/02/2022 07484 RxNorm decre ases kidne y funct ion Mirna Emery [facility] & [place] 2 14:54:24 Medications Name Sig Start Date [...] Updated DateTime 5 162.56 cm 41.4 kg/m2 703545. 48 g 97.7 [degF] 98 % 98 % 58 /min 16 /min 135/75 mm[Hg] Mirna Zelayacecilia [facility] & [place] 5 09:37:32 Social History Question Answer Notes LastModified by Organizat ion Details LastModified Time Tobacco Smoking Status Current Every Day Smoker Mirna Moraleshammad [facility] & [place] 09/02/2022 15:01:18 Do You Have An Advance [...] anxious, or unable to sleep at night)? [id number] Information not available 12/26/2023 Do you have [...] Influenza, MDCK, trivalent, PF 6 completed Mirna Parneali [place] [facility] [place] & [place] 09/26/2022 14:52:16 Influenza, split virus, quadrivalent, PF 1 completed Mir[place] & [place] 09/26/2022 14:52:16 Influenza, split virus, quadrivalent, PF 0 completed Mir[place] & [place] 09/26/2022 14:52:16 COVID-19, mRNA, LNP-S, PF, 100 mcg/0.5mL dose or 50 mcg/0.25mL dose 1 completed Mir[place] & [place] 09/26/2022 14:52:16 COVID-19, mRNA, LNP-S, PF, 100 mcg/0.5mL dose or 50 mcg/0.25mL dose 1 completed Mir[place] & [place] 09/26/2022 14:52:16 COVID-19, mRNA, LNP-S, PF, 100 mcg/0.5mL dose or 50 mcg/0.25mL dose 1 completed Mir[place] & [place] 09/26/2022 14:52:16 Influenza, split virus, quadrivalent, PF 2 completed Mir[place] & [place] 09/26/2022 14:52:16 Influenza, split virus, quadrivalent, PF 3 completed Dave Alfaro MD [address] [place] [address], [phone], [place] [facility] [place] & [place] 08/13/2023 12:51:38 Pneumococcal Conjugate, unspecified formulation 4 completed Doris Lutz [place] [facility] & [place] 07/21/2024 11:42:33 Influenza, split virus, trivalent, PF 4 completed Mir[place] & [place] 10/27/2024 11:25:14 Past Encounters Encounter ID Performer Location Encounter Start Date Encounter Closed Date Diagnosis/Indication Diagnosis SNOMED-CT Code Diagnosis ICD10 Code Diagnosis Note [id number] Dave Alfaro MD [facility] [address] [facility] [address] [place] [address] 06/07/2025 09:19:18 06/07/2025 10:13:16 Thrombophlebitis of superficial vein of right upper limb 2385752643 8996417 I80.8 I have told patient that her blood clot will resolve spontaneou sly. She should continue to use a heating pad. And take anti-infla mmatory Atrial fibrillation 4943 6004 I48.91 patient is currently on Eliquis secondary to atrial fib. She appears to be stable at this time. Chronic ob structive pulmonary disease 82786605 J44.9 COPD appears to be stable at this time. Essential hypertension 43527291 I10 Good blood pressure control. Health Concerns Section Related Observation LastModified by Organization Detai ls LastModified Time None Recorded Concern Status LastModified by Organization Details LastModified Time None Recorded Payers Encounter Date Sequence Insurance Name Policy Number Policy Araujo Covered Member ID Araujo Member ID Guarantor Name 06/07/2025 1 [id number] Tita Moe [id number] Tita oMe Notes Date Note Type Note Provider Name and Address Organization Details Recorded Time 06/07/2025 text/html patient presents today for hospital follow-up. She was seen in the hospital emergency department on 06/03/2025 and diagnosed with a blood clot in her right upper extremity. She has requesting a referral to vascular surgery Dave Alfaro MD [address] [facility] [address], [place], [address], [place] - [place] [facility] & [place] 06/07/2025 10:02:04 OBGyn Episode No OBEpisode recorded.
== END 2025-06-09 23:59 | disposition home or self-care (01) ==
LOC: LAB 14:22
PROVIDERS: PCP Emergency Medicine; Visit Provider Internal Medicine Pulmonary Disease
DX: J30.9 Allergic rhinitis, unspecified (principal)
CPT/HCPCS: 36415; 82785; 86003

== ENCOUNTER 2025-09-05 10:54 | Outpatient (CLI) | payer OTHER, SELFPAY ==
--- OUTSIDE RECORDS SUMMARY | 2025-09-01 11:30 | XMS_ITS | Encounter Summary ---
Author Organization [facility] Address [address] [place] [address] Care Team Providers Care Supervisor Varnish Name Role Phone Dave Arriola MD Primary Care Provider [phone] Reason for Referral * Monitoring (Routine) - Closed Specialty Diagnoses / Procedures Referred By Contac t Referred To Contact Diagnoses Paroxysmal atrial fibrillation Typical atrial flutter Essential hypertension Procedures Holter Monitor - 72 Hour Up To 15 Days Misael Stapleton PA [address] [facility] [address] [place] [address] Phone: tel: fax: Referral ID Status Reason Start Date Expiration Date Visits Re quested Visits Authorized [id number] Closed 09/01/2025 12/01/2026 1 1 Reason for Visit * Reason Comments Paroxysmal atrial fibrillation Encounter Details Date Type Department Care Team (Late st Contact Info) Description 09/01/2025 11:30 AM EDT Office Visit [facility] [address] [facility] [address] [place] [phone] Misael Stapleton PA [address] [facility] [address] [place], [place] [id number] Paroxysmal atrial fibrillation (Primary Dx); Typical atrial flutter; Essential hypertension Social History Tobacco Use Types Packs/Day Years Used Date Smoking Tobacco: Every Day Cigarettes Passive Smoke Exposure: Past Smokeless Tobacco: Never Alcohol Use Standard Drinks/Week Comments Never 0 (1 standard drink = 0.6 oz pur e alcohol) [facility] Utilities Answer Date Recorded In the past 12 months has th e electric, gas, oil, or water company threatened to shut off services in your home? No 05/31/2025 AUDIT-C Answer Date Recorded Q1: How often do you have a drink containing alcohol? Never 05/31/2025 Q2: How many drinks containi ng alcohol do you have on a typical day when you are drinking? Patient does not drink Q3: How often do you have si x or more drinks on one occasion? Never 05/31/2025 Overall Financial Resource Strain (CARDIA) Answe r Date Recorded How hard is it for you to pa y for the very basics like food, housing, medical care, and heating? Not very hard 05/31/2025 [facility] - Occupational Stress Questionnaire Answer Date Recorded Do you feel stress - tense, restless, nervous, or anxious, or unable to sleep at night because your mind is troubled all the time - these days? Only a little 05/31/2025 Exercise Vital Sign Answer Date Recorde d On average, how many days pe r week do you engage in moderate to strenuous exercise (like a brisk walk)? 1 day 05/31/2025 On average, how many minutes do you engage in exercise at this level? 30 min 05/31/2025 Hunger Vital Sign Answer Date Recorded Within the past 12 months, y ou worried that your food would run out before you got the money to buy more. Never true 05/31/20 25 Within the past 12 months, t he food you bought just didn't last and you didn't have money to get more. Never true 05/31/2025 PRAPARE - Transportation Answer Date Re corded In the past 12 months, has l ack of transportation kept you from medical appointments or from getting medications? No 12/2024 In the past 12 months, has l ack of transportation kept you from meetings, work, or from getting things needed for daily living? No 05/31/2025 Abuse Screen Answer Date Recorded Feels Unsafe at Home or Work/School no 05/31/2025 Feels Threatened by Someone no 12/2024 Does Anyone Try to Keep You From Having Contact with Others or Doing Things Outside Your Home? no 05/31/2025 Physical Signs of Abuse Present no 05/31/2025 Housing Stability Answer Date Recorded Current Living Arrangements home 12/2024 Potentially Unsafe Housing Conditions none 05/31/2025 Family and Community Support Answer Ike e Recorded If for any reason you need h elp with day-to-day activities such as bathing, preparing meals, shopping, managing finances, etc., do you get the help you need? I get all the help I need 05/31/2025 How often do you feel lonely or isolated from those around you? Never 05/31/2025 Employment Answer Date Recorded Do you want help finding or keeping work or a job? I do not need or want help 05/31/2025 Disabilities Answer Date Recorded Difficulty Concentrating, Remembering or Making Decisions no 05/31/2025 Difficulty Managing Errands Independently no 05/31/2025 Education Answer Date Recorded Do you want help with school or training? For example, starting or completing job training or getting a high school diploma, GED or equivalent No 05/31/2025 Preferred Language Malaysian 05/31/2025 PHQ-2 Answer Date Recorded Patient Health Questionnaire-2 Score 0 05/31/2025 Comments No Sex and Gender Information Value Date Recorded Sex Assigned at Not on file Legal Sex Female 3:01 PM EST Gender Identity Not on file Sexual Orientation Not on file documented as of this encounter Last Filed Vital Signs Vital Sign Reading Time Taken Comments Blood Pressure 148/78 09/01/2025 11:13 AM EDT Pulse 50 09/01/2025 11:13 AM EDT Temperature - - Respiratory Rate - - Oxygen Saturation 97% 09/01/2025 11:13 AM EDT Inhaled Oxygen Concentration - - Weight 112 kg (246 lb 3.2 oz) 09/01/2025 11:13 A M EDT Height 162.6 cm (5' 4 ) 09/01/2025 11:13 AM EDT Body Mass Index 42.26 09/01/2025 11:13 AM EDT documented in this encounter Progress Notes * Misael Stapleton PA - 09/01/2025 11:30 AM EDTAssociated Order(s): ECG 12 Lead Post-Procedure Diagnose(s): Paroxysmal atrial fibrillation; Essential hypertension; Typical atrial flutter [facility]oe [id number] 1965 PCP: Dave Arriola MD [address] / [place] [id number] Chief Complaint Patient presents with Paroxysmal atrial fibrillation Problem List Atrial fibrillation / Typical Atrial flutter [id number] 2 (sex, HTN) Atrial flutter ablation, 12/06/20 Echo 10/2024: OSH- normal biventricular systolic function, mild LA dilation Redo PVI ablation Dr. Florence May 31, 2025 for A-fib. SVT Hypertension Hyperlipidemia Morbid obesity SHIRAZ Tobacco abuse History of Present Illness Tita Moe is a 59 y.o. female who presents to electrophysiology clinic for evaluation of PAF/AFL. Previously seen by Dr. Núñez in 2020 but lost to follow up- she notes that she has been doing well since her last visit, until 08/2024. S/p AFL ablation in 2020 but could not do AF ablation due to COVID. She is now s/p redo ablation, PVA with Dr. Florence 05/31/2025. She had some palpitaitons occasionally, but she does not think its Afib. She denies any worsening SOB, CP, LH, and dizziness. Denies any hospitalizations, ER visits, bleeding, or TIA/CVA symptoms. She would like to wear a monitor. Outpatient Medications Marked as Taking for the 09/01/25 encounter (Office Visit) with Misael Stapleton PA Medication Sig Dispense Refill Advair Diskus 500-50 MCG/ACT DISKUS 1 puff 2 (Two) Times a Day. apixaban (ELIQUIS) 5 MG tablet tablet Take 1 tablet by mouth 2 (Two) Times a Day. cetirizine (zyrTEC) 10 MG tablet TAKE 1 TABLET 1 TIME EACH DAY colestipol (Colestid) 1 g tablet Take 1 tablet by mouth 2 (Two) Times a Day. dilTIAZem CD (CARDIZEM CD) 120 MG 24 hr capsule Take 1 capsule by mouth every night at bedtime. famotidine (PEPCID) 40 MG tablet Take 1 tablet by mouth Daily. fenofibrate (TRICOR) 48 MG tablet Take 1 tablet by mouth Daily. fexofenadine (SHAHLA) 180 MG tablet Take 1 tablet by mouth Daily. levalbuterol (XOPENEX HFA) 45 MCG/ACT inhaler inhale 2 puffs every 6 hours as needed for shortness of breath or wheezing levothyroxine (SYNTHROID, LEVOTHROID) 50 MCG tablet Take 1 tablet by mouth Every Morning. losartan (COZAAR) 25 MG tablet Take 1 tablet by mouth Daily. lovastatin (MEVACOR) 20 MG tablet Take 1 tablet by mouth Every Night. metoprolol succinate XL (TOPROL-XL) 50 MG 24 hr tablet Take 1 tablet by mouth Daily. montelukast (SINGULAIR) 10 MG tablet Take 1 tablet by mouth Every Night. potassium chloride (KLOR-CON M20) 20 MEQ CR tablet Take 0.5 tablets by mouth Daily. Spiriva HandiHaler 18 MCG per inhalation capsule INHALE THE CONTENTS OF 1 CAPSULE 1 TIME EACH DAY USING THE HANDIHALER Physical Exam Vitals: 09/01/25 1113 BP: 148/78 BP Location: Right arm Patient Position: Sitting Cuff Size: Adult Pulse: 50 SpO2: 97% Weight: 112 kg (246 lb 3.2 oz) Height: 162.6 cm (64 ) Body mass index is 42.26 kg/m??. Vitals and nursing note reviewed. Constitutional: Appearance: Healthy appearance. HENT: Head: Normocephalic and atraumatic. Nose: Nose normal. Neck: Vascular: No JVD. Pulmonary: Effort: Pulmonary effort is normal. Breath sounds: Normal breath sounds. Cardiovascular: PMI at left midclavicular line. Normal rate. Regular rhythm. Normal S1. Normal S2. Murmurs: There is no murmur. No gallop. Edema: Peripheral edema absent. Skin: General: Skin is warm and dry. Neurological: Mental Status: Oriented to person, place and time. Psychiatric: Behavior: Behavior normal. Diagnostic Data ECG 12 Lead Date/Time: 09/01/2025 11:26 AM Performed by: Misael Stapleton PA Authorized by: Misael Stapleton PA Comparison: compared with previous ECG from 05/31/2025 Similar to previous ECG Rhythm: sinus rhythm Rate: normal Conduction: conduction normal QRS axis: normal Other findings: non-specific ST-T wave changes Clinical impression: non-specific ECG Lab Results Component Value Date GLUCOSE 81 05/31/2025 CALCIUM 8.8 05/31/2025 NA 142 05/31/2025 K 4.5 05/31/2025 CO2 24.0 05/31/2025 CL 108 (H) 05/31/2025 BUN 17.4 05/31/2025 CREATININE 1.16 (H) 05/31/2025 BCR 15.0 05/31/2025 ANIONGAP 10.0 05/31/2025 Lab Results Component Value Date WBC 10.26 05/31/2025 HGB 12.6 05/31/2025 HCT 37 (L) 05/31/2025 MCV 93.4 05/31/2025 PLT 196 05/31/2025 No results found for: INR , PROTIME No results found for: TSH , S8RVDRF , T2MFYQW , THYROIDAB I personally viewed and interpreted the patient's EKG/Telemetry/lab data Tita Moe reports that she has been smoking cigarettes. She has been exposed to tobacco smoke. She has never used smokeless tobacco. I have educated her on the risk of diseases from using tobacco products such as cancer, COPD, and heart disease. I advised her to quit and she is not willing to quit. I spent 3 minutes counseling the patient. ACP discussion was declined by the patient. Patient has an advance directive (not in EMR), copy requested. Assessment and Plan Diagnoses and all orders for this visit: 1. Paroxysmal atrial fibrillation (Primary) 2. Typical atrial flutter 3. Essential hypertension Atrial fibrillation / Typical Atrial flutter -[id number] 2 (sex, HTN) -Atrial flutter ablation, 12/06/20 Redo PVA 05/31/2025. Dr. FLORENCE. She has some rare palpitations, she would like to wear a monitor. She does not think she has afib. May need to reduce or discontinue Caredizem. Hypertension -Controlled, continue current medication regimen Tobacco abuse -Discussed need for cessation. Zio monitor, follow up 12/2025. Electronically signed by STAN Le, 09/01/25, 11:29 AM EDT. documented in this encounter Plan of Treatment Upcoming Encounters Date Type Department Care Team (Late st Contact Info) Description 12/15/2025 11:30 AM EST Office Visit [facility] [address] [facility] [address] [place] [address] Charles Florence MD [address] [facility] [address] [place], [place] [phone] 06/15/2026 11:30 AM EDT Office Visit [facility] [address] [facility] [address] [place] [address] Charles Florence MD [address] [facility] [address] [place] [address] Pending Results Name Type Priority Associated Diagnoses Date /Time Holter Monitor - 72 Hour Up To 15 Days Cardiac Services Routine Paroxysmal atrial fibrillation Typical atrial flutter Essential hypertension 09/01/2025 12:10 PM EDT Scheduled Orders Name Type Priority Associated Diagnoses Orde r Schedule Holter Monitor - 72 Hour Up To 15 Days Cardiac Services Routine Paroxysmal atrial fibrillation Typical atrial flutter Essential hypertension Expected: 09/06/2025, Expires: 09/01/2026 documented as of this encounter Procedures Procedure Name Priority Date/Time Associated Diagnosis Comments ECG 12-LEAD Routine 09/01/2025 Paroxysmal atrial fibrillation Typical atrial flutter Essential hypertension documented in this encounter Results * ECG 12-LEAD (09/01/2025) Narrative 09/01/2025 Misael Stapleton PA 09/01/2025 11:33 AM ECG 12 Lead Date/Time: 09/01/2025 11:26 AM Performed by: Misael Stapleton PA Authorized by: Misael Stapleton PA Comparison: compared with previous ECG from 05/31/2025 Similar to previous ECG Rhythm: sinus rhythm Rate: normal Conduction: conduction normal QRS axis: normal Other findings: non-specific ST-T wave changes Clinical impression: non-specific ECG Procedure Note Misael Stapleton PA - 09/01/2025 11:30 AM EDT Electrophysiology [facility]oe [id number] 1965 PCP: Dave Arriola MD [address] / [place] [id number] Chief Complaint Patient presents with Paroxysmal atrial fibrillation Problem List Atrial fibrillation / Typical Atrial flutter [id number] 2 (sex, HTN) Atrial flutter ablation, 12/06/20 Echo 10/2024: OSH- normal biventricular systolic function, mild LAdilation Redo PVI ablation Dr. Florence May 31, 2025 for A-fib. SVT Hypertension Hyperlipidemia Morbid obesity SHIRAZ Tobacco abuse History of Present Illness Tita Moe is a 59 y.o. female who presents to electrophysiologyclinic for evaluation of PAF/AFL. Previously seen by Dr. Núñez in [place] lost to follow up- she notes that she has been doing well since herlast visit, until 08/2024. S/p AFL ablation in 2020 but could not do AFablation due to COVID. She is now s/p redo ablation, PVA with Dr. Florence05/31/2025. She had some palpitaitons occasionally, but she does not thinkits Afib. She denies any worsening SOB, CP, LH, and dizziness. Denies anyhospitalizations, ER visits, bleeding, or TIA/CVA symptoms. She would liketo wear a monitor. Outpatient Medications Marked as Taking for the 09/01/25 encounter (OfficeVisit) with Misael Stapleton PA Medication Sig Dispense Refill Advair Diskus 500-50 MCG/ACT DISKUS 1 puff 2 (Two) Times a Day. apixaban (ELIQUIS) 5 MG tablet tablet Take 1 tablet by mouth 2 (Two)Times a Day. cetirizine (zyrTEC) 10 MG tablet TAKE 1 TABLET 1 TIME EACH DAY colestipol (Colestid) 1 g tablet Take 1 tablet by mouth 2 (Two) Times aDay. dilTIAZem CD (CARDIZEM CD) 120 MG 24 hr capsule Take 1 capsule by mouthevery night at bedtime. famotidine (PEPCID) 40 MG tablet Take 1 tablet by mouth Daily. fenofibrate (TRICOR) 48 MG tablet Take 1 tablet by mouth Daily. fexofenadine (SHAHLA) 180 MG tablet Take 1 tablet by mouth Daily. levalbuterol (XOPENEX HFA) 45 MCG/ACT inhaler inhale 2 puffs every 6hours as needed for shortness of breath or wheezing levothyroxine (SYNTHROID, LEVOTHROID) 50 MCG tablet Take 1 tablet bymouth Every Morning. losartan (COZAAR) 25 MG tablet Take 1 tablet by mouth Daily. lovastatin (MEVACOR) 20 MG tablet Take 1 tablet by mouth Every Night. metoprolol succinate XL (TOPROL-XL) 50 MG 24 hr tablet Take 1 tablet bymouth Daily. montelukast (SINGULAIR) 10 MG tablet Take 1 tablet by mouth Every Night. potassium chloride (KLOR-CON M20) 20 MEQ CR tablet Take 0.5 tablets bymouth Daily. Spiriva HandiHaler 18 MCG per inhalation capsule INHALE THE CONTENTS OF 1CAPSULE 1 TIME EACH DAY USING THE HANDIHALER Physical Exam Vitals: 09/01/25 1113 BP: 148/78 BP Location: Right arm Patient Position: Sitting Cuff Size: Adult Pulse: 50 SpO2: 97% Weight: 112 kg (246 lb 3.2 oz) Height: 162.6 cm (64 ) Body mass index is 42.26 kg/m . Vitals and nursing note reviewed. Constitutional: Appearance: Healthy appearance. HENT: Head: Normocephalic and atraumatic. Nose: Nose normal. Neck: Vascular: No JVD. Pulmonary: Effort: Pulmonary effort is normal. Breath sounds: Normal breath sounds. Cardiovascular: PMI at left midclavicular line. Normal rate. Regular rhythm. Normal S1.Normal S2. Murmurs: There is no murmur. No gallop. Edema: Peripheral edema absent. Skin: General: Skin is warm and dry. Neurological: Mental Status: Oriented to person, place and time. Psychiatric: Behavior: Behavior normal. Diagnostic Data ECG 12 Lead Date/Time: 09/01/2025 11:26 AM Performed by: Misael Stapleton PA Authorized by: Misael Stapleton PA Comparison: compared with previousECG from 05/31/2025 Similar to previous ECG Rhythm: sinus rhythm Rate: normal Conduction: conduction normal QRS axis: normal Other findings: non-specific ST-T wave changes Clinical impression: non-specific ECG Lab Results Component Value Date GLUCOSE 81 05/31/2025 CALCIUM 8.8 05/31/2025 NA 142 05/31/2025 K 4.5 05/31/2025 CO2 24.0 05/31/2025 CL 108 (H) 05/31/2025 BUN 17.4 05/31/2025 CREATININE 1.16 (H) 05/31/2025 BCR 15.0 05/31/2025 ANIONGAP 10.0 05/31/2025 Lab Results Component Value Date WBC 10.26 05/31/2025 HGB 12.6 05/31/2025 HCT 37 (L) 05/31/2025 MCV 93.4 05/31/2025 PLT 196 05/31/2025 No results found for: INR , PROTIME No results found for: TSH , T9FPWNC , R4MTQND , THYROIDAB I personally viewed and interpreted the patient's EKG/Telemetry/lab data Tita Moe reports that she has been smoking cigarettes. She hasbeen exposed to tobacco smoke. She has never used smokeless tobacco. Ihave educated her on the risk of diseases from using tobacco products suchas cancer, COPD, and heart disease. I advised her to quit and she is not willing to quit. I spent 3 minutes counseling the patient. ACP discussion was declined by the patient. Patient has an advancedirective (not in EMR), copy requested. Assessment and Plan Diagnoses and all orders for this visit: 1. Paroxysmal atrial fibrillation (Primary) 2. Typical atrial flutter 3. Essential hypertension Atrial fibrillation / Typical Atrial flutter -[id number] 2 (sex, HTN) -Atrial flutter ablation, 12/06/20 Redo PVA 05/31/2025. Dr. FLORENCE. She has some rare palpitations, she would liketo wear a monitor. She does not think she has afib. May need to reduce or discontinue Caredizem. Hypertension -Controlled, continue current medication regimen Tobacco abuse -Discussed need for cessation. Zio monitor, follow up 12/2025. Electronically signed by STAN Le, 09/01/25, 11:29 AM EDT. us STAN Worthy ECG ORDERABLES Final Resu lt documented in this encounter Visit Diagnoses Diagnosis Paroxysmal atrial fibrillation- Primary Atrial fibrillation Typical atrial flutter Essential hypertension Unspecified essential hypertension documented in this encounter Care Teams Supervisor Varnish Relationship Specialty Start Date End Date Dave Arriola MD [address] [place] [address] PCP - General Emergency Medicine 04/07/25 documented as of this encounter
--- OUTSIDE RECORDS SUMMARY | 2025-09-01 12:00 | XMS_ITS | Encounter Summary ---
[facility] Address [address] [place] [address] Care Team Providers Care Supplemental Nurse Name Role Phone Dave Arriola MD Primary Care Provider [phone] Reason for Visit * Monitoring (Routine) - Closed Specialty Diagnoses / Procedures Referred By Contac t Referred To Contact Diagnoses Paroxysmal atrial fibrillation Typical atrial flutter Essential hypertension Procedures Holter Monitor - 72 Hour Up To 15 Days Misael Stapleton PA [address] [facility] [address] [place] [id number] Phone: tel: fax: Referral ID Status Reason Start Date Expiration Date Visits Re quested Visits Authorized [id number] Closed 09/01/2025 12/01/2026 1 1 Encounter Details Date Type Department Care Team (Latest Contact Info) Description 09/01/2025 12:00 PM EDT Ancillary Procedure [facility] [address] [place] [address] [place] [phone] Paroxysmal atrial fibrillation; Typical atrial flutter; Essential hypertension Social History Tobacco Use Types Packs/Day Years Used Date Smoking Tobacco: Every Day Cigarettes Passive Smoke Exposure: Past Smokeless Tobacco: Never Alcohol Use Standard Drinks/Week Comments Never 0 (1 standard drink = 0.6 oz pur e alcohol) [facility] Utilities Answer Date Recorded In the past 12 months has e electric, gas, oil, or water company [...] care, and heating? Not very hard 05/31/2025 [facility] - Occupational Stress [...] GED or equivalent No 05/31/2025 Preferred Language Vietnamese 05/31/2025 PHQ-2 Answer Date Recorded Patient Health Questionnaire-2 Score 0 05/31/2025 Comments No Sex and Gender Information Value Date Recorded Sex Assigned at Not on file Legal Sex Female 3:01 PM EST Gender Identity Not on file Sexual Orientation Not on file documented as of this encounter Plan of Treatment Upcoming Encounters Date Type Department Care Team (Late st Contact Info) Description 12/15/2025 11:30 AM EST Office Visit [facility] [address] [phone] Charles Florence MD [address] [place] [phone] 06/15/2026 11:30 AM EDT Office Visit [facility] [address] [facility] [address] [place] [address] Charles Florence MD [address] [address] Pending Results Name Type Priority Associated Diagnoses Date /Time Holter Monitor - 72 Hour Up To 15 Days Cardiac Services Routine Paroxysmal atrial fibrillation Typical atrial flutter Essential hypertension 09/01/2025 12:10 PM EDT documented as of this encounter Visit Diagnoses Diagnosis Paroxysmal atrial fibrillation Atrial fibrillation Typical atrial flutter Essential hypertension Unspecified essential hypertension documented in this encounter Care Teams Supplemental Nurse Relationship Specialty Start Date End Date Dave Arriola MD [address] [place] [address] PCP - General Emergency Medicine 04/07/25 documented as of this encounter
--- OUTSIDE RECORDS SUMMARY | 2025-09-05 10:57 | XMS_ITS | Encounter Summary ---
[facility] Address [address] [place] [address] Care Team Providers Care Swing Tender Name Role Phone Dave Arriola MD Primary Care Provider [phone] Encounter Details Date Type Department Care Team (Latest Contact Info) Description 09/01/2025 Travel Social History Tobacco Use Types Packs/Day Years Used Date Smoking Tobacco: Every Day Cigarettes Passive Smoke Exposure: Past Smokeless Tobacco: Never Alcohol Use Standard Drinks/Week Comments Never 0 (1 standard drink = 0.6 oz pur e alcohol) [facility] Utilities Answer Date Recorded In the past 12 months has [employer] electric, gas, oil, or water company threatened [...] care, and heating? Not very hard 05/31/2025 [facility] - Occupational Stress [...] GED or equivalent No 05/31/2025 Preferred Language Greek 05/31/2025 PHQ-2 Answer Date Recorded Patient Health [...] Description 12/15/2025 11:30 AM EST Office Visit [facility] [address] [facility] [address] [place] [address] Charles Florence MD [address] [facility] [address] [place] [address] 06/15/2026 11:30 AM EDT Office Visit [facility] [address] [place] [facility] [address] [place] [address] Charles Florence MD [address] [facility] [address] [place] [address] documented as of this encounter Visit Diagnoses Not on filedocumented in this encounter Care Teams Swing Tender Relationship Specialty Start Date End Date Dave Arriola MD [address] [place] [id number] PCP - General Emergency Medicine 04/07/25 documented as of this encounter
--- OUTSIDE RECORDS SUMMARY | 2025-09-05 10:57 | XMS_ITS | Clinical Summary ---
[facility] Address [address] [place] [address] Care Team Providers Care Linux Systems Administrator Name Role Phone Dave Arriola MD Primary Care Provider Allergies Active Allergy Reactions Criticality Noted Date Comments Atorvastatin Calcium Myalgia Medium 11/07/2020 Spironolactone Hives Medium 11/07/2020 Tilactase Diarrhea Low 11/07/2020 Medications apixaban (ELIQUIS) 5 MG tablet tablet Take 1 tablet by mouth 2 (Two) Times a Day. Active lovastatin (MEVACOR) 20 MG tablet Take 1 tablet by mouth Every Night. Active montelukast (SINGULAIR) 10 MG tablet Take 1 tablet by mouth Every Night. Active colestipol (Colestid) 1 g tablet Take 1 tablet by mouth 2 (Two) Times a Day. Active famotidine (PEPCID) 40 MG tablet Take 1 tablet by mouth Daily. Active fenofibrate (TRICOR) 48 MG tablet Take 1 tablet by mouth Daily. Active cetirizine (zyrTEC) 10 MG tablet TAKE 1 TABLET 1 TIME EACH DAY 1 Active metoprolol succinate XL (TOPROL-XL) 50 MG 24 hr tablet Take 1 tablet by mouth Daily. Active levothyroxine (SYNTHROID, LEVOTHROID) 50 MCG tablet Take 1 tablet by mouth Every Morning. Active fexofenadine (SHAHLA) 180 MG tablet Take 1 tablet by mouth Daily. Active Advair Diskus 500-50 MCG/ACT DISKUS 1 puff 2 (Two) Times a Day. 04/15/202 5 Active losartan (COZAAR) 25 MG tablet Take 1 tablet by mouth Daily. Active potassium chloride (KLOR-CON M20) 20 MEQ CR tablet Take 0.5 tablets by mouth Daily. Active dilTIAZem CD (CARDIZEM CD) 120 MG 24 hr capsule Take 1 capsule by mouth every night at bedtime. Active levalbuterol (XOPENEX HFA) 45 MCG/ACT inhaler inhale 2 puffs every 6 hours as needed for shortness of breath or wheezing Active Spiriva HandiHaler 18 MCG per inhalation capsule INHALE THE CONTENTS OF 1 CAPSULE 1 TIME EACH DAY USING THE HANDIHALER Active furosemide (LASIX) 20 MG tablet Take 1 tablet by mouth 2 (Two) Times a Day. 09/01/20 Discontinu ed(Alterna te therapy) Ventolin HFA 108 (90 Base) MCG/ACT inhaler INHALE 2 PUFFS 4 TIMES EACH DAY WHILE AWAKE FOR 2 DAYS. THEN, INHALE 1 OR 2 PUFFS EVERY 4 TO 6 HOURS NEEDED 09/01/20 Discontinu ed(Alterna te therapy) Active Problems Problem Noted Date Diagnosed Date Essential hypertension 04/07/2025 [facility] current use of antiarrhythmic drug 07/2021 Paroxysmal atrial fibrillation 11/09/2020 Typical atrial flutter 11/07/2020 Overview (11/07/2020): Added automatically from request for surgery [id number] Encounters Date Type Department Care Team Description 09/01/2025 12:00 PM EDT Ancillary Procedure [facility] [address] [facility] [address] [place] [address] Paroxysmal atrial fibrillation; Typical atrial flutter; Essential hypertension 09/01/2025 11:30 AM EDT Office Visit [facility] [address] [facility] [address] [place] [address] Misael Stapleton PA Paroxysmal atrial fibrillation (Primary Dx); Typical atrial flutter; Essential hypertension 09/01/2025 Travel 08/22/2025 Travel 07/01/2025 1:15 PM EDT Office Visit [facility] [address] [place] [address] Vaughn Echols APRN Paroxysmal atrial fibrillation (Primary Dx); Typical atrial flutter; Essential hypertension; SHIRAZ (obstructive sleep apnea); Morbid obesity with BMI of 40.0-44.9, adult 07/01/2025 Travel 06/06/2025 Telephone [facility] AT [address] [address] Gabrielle Omer RN arm pain from Last 3 Months Family History Medical History Relation Name Comments No Known Problems Brother 1 No Known Problems Brother 2 Heart disease Father Heart attack Mother No Known Problems Sister Relation Name Status Comments Brother 1 (Age 58) covid Brother 2 Alive Father Alive Mother Sister Alive Social History Tobacco Use Types Packs/Day Years Used Date Smoking Tobacco: Every Day Cigarettes Passive Smoke Exposure: Past Smokeless Tobacco: Never Tobacco Cessation:Ready to Q uit: No; Counseling Given: Yes Alcohol Use Standard Drinks/Week Comments Never 0 (1 standard drink = 0.6 oz pur e alcohol) [facility] Utilities Answer Date Recorded In the past 12 months has embraase, gas, oil, or water viVood threatened to shut off services in your [...] care, and heating? Not very hard 05/31/2025 [place] [employer] [facility] [employer] - Occupational Stress [...] GED or equivalent No 05/31/2025 Preferred Language Swedish 05/31/2025 PHQ-2 Answer Date Recorded Patient Health Questionnaire-2 Score 0 05/31/2025 Comments No Sex and Gender Information Value Date Recorded Sex Assigned at Not on file Legal Sex Female 3:01 PM EST Gender Identity Not on file Sexual Orientation Not on file Last Filed Vital Signs Vital Sign Reading Time Taken Comments Blood Pressure 148/78 09/01/2025 11:13 AM EDT Pulse 50 09/01/2025 11:13 AM EDT Temperature 36.7 C (98 F) 05/31/2025 9:46 AM EDT Respiratory Rate 18 07/01/2025 1:06 PM EDT Oxygen Saturation 97% 09/01/2025 11:13 AM EDT Inhaled Oxygen Concentration - - Weight 112 kg (246 lb 3.2 oz) 09/01/2025 11:13 A M EDT Height 162.6 cm (5' 4 ) 09/01/2025 11:13 AM EDT Body Mass Index 42.26 09/01/2025 11:13 AM EDT Plan of Treatment Upcoming Encounters Date Type Department Care Team (Late st Contact Info) Description 12/15/2025 11:30 AM EST Office Visit [facility] [address] [phone] Charles Florence MD [address] [address] 06/15/2026 11:30 AM EDT Office Visit [facility] [address] [address] Charles Florence MD [address] [address] Health Maintenance Due Date Last Done Comments Annual Gynecologic Pelvic an d Breast Exam 1965 TDAP/TD VACCINES (1 - Tdap) 1984 MAMMOGRAM 2005 COLOGUARD 2010 COLON CANCER SCREENING 5 YEA R SIGMOIDOSCOPY 2010 CT COLONOGRAPHY 2010 FECAL OCCULT BLOOD TEST 2010 FIT Testing (1 year) 2010 ZOSTER VACCINE (1 of 2) 2015 ANNUAL PHYSICAL 11/07/2020 HEPATITIS C SCREENING 11/07/2020 COLONOSCOPY 07/21/2034 07/21/2024, 12/01/2017 COLORECTAL CANCER SCREENING 07/21/2034 INFLUENZA VACCINE Completed 08/25/2025, , 08/13/2023, Additional history exists Pneumococcal Vaccine 50+ Completed 08/25/2025 Procedures Procedure Name Priority Date/Time Associated Diagnosis Comments ECG 12-LEAD Routine 09/01/2025 Paroxysmal atrial fibrillation Typical atrial flutter Essential hypertension SCANNED - LABS 07/01/2025 from Last 3 Months Results * ECG 12-LEAD (09/01/2025) Narrative 09/01/2025 [...] 11:30 AM EDT Electrophysiology Clinic [facility] [id number] 1965 PCP: Dave Arriola MD [address] [place] [address] Chief Complaint Patient presents with Paroxysmal atrial fibrillation Problem List Atrial fibrillation / Typical Atrial flutter [id number] (sex, HTN) Atrial flutter ablation, 12/06/20 [...] PROTIME No results found for: TSH , [id number] , [id number] , THYROIDAB I personally viewed and interpreted the patient's EKG/Telemetry/lab data Tita Ludivina Abhi reports that she has been smoking cigarettes. She hasbeen exposed to tobacco smoke. She has never used smokeless tobacco. Kam educated her on the risk of diseases [...] hypertension Atrial fibrillation / Typical Atrial flutter -[id number] 2 (sex, HTN) -Atrial flutter ablation, 12/06/20 Redo PVA 05/31/2025. Dr. FLORENCE. She has some rare palpitations, she would liketo wear a monitor. She does not think she has afib. May need to reduce or discontinue Caredizem. Hypertension -Controlled, continue current medication regimen Tobacco abuse -Discussed need for cessation. Zio monitor, follow up 12/2025. Electronically signed by STAN Le, 09/01/25, 11:29 AM EDT. STAN Worthy ECG ORDERABLES Final Resu lt * LABS SCANNED (07/01/2025) [facility] LAB BLOOD ORDERABLES Final Re sult from Last 3 Months Insurance [facility] [facility] [place] Advance Directives * CPR (Attempt to Resuscitate) (Latest Code Status on File) Date Activated Date Inactivated Comments 12/06/2020 8:01 PM 12/08/2020 7:31 PM Question Answer Comments Code Status (Patient has no pulse and is not breathing): CPR (Attempt to Resuscitate) Medical Interventions (Patie nt has pulse or is breathing): Full Level Of Support Discussed With: Patient Care Teams Linux Systems Administrator Relationship Specialty Start Date End Date Dave Arriola MD [address] [place] [address] PCP - General Emergency Medicine 04/07/25
--- OUTSIDE RECORDS SUMMARY | 2025-09-05 10:57 | XMS_ITS | Data Portability ---
Author Organization [facility] - [place] & MAVIS Garcia ADMIN Address [address] [place] [id number] Care Team Providers Care Hose Handler Name Role Phone CHRISTINE BOYD Senior Pricing Analyst DAVE ALFARO Primary Care Provider Assessment Encounter Date Assessment Date Assessment LastModified by Organization Details LastModified Time 01/24/2025 01/24/2025 PATIENT TO CONTINUE WITH CURRENT MANAGEMENT. WE HAVE HAD EXTENSIVE DISCUSSIONS REGARDING CHRONIC ISSUES. WILL CALL PATIENT TO DISCUSS RESULTS OF LAB WORK AND MAKE PLANS BASED ON FINDINGS. [email or web address] Not available 01/24/2025 08:59:49 08/31/2025 08/31/2025 PATIENT TO CONTINUE WITH CURRENT MANAGEMENT. WE HAVE HAD EXTENSIVE DISCUSSIONS REGARDING CHRONIC ISSUES. WILL CALL PATIENT TO DISCUSS RESULTS OF LAB WORK AND MAKE PLANS BASED ON FINDINGS. [email or web address] Not available 08/31/2025 14:53:43 Plan of Treatment Reminders Order Date Submit Date Provider Last Modified By Organization Details Last Modified Time Details Appointments OV EST 15 2025 11:30A M Christine Boyd NP Not available Not available Not available Lab lipids, total, serum 2024 025 [facility] (Laboratory), [address] [place], [address], 01/31/2025 07:32:22 CBC w/ auto diff 2024 025 [facility] (Laboratory), [place], [address], 01/24/2025 13:06:43 CMP, serum or plasma 2024 025 [facility] (Laboratory), [address] [place], [address], 01/24/2025 13:32:25 TSH, serum or plasma 2024 025 [facility] (Laboratory), [address] [place], [address], 01/24/2025 13:32:23 HbA1c (hemoglob in A1c), blood 2024 025 [facility] (Laboratory), [address] [place], [address], 01/24/2025 14:10:10 Referral None recorded. Procedures None recorded. Surgeries None recorded. Imaging LDCT, chest, for lung cancer screening [address] Centralized Scheduling, [address] [place], [address], 09/03/2025 08:28:05 Medication Orders famotidin e 40 mg tablet 2024 025 [facility], [address] [place] [address], [id number], 08/12/2025 12:01:44 colestipo l 1 gram tablet 2024 025 [facility], [address] [place] [address], [id number], 07/06/2025 13:14:59 Patient TargetsNo targets recorded. Patient InstructionsNo instructions recorded. Reason for Referral None Reported. Results Created Date Observation Date Name Description Value Unit Range Abnormal Flag Note LastModifiedBy Organization Detail LastModifiedTime 01/24/2001/24/2025 CBC AUTO W DIFF WBC 8.0 10 4.5-11 .5 Not Available [facility] (Lab Registration) [address] [place], [address], 01/24/2025 13:06:43 01/24/20 25 01/24/2025 CBC AUTO W DIFF RBC 4.62 10 4.25-5 .57 Not Available [facility] (Lab Registration) [address] [place], [address], 01/24/2025 13:06:43 01/24/20 25 01/24/2025 CBC AUTO W DIFF HGB 13.3 g/dL 12.0-1 5.7 Not Available [facility] (Lab Registration) [address] [place], [address], 01/24/2025 13:06:43 01/24/20 25 01/24/2025 CBC AUTO W DIFF HCT 42.9 % 36.0-4 7.0 Not Available [facility] (Lab Registration) [address] [place], [address], 01/24/2025 13:06:43 01/24/20 25 01/24/2025 CBC AUTO W DIFF MCV 92.9 fL 80-95 Not Available [facility] (Lab Registration) [address] [place], [address], 01/24/2025 13:06:43 01/24/20 25 01/24/2025 CBC AUTO W DIFF MCH 28.8 pg 27.0-3 4.0 Not Available [facility] (Lab Registration) [address] [place], [address], 01/24/2025 13:06:43 01/24/20 25 01/24/2025 CBC AUTO W DIFF MCHC 31.0 g/dL 32.0-3 6.0 low Not Available [facility] (Lab Registration) [address] [place], [address], 01/24/2025 13:06:43 01/24/20 25 01/24/2025 CBC AUTO W DIFF platelet count 231 10 150-45 0 Not Available [facility] (Lab Registration) [address] [place], [address], 01/24/2025 13:06:43 01/24/20 25 01/24/2025 CBC AUTO W DIFF RDW 13.0 % 12.3-1 5.1 Not Available [facility] (Lab Registration) [address] [place], [address], 01/24/2025 13:06:43 01/24/20 25 01/24/2025 CBC AUTO W DIFF MPV 12.2 fL 7.4-10 .4 high Not Available [facility] (Lab Registration) [address] [place], [address], 01/24/2025 13:06:43 01/24/20 25 01/24/2025 CBC AUTO W DIFF granulocyte% 60.1 % 40-75 Not Available [facility] (Lab Registration) [address] [place], [address], 01/24/2025 13:06:43 01/24/20 25 01/24/2025 CBC AUTO W DIFF lymphocyte% 29.9 % 15-57 Not Available [facility] (Lab Registration) [address] [place], [address], 01/24/2025 13:06:43 01/24/20 25 01/24/2025 CBC AUTO W DIFF monocyte% 7.1 % 4.0-12 .0 Not Available [facility] (Lab Registration) [address] [place], [address], 01/24/2025 13:06:43 01/24/20 25 01/24/2025 CBC AUTO W DIFF eosinophil% 2.5 % 0.0-4. 0 Not Available [facility] (Lab Registration) [address] [place], [address], 01/24/2025 13:06:43 01/24/20 25 01/24/2025 CBC AUTO W DIFF basophil% 0.2 % 0.0-1. 0 Not Available [facility] (Lab Registration) [address] [place], [address], 01/24/2025 13:06:43 01/24/20 25 01/24/2025 CBC AUTO W DIFF immature granulocytes % 0.2 % 0.0-0. 8 Not Available [facility] (Lab Registration) [address] [place], [address], 01/24/2025 13:06:43 01/24/20 25 01/24/2025 CBC AUTO W DIFF granulocyte# 4.81 10 Not Available [facility] (Lab Registration) [address] [place], [address], 01/24/2025 13:06:43 01/24/20 25 01/24/2025 CBC AUTO W DIFF lymphocyte# 2.40 10 Not Available [facility] (Lab Registration) [address] [place], [address], 01/24/2025 13:06:43 01/24/20 25 01/24/2025 CBC AUTO W DIFF monocyte# 0.57 10 Not Available [facility] (Lab Registration) [address] [place], [address], 01/24/2025 13:06:43 01/24/20 25 01/24/2025 CBC AUTO W DIFF eosinophil# 0.20 10 Not Available [facility] (Lab Registration) [address] [place], [address], 01/24/2025 13:06:43 01/24/20 25 01/24/2025 CBC AUTO W DIFF basophil# 0.02 10 Not Available [facility] (Lab Registration) [address] [place], [address], 01/24/2025 13:06:43 01/24/20 25 01/24/2025 CBC AUTO W DIFF immature granulocytes # 0.02 10 Not Available [facility] (Lab Registration) [address] [place], [address], 01/24/2025 13:06:43 01/24/20 25 01/24/2025 CBC AUTO W DIFF manual differential NO Not Available [facility] (Lab Registration) [address] [place], [address], 01/24/2025 13:06:43 01/24/20 25 01/24/2025 CBC AUTO W DIFF note Unles s other lovett noted testi ng perfo rmed at: [facility] [address] [place] [address] [phone] Ismael blanca MD CLIA: [id number] Not Available [facility] (Lab Registration) [address] [place], [address], 01/24/2025 13:06:43 01/24/20 25 01/24/2025 THYRO ID STIMU LATIN G HORMO NE thyroid stimulating hormone 4.25 mIU/m L 0.34-4 .80 Not Available [facility] (Lab Registration) [address] [place], [address], 01/24/2025 13:32:23 01/24/20 25 01/24/2025 THYRO ID STIMU LATIN G HORMO NE note Unles s other lovett noted testi ng perfo rmed at: [facility] [address] [place] [phone] Ismael blanca MD CLIA: [id number] Not Available [facility] (Lab Registration) [address] [place], [address], 01/24/2025 13:32:23 01/24/20 25 01/24/2025 COMP METAB OLIC PANEL sodium 144 mmol/ L 136-14 5 Not Available [facility] (Lab Registration) [address] [place], [address], 01/24/2025 13:32:25 01/24/20 25 01/24/2025 COMP METAB OLIC PANEL potassium 4.6 mmol/ L 3.5-5. 1 Not Available [facility] (Lab Registration) [address] [place], [address], 01/24/2025 13:32:25 01/24/20 25 01/24/2025 COMP METAB OLIC PANEL chloride 107 mmol/ L 98-107 Not Available [facility] (Lab Registration) [address] [place], [address], 01/24/2025 13:32:25 01/24/20 25 01/24/2025 COMP METAB OLIC PANEL carbon dioxide 30 mmol/ L 21-32 Not Available [facility] (Lab Registration) [address] [place], [address], 01/24/2025 13:32:25 01/24/20 25 01/24/2025 COMP METAB OLIC PANEL anion gap 7.0 Not Available [facility] (Lab Registration) [address] [place], [address], 01/24/2025 13:32:25 01/24/20 25 01/24/2025 COMP METAB OLIC PANEL glucose 89 mg/dL 70-110 Not Available [facility] (Lab Registration) [address] [place], [address], 01/24/2025 13:32:25 01/24/20 25 01/24/2025 COMP METAB OLIC PANEL blood urea nitrogen 17 mg/dL 7-18 Not Available [facility] (Lab Registration) [address] [place], [address], 01/24/2025 13:32:25 01/24/20 25 01/24/2025 COMP METAB OLIC PANEL creatinine 1.2 mg/dL 0.6-1. 0 high Not Available [facility] (Lab Registration) [address] [place], [address], 01/24/2025 13:32:25 01/24/20 25 01/24/2025 COMP METAB OLIC PANEL BUN/creatini ne ratio 14.2 9-21 Not Available [facility] (Lab Registration) [address] [place], [address], 01/24/2025 13:32:25 01/24/20 25 01/24/2025 COMP METAB [...] ely ing kiney funct ion. Not Available [facility] (Lab Registration) [address], [place], [address], 01/24/2025 13:32:25 01/24/20 25 01/24/2025 COMP METAB OLIC PANEL total protein 6.6 g/dL 6.4-8. 2 Not Available [facility] (Lab Registration) [address] [place], [address], 01/24/2025 13:32:25 01/24/20 25 01/24/2025 COMP METAB OLIC PANEL albumin 3.9 g/dL 3.4-5. 0 Not Available [facility] (Lab Registration) [address] [place], [address], 01/24/2025 13:32:25 01/24/20 25 01/24/2025 COMP METAB OLIC PANEL calcium 9.2 mg/dL 8.5-10 .1 Not Available [facility] (Lab Registration) [address] [place], [address], 01/24/2025 13:32:25 01/24/20 25 01/24/2025 COMP METAB OLIC PANEL corrected calcium 9.3 mg/dL 8.5-10 .1 Not Available [facility] (Lab Registration) [address] [place], [address], 01/24/2025 13:32:25 01/24/20 25 01/24/2025 COMP METAB OLIC PANEL bilirubin total 0.4 mg/dL 0.4-1. 5 Not Available [facility] (Lab Registration) [address], [place], [address], 01/24/2025 13:32:25 01/24/20 25 01/24/2025 COMP METAB OLIC PANEL AST (SGOT) 13 U/L 15-37 low Not Available [facility] (Lab Registration) [address], [place], [address], 01/24/2025 13:32:25 01/24/20 25 01/24/2025 COMP METAB OLIC PANEL ALT (SGPT) 18 U/L 12-78 Not Available [facility] (Lab Registration) [address], [place], [address], 01/24/2025 13:32:25 01/24/20 25 01/24/2025 COMP METAB OLIC PANEL alk phosphatase 100 U/L 37-110 Not Available [facility] (Lab Registration) [address], [place], [address], 01/24/2025 13:32:25 01/24/20 25 01/24/2025 COMP METAB OLIC PANEL note Unles s other lovett noted testi ng perfo rmed at: [facility] [address] [place] [address] [phone] Ismael blanca MD CLIA: [id number] Not Available [facility] (Lab Registration) [address], [place], [address], 01/24/2025 13:32:25 01/24/20 25 01/24/2025 LIPID PANEL triglyceride 135 mg/dL 20-200 The Natio nal [employer] l [employer]ca tion Progr am (NCEP ) has set the follo wing guide lines for Fasti ng Trigl yceri jerri: YURIY L: <150 mg/dL BORDE RLINE HIGH: 150 - 199 mg/dL HIGH: 200 - 499 mg/dL VERY HIGH: > or =500 mg/dL Not Available [facility] (Lab Registration) [address] [place], [address], 01/24/2025 13:32:27 01/24/20 25 01/24/2025 LIPID PANEL cholesterol 147 mg/dL 0-200 The Natio nal [employer] l [employer]ca tion Progr am (NCEP ) has set the follo wing guide lines for Fasti ng Neida stero l: JUSTINA ABLE: <200 mg/dL BORDE RLINE HIGH: 200 - 239 mg/dL HIGH: > or =240 mg/dL Not Available [facility] (Lab Registration) [address] [place], [address], 01/24/2025 13:32:27 01/24/20 25 01/24/2025 LIPID PANEL HDL cholesterol 44 mg/dL 60- low The Natio nal [employer] l [employer]ca tion Progr am (NCEP ) has set the follo wing guide lines for Fasti ng HDL Neida stero l: LOW HDL: <40 mg/dL YURIY L: 40 - 60 mg/dL UJSTINA ABLE: >60 mg/dL Not Available [facility] (Lab Registration) [address] [place], [address], 01/24/2025 13:32:27 01/24/20 25 01/24/2025 LIPID PANEL [...] > or = 190 mg/dL Not Available [facility] (Lab Registration) [address] [place], [address], 01/24/2025 13:32:27 01/24/20 25 01/24/2025 LIPID PANEL chol/HDL ratio 3 -5 Not Available [facility] (Lab Registration) [address] [place], [address], 01/24/2025 13:32:27 01/24/20 25 01/24/2025 LIPID PANEL note Unles s other lovett noted testi ng perfo rmed at: [facility] [address] [place] [address] [phone] Ismael blanca MD CLIA: [id number] Not Available [facility] (Lab Registration) [address], [place], [address], 01/24/2025 13:32:27 01/24/20 25 01/24/2025 HEMOG LOBIN A1C glycosylated hemoglobin A1C 5.5 % 4.5-6. 2 Not Available [facility] (Lab Registration) [address] [place], [address], 01/24/2025 14:10:10 01/24/20 25 01/24/2025 HEMOG LOBIN A1C estimated average glucose 111 mg/dL 82-131 Not Available [facility] (Lab Registration) [address] [place], [address], 01/24/2025 14:10:10 01/24/20 25 01/24/2025 HEMOG LOBIN A1C note Jayy white lovett noted testi ng perfo rmed at: [facility] [address] [place] [address] [phone] Ismael blanca MD CLIA: [id number] Not Available [facility] (Lab Registration) [address] [place], [address], 01/24/2025 14:10:10 02/05/20 25 02/04/2025 imagi ng inter preta tion No observ ation record ed. tpardini [facility] [address], [place], [address], 02/09/2025 07:11:33 09/1608/16/2025 MAMMO , scree erlinda, digit al, bilat eral [facility] [address] [place] [address] Phone: Fax: Name: CINDY ANDERSEN Exam Date: 025 : [birth year] Age 59 years Gender : F Access ion: [id number] Physic kelly: HARESH ALFARO NDE Facili ty: [facility] Facili ty HSV: Outpat ient Exam: AFSHIN SCREEN MAMMO W CAD BILAT Exam: 3-D screen ing mammog vernon includ ing tomosy nthesi s and CAD (Compu ter Assist ed Detect ion). Clinic al indica tion: Asympt omatic screen ing exam Compar moshe: Exams to 2021 TECHNI QUE: Routin e bilate ral 2D screen ing mammog manda with CC and MLO views obtain ed. 3-D tomosy nthesi s and Comput er assist ed detect ion were utiliz ed for this exam. BREAST DENSIT Y: There are scatte red areas of fibrog landul ar densit y FINDIN GS: No suspic ious mass, florentin [...] has breast surger y or biopsy , FDA/MQ SA Regula tory Guidel ade mandat e that this facili ty receiv e pathol ogic result s for follow -up correl ation. Electr onical ly signed by: Mannie Elena MD 2024 03:06 PM EDT RP Workst ation: [id number] Dictat ed By: Mannie Elena Transc ribed By: Transc ribed On: 025 2:58 PM Electr onical ly signed by: Mannie Elena 025 [facility] Legall y authen ticate d by LAY VALDERRAMA MD 0 08-16 14:58: 51 CC'ed Logic: Orderi ng Provid er: SOTONA GEEU NDE CC Provid er: SOTONA HUTSON NDE Attend ing Provid er: SOTONA PELAYOATU NDE Referr ing Provid er: SOTONA GEEU NDE Admitt ing Provid er: SOKAN GITAATU NDE [facility] (Radiology) [address] [place] [address] [place], [address], 08/16/2025 16:40:21 Result Notes Documentation Provider Name and Address Organization Details Recorded Time Mammo, Screening, Digital, Bilateral : [address] [place] [address] Name: LEONARDO ANDERSEN Exam Date: 08/16/2025 : 1965 Age 59 years Gender: F Physician: DAVE ALFARO Facility: [facility] Facility HSV: Outpatient Exam: AFSHIN SCREEN MAMMO W CAD BILAT Exam: 3-D screening mammography including tomosynthesis and CAD (Computer Assisted Detection). Clinical indication: Asymptomatic screening exam Comparison: Exams to 2021 TECHNIQUE: Routine bilateral 2D screening mammogram with CC and MLO views obtained. 3-D tomosynthesis and Computer assisted detection were utilized for this exam. BREAST DENSITY: There are scattered areas of fibroglandular density FINDINGS: No suspicious mass, architectural distortion, or [...] correlation. Electronically signed by: Feliberto Elena MD 08/16/2025 03:06 PM EDT RP Dictated By: Feliberto Elena Transcribed By: Transcribed On: 08/16/2025 2:58 PM Electronically signed by: Feliberto Elena 08/16/2025 Thank you for referring LEONARDO ANDERSEN to [facility]. Legally authenticated by LAY DE LA ROSA MD 2025-08-16 14:58:51 CC'ed Logic: Ordering Provider: ANGELINA HER CC Provider: ANGELINA HER Attending Provider: ANGELINA HER Referring Provider: ANGELINA HER Admitting Provider: ANGELINA HER Not Available [facility] 08/16/2025 16: 40:21 Problems Name Problem SNOMED Code Status Onset Date Resolution Date Notes Provider Name and Address Organization Details Recorded Time Asthma 568258351 Active 2021 Mirna Moraleshammad mccarthy, MAR[place]US[place] - [facility] - [place] & [place] 14:54:38 Essential hypertension 84159614 Active 2021 Mirna Moraleshammad mccarthy, [place] - [facility] - [place] & [place] 14:54:48 Paresthesia of upper limb 29607772 Active 2021 Mirna Moraleshammad null, [place] - [facility] - [place] & [place] 14:55:14 Paresthesia 87096985 Active 2021 Mirna Pardini null, [place] - [facility] - [place] & [place] 2 14:55:49 Gastroesophag eal reflux disease 499267688 Active 2021 Mirna Pardini [place] - [facility] - [place] & [place] 2 14:56:01 History of polyp of colon 590328320 Active 2021 Mirna Pardini [place] [facility] [place] & [place] 2 14:56:14 Chronic obstructive pulmonary disease 07150073 Active 2021 Mirna Pardini [place] [facility] [place] & [place] 2 14:56:35 Diverticula of intestine 40024721 Active 2021 Mirna Pardini [place] - [facility] - [place] & [place] 2 14:56:50 Obstructive sleep apnea syndrome 77957697 Active 2021 Mirna [place]ardini [place] [facility] [place] & [place] 2 14:57:03 Dyslipidemia 689718852 Active 2021 Mirna Pardini [place] [facility] [place] & [place] 2 14:57:18 Left heart failure 08384432 Active 2021 Mirna Pard[place] [facility] [place] & [place] 2 14:57:28 Normal grief reaction 478746367 Active 2021 Mirna [place]ardini [place] - [facility] [place] & [place] 2 14:57:41 Hypothyroidis m 86364316 Active 2021 Dave Alfaro MD [address] [place] [address], [phone] , [place] - [facility] - [place] & [place] 2 15:55:50 End-stage renal disease 75935243 Active 2021 Dave Alfaro MD [address] [place] [address], [phone] , [place] - [facility] - [place] & [place] 2 15:57:04 Allergic rhinitis 05679426 Active 2021 Mirna Garciai null, [place] - [facility] - [facility] & [place] 2 16:16:04 Gastro-esopha geal reflux disease with esophagitis 441584876 Active 2022 Christine Boyd NP [address], [address], [place], [address] , [place] - [facility] - [place] & [place] 3 13:37:34 Diarrhea 10322037 Active 2022 Christine Boyd NP [address], [address], [place], [address] , [place] - [facility] & [place] 3 13:37:41 Skin lesion 19159401 Active 2022 Christine Boyd NP [address], [address], [place], [address] , [place] - [facility] - [facility] & [place] 3 13:38:29 Atrial fibrillation 89951089 Active 2024 Mirna Garciai null, [place] - [facility] - [facility] & [place] 5 10:13:28 Diverticular disease 359107993 Active 2024 Christine Boyd NP [address], [address], [place], [address] , [place] - [facility] - [facility] & [place] 5 15:22:39 Problem Notes None recorded. Procedures Surgical History Date Name Laterality Status Provider Name and Address Organization Details Recorded Time 07/21/20 24 Colonoscopy completed Isaura Mckinney [place] - [facility] - [facility] & [place] 07/27/2024 08:15:55 12/16/19 21 Unlisted px cardiac surgery completed Mirna Pardini [place] - [facility] - [facility] & [place] 09/02/2022 15:03:45 12/01/19 18 cholecystectomy completed Mirna Pardini [place] - [facility] - [facility] & [place] 09/02/2022 15:02:02 12/01/19 18 colonoscopy completed Mirna Pardini [place] - [facility] - [facility] & [place] 09/02/2022 15:03:12 Partial hysterectomy completed [facility] & [place] 09/02/2022 15:01:35 ligation of bilateral fallopian tubes completed [facility] [place] & [place] 09/02/2022 15:01:49 Imaging Results None recorded. Procedure Notes None recorded. Medical Equipment None Reported. Allergies Allergen ID Allergen Name Allergen Category Reaction Reaction Severity Criticality Documentation Date Start Date Code Code System Note Provider Name and Address Organization Details Recorded Time 740528 spironola ctone medicatio n hives moderate Not available 07/21/2024 9997 RxNorm Doris Nelda [facility] & [place] 4 11:43:51 39046 atorvasta tin medicatio n myalgias (muscle pain) other moderate moderate high 09/02/2022 71713 RxNorm decre ases kidne y funct ion [facility] & [place] 2 14:54:24 Medications Name Sig Start Date [...] completed Not Available Not Available Not Available fexofenadin e 180 mg tablet TAKE 1 TABLET 1 TIME EACH DAY active Not Available Not Available No t Available Kenalog 40 mg/mL suspension for injection [...] INHALE 2 PUFFS EVERY 4 HOURS NEEDED 07/06 completed Not Available Not Available Not Available Spiriva with HandiHaler 18 mcg and inhalation capsules INHALE THE CONTENTS OF 1 CAPSULE 1 TIME EACH DAY USING THE HANDIHALE R active Not Available Not Available No t Available fexofenadin e-pseudoeph edrine ER 180 mg-240 mg tablet,ext. release 24 hr Take 1 tablet every day by oral route. 01/22 completed Not Available Not Available Not Available levalbutero l HFA 45 mcg/actuati on aerosol inhaler INHALE 2 PUFFS EVERY 6 HOURS NEEDED FOR SHORTNESS OF BREATH OR WHEEZING active Not Available Not Available No t Available fenofibrate nanocrystal lized 48 mg tablet [...] completed Not Available Not Available Not Available Sentry 18 mg-400 mcg tablet TAKE [...] Updated DateTime 5 162.56 cm 41.2 kg/m2 492299. 45 g 97.8 [degF] 100 % 100 % 63 /min 16 /min 151/87 mm[Hg] Mirnanedra V[place] - [facility] 5 09:00:05 Date Recorded Body height Body mass index (BMI) Body weight Body temperature Oxygen saturation Oxygen saturation in Arterial blood by Pulse oximetry Heart rate Respiratory rate Systolic And Diastolic Provider Name and Address Organization Details Last Updated DateTime 5 162.56 cm 41.4 kg/m2 614350. 2 g 97.9 [degF] 97 % 97 % 52 /min 16 /min 116/57 mm[Hg] Mirna Emery [place] - [facility] 5 10:12:48 Date Recorded Body height Body mass index (BMI) Body weight Body temperature Oxygen saturation Oxygen saturation in Arterial blood by Pulse oximetry Heart rate Respiratory rate Systolic And Diastolic Provider Name and Address Organization Details Last Updated DateTime 5 162.56 cm 41.4 kg/m2 839045. 48 g 97.7 [degF] 98 % 98 % 58 /min 16 /min 135/75 mm[Hg] Mirna Emery [facility] & [place] 5 09:37:32 Date Recorded Body height Body mass index (BMI) Body weight Body temperature Oxygen saturation Oxygen saturation in Arterial blood by Pulse oximetry Heart rate Provider Name and Address Organization Details Last Updated DateTime 5 162.56 cm 42.4 kg/m2 315527. 6 g 97.9 [degF] 97 % 97 % 53 /min Sena Dayanna [facility] & [place] 5 12:13:13 Date Recorded Body height Body mass index (BMI) Body weight Body temperature Oxygen saturation Oxygen saturation in Arterial blood by Pulse oximetry Heart rate Respiratory rate Systolic And Diastolic Provider Name and Address Organization Details Last Updated DateTime 5 162.56 cm 42.4 kg/m2 736478. 32 g 98.2 [degF] 96 % 96 % 56 /min 18 /min 139/77 mm[Hg] Cristhian Heredia [facility] & [place] 5 14:53:56 Social History Question Answer Notes LastModified by Organizat ion Details LastModified Time Tobacco Smoking Status Current Every Day Smoker Mirna Emery [facility] & [place] 09/02/2022 15:01:18 Do You Have An Advance [...] not available 12/26/2023 Are you able to walk independently without assistance or assistive devices? YESWOREST Information not available 12/26/2023 Do you have difficulty doing errands alone? No Information not available 12/26/2023 Are you able to care for yourself independently? Yes Information not available 12/26/2023 Do you have difficulty dressing, bathing, grooming, or toileting? No Information not available 12/26/2023 What is your exercise level? Occasional Information not available 12/26/2023 Mental Status Question Answer Note LastModified by Organizat ion Details LastModified Time Do you feel stressed (tense, restless, nervous, or anxious, or unable to sleep at night)? [id number] Information not available 12/26/2023 Do you have [...] completed Mirna Pardini null, [place] - [facility] & [place] 09/26/2022 14:52:16 Influenza, split virus, quadrivalent, PF 1 completed Mirna Pardini [place] [facility] & [place] 09/26/2022 14:52:16 Influenza, split virus, quadrivalent, PF 0 completed Mirna Pard[place] [facility] & [place] 09/26/2022 14:52:16 COVID-19, mRNA, LNP-S, PF, 100 mcg/0.5mL dose or 50 mcg/0.25mL dose 1 completed Mirna Pardini [place] [facility] & [place] 09/26/2022 14:52:16 COVID-19, mRNA, LNP-S, PF, 100 mcg/0.5mL dose or 50 mcg/0.25mL dose 1 completed Mirna Pardini [place], [place] [facility] [place] & [place] 09/26/2022 14:52:16 COVID-19, mRNA, LNP-S, PF, 100 mcg/0.5mL dose or 50 mcg/0.25mL dose 1 completed Mirna Pard[place] [facility] & [place] 09/26/2022 14:52:16 Influenza, split virus, quadrivalent, PF 2 completed Mirna Pardini [place] [facility] [place] & [place] 09/26/2022 14:52:16 Influenza, split virus, quadrivalent, PF 3 completed Dave Alfaro MD [address] [place] [address], [address], [place] [facility] [place] & [place] 08/13/2023 12:51:38 Pneumococcal Conjugate, unspecified formulation 4 completed Doris Lutz [place], [place] [facility] [place] & [place] 07/21/2024 11:42:33 Influenza, split virus, trivalent, PF 4 completed Mirna Zelayacecilia [place] [facility] [place] & [place] 10/27/2024 11:25:14 Influenza, split virus, trivalent, preservative 5 completed Cristhian Heredia [place] [facility] [place] & [place] 08/26/2025 11:36:37 Pneumococcal conjugate PCV21, polysaccharide [id number] conjugate, PF 5 completed Cristhian Heredia null, [place] - [facility] - [place] & [place] 08/26/2025 11:38:18 Past Encounters Encounter ID Performer Location Encounter Start Date Encounter Closed Date Diagnosis/Indication Diagnosis SNOMED-CT Code Diagnosis ICD10 Code Diagnosis IMO Codes Diagnosis Note [id number] Dave Alfaro MD [address] [address] 09/10/2022 09:16:50 09/10/2022 11:05:37 Acute pharyngitis 491353918 J02.9 patient has been advised to change her toothbrush and gargle with salt water. Will put her on Augmentin. I will also give her a prescripti on for some fexofenadi ne. Chronic ob structive pulmonary disease 03997231 J44.9 Asthma 726175282 J45.90 9 stable Dyslipidemia 822487531 E 78.5 stable Essential hypertension 97644030 I10 Gastroesop hageal reflux disease 744583143 K21.9 Stable [id number] Dave Alfaro MD [address] [address] 09/26/2022 14:20:04 09/26/2022 15:22:45 Dyslipidemia 295657323 E78.5 stable Essential hypertension 79171581 I10 controlled Hypothyroidism 15605904 E03.9 will start patient on levothyrox ine. Will recheck her labs in 3 months End-stage renal disease 00991021 N18.6 patient's kidney function is indeed compromise d. Will refer her to Nephrology . I have instructed her to stop her furosemide . She insists that she will continue to take 1 tablet a day instead of 2. [id number] MD humera [address] [address] 01/01/2023 10:50:42 01/01/2023 12:29:59 Chronic obstructive pulmonary disease 58009259 J44.9 Controlled Dyslipidemia 376831586 E 78.5 stable Will check lab work today. End-stage renal disease 71110537 N18.6 Patient is being seen by Nephrology . Will obtain lab work today. Essential hypertension 30522618 I10 controlled Hypothyroidism 09114937 E03.9 will start patient on levothyrox ine. Will recheck her labs in 3 months Obstructiv e sleep apnea syndrome 76595978 G47.33 patient has had sleep study at [facility]. She is awaiting an appointmen t with the pulmonolog ist over the to figure out her CPAP settings. [id number] MD humera [address] [address] 02/12/2023 14:03:35 02/12/2023 14:46:10 Breast lump 62211870 N63.0 will obtain mammogram [id number] MD humera [address] [address] 03/03/2023 09:58:58 03/03/2023 11:04:22 Allergic rhinitis 76924379 J30.9 patient to get a shot of steroids today. Will put her on a Medrol Dosepak and start her on Katherine D. Patient has been instructed to continue to monitor blood pressure. She has been instructed to follow-up as needed. [id number] MD humera [address] [address] 03/27/2023 10:46:13 03/27/2023 11:15:16 Pain of left calf [id number] 641110 M79.662 Will send patient to the hospital for Doppler studies. Hypothyroidism 31661348 E03.9 patient requests Synthroid. She states she reacts to levothyrox ine. [id number] Christine Boyd NP [address] [place] [address] 05/28/2023 12:56:04 05/28/2023 13:34:23 Gastro-esophageal reflux disease with esophagitis 806747185 K21.00 controlled with use of pantoprazo le 40 mg of famotidine 40 mg HS. Will send refills today. Recommend continued reflux precaution s as well as weight loss. Diarrhea 24665998 R19.7 Continues colestipol for treatment diarrhea. Recently experienci ng episodes of constipati on after change of medication . I have suggested colestipol 1 mg 1 tablet daily at this time, may consider BID dosing based on symptoms. [id number] Dave Alfaro MD [address] [place] [address] 08/13/2023 11:13:05 08/13/2023 11:45:38 Influenza vaccine needed 6260798108 106 Z23 [id number] Dave Alfaro MD [address] [place] [address] 11/17/2023 11:28:06 11/17/2023 11:56:17 Congestion of nasal sinus 35219609 R09.81 Headache 59785259 R51.9 Subacute headaches and sinus tenderness . Will obtain CT scans today. We moises call pt with results [id number] Dave Alfaro MD [address] [place] [address] 12/26/2023 10:39:05 12/26/2023 11:25:44 Adult health examination 849154042 Z00.00 Allergic rhinitis 396595 04 J30.9 PATIENT CONTINUES TO SUFFER FROM SEVERE ALLERGY SYMPTOMS. WILL REFER PATIENT TO AN LOGISTICS MANAGER FOR ALLERGY TESTING. Asthma 505628915 J45.90 9 stable Dyslipidemia 982783879 E 78.5 stable Will check lab work today. Essential hypertension 29439667 I10 Continue with current regimen. patient is yet to take medication s this morning. Hypothyroidism 76430797 E03.9 will obtain lab work today. [id number] Dave Alfaro MD [address] [place] [id number] 01/07/2024 10:24:39 01/09/2024 12:36:02 Respiratory tract congestion and cough 922163800 R05.1 COVID-19 316771079 U07.1 will treat patient with Paxlovid. She has been advised to stop her statin at this time. [id number] Dave Alfaro MD [address] [place] [address] 01/22/2024 11:47:48 01/22/2024 12:32:01 Chest pain 83702972 R07.9 patient has been advised to follow-up with her cardiologi st regarding her chest pain. Essential hypertension 68191339 I10 Please reduce your blood pressure medication . Take half a losartan 50 mg tablet for now. Asthma 626035594 J45.90 9 stable [id number] Christine Boyd NP [facility] [address] [place] [address] [place] [address] 05/26/2024 12:50:52 05/26/2024 14:54:37 History of polyp of colon 127103906 Z86.010 last colonoscop y 10/[address] Pearce multiple colon polyps resected. Due for repeat colonoscop y for surveillan ce. She will need cardiac clearance, Dr. Tyler, prior to scheduling . Gastro-eso phageal reflux disease with esophagitis 309347681 K21.00 Continues famotidine 40 mg HS due to CKD. Will send refills today. Recommend continued reflux precaution s as well as weight loss. Diarrhea 55644374 R19.7 Continues colestipol for treatment diarrhea. Will send refills today. [id number] Dave Alfaro MD [address] [place] [address] 07/29/2024 11:43:33 07/29/2024 11:57:50 Cigarette smoker 05830706 F17.210 Asthma 734967237 J45.90 9 stable Dyslipidemia 116557343 E 78.5 stable Will check lab work today. End-stage renal disease 22221612 N18.6 Patient is being seen by Nephrology . Will obtain lab work today. Essential hypertension 41231156 I10 Please reduce your blood pressure medication . Take half a losartan 50 mg tablet for now. Hypothyroidism 44143154 E03.9 will obtain lab work today. Hypomagnesemia 247265752 E83.42 [id number] Dave Alfaro MD [address] [place] [address] 10/27/2024 11:11:19 10/27/2024 11:53:25 Decreased renal function 99891491 R94.4 Rechecking labs today. Her labs inJuly were suggestive of stage 3 CKD with a GFR of 48. However she states she was cleared by the nephrologi . Paroxysmal atrial fibrillation 171194631 I48.0 Following with cardiology , she goes back in 2 weeks. She states there has been no conversati on of a pacemaker. Essential hypertension 25069087 I10 Thyroid di sorder screening 650908858 Z13.29 Rechecking today Hyperlipidemia 44704715 E78.5 Rechecking today [id number] JOSE ALEJANDRO GILBERT, MICHAELA [address] [place] [address] 11/03/2024 14:01:51 11/03/2024 14:08:48 Hyperkalemia 17720911 E87.5 blood drawn in the right AC by Mirna Emery CMA, patient tolerated well. [id number] Dave Alfaro MD [address] [place] [address] 01/24/2025 08:51:45 01/24/2025 09:18:15 Dyslipidemia 727497545 E78.5 stable Will check lab work today. End-stage renal disease 11436477 N18.6 Patient is being seen by Nephrology . Will obtain lab work today. Essential hypertension 53541987 I10 Hypothyroidism 09607426 E03.9 will obtain lab work today. Diabetes m ellitus screening 467596722 Z13.1 will check A1c today. [id number] Dave Alfaro MD [address] [place] [address] 03/22/2025 09:27:41 03/22/2025 10:52:43 Atrial fibrillation 81299854 I48.91 [id number] Patient is under the care of cardiology . due to patient's symptomato logy I have advised her to follow-up with her cardiologi st today. Her sister who brings her to the clinic states they will go straight to her cardiologi st's office. Chronic ob structive pulmonary disease 37626447 J44.9 COPD appears to be stable at this time. Essential hypertension 72152069 I10 Hypertensi on appears to be controlled . [id number] Dave Alfaro MD [place] [address] [facility] [place] [address] 08/31/2025 14:40:44 08/31/2025 15:21:06 Cigarette smoker 32651188 F17.210 will order LDCT scan if due Essential hypertension 01866038 I10 suboptimal blood pressure control. Patient has been instructed to monitor her blood pressure. Take her medication as prescribed . Renal impairment 8865716 03 N28.9 [id number] patient has an appointmen t to see her nephrologi st tomorrow. [id number] Vito Pearce M.D [facility] [address] [place] [address] [place] [address] 07/06/2025 11:54:17 07/06/2025 13:04:28 Gastro-esophageal reflux disease with esophagitis 597207268 K21.00 Continues famotidine 40 mg due to history CKD. Will send refills today. Recommend continued reflux precaution s as well as weight loss. Diarrhea 23278342 R19.7 Controlled with use of colestipol . We will send refills today. Diverticular disease 397 778902 K57.90 74406 moderate diverticul osis noted on colonoscop y 07/2024. I have recommende d high-fiber diet. History of polyp of colon 630790630 Z86.0100 9041653 Personal history colon polyps on last colonoscop y 2018. Colonoscop y completed 07/2024 with diverticul osis and internal hemorrhoid s noted. Due for repeat colonoscop y 07/2031 for surveillan ce. [id number] Dave Alfaro MD [place] [address] [facility] [place] [address] 06/07/2025 09:19:18 06/07/2025 10:13:16 Thrombophlebitis of superficial vein of right upper limb 9533690017 4894776 I80.8 92365601 I have told patient that her blood clot will resolve spontaneou sly. She should continue to use a heating pad. And take anti-infla mmatory Atrial fibrillation 4943 6004 I48.91 38236921 patient is currently on Eliquis secondary to atrial fib. She appears to be stable at this time. Chronic ob structive pulmonary disease 85302711 J44.9 COPD appears to be stable at this time. Essential hypertension 44700586 I10 Good blood pressure control. Health Concerns Section Related Observation LastModified by Organization Detai ls LastModified Time None Recorded Concern Status LastModified by Organization Details LastModified Time None Recorded Advance Directives Directive N: Payers Insurance Date Sequence Insurance Name Policy Number Policy Araujo Covered Member ID Araujo Member ID Guarantor Name 08/31/2025 1 [facility] [facility] [id number] Leonardo A Abhi [id number] Leonardo A [place] 09/01/2025 1 [facility] [place] (MED[place]PLAC[place] - [place] Leonardo A [place] [id number] Leonardo A Abhi 08/31/2025 1 [place] [id number] Leonardo A [place] [id number] Leonardo A Phoenix 05/25/2020 1 UNSPECIFIED REMIT PAYOR Leonardo A [place] Notes Date Note Type Note Provider Name and Address Organization Details Recorded Time 01/24/2025 text/html PT PRESENTS FOR CHRONIC CARE MANAGEMENT, DENIES ANY NEW ISSUES. IS COMPLIANT WITH MEDICATIONS Dave Alfaro MD [address] [facility], [place], [address], [facility] & [place] 01/24/2025 09:32:00 03/22/2025 text/html ROS as noted in the HPI patient presents today to follow-up from hospital admission. Patient was admitted to [facility] due to atrial fib and AVR. She also was complaining of dizziness. And extreme fatigue. Patient also reports some near syncopal episodes. Patient appears to be stable at this time. She has awaiting an appointment at [facility]. Dave Alfaro MD [address] [place], [address], [facility] & [place] 03/22/2025 11:05:05 06/07/2025 text/html ROS as noted in the HPI patient presents today for hospital follow-up. She was seen in the hospital emergency department on 06/03/2025 and diagnosed with a blood clot in her right upper extremity. She has requesting a referral to vascular surgery Dave Alfaro MD [address] [place] [address], [address], [facility] & [place] 06/07/2025 10:02:04 07/06/2025 text/html ROS as noted in the HPI Patient returns to clinic today for follow-up on GERD and diarrhea. She continues famotidine for treatment of GERD. Diarrhea continues to be well controlled with use of colestipol. Colonoscopy 07/2024 with moderate diverticulosis noted as well as internal hemorrhoids. Due for repeat colonoscopy07/2031 for surveillance. She continues to follow with Cardiology, Dr. Tyler, d/t hx of a-fib. She continues to follow with Nephrology. Christine Boyd NP [address] [place] [address], [address], [place], [address], [facility] & [place] 07/06/2025 15:24:53 08/31/2025 text/html ROS as noted in the HPI patient presents for 3 month follow-up. She has a history of hypertension, atrial fib, dyslipidemia, hypothyroidism, Dave Alfaro MD [address] [facility], [place], [address], [facility] & [place] 08/31/2025 15:16:53 OBGyn Episode No OBEpisode recorded.
--- OUTSIDE RECORDS SUMMARY | 2025-09-05 10:57 | XMS_ITS | Encounter Summary ---
[facility] [address] [place] [address] Care Team Providers Care Kitchen Porter Name Role Phone Dave Arriola MD Primary Care Provider [phone] Encounter Details Date Type Department Care Team (Latest Contact Info) Description 08/22/2025 Travel Social History Tobacco Use Types Packs/Day Years Used Date Smoking Tobacco: Every Day Cigarettes Passive Smoke Exposure: Past Smokeless Tobacco: Never Alcohol Use Standard Drinks/Week Comments Never 0 (1 standard drink = 0.6 oz pur e alcohol) [facility] Utilities Answer Date Recorded In the past 12 months has [employer] electric, gas, oil, or water company threatened [...] care, and heating? Not very hard 05/31/2025 Citizen Of [place] [facility] Occupat ional Health - Occupational Stress [...] GED or equivalent No 05/31/2025 Preferred Language Haitian 05/31/2025 PHQ-2 Answer Date Recorded Patient Health [...] Description 12/15/2025 11:30 AM EST Office Visit [facility] [address] [facility] [address] [address] [place] [address] Charles Florence MD [address] [facility] [address] [place] [address] 06/15/2026 11:30 AM EDT Office Visit [facility] [address] [facility] [address] [place] [address] Charles Florence MD [address] [facility] [address] [place] [address] documented as of this encounter Visit Diagnoses Not on filedocumented in this encounter Care Teams Kitchen Porter Relationship Specialty Start Date End Date Dave Arriola MD [address] [place] [address] PCP - General Emergency Medicine 04/07/25 documented as of this encounter
--- OUTSIDE RECORDS SUMMARY | 2025-09-05 10:57 | XMS_ITS | Continuity of Care Document ---
Author Organization [facility] Address [address] [address] Care Team Providers Care Licensed Tax Consultant Name Role Phone CHRISTINE BOYD Director Surgical [phone] DAVE ALFARO Primary Care Provider [phone] Assessment Encounter Date Assessment Date Assessment LastModified by Organization Details LastModified Time 08/31/2025 08/31/2025 PATIENT TO CONTINUE WITH CURRENT MANAGEMENT. WE HAVE HAD EXTENSIVE DISCUSSIONS REGARDING CHRONIC ISSUES. WILL CALL PATIENT TO DISCUSS RESULTS OF LAB WORK AND MAKE PLANS BASED ON FINDINGS. [email or web address] Not available 08/31/2025 14:53:43 Plan of Treatment Reminders Order Date Submit Date Provider Last Modified By Organization Details Last Modified Time Details Appointments OV EST 15 2025 11:30A M Christine Boyd NP Not available Not available Not available Lab None recorded. Referral None recorded. Procedures None recorded. Surgeries None recorded. Imaging LDCT, chest, for lung cancer screening [address] Centralized Scheduling, [address] [place] [address] [place], [address], 09/03/2025 08:28:05 Medication Orders None recorded. Patient TargetsNo targets recorded. Patient InstructionsNo instructions recorded. Reason for Referral None Reported. Results Created Date Observation Date Name Description Value Unit Range Abnormal Flag Note LastModifiedBy Organization Detail LastModifiedTime 08/16/2008/16/2025 MAMMO , scree erlinda, digit al, bilat eral [facility] [address] [place] [address] Phone: Fax: Name: CINDY ANDERSEN Exam Date: 025 : [birth year] Age 59 years Gender : F Access ion: [id number] Physic kelly: HARESH ALFARO NDE Fac[place]: [facility] [place] HSV: Outpat ient Exam: AFSHIN [...] Mannie Elena 025 Thank you for referr CINDY Osullivan to [facility] Hospit [facility]. Legall y authen ticate d by LAY VALDERRAMA MD 08-16 14:58: 51 CC'ed Logic: Orderi ng Provid er: SOKAN BABATU NDE CC Provid er: SOKAN BABATU NDE Attend ing Provid er: SOKAN BABATU NDE Referr ing Provid er: SOKAN BABATU NDE Admitt ing Provid er: SOKAN BABATU NDE [facility] (Radiology) [address] [place] [address], [place], [address], 08/16/2025 16:40:21 Result Notes None recorded. Problems Name Problem SNOMED Code Status Onset Date Resolution Date Notes Provider Name and Address Organization Details Recorded Time Asthma 858106289 Active 2021 Mirna Pardini null, [place] [facility] [place] & [place] 2 14:54:38 Essential hypertension 44681217 Active 2021 Mirna Pard[place] [facility] [place] [facility] [place] 2 14:54:48 Paresthesia of upper limb 80330213 Active 2021 Mirna Pardini [place] [facility] [place] & [place] 2 14:55:14 Paresthesia 28662679 Active 2021 Mirna Pardini [place] [facility] & [place] 2 14:55:49 Gastroesophag eal reflux disease 732232425 Active 2021 Mirna Pardini [place] [facility] & [place] 2 14:56:01 History of polyp of colon 516438443 Active 2021 Mirna Pardini [place] [facility] [place] & [place] 2 14:56:14 Chronic obstructive pulmonary disease 39955651 Active 2021 Mirna Pard[place] [facility] [place] [facility] [place] 2 14:56:35 Diverticula of intestine 96999805 Active 2021 Mirna [place]ard[place] [facility] [place] & [place] 2 14:56:50 Obstructive sleep apnea syndrome 52431729 Active 2021 Mirna [place] [facility] [place] 2 14:57:03 Dyslipidemia 011302075 Active 2021 Mirna [place]ard[place] [facility] [place] 2 14:57:18 Left heart failure 90290295 Active 2021 Mirna [place] [facility] [place] [facility] [place] 2 14:57:28 Normal grief reaction 992281259 Active 2021 Imrna Pardini [place] [facility] [place] & [place] 2 14:57:41 Hypothyroidis m 11368804 Active 2021 Dave Alfaro MD [address] [place] [address], [phone] , [place] [facility] [place] & [place] 2 15:55:50 End-stage renal disease 32372050 Active 2021 Dave Alfaro MD [address] [place] [address], [phone] , [place] [facility] [place] & [place] 2 15:57:04 Allergic rhinitis 40560573 Active 2021 Mirna Pardini [place] [facility] [place] & [place] 2 16:16:04 Gastro-esopha geal reflux disease with esophagitis 943610703 Active 2022 Christine Boyd NP [address] [place] [address] Drive, [address], [place], [address] , [place] [facility] [place] & [place] 3 13:37:34 Diarrhea 41725182 Active 2022 Christine Boyd NP [address], [address], [place], [address] , [place] [facility] & [place] 3 13:37:41 Skin lesion 57464552 Active 2022 Christine Boyd NP [address], [address], [place], [address] , [place] [facility] [place] & [place] 3 13:38:29 Atrial fibrillation 38475552 Active 2024 Mirna Pardini null[place] [facility] [place] & [place] 5 10:13:28 Diverticular disease 550550474 Active 2024 Crhistine Boyd NP [address], [address], [place], [address] , [place] [facility] & [place] 5 15:22:39 Problem Notes None recorded. Procedures Surgical History Date Name Laterality Status Provider Name and Address Organization Details Recorded Time 07/21/20 24 Colonoscopy completed Isaura Mckinney [place] [facility] [place] & [place] 07/27/2024 08:15:55 12/16/19 21 Unlisted px cardiac surgery completed Mirna Pardini [place] [facility] [place] & [place] 09/02/2022 15:03:45 12/01/19 18 cholecystectomy completed Mirna [place]ardini [place] [facility] [place] & [place] 09/02/2022 15:02:02 12/01/19 18 colonoscopy completed Mirna [place]ardini [place] [facility] [place] & [place] 09/02/2022 15:03:12 Partial hysterectomy completed Mirna [place]ardini [place] [facility] [place] [facility] [place] 09/02/2022 15:01:35 ligation of bilateral fallopian tubes completed Mirna Pardini [place] [facility] [place] & [place] 09/02/2022 15:01:49 Imaging Results None recorded. Procedure Notes None recorded. Medical Equipment None Reported. Allergies Allergen ID Allergen Name Allergen Category Reaction Reaction Severity Criticality Documentation Date Start Date Code Code System Note Provider Name and Address Organization Details Recorded Time 872248 spironola ctone medicatio n hives moderate Not available 07/21/2024 9997 RxNorm Doris Lutz [facility] & [place] 4 11:43:51 50012 atorvasta tin medicatio n myalgias (muscle pain) other moderate moderate high 09/02/2022 30887 RxNorm decre ases kidne y funct ion Mirna Emery [facility] & [place] 2 14:54:24 Medications Name Sig Start Date [...] and Address Organization Details Last Updated DateTime 162.56 cm 42.4 kg/m2 758285. 32 g 98.2 [degF] 96 % 96 % 56 /min 18 /min 139/77 mm[Hg] Cristhian Heredia [facility] & [place] 14:53:56 Social History Question Answer Notes LastModified by Organizat ion Details LastModified Time Tobacco Smoking Status Current Every Day Smoker [facility]na Mor[facility] [place] 09/02/2022 15:01:18 Do You Have An Advance [...] anxious, or unable to sleep at night)? EN9791-4 Information not available 12/26/2023 Do you have [...] Mir[place] [facility] [place] [facility] [place] 09/26/2022 14:52:16 Influenza, split virus, quadrivalent, PF 1 completed Mir[place] [facility] [place] 09/26/2022 14:52:16 Influenza, split virus, quadrivalent, PF 0 completed Mir[place] [facility] [place] 09/26/2022 14:52:16 COVID-19, mRNA, LNP-S, PF, 100 mcg/0.5mL dose or 50 mcg/0.25mL dose 1 completed Mirna [place]ard[place] [facility] [place] 09/26/2022 14:52:16 COVID-19, mRNA, LNP-S, PF, 100 mcg/0.5mL dose or 50 mcg/0.25mL dose 1 completed Mirna [place]ard[place] [facility] [place] 09/26/2022 14:52:16 COVID-19, mRNA, LNP-S, PF, 100 mcg/0.5mL dose or 50 mcg/0.25mL dose 1 completed Mirna [place]ard[place] [facility] [place] 09/26/2022 14:52:16 Influenza, split virus, quadrivalent, PF 2 completed Mir[place] [facility] [place] 09/26/2022 14:52:16 Influenza, split virus, quadrivalent, PF 3 completed Dave Alfaro MD [address] [place] [address], [phone], [place] [facility] [place] & [place] 08/13/2023 12:51:38 Pneumococcal Conjugate, unspecified formulation 4 completed Doris Lutz [place] [facility] [place] 07/21/2024 11:42:33 Influenza, split virus, trivalent, PF 4 completed Mirna [place] [facility] [place] 10/27/2024 11:25:14 Influenza, split virus, trivalent, preservative 5 completed Cristhian Heredia [place] [facility] [place] 08/26/2025 11:36:37 Pneumococcal conjugate PCV21, polysaccharide [id number] conjugate, PF 5 completed Cristhian He[place]ia [place] [facility] [place] [facility] [place] 08/26/2025 11:38:18 Past Encounters Encounter ID Performer Location Encounter Start Date Encounter Closed Date Diagnosis/Indication Diagnosis SNOMED-CT Code Diagnosis ICD10 Code Diagnosis IMO Codes Diagnosis Note [id number] Dave Alfaro MD [address] [place] [address] 08/31/2025 14:40:44 08/31/2025 15:21:06 Cigarette smoker 68536181 F17.210 will order LDCT scan if due Essential hypertension 54022287 I10 suboptimal blood pressure control. Patient has been instructed to monitor her blood pressure. Take her medication as prescribed . Renal impairment 6903666 03 N28.9 46400 patient has an appointmen t to see her nephrologi st tomorrow. Health Concerns Section Related Observation LastModified by Organization Detai ls LastModified Time None Recorded Concern Status LastModified by Organization Details LastModified Time None Recorded Payers Encounter Date Sequence Insurance Name Policy Number Policy Araujo Covered Member ID Araujo Member ID Guarantor Name 08/31/2025 1 [facility] ([facility]PLAC[place] - [place]) [id number] Tita Andersen [id number] Tita Andersen Notes Date Note Type Note Provider Name and Address Organization Details Recorded Time 08/31/2025 text/html ROS as noted in the HPI patient presents for 3 month follow-up. She has a history of hypertension, atrial fib, dyslipidemia, hypothyroidism, Dave Alfaro MD [address] [facility], [place], [address], [place] [facility] [place] [facility] [place] 08/31/2025 15:16:53 OBGyn Episode No OBEpisode recorded.
[2025-09-05 11:49] LABS: Anion Gap 12.5 mEq/L (5-15); Blood Urea Nitrogen 14 mg/dl (7-17); Calcium 9.0 mg/dl (8.4-10.2); Carbon Dioxide 27 mmol/L (22.0-30.0); Chloride 107 mmol/L (98-107); Creatinine,Serum 1.10 mg/dl (0.52-1.04); Estimated Glomerular Filt Rate 51 ml/min (>60); GFR (African American) 62 ML/MIN (>60); Glucose 101 mg/dl (74-100); Potassium 4.5 mmoL/L (3.5-5.1); Sodium 142 mmol/L (136-145)
== END 2025-09-05 23:59 | disposition home or self-care (01) ==
LOC: LAB 10:54
PROVIDERS: PCP Emergency Medicine; Visit Provider Internal Medicine
DX: E78.5 Hyperlipidemia, unspecified (principal); I10 Essential (primary) hypertension
CPT/HCPCS: 36415; 80048